=== PATIENT | female | born 1975 | race African-American/Black ===

== ENCOUNTER 2020-05-06 16:04 | Emergency (ER) | payer OTHER, SELFPAY ==
--- NOTE | 2020-05-06 | XR_ITS ---
EXAMINATION: XR KNEE, RIGHT CLINICAL INFORMATION: History knee while going up stairs. COMPARISON: None TECHNIQUE: Four views of the right knee. FINDINGS: No displaced fracture. Alignment is preserved. Some bony spurring at the tibial tuberosity. There is a small joint effusion. XR/XR knee RT 4V IMPRESSION: Small joint effusion. No acute fracture.
[2020-05-06 16:25] VITALS: BP 121/84; PULSE 80; RESP 18; TEMP 36.4; O2SAT 100; BMI 38.6
--- NOTE | 2020-05-06 17:55 | ED.LOWEXIN ---
HPI - Extremity Injury (Lower) General Chief Complaint: Extremity Injury, Lower Stated Complaint: Knee pain Time Seen by Provider: 05/06/20 17:55 History of Present Illness HPI Narrative: Patient complains of right knee pain after falling and twisting and hitting her knee 2 weeks ago and it is still very painful to walk on and she has difficulty getting up and down from a chair, no fever no chills no numbness no weakness no tingling, pain is mild at rest and moderate with ambulation Related Data Previous Rx's Medication Instructions Recorded ibuprofen 600 mg PO Q6H PRN #20 tab 05/06/20 Allergies Allergy/AdvReac Type Severity Reaction Status Date / Time No Known Allergies Allergy Verified 05/06/20 16:24 [No Known Allergies*] Review of Systems Review of Systems: There is no numbness no weakness no tingling no laceration no skin rash no head injury no neck pain no dizziness no weakness no fever no chills Yes all other systems are reviewed and are negative [facility] Past Medical History Medical History (Updated 05/06/20 @ 19:27 by ALEYDA Lea) Asthma Social History Social History Advance Directives: No Advance Directives Information Provided: No Physical Exam Vital Signs: Vital Signs: Last Vital Signs Temp 97.6 F 05/06/20 16:25 Pulse 80 05/06/20 16:25 Resp 18 05/06/20 16:25 BP 121/84 05/06/20 16:25 Pulse Ox 100 05/06/20 16:25 Body Mass Index 38.6 Normocephalic, atraumatic Neck is supple nontender Respiratory no distress Right knee is mildly swollen, no obvious effusion, it flexes almost to 90 degrees extends to 180, the patient can do a straight leg raise, no evidence of injury to patellar or quadriceps tendon, it is not red or warm, the skin is intact and neurovascular intact distal Skin no rashes Course Course Course Narrative: Right knee x-ray showed a small effusion per Radiology report and no acute fracture Patient is discharged to follow-up with orthopedics Discharge Plan Discharge Clinical Impression: Right knee sprain Qualifiers: Encounter type: initial encounter Involved ligament of knee: unspecified ligament Qualified Code(s): S83.91XA - Sprain of unspecified site of right knee, initial encounter Patient Disposition: Home, Self-Care Instructions: Knee Sprain (ED) Additional Instructions: No broken bone was seen on the x-ray Follow with orthopedist for further evaluation Prescriptions: New ibuprofen 600 mg tablet 600 mg PO Q6H PRN (Reason: pain) Qty: 20 RF: 0 Referrals: Mario Miranda MD [Physician] - 1 week (Right knee pain and swelling for 2 weeks after injury) Interventions: ED Discharge Assessment Last Done: 05/06/20 19:37 Discharge Date/Time: 05/06/20 19:38
== END 2020-05-06 19:38 | disposition home or self-care (01) ==
PROVIDERS: Emergency Provider Internal Medicine; PCP Registered Nurse
DX: S83.91XA Sprain of unspecified site of right knee, initial encounter (principal); M25.561 Pain in right knee; X50.1XXA Overexertion from prolonged static or awkward postures, initial encounter; Y93.01 Activity, walking, marching and hiking; Y92.9 Unspecified place or not applicable; Y99.9 Unspecified external cause status
CPT/HCPCS: 73564; 99283

== ENCOUNTER → 2020-05-21 13:17 | Outpatient (BNVA) | payer MEDICAID, OTHER, SELFPAY | PROVIDERS: Visit Provider Physician Assistant | DX: M22.2X9 Patellofemoral disorders, unspecified knee (principal) | CPT/HCPCS: 99202 ==

== ENCOUNTER 2020-06-04 20:39 | Emergency (ER) | payer MEDICAID, OTHER, SELFPAY ==
--- NOTE | 2020-06-04 | XR_ITS ---
EXAMINATION: XR CHEST CLINICAL INFORMATION: Wheezing COMPARISON: 08/03/2019 TECHNIQUE: Frontal view of the chest was obtained. FINDINGS: No significant abnormality is noted involving the heart, lungs, mediastinum, bony thorax or soft tissues. XR/XR chest 1V IMPRESSION: No acute intrathoracic disease.
[2020-06-04 21:04] VITALS: BP 144/81; PULSE 81; RESP 18; TEMP 36.6; O2SAT 99; BMI 38.6
--- NOTE | 2020-06-04 21:57 | ED.ASTHMA ---
HPI - Asthma General Chief Complaint: Asthma Stated Complaint: ASTHMA Time Seen by Provider: 06/04/20 21:50 Source: patient Mode of arrival: ambulatory Limitations: no limitations History of Present Illness HPI Narrative: Patient comes to the emergency room complaining of 1 week of asthma exacerbation. Patient denies fever, no chills, no cough. Patient states she ran out of her inhaler a few months ago, has not used any steroids or antibiotics. At this time, she does not feel significantly short of breath MD complaint: wheezing Related Data Previous Rx's Medication Instructions Recorded ibuprofen 600 mg PO Q6H PRN #20 tab 05/06/20 naproxen 500 mg tablet 500 mg PO BID 30 Days #60 tab 05/21/20 leg brace #1 ea 05/22/20 albuterol sulfate 2 puff INHALATION Q4-6H PRN #18 g 06/04/20 prednisone 50 mg PO DAILY #4 tab 06/04/20 Allergies Allergy/AdvReac Type Severity Reaction Status Date / Time No Known Allergies Allergy Verified 06/04/20 22:01 [No Known Allergies*] Review of Systems Review of Systems: Constitutional : No Weight loss, No Fever, No Chills, No Night Sweats, No Fatigue, No Malaise ENT/Mouth : No Hearing loss, No Ear Pain, No Nasal Congestion, No Sinus Pain, No Hoarseness, No sore throat, No Rhinorrhea, No Swallowing Difficulty Eyes: No Eye Pain, No Swelling, No Redness, No Foreign Body, No Discharge, No Vision Changes Cardiovascular : No Chest Pain, No SOB, No Dyspnea on Exertion, No Orthopnea, No Edema, No Palpitations Respiratory : No Cough, No Sputum, complaining of wheezing, very mild dyspnea occasionally but not this time Gastrointestinal : No Nausea, No Vomiting, No Diarrhea, No Constipation, No abdominal Pain, No Hematochezia, No Melena Genitourinary : no irregular bleeding, No Dysuria, No Urinary Frequency, No Hematuria, No Urinary Incontinence, No Urgency, No Flank Pain, No Urinary Flow Changes, No Hesitancy Musculoskeletal : No joint pain, No Myalgias, No Joint Swelling Skin : No Skin Lesions, No rash Neuro : No Weakness, No Numbness, No Paresthesias, No Loss of Consciousness, No Dizziness, No Headache Psych : No Anxiety/Panic, No Depression, No SI/HI/AH/VH, No Social Issues, Heme/Lymph: No Bruising, No Bleeding,No Lymphadenopathy Endocrine : No Polyuria, No Polydipsia, No Temperature Intolerance [facility] Past Medical History Medical History Asthma Social History Social History (Updated 05/21/20 @ 13:54 by David Payan PA-C) Alcohol intake: never Smoking Status: Never smoker Advance Directives: No Current occupational status: employed 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 Oriented X3. No acute distress. Eyes: Pupils equal, round and reactive to light. ENT: Pharynx normal. Neck: Normal inspection. Neck supple. No lymph nodes noted. No crepitus CVS: Normal heart rate and rhythm. Pulses normal. Normal S1 and S2 Respiratory: No respiratory distress. Very mild occasional wheeze in the right lung, not on the left, good air movement Abdomen: Soft and nontender. No rigidity. No distention. good BS x4 Skin: Skin warm and dry. Normal skin color. Normal skin turgor. Extremities: No lower extremity edema. No lower extremity edema. No Lacerations. No Rash Neuro: Oriented X 3. No motor deficit. No sensory deficit. Moving all extermities. No slurred speech. Course Course Course Narrative: I offered a nebulization treatment to the patient, patient declined, states that she will except the prednisone. Patient requesting a prescription for inhaler Discharge Plan Discharge Clinical Impression: Asthma Qualifiers: Asthma severity: unspecified severity Asthma persistence: unspecified Asthma complication type: uncomplicated Qualified Code(s): J45.909 - Unspecified asthma, uncomplicated Patient Disposition: Home, Self-Care Instructions: Asthma (ED) Additional Instructions: Please follow-up with your primary care physician tomorrow. If you have any worsening or new symptoms, please return to the emergency room or call 911 Prescriptions: New albuterol sulfate 90 mcg/actuation HFA aerosol inhaler 2 puff inhalation Q4-6H PRN (Reason: shortness of breath or wheezing) Qty: 18 RF: 0 prednisone 50 mg tablet 50 mg PO DAILY Qty: 4 RF: 0 No Action ibuprofen 600 mg tablet 600 mg PO Q6H PRN (Reason: pain) Qty: 20 RF: 0 naproxen 500 mg tablet 500 mg PO BID 30 Days Qty: 60 RF: 3 (DME) Knee Support Brace Misc See Rx Instructions .MEDSUPPLY Qty: 1 RF: 0 Stand Alone Forms: Work/School Release
[2020-06-04] MEDS: predniSONE 20 MG TABLET 60 MG PO (22:06)
== END 2020-06-04 22:14 | disposition home or self-care (01) ==
PROVIDERS: Emergency Provider Emergency Medicine
DX: J45.909 Unspecified asthma, uncomplicated (principal); Z79.899 Other long term (current) drug therapy
CPT/HCPCS: 71045; 99283; 99284

== ENCOUNTER 2020-08-27 09:02 | Outpatient (REF) | payer MEDICAID, OTHER, SELFPAY | END 2020-08-27 09:03 | disposition home or self-care (01) | LOC: HO.LAB 09:02 | PROVIDERS: Visit Provider Internal Medicine | DX: Z20.822 Contact with and (suspected) exposure to COVID-19 (principal) | CPT/HCPCS: 36415; C9803; U0003; U0005 ==

== ENCOUNTER 2021-02-19 08:53 | Outpatient (REF) | payer MEDICAID, OTHER, SELFPAY | END 2021-02-19 08:54 | disposition home or self-care (01) | LOC: HO.LAB 08:53 | PROVIDERS: Visit Provider Internal Medicine | DX: Z20.822 Contact with and (suspected) exposure to COVID-19 (principal) | CPT/HCPCS: C9803; U0003; U0005 ==

== ENCOUNTER 2021-04-09 12:48 | Outpatient (REF) | payer MEDICAID, SELFPAY ==
--- NOTE | ~2021-04-09 | US_ITS ---
EXAMINATION: US DIAGNOSTIC ULTRASOUND BREAST, RIGHT CLINICAL INFORMATION: Right breast lump/pain 11:00 position. COMPARISON: Mammography of same day as well as studies dating back to November 25, 2016. TECHNIQUE: Ultrasound of the breast is performed with real-time bateman scale imaging and color Doppler. FINDINGS: There is no focal suspicious finding. There is no solid mass, architectural abnormality, duct ectasia, or edema in the soft tissue planes. Results are discussed with the patient at time of visit. US/US breast RT limited IMPRESSION: No ultrasound findings to suggest malignancy. ASSESSMENT: BI-RADS 1: Negative RECOMMENDATION: Routine annual mammography screening due in 12 months. This patient's information was entered into a reminder system with a target due date for their next mammogram.
--- NOTE | ~2021-04-09 | MM_ITS ---
EXAMINATION: MM DIAGNOSTIC DIGITAL BREAST TOMOSYNTHESIS, BILATERAL Right breast ultrasound CLINICAL INFORMATION: Right breast pain The lifetime risk of breast cancer based on the Tyrer-Cuzick Model is 7%. COMPARISON: Mammography: May 26, 2019 and studies dating back to November 25, 2016 TECHNIQUE: Digital breast tomosynthesis is performed in both the craniocaudal and mediolateral oblique views along with computer-aided detection (CAD). Synthesized 2D images are generated from the tomosynthesis. Targeted right breast ultrasound FINDINGS: The breasts are almost entirely fatty (ACR BI-RADS breast composition Category a). There are no significant masses, abnormal calcifications, or other abnormalities. Since previous study the enlarging right breast mass about the lateral aspect was removed. No abnormal cystic or solid mass or region of abnormal distal sound shadowing was appreciated in region of lump/breast pain Results are discussed with the patient at time of visit. MM/MM tomosynthesis diagnostic BI IMPRESSION: No specific mammographic or ultrasound findings to suggest malignancy. ASSESSMENT: BI-RADS 1: Negative RECOMMENDATION: Routine annual mammography screening due in 12 months. This patient's information was entered into a reminder system with a target due date for their next mammogram.
== END 2021-04-09 12:49 | disposition home or self-care (01) ==
LOC: HO.MAMMO 12:48
PROVIDERS: Visit Provider Nurse Practitioner Primary Care
DX: N64.4 Mastodynia (principal)
CPT/HCPCS: 76642; 77062; 77066

== ENCOUNTER 2021-07-05 21:24 | Emergency (ER) | payer MEDICAID, SELFPAY ==
[2021-07-05 21:38] VITALS: BP 183/98; PULSE 87; RESP 18; TEMP 37.1; O2SAT 99; BMI 38.2
[2021-07-05 21:55] LABS: MANUAL DIFF FLAG NO
[2021-07-05 21:57] LABS: Basophils Percent Auto 0.5 % (0-2); Eosinophils Absolute Auto 0.3 X10*3/uL (0.0-0.4); Eosinophils Percent Auto 4.3 % (0-4); Hematocrit 35.8 % (37.0-47.0); Hemoglobin 11.4 g/dl (12.0-16.0); Imm Gran Abs Auto 0.01 X10*3/uL (0.00-0.03); Imm Gran Pct Auto 0.2 % (0.0-0.4); Lymphocytes Absolute Auto 2.4 X10*3/uL (1.2-4.9); Lymphocytes Percent Auto 37.5 % (20-40); Mean Corpuscular HGB Conc 31.8 g/dl (31.0-35.0); Mean Corpuscular Hemoglobin 26.1 pg (27.0-33.0); Mean Corpuscular Volume 82.1 fL (80.0-98.0); Mean Platelet Volume 10.3 fL (9.4-12.3); Monocytes Absolute Auto 0.7 X10*3/uL (0.1-1.2); Monocytes Percent Auto 10.9 % (2-11); Neutrophils Percent Auto 46.6 % (45-73); Platelet Count 317 X10*3/uL (160-400); Red Blood Count 4.36 X10*6/uL (4.20-5.50); Red Cell Distribution Width 16.3 % (11.0-16.0); White Blood Count 6.5 X10*3/uL (4.8-10.8)
[2021-07-05 22:18] LABS: Anion Gap 12 (12-20); Blood Urea Nitrogen 11 mg/dL (9-16); Calcium 9.1 mg/dL (8.4-10.2); Carbon Dioxide 26 mmol/L (22-29); Chloride 107 mmol/L (96-108); Creatinine Clr Calc Pharmacy 101.8; Estimated Glomerular Filt Rate > 60; Glucose Random 97 mg/dL (60-115); Potassium 3.8 mmol/L (3.3-5.1); Sodium 141 mmol/L (135-145)
[2021-07-05 22:19] LABS: COVID-19 Test Negative (Negative)
--- NOTE | 2021-07-05 23:50 | ED_ITS ---
HPI - General Adult General Chief complaint: General Medical Stated complaint: passed out around 1900 Time Seen by Provider: 07/05/21 23:50 Source: patient Mode of arrival: ambulatory History of Present Illness HPI narrative: This is a 46-year-old female who presents without any significant past medical history other than asthma and states that this evening at approximately 7:00 p.m. she had an episode of complete loss of vision in both eyes, this was painless in nature and was not associated with any dizziness, headache, nausea, diaphoresis, shortness of breath, chest pain/palpitations, changes in hearing/speech and she denies any numbness/tingling/weakness in any of her extremities. She denies any prodrome of recent fevers, chills, new cough or sore throat, recent travel, night sweats, unexplained weight loss. Related Data Previous Rx's Medication Instructions Recorded ibuprofen 600 mg tablet 600 mg PO Q6H PRN #20 tab 05/06/20 naproxen 500 mg tablet 500 mg PO BID 30 Days #60 tab 05/21/20 leg brace (Knee Support Brace) #1 ea 05/22/20 albuterol sulfate 90 mcg/actuation 2 puff INHALATION Q4-6H PRN #18 g 06/04/20 aerosol inhaler prednisone 50 mg tablet 50 mg PO DAILY #4 tab 06/04/20 Allergies Allergy/AdvReac Type Severity Reaction Status Date / Time No Known Allergies Allergy Verified 07/05/21 21:38 [No Known Allergies*] Review of Systems Review of Systems: Pertinent positives and negatives as stated in HPI 10 point review of systems otherwise negative. 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 GENERAL: Well developed, well nourished, in no acute distress. HEAD: Normocephalic/atraumatic EYES: PERRLA, EOMI intact without pain, no nystagmus; visual acuity without abnormality EARS: Ext canals without abnormality, TMs non-bulging and non-erythematous NOSE: Nares patent bilateral OROPHARYNX: no oral lesions noted, posterior pharynx clear NECK: Supple, no adenopathy LUNGS: Normal breath sounds with trace wheezing, no tachypnea No adventitious sounds or accessory muscle use. SpO2<98> CARDIOVASCULAR: Regular rate and rhythm without noted murmurs, no JVD or lower extremity edema. ABDOMEN: Soft, non-tender, non-distended with bowel sounds. MUSCULOSKELETAL: No tenderness, deformities, or effusions noted on gross inspection. EXTREMITIES: No cyanosis, clubbing or edema. SKIN: Inspection of the skin reveals no rashes NEUROLOGIC: Alert and oriented x 4. Strength and sensation to light touch were grossly intact x 4. Course Course Course Narrative: 46-year-old female with history and clinical presentation of transient bilateral visual loss without prior symptoms to better explain and not associated with any focal deficits. Patient has minimal past medical history other than asthma. Review of all investigations without acute findings when compared to prior. There is no evidence to suggest thyroid involvement and this is inconsistent with a pituitary lesion, inconsistent with venous thrombosis. All results were discussed with the patient bedside and she was strongly encouraged to follow up with the primary care provider on Wednesday morning to undergo re-evaluation further investigation/outpatient follow-up. It was noted the patient was hypertensive on arrival and does not carry the diagnosis of hypertension. Medical Decision Making Lab Data Result diagrams: 07/05/21 21:52 07/05/21 21:52 Labs: Lab Results 07/05/21 07/05/21 07/05/21 Range/Units 21:49 21:52 21:52 WBC 6.5 (4.8-10.8) X10*3/uL RBC 4.36 (4.20-5.50) X10*6/uL Hgb 11.4 L (12.0-16.0) g/dl Hct 35.8 L (37.0-47.0) % MCV 82.1 (80.0-98.0) fL MCH 26.1 L (27.0-33.0) pg MCHC 31.8 (31.0-35.0) g/dl RDW 16.3 H (11.0-16.0) % Plt Count 317 (160-400) X10*3/uL MPV 10.3 (9.4-12.3) fL Immature Gran % (Auto) 0.2 (0.0-0.4) % Neut % (Auto) 46.6 (45-73) % Lymph % (Auto) 37.5 (20-40) % Miner % (Auto) 10.9 (2-11) % Eos % (Auto) 4.3 H (0-4) % Baso % (Auto) 0.5 (0-2) % Lymph # (Auto) 2.4 (1.2-4.9) X10*3/uL Miner # (Auto) 0.7 (0.1-1.2) X10*3/uL Eos # (Auto) 0.3 (0.0-0.4) X10*3/uL Baso # (Auto) 0.0 (0.0-0.2) X10*3/uL Abs Immat Gran (auto) 0.01 (0.00-0.03) X10*3/uL Absolute Neuts (auto) 3.0 (2.0-8.3) x10*3/uL Absolute Nucleated RBC 0.000 (0.0-0.012) X10*3/uL Nucleated RBC % (auto) 0.0 (0.0-0.2) /100WBC Sodium 141 (135-145) mmol/L Potassium 3.8 (3.3-5.1) mmol/L Chloride 107 (96-108) mmol/L Carbon Dioxide 26 (22-29) mmol/L Anion Gap 12 (12-20) BUN 11 (9-16) mg/dL Creatinine 0.78 (0.5-1.4) mg/dL Estim Creat Clear Calc 101.8 Estimated GFR > 60 Random Glucose 97 (60-115) mg/dL Calcium 9.1 (8.4-10.2) mg/dL TSH 1.81 (0.32-4.0) uIU/mL COVID-19 ([place]) Negative (Negative) COVID-19 Clin Com See Note Discharge Plan Discharge Clinical Impression: Visual disturbance, Elevated blood pressure reading Patient Disposition: Home, Self-Care Instructions: Hypertension (ED), DASH Eating Plan (ED) Additional Instructions: 1. Please call the office of your primary care provider on Wednesday morning to set up an appointment for re-evaluation and further outpatient management to further investigate your visual disturbance. 2. Also recommend that you follow-up with an eye doctor within the next 1-2 days for re-evaluation. However, it is noted that your sight is very good. Return to the ER for any recurrence or acute worsening of your symptoms. Prescriptions: No Action ibuprofen 600 mg tablet 600 mg PO Q6H PRN (Reason: pain) Qty: 20 RF: 0 albuterol sulfate 90 mcg/actuation HFA aerosol inhaler 2 puff inhalation Q4-6H PRN (Reason: shortness of breath or wheezing) Qty: 18 RF: 0 prednisone 50 mg tablet 50 mg PO DAILY Qty: 4 RF: 0 naproxen 500 mg tablet 500 mg PO BID 30 Days Qty: 60 RF: 3 (DME) Knee Support Brace Misc See Rx Instructions .MEDSUPPLY Qty: 1 RF: 0 Referrals: [facility] [Primary Care Provider] - 2 days
[2021-07-06] VITALS: BP 135/80; PULSE 78; RESP 18; TEMP 36.9; O2SAT 98
[2021-07-06 00:25] LABS: Thyroid Stimulating Hormone 1.81 uIU/mL (0.32-4.0)
[2021-07-06 00:31] VITALS: BP 145/83; PULSE 76
[2021-07-06 00:32] VITALS: BP 156/79; PULSE 82
[2021-07-06 00:33] VITALS: BP 155/92; PULSE 86
--- NOTE | 2021-07-06 01:28 | PC.NURSE ---
pt ambulated around the room with sat probe on. sat remained at 96% with 2 laps around, hr 90 to low 100's. pt denies chest pain, no visual difficulties. slight headache still 6/10
== END 2021-07-06 02:00 | disposition home or self-care (01) ==
PROVIDERS: Emergency Provider Student in an Organized Health Care Education/Training Program
DX: H53.8 Other visual disturbances (principal); R03.0 Elevated blood-pressure reading, without diagnosis of hypertension; Z20.822 Contact with and (suspected) exposure to COVID-19
CPT/HCPCS: 80048; 84443; 85025; 87635; 99284

== ENCOUNTER 2022-04-10 09:21 | Outpatient (REF) | payer MEDICAID, SELFPAY ==
--- NOTE | ~2022-04-10 | MM_ITS ---
EXAMINATION: MM SCREENING DIGITAL BREAST TOMOSYNTHESIS, BILATERAL CLINICAL INFORMATION: Screening. Asymptomatic. The lifetime risk of breast cancer based on the Tyrer-Cuzick Model is 7%. COMPARISON: Mammography: 04/09/2021, 05/26/2019, 01/20/2018 TECHNIQUE: Digital breast tomosynthesis is performed in both the craniocaudal and mediolateral oblique views along with computer-aided detection (CAD). Synthesized 2D images are generated from the tomosynthesis. Additional views are provided: Bilateral CC, bilateral MLO x2. FINDINGS: The breasts are almost entirely fatty (ACR BI-RADS breast composition Category a). Right breast mass with clip marker noted in 2019 is no longer demonstrated, previously excised. There is no recurrent mass. Parenchymal pattern is similar to prior exam. Background stromal and fibroglandular densities are stable. There is no developing density or interval mass or architectural abnormality in either breast. No abnormal calcifications. The axilla and skin contours are unremarkable. MM/MM tomosynthesis screening BI IMPRESSION: No mammographic evidence of malignancy. ASSESSMENT: BI-RADS 1: Negative RECOMMENDATION: Routine annual mammography screening. This patient's information was entered into a reminder system with a target due date for their next mammogram.
== END 2022-04-10 09:22 | disposition home or self-care (01) ==
LOC: HO.MAMMO 09:21
PROVIDERS: Visit Provider Nurse Practitioner Primary Care
DX: Z12.31 Encounter for screening mammogram for malignant neoplasm of breast (principal)
CPT/HCPCS: 77063; 77067

== ENCOUNTER 2023-04-16 09:08 | Outpatient (REF) | payer MEDICAID, SELFPAY | END 2023-04-16 09:09 | disposition home or self-care (01) | LOC: HO.MAMMO 09:08 | PROVIDERS: Visit Provider Nurse Practitioner Primary Care | DX: Z12.31 Encounter for screening mammogram for malignant neoplasm of breast (principal) | CPT/HCPCS: 77063; 77067 ==

== ENCOUNTER → 2023-04-16 09:30 | Outpatient (BNV) | payer MEDICAID, SELFPAY | PROVIDERS: Visit Provider Radiology Diagnostic Radiology | DX: Z12.31 Encounter for screening mammogram for malignant neoplasm of breast (principal) | CPT/HCPCS: 77063; 77067 ==

== ENCOUNTER 2023-05-17 09:56 | Outpatient (REF) | payer MEDICAID, SELFPAY ==
--- NOTE | ~2023-05-17 | XR_ITS ---
Examination: Left and right ankles CLINICAL INFORMATION: Bilateral ankle pain and swelling COMPARISON: None TECHNIQUE: AP lateral and oblique views of left and right ankles performed. FINDINGS: Bilateral ankles reveals no evidence of fracture, changes of osteoarthritis, dislocation. Ankle mortise are maintained bilaterally. There is no soft tissue edema. XR/XR ankle RT min 3V IMPRESSION: No evidence of fracture or dislocation. Unremarkable left and right ankles.
--- NOTE | ~2023-05-17 | XR_ITS ---
Examination: Left and right ankles CLINICAL INFORMATION: Bilateral ankle pain and swelling COMPARISON: None TECHNIQUE: AP lateral and oblique views of left and right ankles performed. FINDINGS: Bilateral ankles reveals no evidence of fracture, changes of osteoarthritis, dislocation. Ankle mortise are maintained bilaterally. There is no soft tissue edema. XR/XR ankle LT min 3V IMPRESSION: No evidence of fracture or dislocation. Unremarkable left and right ankles.
--- NOTE | ~2023-05-17 | XR_ITS ---
EXAMINATION: XR KNEE, LEFT CLINICAL INFORMATION: Pain COMPARISON: None available. TECHNIQUE: Four views of the left knee. FINDINGS: No fracture or joint effusion. Alignment is anatomic. Joint spaces are maintained. No abnormal soft tissue calcification. XR/XR knee LT 2V IMPRESSION: Normal left knee.
== END 2023-05-17 09:57 | disposition home or self-care (01) ==
LOC: HO.HHCX 09:56
PROVIDERS: Visit Provider Nurse Practitioner Primary Care
DX: M25.571 Pain in right ankle and joints of right foot (principal); M25.572 Pain in left ankle and joints of left foot; R60.0 Localized edema; M25.562 Pain in left knee
CPT/HCPCS: 36415; 73560; 73610; 80048; 82043; 82570

== ENCOUNTER 2023-05-17 10:25 | Outpatient (REF) | payer MEDICAID, SELFPAY ==
[2023-05-17 12:11] LABS: Anion Gap 10 (12-20); Blood Urea Nitrogen 10 mg/dL (9-16); Calcium 9.1 mg/dL (8.4-10.2); Carbon Dioxide 23 mmol/L (22-29); Chloride 108 mmol/L (96-108); Estimated Glomerular Filt Rate > 60; Glucose Random 85 mg/dL (60-115); Sodium 137 mmol/L (135-145)
[2023-05-17 12:19] LABS: Creatinine Urine 234.57 mg/dL; Microalbum/Creatinine Ratio Ur 11.9 ug/mg cr (<30)
== END 2023-05-17 10:26 | disposition home or self-care (01) ==
LOC: HO.HHCL 10:25
PROVIDERS: Visit Provider Nurse Practitioner Primary Care
DX: I10 Essential (primary) hypertension (principal)
CPT/HCPCS: 36415; 80048; 82043; 82570

== ENCOUNTER 2023-10-20 15:53 | Outpatient (REF) | payer MEDICAID, SELFPAY ==
[2023-10-20 18:27] LABS: Anion Gap 15 (12-20); Blood Urea Nitrogen 11 mg/dL (9-16); Calcium 9.6 mg/dL (8.4-10.2); Carbon Dioxide 24 mmol/L (22-29); Chloride 104 mmol/L (96-108); Estimated Glomerular Filt Rate > 60; Glucose Random 82 mg/dL (60-115); Potassium 3.9 mmol/L (3.3-5.1); Sodium 139 mmol/L (135-145)
[2023-10-20 18:41] LABS: TSH reflex Free T4 1.04 uIU/mL (0.32-4.0)
[2023-10-20 21:25] LABS: Creatinine Urine 72.47 mg/dL; Microalbumin Urine < 5.0 mg/L
== END 2023-10-20 15:54 | disposition home or self-care (01) ==
LOC: HO.HHCL 15:53
PROVIDERS: Visit Provider Family Medicine
DX: I10 Essential (primary) hypertension (principal)
CPT/HCPCS: 36415; 80048; 82043; 82570; 84443

== ENCOUNTER 2023-12-22 06:24 | Outpatient (REF) | payer MEDICAID, SELFPAY ==
--- NOTE | ~2023-12-22 | XR_ITS ---
EXAMINATION: XR KNEE, RIGHT CLINICAL INFORMATION: Primary osteoarthritis right knee. COMPARISON: 05/17/2023, 05/06/2020. TECHNIQUE: AP standing view of bilateral knees and two views of the right knee. FINDINGS: RIGHT KNEE: Trace joint effusion. Small posterior patellar osteophytes. Moderate narrowing of the medial compartment with mild narrowing of the lateral compartment. Tiny medial and lateral marginal osteophytes. LEFT KNEE: Moderate narrowing of the compartment with mild narrowing of the lateral compartment. Tiny marginal osteophytes. Ossific/calcific focus projecting in the left intercondylar region not identified on prior exam, possibly a loose body. XR/XR knee RT 3V IMPRESSION: 1. Moderate degenerative changes bilateral knees. 2. Ossific/calcific focus projecting in the left intercondylar region not identified on prior exam, possibly a loose body.
== END 2023-12-22 06:25 | disposition home or self-care (01) ==
LOC: HO.HOSX 06:24
PROVIDERS: Visit Provider Physician Assistant
DX: M17.0 Bilateral primary osteoarthritis of knee (principal)
CPT/HCPCS: 73562; 99212

== ENCOUNTER 2023-12-22 13:41 | Outpatient (AMB) | payer MEDICAID, SELFPAY ==
--- NOTE | 2023-12-22 13:46 | A.OFFVIS_ITS ---
Vital Signs 12/22/23 14:04 Height 5 ft 4 in Weight 222 lb BMI 38.1 Intake Visit Reasons: N/P RT knee PF syndrome/ last seen [id number] Intake Note: Vilma is a 48 year old Scottish Creole speaking female who presents today as a new patient for an evaluation of bilateral knee pain. Patient reports knee pain has been present for a year with her left being the worse. No previous tx. States her pain is located around her knee. Finds no relief with ibuprofen. Denies numbness or tingling. She takes mediation for high blood pressure however she does not recall the name of the medication. 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 She states she has pain in her bilateral knees that is worse on the left knee. Her pain is aggravated with sitting, lying down and getting up from a sitting position where she has to hold on to something for support. She denies any numbness or tingling. She finds no relief with ibuprofen. She has not had any previous treatment. 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 Moderate sized joint effusion on the left knee. Tenderness along the medial and lateral joint line. Full ROM with crepitus. Negative Mario Alberto?s. No ligamentous laxity. NVI. ? Results Reviewed Results Reviewed: Xrays were obtained in the office today and personally reviewed by me of ibrahima knee show mild oa Assessment & Plan Assessment & Plan (1) Osteoarthritis of knees, bilateral: Code(s): M17.0 - Bilateral primary osteoarthritis of knee Category: Medical Plan We discussed options today which include aspiration and injection which she declined at this time. She will proceed with compression of the knee with aniya wrap and anti-inflammatories which was sent to her pharmacy. She will also begin a course of physical therapy. If she wishes to proceed with aspiration and injection, she will contact the office, otherwise follow-up as needed. Orders: Orders XR knee RT 3V 12/22/23 M17.11 - Unilateral primary osteoarthritis, right knee Patient Instructions: Scribed for David Payan PA-C, by Ivan Rivera medical malpractice paralegal, on 12/22/2023 at 2:00 PM EST.? I, David Payan PA-C, have personally reviewed and agree with the information entered by the scribe. Coding Level of Care Code New Pt Level 3 (52730) Diagnoses Osteoarthritis of knees, bilateral M17.0
[2023-12-22 14:04] VITALS: BMI 38.1
== END 2023-12-22 14:29 | disposition home or self-care (01) ==
PROVIDERS: Visit Provider Physician Assistant
DX: M17.0 Bilateral primary osteoarthritis of knee (principal)
CPT/HCPCS: 99203

== ENCOUNTER 2024-03-28 19:03 | Emergency (ER) | payer MEDICAID, SELFPAY ==
--- NOTE | ~2024-03-28 | XR_ITS ---
EXAMINATION: XR CHEST CLINICAL INFORMATION: Shortness of breath. COMPARISON: Chest radiograph 06/04/2020. TECHNIQUE: 2 views of the chest were obtained. FINDINGS: Stable appearance of the cardiomediastinal silhouette. Mild right greater than left bibasilar streaky opacities. No dense consolidation, pleural effusion or pneumothorax. No acute osseous findings. XR/XR chest 2V IMPRESSION: Right greater than left streaky opacities most suggestive of subsegmental atelectasis, less likely infectious/inflammatory. Electronically signed by: Emelina Stevens MD 03/28/2024 09:34 PM EDT
[2024-03-28 20:16] VITALS: BP 151/88; PULSE 72; RESP 22; TEMP 37.2; O2SAT 100; BMI 38.0
--- NOTE | 2024-03-28 20:16 | ED.SOB ---
HPI - SOB/Dyspnea General Chief Complaint: Asthma Stated Complaint: Asthma Time Seen by Provider: 03/29/24 00:16 Source: patient and family Mode of arrival: ambulatory Limitations: no limitations History of Present Illness ED Provider: Dr. Haas HPI Narrative: patient with three days of increasing wheezing, she denies fever, sputum production. She blames he wheezing on the weather change MD elicited complaint: shortness of breath and cough Pertinent past history: asthma Onset (ago): day(s) Related Data Previous Rx's ?Medication ?Instructions ?Recorded ibuprofen 600 mg tablet 600 mg PO Q6H PRN pain #20 tabs 05/06/20 naproxen 500 mg tablet 500 mg PO BID 30 days #60 tabs 05/21/20 leg brace (Knee Support Brace) #1 ea 05/22/20 albuterol sulfate 90 mcg/actuation 2 puff inhalation Q4-6H PRN 06/04/20 aerosol inhaler shortness of breath or wheezing #18 grams prednisone 50 mg tablet 50 mg PO DAILY #4 tabs 06/04/20 Allergies Allergy/AdvReac Type Severity Reaction Status Date / Time No Known Allergies Allergy Verified 03/28/24 20:18 [No Known Allergies*] Review of Systems Review of Systems: Yes all other systems are reviewed and are negative Neurologic: Denies Sensory deficit (Neuro) [facility] Past Medical History Medical History Asthma Social History Social History Alcohol intake: never Patient Tobacco Use Status: Never used Tobacco Smoked in Last 30 Days: No Use of substances other than those prescribed or required for medical reasons: No Advance Directives: No Advance Directives Information Provided: No Patient : No Current occupational status: employed 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 Physical Exam Vital Signs: Vital Signs: Last Vital Signs Temp 98.3 F 03/28/24 23:47 Pulse 70 03/29/24 01:08 Resp 18 03/29/24 01:08 BP 161/89 H 03/28/24 23:47 Pulse Ox 99 03/28/24 23:47 O2 Del Method Room Air 03/28/24 23:47 BMI result Body Mass Index 38.0 Const: Other: no acute distress Nutritional Appearance: obese Orientation/consciousness: oriented to person and patient oriented x3 Limitations: no limitations HEENT: Head: Yes normal to inspection Ears: external ears normal General nose exam: Normal external nose present Mouth: Normal oral and palatal mucosa present and oropharynx normal Throat: Yes posterior oropharynx normal Eyes: General: appearance normal, both eyes and all related structures Neck: Other: supple Neck: Yes normal visual inspection Chest: Chest palpation & inspection: normal inspection of the chest Resp: Other: slight expiratory wheeze Cardio: Jugular venous distension: no JVD Rate: regular rate Rhythm: regular rhythm Heart sounds: S1 normal heart sound present and S2 normal heart sound present GI: Inspection: Yes normal to inspection Palpation (GI): Soft to palpation, nontender and No hepatosplenomegaly present Auscultation: normal bowel sounds : General: Yes no CVA tenderness Back/Spine/Pelvis: Back: no CVA tenderness Skin: General skin exam: no rashes or lesions noted Neuro: General: oriented to person and patient oriented x3 Cranial nerves: Yes CN's II-XII intact bilaterally Motor exam (neuro): 5/5 motor strength present throughout Sensory Exam: No Sensory deficit (Neuro) Extrem: General: Yes normal to inspection Psych: Appearance: grossly normal Course Course Course Narrative: This is an RME: Additional HPI, ROS, PE not included below will be deferred to primary provider. RME assessment and note performed by: Joya Verma PA-C This is a [id number]-[id number]-nepalese creole speaking female who presents to the ER with complaints of shortness of breath and dry cough x 3 days. No chest pain or SOB. Has been using her albuterol inhaler without relief. Diffuse inspiratory and expiratory wheezes noted throughout all lung fernandes. Plan: Xray, viral swabs Reevaluation(s) Reevaluation #1: Moving good air, slight wheeze, will start prednisone and dc home Time: 02:00 Medications Administered Discontinued Medications Generic Name Dose Route Start Last Admin Trade Name Freq PRN Reason Stop Dose Admin Albuterol/Ipratropium 3 ml 03/29/24 00:54 03/29/24 01:07 Albuterol/Iprat 2.5/0.5mg 3 Ml Ampul.Neb INHALE 03/29/24 00:55 3 ml ONCE ONE Administration Medical Decision Making Differential Diagnosis Differential Diagnoses: The differential diagnosis associated with the presentation includes (pneumonia, flu, covid, rsv, asthma exacerbation) Admission/Observation Consideration of admission/observation: Escalation of care including admission/observation considered (upon arrival admission was considered) Lab Data Labs: Lab Results 03/28/24 Range/Units 20:29 Influenza Type A (PCR) NEGATIVE (Negative) Influenza Type B (PCR) NEGATIVE (Negative) RSV RNA Qual (PCR) NEGATIVE (Negative) SARS-CoV-2 RNA (RT-PCR) NEGATIVE (Negative) Independent Interpretation I performed an independent interpretation of an: Plain X-Ray (CXR: no infiltrate) Independent Historian Clinical information obtained from an independent historian. History obtained from or confirmed by: Spouse Prescription Management I considered prescription management with: Antibiotic (No evidence of infiltrate on the CXR) Discharge Plan Discharge Clinical Impression: Asthma with acute exacerbation Patient Disposition: Home, Self-Care Instructions: Asthma (ED) Prescriptions: No Action ibuprofen 600 mg tablet 600 mg PO Q6H PRN (Reason: pain) Qty: 20 0RF albuterol sulfate 90 mcg/actuation HFA aerosol inhaler 2 puff inhalation Q4-6H PRN (Reason: shortness of breath or wheezing) Qty: 18 0RF prednisone 50 mg tablet 50 mg PO DAILY Qty: 4 0RF naproxen 500 mg tablet 500 mg PO BID 30 Days Qty: 60 3RF (DME) Knee Support Brace Misc See Rx Instructions .MEDSUPPLY Qty: 1 0RF Rx Instructions: reaction knee brace XL/XXL, ledezma Referrals: Phyllis Day, DIRECTOR SURGICAL [Primary Care Provider] - 5 days Print Language: Other
[2024-03-28 21:10] LABS: Influenza A PCR NEGATIVE (Negative); Influenza B PCR NEGATIVE (Negative); Resp Syncy Virus RNA Qual PCR NEGATIVE (Negative); SARS COV2 PCR INHOUSE NEGATIVE (Negative)
[2024-03-28 23:47] VITALS: BP 161/89; PULSE 73; RESP 17; TEMP 36.8; O2SAT 99
[2024-03-29] MEDS: Albuterol/Iprat 2.5/0.5MG 3 ML AMPUL.NEB INHALE (01:07)
[2024-03-29 01:08] VITALS: PULSE 70; RESP 18; O2SAT 97
[2024-03-29 02:02] VITALS: BP 164/92; PULSE 78; RESP 17; TEMP 36.6; O2SAT 99
[2024-03-29] MEDS: predniSONE 20 MG TABLET 60 MG PO (02:09)
[2024-03-29 02:20] VITALS: BP 164/92; PULSE 78; RESP 17; TEMP 36.6; O2SAT 99
== END 2024-03-29 02:21 | disposition home or self-care (01) ==
PROVIDERS: Physician Assistant Medical; Emergency Provider Emergency Medicine; PCP Nurse Practitioner Primary Care
DX: J45.901 Unspecified asthma with (acute) exacerbation (principal); R06.02 Shortness of breath; R05.9 Cough, unspecified; Z79.899 Other long term (current) drug therapy
CPT/HCPCS: 0241U; 71046; 94640; 99284

== ENCOUNTER 2024-04-12 10:34 | Emergency (ER) | payer SELFPAY ==
--- NOTE | ~2024-04-12 | XR_ITS ---
EXAMINATION: XR CHEST CLINICAL INFORMATION: Pneumonia evaluation COMPARISON: Examination of 15 days previous. TECHNIQUE: Frontal view of the chest was obtained. Slight rotation to the left. FINDINGS: No new dominant consolidation. Small linear opacities are again observed toward the base suggestive of atelectatic change. No enlarging pleural effusions. The hilar regions and pulmonary vascularity appear to be stable. No evidence for pneumothorax. XR/XR chest 1V IMPRESSION: No new dominant infiltrates appreciated. Small linear atelectatic changes toward the right base. Electronically signed by: Jose Carlin MD 04/12/2024 01:59 PM EDT
[2024-04-12 11:33] VITALS: BP 135/86; PULSE 111; RESP 18; TEMP 37.2; O2SAT 98; BMI 37.0
--- NOTE | 2024-04-12 11:39 | ECG_ITS ---
Test Reason : sob Blood Pressure : / mmHG Vent. Rate : 102 BPM Atrial Rate : 102 BPM P-R Int : 168 ms QRS Dur : 084 ms QT Int : 326 ms P-R-T Axes : 037 004 014 degrees QTc Int : 424 ms Sinus tachycardia Otherwise normal ECG When compared with ECG of 03-AUG-2019 12:36, Premature atrial complexes are no longer Present Referred By: Robin Sanders Electronically Signed By:DEBORAH JOSEPH
--- NOTE | 2024-04-12 11:40 | ED.GENADULT ---
HPI - General Adult General Chief complaint: Dyspnea Stated complaint: asthma Time Seen by Provider: 04/12/24 12:42 History of Present Illness HPI narrative: Seen by Dr. [place] Related Data Previous Rx's ?Medication ?Instructions ?Recorded ibuprofen 600 mg tablet 600 mg PO Q6H PRN pain #20 tabs 05/06/20 naproxen 500 mg tablet 500 mg PO BID 30 days #60 tabs 05/21/20 leg brace (Knee Support Brace) #1 ea 05/22/20 albuterol sulfate 90 mcg/actuation 2 puff inhalation Q4-6H PRN 06/04/20 aerosol inhaler shortness of breath or wheezing #18 grams prednisone 50 mg tablet 50 mg PO DAILY #4 tabs 06/04/20 prednisone 20 mg tablet 60 mg (3 x 20 mg) PO DAILY #12 tabs 03/29/24 prednisone 20 mg tablet 60 mg (3 x 20 mg) PO DAILY #12 tabs 03/29/24 azithromycin 250 mg tablet See Rx Instructions PO .COMPLEX 04/12/24 upper resp infection #6 tabs prednisone 20 mg tablet 40 mg (2 x 20 mg) PO DAILY #10 tabs 04/12/24 Allergies Allergy/AdvReac Type Severity Reaction Status Date / Time No Known Allergies Allergy Verified 04/12/24 11:36 [No Known Allergies*] [facility] Past Medical History Medical History Asthma Social History Social History Alcohol intake: never Patient Tobacco Use Status: Never used Tobacco Smoked in Last 30 Days: No Use of substances other than those prescribed or required for medical reasons: No Advance Directives: No Patient : No Current occupational status: employed 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 Physical Exam ED Vital Signs: Vital Signs - 24 hr 04/12/24 11:33 04/12/24 11:59 04/12/24 14:36 Temperature 99.0 F Pulse Rate 111 H 111 H 97 Respiratory Rate 18 22 H 23 H Blood Pressure 135/86 Pulse Oximetry 98 Oxygen Delivery Method Room Air 04/12/24 16:24 04/12/24 16:40 04/12/24 16:46 Temperature 99.7 F 99.7 F Pulse Rate 93 93 Respiratory Rate 20 18 Blood Pressure 146/87 H 146/87 H Pulse Oximetry 96 94 96 Oxygen Delivery Method Room Air Room Air BMI result Body Mass Index 37.0 Medications Administered Discontinued Medications Generic Name Dose Route Start Last Admin Trade Name Ovi PRN Reason Stop Dose Admin Albuterol Sulfate 2.5 mg/ 5 mg 04/12/24 14:25 04/12/24 14:35 Albuterol Sulfate 2.5 mg INHALE 04/12/24 14:26 5 mg ONCE ONE Administration Albuterol/Ipratropium 3 ml 04/12/24 14:16 04/12/24 14:31 Albuterol/Iprat 2.5/0.5mg 3 Ml Ampul.Neb INHALE 04/12/24 14:17 Not Given ONCE ONE Albuterol Sulfate 5 mg/ 0 mg 04/12/24 11:52 04/12/24 11:57 Albuterol/Ipratropium 3 ml INHALE 04/12/24 11:53 1 each ONCE ONE Administration Prednisone 40 mg 04/12/24 14:15 04/12/24 14:26 Prednisone 20 Mg Tablet PO 04/12/24 14:16 40 mg ONCE ONE Administration Medical Decision Making Medical Decision Making MDM Narrative: RME: 49 year female history of hypertension presents to ED for shortness of breath and wheezing. Patient states history of asthma. Patient states was seen here last week for similar episodes. Patient states after prednisone finish symptoms return and no improvement with albuterol pump. Patient denies any leg swelling. Exam positive for diffuse wheezing. Albuterol labs EKG SARs strep ordered. Lab Data 04/12/24 12:23 04/12/24 12:23 Labs: Lab Results 04/12/24 Range/Units 12:23 WBC 11.1 H (4.8-10.8) X10*3/uL RBC 4.65 (4.20-5.50) X10*6/uL Hgb 12.0 (12.0-16.0) g/dl Hct 37.0 (37.0-47.0) % MCV 79.6 L (80.0-98.0) fL MCH 25.8 L (27.0-33.0) pg MCHC 32.4 (31.0-35.0) g/dl RDW 16.3 H (11.0-16.0) % Plt Count 335 (160-400) X10*3/uL MPV 10.8 (9.4-12.3) fL Immature Gran % (Auto) 0.3 (0.0-0.4) % Neut % (Auto) 68.4 (45-73) % Lymph % (Auto) 21.2 (20-40) % Gilchrist % (Auto) 7.4 (2-11) % Eos % (Auto) 2.3 (0-4) % Baso % (Auto) 0.4 (0-2) % Lymph # (Auto) 2.4 (1.2-4.9) X10*3/uL Gilchrist # (Auto) 0.8 (0.1-1.2) X10*3/uL Eos # (Auto) 0.3 (0.0-0.4) X10*3/uL Baso # (Auto) 0.0 (0.0-0.2) X10*3/uL Abs Immat Gran (auto) 0.03 (0.00-0.03) X10*3/uL Absolute Neuts (auto) 7.6 (2.0-8.3) x10*3/uL Absolute Nucleated RBC 0.000 (0.0-0.012) X10*3/uL Nucleated RBC % (auto) 0.0 (0.0-0.2) /100WBC PT 12.3 (10.9-12.4) SEC INR 1.1 (0.9-1.1) APTT 31.0 (26.0-36.8) SEC Sodium 139 (135-145) mmol/L Potassium 4.1 (3.3-5.1) mmol/L Chloride 104 (96-108) mmol/L Carbon Dioxide 25 (22-29) mmol/L Anion Gap 14 (12-20) BUN 6 L (9-16) mg/dL Creatinine 0.81 (0.5-1.4) mg/dL Estim Creat Clear Calc 96.6 Estimated GFR > 60 Random Glucose 104 (60-115) mg/dL Calcium 9.4 (8.4-10.2) mg/dL Total Bilirubin 0.5 (0.0-1.0) mg/dL AST 24 (5-31) U/L ALT 21 (0-31) U/L Alkaline Phosphatase 78 (39-117) U/L Troponin I High Sens < 2.7 (<3.5-17.0) ng/L B-Natriuretic Peptide < 10 (<100) pg/mL Total Protein 8.4 H (6.5-8.0) g/dL Albumin 4.0 (3.5-5.0) g/dL Influenza Type A (PCR) NEGATIVE (Negative) Influenza Type B (PCR) NEGATIVE (Negative) RSV RNA Qual (PCR) NEGATIVE (Negative) SARS-CoV-2 RNA (RT-PCR) NEGATIVE (Negative) S. pyogenes GrpA MELBA Negative (Negative) Discharge Plan Discharge Clinical Impression: Asthma with exacerbation Patient Disposition: Home, Self-Care Instructions: Asthma (DC) Prescriptions: New azithromycin 250 mg tablet See Rx Instructions .ROUTE .COMPLEX Qty: 6 0RF Rx Instructions: take 500 mg today (day 1), then 250 mg for 4 days (days 2-5) prednisone 20 mg tablet 40 mg PO DAILY Qty: 10 0RF No Action ibuprofen 600 mg tablet 600 mg PO Q6H PRN (Reason: pain) Qty: 20 0RF albuterol sulfate 90 mcg/actuation HFA aerosol inhaler 2 puff inhalation Q4-6H PRN (Reason: shortness of breath or wheezing) Qty: 18 0RF prednisone 50 mg tablet 50 mg PO DAILY Qty: 4 0RF prednisone 20 mg tablet 60 mg PO DAILY Qty: 12 0RF prednisone 20 mg tablet 60 mg PO DAILY Qty: 12 0RF naproxen 500 mg tablet 500 mg PO BID 30 Days Qty: 60 3RF (DME) Knee Support Brace Misc See Rx Instructions .MEDSUPPLY Qty: 1 0RF Rx Instructions: reaction knee brace XL/XXL, ledezma Referrals: Phyllis Day NP [Primary Care Provider] - 04/14/24 Interventions: ED Discharge Assessment Last Done: 04/12/24 16:46 Discharge Date/Time: 04/12/24 16:46 Print Language: Marie Carmichael
[2024-04-12] MEDS: Albuterol Sulfate 5 MG, Albuterol/Iprat 2.5/0.5MG 3 ML 3 ML INHALE (11:57)
[2024-04-12 11:59] VITALS: PULSE 111; RESP 22; O2SAT 92
[2024-04-12 12:37] LABS: MANUAL DIFF FLAG NO
[2024-04-12 12:41] LABS: Basophils Percent Auto 0.4 % (0-2); Eosinophils Absolute Auto 0.3 X10*3/uL (0.0-0.4); Eosinophils Percent Auto 2.3 % (0-4); Imm Gran Abs Auto 0.03 X10*3/uL (0.00-0.03); Imm Gran Pct Auto 0.3 % (0.0-0.4); Lymphocytes Absolute Auto 2.4 X10*3/uL (1.2-4.9); Lymphocytes Percent Auto 21.2 % (20-40); Mean Corpuscular HGB Conc 32.4 g/dl (31.0-35.0); Mean Corpuscular Hemoglobin 25.8 pg (27.0-33.0); Mean Corpuscular Volume 79.6 fL (80.0-98.0); Mean Platelet Volume 10.8 fL (9.4-12.3); Monocytes Absolute Auto 0.8 X10*3/uL (0.1-1.2); Monocytes Percent Auto 7.4 % (2-11); Neutrophils Absolute Auto 7.6 x10*3/uL (2.0-8.3); Neutrophils Percent Auto 68.4 % (45-73); Platelet Count 335 X10*3/uL (160-400); Red Blood Count 4.65 X10*6/uL (4.20-5.50); Red Cell Distribution Width 16.3 % (11.0-16.0); White Blood Count 11.1 X10*3/uL (4.8-10.8)
[2024-04-12 12:44] LABS: INTERNATIONAL NORM RATIO 1.1 (0.9-1.1); Prothrombin Time 12.3 SEC (10.9-12.4)
[2024-04-12 12:52] LABS: IDNOW Serial# 58CA691E; Strep A Nucleic Acid Negative (Negative)
[2024-04-12 12:59] LABS: Alanine Aminotransferase 21 U/L (0-31); Alkaline Phosphatase 78 U/L (39-117); Anion Gap 14 (12-20); Aspartate Amino Transferase 24 U/L (5-31); Bilirubin Total 0.5 mg/dL (0.0-1.0); Blood Urea Nitrogen 6 mg/dL (9-16); Calcium 9.4 mg/dL (8.4-10.2); Carbon Dioxide 25 mmol/L (22-29); Chloride 104 mmol/L (96-108); Creatinine Clr Calc Pharmacy 96.6; Estimated Glomerular Filt Rate > 60; Glucose Random 104 mg/dL (60-115); Potassium 4.1 mmol/L (3.3-5.1); Sodium 139 mmol/L (135-145); Total Protein 8.4 g/dL (6.5-8.0)
[2024-04-12 13:03] LABS: B Type Natriuretic Peptide < 10 pg/mL (<100)
[2024-04-12 13:10] LABS: Troponin-I High Sensitivity < 2.7 ng/L (<3.5-17.0)
[2024-04-12 13:14] LABS: Influenza A PCR NEGATIVE (Negative); Influenza B PCR NEGATIVE (Negative); Resp Syncy Virus RNA Qual PCR NEGATIVE (Negative); SARS COV2 PCR INHOUSE NEGATIVE (Negative)
--- NOTE | 2024-04-12 14:16 | ED.SOB ---
HPI - SOB/Dyspnea General Chief Complaint: Dyspnea Stated Complaint: asthma Time Seen by Provider: 04/12/24 12:42 History of Present Illness HPI Narrative: Patient is a 49-year-old female with a history of asthma. Presents today with having wheezing coughing having pain when she coughs. Patient was here last week for similar episodes. Patient denies any lower back pain. Has pain really more in the right lower chest area. That pain is usually with coughing. Patient denies any history of blood clots. Denies any history of coronary artery disease. Positive history of asthma. No history of diabetes, hypertension, mi, family history of [place]. patient is from home. No recent travel history. Patient is previously vaccinated for COVID. Related Data Previous Rx's ?Medication ?Instructions ?Recorded ibuprofen 600 mg tablet 600 mg PO Q6H PRN pain #20 tabs 05/06/20 naproxen 500 mg tablet 500 mg PO BID 30 days #60 tabs 05/21/20 leg brace (Knee Support Brace) #1 ea 05/22/20 albuterol sulfate 90 mcg/actuation 2 puff inhalation Q4-6H PRN 06/04/20 aerosol inhaler shortness of breath or wheezing #18 grams prednisone 50 mg tablet 50 mg PO DAILY #4 tabs 06/04/20 prednisone 20 mg tablet 60 mg (3 x 20 mg) PO DAILY #12 tabs 03/29/24 prednisone 20 mg tablet 60 mg (3 x 20 mg) PO DAILY #12 tabs 03/29/24 azithromycin 250 mg tablet See Rx Instructions PO .COMPLEX 04/12/24 upper resp infection #6 tabs prednisone 20 mg tablet 40 mg (2 x 20 mg) PO DAILY #10 tabs 04/12/24 Allergies Allergy/AdvReac Type Severity Reaction Status Date / Time No Known Allergies Allergy Verified 04/12/24 11:36 [No Known Allergies*] Review of Systems Review of Systems: Positive coughing congestion upper respiratory symptoms Yes all other systems are reviewed and are negative PMFSH Past Medical History Attestation statement: The following information was validated with the patient. 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 Oriented X3. No acute distress. Eyes: Pupils equal, round and reactive to light. ENT: Pharynx normal. Neck: Normal inspection. Neck supple. No lymph nodes noted. No crepitus CVS: Normal heart rate and rhythm. Pulses normal. Normal S1 and S2 Respiratory: No respiratory distress. Positive bilateral expiratory wheeze noted. Abdomen: Soft and nontender. No rigidity. No distention. good BS x4 Skin: Skin warm and dry. Normal skin color. Normal skin turgor. Extremities: No lower extremity edema. Neurovascular intact to all extremities. No Lacerations. No Rash Neuro: Oriented X 3. No motor deficit. No sensory deficit. Moving all extermities. No slurred speech Medications Administered Discontinued Medications Generic Name Dose Route Start Last Admin Trade Name Freq PRN Reason Stop Dose Admin Albuterol Sulfate 2.5 mg/ 5 mg 04/12/24 14:25 04/12/24 14:35 Albuterol Sulfate 2.5 mg INHALE 04/12/24 14:26 5 mg ONCE ONE Administration Albuterol/Ipratropium 3 ml 04/12/24 14:16 04/12/24 14:31 Albuterol/Iprat 2.5/0.5mg 3 Ml Ampul.Neb INHALE 04/12/24 14:17 Not Given ONCE ONE Albuterol Sulfate 5 mg/ 0 mg 04/12/24 11:52 04/12/24 11:57 Albuterol/Ipratropium 3 ml INHALE 04/12/24 11:53 1 each ONCE ONE Administration Prednisone 40 mg 04/12/24 14:15 04/12/24 14:26 Prednisone 20 Mg Tablet PO 04/12/24 14:16 40 mg ONCE ONE Administration Medical Decision Making Medical Decision Making [facility] Narrative: Patient's O2 sat is 98% on room air there is a good amount of wheezing bilaterally. Patient's COVID flu RSV were all negative. My interpretation of patient's chest x-ray was grossly negative for any acute evidence of pneumonia no pneumothorax. I reviewed radiology's reading which was negative. Patient's electrolytes were normal. Patient's troponin and BNP were negative. Unlikely to have congestive heart failure unlikely to have ACS. Patient's pain not consistent with having PE. Has no risk factor for PE. An EKG was done. My interpretation of patient's EKG showed a sinus tachycardia heart rate is 100 [place] QRS QTC normal no acute ST segment elevation when compared to a previous EKG from 2019. There is no PVC noted. After nebulizer treatment patient's symptom improved. Ambulated in the ED O2 sat maintained at greater than 95% in no distress. Celi prescribe antibiotic prescribed patient to follow-up closely on an outpatient basis. Had long discussion with patient feel comfortable with plan. Patient's flu COVID RSV were all negative. Differential Diagnosis Differential Diagnoses: The differential diagnosis associated with the presentation includes Asthma, upper respiratory infection, pneumonia, PE, congestive heart failure Admission/Observation Consideration of admission/observation: Escalation of care including admission/observation considered Lab Data [facility] Lab Attestation statement: I reviewed the patient's lab results. 04/12/24 12:23 04/12/24 12:23 Labs: Lab Results 04/12/24 Range/Units 12:23 WBC 11.1 H (4.8-10.8) X10*3/uL RBC 4.65 (4.20-5.50) X10*6/uL Hgb 12.0 (12.0-16.0) g/dl Hct 37.0 (37.0-47.0) % MCV 79.6 L (80.0-98.0) fL MCH 25.8 L (27.0-33.0) pg MCHC 32.4 (31.0-35.0) g/dl RDW 16.3 H (11.0-16.0) % Plt Count 335 (160-400) X10*3/uL MPV 10.8 (9.4-12.3) fL Immature Gran % (Auto) 0.3 (0.0-0.4) % Neut % (Auto) 68.4 (45-73) % Lymph % (Auto) 21.2 (20-40) % Crenshaw % (Auto) 7.4 (2-11) % Eos % (Auto) 2.3 (0-4) % Baso % (Auto) 0.4 (0-2) % Lymph # (Auto) 2.4 (1.2-4.9) X10*3/uL [place]renshaw # (Auto) 0.8 (0.1-1.2) X10*3/uL Eos # (Auto) 0.3 (0.0-0.4) X10*3/uL Baso # (Auto) 0.0 (0.0-0.2) X10*3/uL Abs Immat Gran (auto) 0.03 (0.00-0.03) X10*3/uL Absolute Neuts (auto) 7.6 (2.0-8.3) x10*3/uL Absolute Nucleated RBC 0.000 (0.0-0.012) X10*3/uL Nucleated RBC % (auto) 0.0 (0.0-0.2) /100WBC PT 12.3 (10.9-12.4) SEC INR 1.1 (0.9-1.1) APTT 31.0 (26.0-36.8) SEC Sodium 139 (135-145) mmol/L Potassium 4.1 (3.3-5.1) mmol/L Chloride 104 (96-108) mmol/L Carbon Dioxide 25 (22-29) mmol/L Anion Gap 14 (12-20) BUN 6 L (9-16) mg/dL Creatinine 0.81 (0.5-1.4) mg/dL Estim Creat Clear Calc 96.6 Estimated GFR > 60 Random Glucose 104 (60-115) mg/dL Calcium 9.4 (8.4-10.2) mg/dL Total Bilirubin 0.5 (0.0-1.0) mg/dL AST 24 (5-31) U/L ALT 21 (0-31) U/L Alkaline Phosphatase 78 (39-117) U/L Troponin I High Sens < 2.7 (<3.5-17.0) ng/L B-Natriuretic Peptide < 10 (<100) pg/mL Total Protein 8.4 H (6.5-8.0) g/dL Albumin 4.0 (3.5-5.0) g/dL Influenza Type A (PCR) NEGATIVE (Negative) Influenza Type B (PCR) NEGATIVE (Negative) RSV RNA Qual (PCR) NEGATIVE (Negative) SARS-CoV-2 RNA (RT-PCR) NEGATIVE (Negative) S. pyogenes GrpA MELBA Negative (Negative) Independent Interpretation I performed an independent interpretation of an: EKG (My interpretation patient's EKG as above) and Plain X-Ray (My interpretation patient's chest x-ray is grossly negative) Radiology Impression Discussion of test interpretation with radiology: I have reviewed the radiologist's reading. Radiologist Impression: I reviewed radiology's reading which was grossly negative Independent Historian Clinical information obtained from an independent historian. History obtained from or confirmed by: Other (Additional history obtained through patient's family) Chronic Conditions Asthma Social Determinants Patient?s care significantly limited by Social Determinants of Health including: Low income Discharge Plan Discharge Clinical Impression: Asthma with exacerbation Patient Disposition: Home, Self-Care Instructions: Asthma (DC) Prescriptions: New azithromycin 250 mg tablet See Rx Instructions .ROUTE .COMPLEX Qty: 6 0RF Rx Instructions: take 500 mg today (day 1), then 250 mg for 4 days (days 2-5) prednisone 20 mg tablet 40 mg PO DAILY Qty: 10 0RF No Action ibuprofen 600 mg tablet 600 mg PO Q6H PRN (Reason: pain) Qty: 20 0RF albuterol sulfate 90 mcg/actuation HFA aerosol inhaler 2 puff inhalation Q4-6H PRN (Reason: shortness of breath or wheezing) Qty: 18 0RF prednisone 50 mg tablet 50 mg PO DAILY Qty: 4 0RF prednisone 20 mg tablet 60 mg PO DAILY Qty: 12 0RF prednisone 20 mg tablet 60 mg PO DAILY Qty: 12 0RF naproxen 500 mg tablet 500 mg PO BID 30 Days Qty: 60 3RF (DME) Knee Support Brace Misc See Rx Instructions .MEDSUPPLY Qty: 1 0RF Rx Instructions: reaction knee brace XL/XXL, ledezma Referrals: Phyllis Day NP [Primary Care Provider] - 04/14/24 Print Language: Salvadorean Creissa
[2024-04-12] MEDS: predniSONE 20 MG TABLET 40 MG PO (14:26)
[2024-04-12] MEDS: Albuterol Sulfate 2.5 MG, Albuterol Sulfate (0.083%) 2.5 MG 5 MG INHALE (14:35)
[2024-04-12 14:36] VITALS: PULSE 97; RESP 23; O2SAT 97
--- NOTE | 2024-04-12 14:39 | PC.NURSE ---
Pt receiving another rx from [facility]
[2024-04-12 16:24] VITALS: BP 146/87; PULSE 93; RESP 20; TEMP 37.6; O2SAT 96
[2024-04-12 16:40] VITALS: O2SAT 94
--- NOTE | 2024-04-12 16:43 | MHC.EDTECH ---
Dr. Gonzales order oxygen check for her before get discharge , it was 93-94 ( walking)
[2024-04-12 16:46] VITALS: BP 146/87; PULSE 93; RESP 18; TEMP 37.6; O2SAT 96
== END 2024-04-12 16:46 | disposition home or self-care (01) ==
PROVIDERS: Physician Assistant; Emergency Provider Emergency Medicine Emergency Medical Services; PCP Nurse Practitioner Primary Care
DX: J45.901 Unspecified asthma with (acute) exacerbation (principal); R06.02 Shortness of breath; Z79.899 Other long term (current) drug therapy; Z03.818 Encounter for observation for suspected exposure to other biological agents ruled out
CPT/HCPCS: 0241U; 36415; 71045; 80053; 83880; 84484; 85025; 85610; 85730; 87651; 93005; 94640; 99284; 99285

== ENCOUNTER → 2024-04-12 11:39 | Outpatient (BNV) | payer SELFPAY | PROVIDERS: Emergency Provider Emergency Medicine Emergency Medical Services; PCP Nurse Practitioner Primary Care; Visit Provider Internal Medicine | DX: R06.02 Shortness of breath (principal); R00.0 Tachycardia, unspecified | CPT/HCPCS: 93010 ==

== ENCOUNTER → 2024-07-19 11:30 | Outpatient (BNV) | payer MEDICAID, SELFPAY | PROVIDERS: PCP Nurse Practitioner Primary Care; Visit Provider Internal Medicine | DX: Z12.31 Encounter for screening mammogram for malignant neoplasm of breast (principal) | CPT/HCPCS: 77063; 77067 ==

== ENCOUNTER 2024-07-21 13:33 | Outpatient (REF) | payer MEDICAID, SELFPAY ==
--- OUTSIDE RECORDS SUMMARY | 2024-07-21 14:00 | XMS_ITS | Encounter Summary ---
Author Organization [employer] Address [address] [place] [address] Care Team Providers Care Videotape Operator Name Role Phone Phyllis Day Primary Care Provider [phone] Reason for Visit * Reason Comments pap Encounter Details Date Type Department Care Team (Latest Contact Info) Description 07/21/2024 9:45 AM EST Procedure Visit [facility] [address] [place], [place] [phone] Phyllis Day ANP [address] [place], [place] [phone] Essential hypertension (Primary Dx); Cervical cancer screening; Screening mammogram for breast cancer; Moderate persistent asthma without complication; Routine screening for STI (sexually transmitted infection); History of right breast biopsy; Irregular menses; Screening for malignant neoplasm of colon; Screening, lipid; Screening for diabetes mellitus Social History Tobacco Use Types Packs/Day Years Used Date Smoking Tobacco: Never Passive Smoke Exposure: Never Smokeless Tobacco: Never Tobacco Cessation:Counseling Given: Not Answered Alcohol Use Standard Drinks/Week Comments Never 0 (1 standard drink = 0.6 oz pur e alcohol) Depression Answer Date Recorded Patient Health Questionnaire-9 Score 0 04/22/2023 Patient Health Questionnaire-9 Score 0 04/22/2023 Last PHQ-9: Questionnaire Data Not on file 1 06/22/2022 Housing Stability Answer Date Recorded What is your housing situation today? I have anam ndiaye 04/22/[address] you li ve. Do you have problems with any of the following? None of the above 04/22/2023 Food Insecurity Answer Date Recorded Within the past 12 months, y ou worried that your food would run out before you got money to buy more: Never True 04/22/2023 Within the past 12 months,th e food you bought just didn't last and you didn't have enough money to get more: Never True 02/2023 Transportation Answer Date Recorded In the past 12 months, has l ack of transportation kept you from medical appts, meetings, work or from getting things needed for daily living? No 04/22/2023 Utilities Answer Date Recorded In the past 12 months, has t he electric, gas, oil or water company threatened to shut off services in your home? No 04/22/2023 Depression Answer Date Recorded Patient Health Questionnaire-2 Score 0 04/22/2023 Comments No Sex and Gender Information Value Date Recorded Sex Assigned at Female 04/13/2022 10:36 AM EDT Legal Sex Female 10:36 AM EDT Gender Identity Female 04/13/2022 10:36 AM EDT Sexual Orientation Choose not to disclose 2021 10:36 AM EDT documented as of this encounter Last Filed Vital Signs Vital Sign Reading Time Taken Comments Blood Pressure 138/84 07/21/2024 10:22 AM EST Pulse 82 07/21/2024 9:47 AM EST Temperature 36.4 ??C (97.5 ??F) 07/21/2024 9:47 AM ES T Respiratory Rate 16 07/21/2024 9:47 AM EST Oxygen Saturation 97% 07/21/2024 9:47 AM EST Inhaled Oxygen Concentration - - Weight 103 kg (226 lb 6.4 oz) 07/21/2024 9:47 AM EST Height - - Body Mass Index 38.86 04/10/2024 1:02 PM EDT documented in this encounter Progress Notes * BOGDAN Elizalde - 07/21/2024 9:45 AM EST Subjective Patient ID: Vilma Bourne is a 49 y.o. female who presents for pap and HTN. HPI PMH incl HTN, asthma Pap history: Last pap NIL, HPV- 06/2019 control method (if applicable): Sexual activity: with [facility] Menstrual history: LMP 05/30/24 history: 6 kids: 5 , 1 Mammogram: BI-RADS 1 - Negative 04/2023, got last week. DEXA: not yet due kecia/menopausal symptoms: hot flashes, irregular menses, LMP 05/30/24 [employer] INSTRU[employer] concerns: (eg, vaginal, urinary, sexual health or breast symptoms): no vaginal, sexual health or urinary concerns. Does cont to have R breast pain. Sharp. Does self breast exams and declines breast exam today. Got mammo last week. Does self breast exams since last visit. H/o R breast cyst removal/biopsy. BP: improved on repeat. Taking amlodipine as rx'd. Using albuterol 2-3x/wk. Does not have symbicort. here w/ pt. Non-smoker Review of Systems Constitutional: Negative for chills and fever. HENT: Negative for sore throat. Respiratory: Negative for cough and shortness of breath. Cardiovascular: Negative for chest pain. Gastrointestinal: Negative for constipation and diarrhea. Endocrine: Negative for polydipsia, polyphagia and polyuria. Genitourinary: Negative for dysuria. Objective BP 138/84 (BP Location: Left arm, Patient Position: Sitting, BP Cuff Size: Large adult) Pulse 82 Temp 97.5 ??F (36.4 ??C) (Temporal) Resp 16 Wt 226 lb 6.4 oz (103 kg) SpO2 97% BMI 38.86 kg/m?? Physical Exam Vitals reviewed. Exam conducted with a straightening machine operator present (Zuri LEDESMA). Constitutional: Appearance: Normal appearance. She is obese. HENT: Head: Normocephalic and atraumatic. Eyes: General: No scleral icterus. Extraocular Movements: Extraocular movements intact. Pupils: Pupils are equal, round, and reactive to light. Cardiovascular: Rate and Rhythm: Normal rate. Pulmonary: Effort: Pulmonary effort is normal. Genitourinary: General: Normal vulva. Pubic Area: No rash. Vagina: Normal. Cervix: Normal. Musculoskeletal: Right lower leg: No edema. Left lower leg: No edema. Neurological: Mental Status: She is alert and oriented to person, place, and time. Psychiatric: Mood and Affect: Mood normal. Behavior: Behavior normal. Assessment/Plan Diagnoses and all orders for this visit: Essential hypertension At/near goal today, </= 130/80. Continue to encourage low salt diet, regular exercise, home BP monitoring, compliance with medications. Call clinic if BP is frequently >150/90 Go to ED/call 911 if > 170/100 and having sx such as HANSEN, visual changes, chest pain, SOB Last renal function: Lab Results Component Value Date GLUCOSE 104 04/12/2024 NA 139 04/12/2024 K 4.1 04/12/2024 CO2 25 04/12/2024 CL 104 04/12/2024 BUN 6 (L) 04/12/2024 CREATININE 0.81 04/12/2024 EGFR >60 04/12/2024 Lab Results Component Value Date MICROALBCREA 4 07/08/2021 Lab Results Component Value Date MICROALBCREU TNP 10/20/2023 Cont amlodipine as rx'd Cervical cancer screening Pap NIL, HPV neg 06/2019, repeated 07/21/2024. Repeat 5 years if Nil, HPV-. no h/o abnormal paps. - Bacterial Vaginosis Panel - Pap Smear Screening mammogram for breast cancer, R breast pain Await results from mammo done last week per pt. Declines breast exam. Reports pain is chronic, daily, sharp. Comes and goes. In upper outer R breast/chest wall. No masses or lumps per pt. Will consider US pending mammo and pt to tell us if pain worsens or changes. Had cyst removed R breast a few years ago w/ biopsy. Moderate persistent asthma without complication May use symbicort as SMART therapy (qbxfly-[id number]-xvg-reliever-therapy): - budesonide-formoterol (Symbicort) 160-4.5 MCG/ACT inhaler; Inhale 2 puffs in the morning and at bedtime. Rinse mouth with water after use to reduce aftertaste and incidence of candidiasis. Do not swallow. Routine screening for STI (sexually transmitted infection) - STI testing add on ([place], CT, Trich) History of right breast biopsy Irregular menses Comments: suspect perimenopausal. Check: Orders: - Bacterial Vaginosis Panel - TSH W/Reflex to FT4; Future Screening for malignant neoplasm of colon I messaged oncology account specialist for update. Referred to [facility] 01/2024 and has not heard, no letter in chart I could find. Screening, lipid - Lipid Panel, Standard; Future Screening for diabetes mellitus - Hemoglobin A1c; Future documented in this encounter Plan of Treatment Scheduled Orders Name Type Priority Associated Diagnoses Orde r Schedule Bacterial Vaginosis Panel Microbiology Routine Cervical cancer screening Irregular menses Ordered: 07/21/2024 Pap Smear Pathology and Cytology Routine Cervical cancer screening Ordered: 07/21/2024 STI testing add on ([place], CT, Trich) Pathology and Cytology Routine Routine screening for STI (sexually transmitted infection) Ordered: 07/21/2024 Lipid Panel, Standard Lab Routine Screening, lipid Expected: 07/21/2024 (Approximate), Expires: 07/21/2025 Basic Metabolic Panel Lab Routine Essential hypertension Expected: 07/21/2024 (Approximate), Expires: 07/21/2025 Albumin, Random Urine W/Creatinine Lab Routine Essential hypertension Expected: 07/21/2024 (Approximate), Expires: 07/21/2025 TSH W/Reflex to FT4 Lab Routine Irregular menses Expected: 07/21/2024 (Approximate), Expires: 07/21/2025 Hemoglobin A1c Lab Routine Screening for diabetes mellitus Expected: 07/21/2024 (Approximate), Expires: 07/21/2025 documented as of this encounter Visit Diagnoses Diagnosis Essential hypertension- Primary Unspecified essential hypertension Cervical cancer screening Screening for malignant neoplasm of the cervix Screening mammogram for breast cancer Moderate persistent asthma without complication Routine screening for STI (sexually transmitted infection) Screening examination for venereal disease History of right breast biopsy Other postprocedural status Irregular menses Irregular menstrual cycle Screening for malignant neoplasm of colon Screening, lipid Screening for diabetes mellitus documented in this encounter Additional Health Concerns Assessment Noted Time PHQ-9 Depression Total Score: 0 04/22/20 23 1:07 PM EST documented as of this encounter Care Teams Videotape Operator Relationship Specialty Start Date End Date Phyllis Day ANP [address] [place] [phone] PCP - General Family Medicine 01/30/21 documented as of this encounter
--- OUTSIDE RECORDS SUMMARY | 2024-07-21 14:00 | XMS_ITS | Clinical Summary ---
Author Organization [employer] Address [address] [facility] 7t [place] [address] Care Team Providers Care Machine Molder Squeeze Name Role Phone Karely Lopez Primary Care Provider [phone] Allergies Active Allergy Reactions Criticality Noted Date Comments Shrimp Extract High 05/05/2019 Tetanus Antitoxin 06/09/2022 Medications Spacer/Aero-Hol ding Chambers deviceIndicatio ns:Mild persistent asthma with (acute) exacerbation 1 each Every 4-6 hours as needed (SOB, wheezing). 1 each 1 02/02/20 23 Active triamcinolone (Kenalog) 0.1 % creamIndication s:Hyperpigmente d skin lesion,Intrinsi c eczema Apply topically if needed in the morning and at bedtime (pain and swelling). 30 g 2 02/02/20 23 Active Multiple Vitamins-Iron tabletIndicatio ns:Anemia, unspecified type 1 tab daily 90 tablet 3 04/22/20 23 Active amLODIPine (Norvasc) 5 MG tabletIndicatio ns:Essential hypertension Take 1 tablet (5 mg) by mouth Once per day. 30 tablet 11 10/20/19 24 025 Active cloNIDine (Catapres) 0.1 MG tablet Take 1 tablet (0.1 mg) by mouth 2 times daily. 5 tablet 10/20/19 24 025 Active Diclofenac Sodium (Voltaren) 1 % gelIndications: Chronic right-sided low back pain with right-sided sciatica,Chroni c pain of both knees Apply 2G up to 4x/d to affected joint(s) for pain/swelling 100 g 2 11/11/19 24 Active cyclobenzaprine (Flexeril) 5 MG tablet TAKE 1 TABLET BY MOUTH THREE TIMES A DAY NEEDED FOR PAIN FOR 5 DAYS 12/17/19 24 Active Ventolin HFA 108 (90 Base) MCG/ACT inhalerIndicati ons:Mild persistent asthma with (acute) exacerbation INHALE 2 PUFFS BY MOUTH EVERY 4-6 HOURS NEEDED FOR WHEEZING 18 g 3 02/21/20 24 Active famotidine (Pepcid) 20 MG tabletIndicatio ns:Gastroesopha geal reflux disease, unspecified whether esophagitis present Take 1 tablet twice daily as needed for acid reflux 60 tablet 04/10/20 24 Active budesonide-form oterol (Symbicort) 160-4.5 MCG/ACT inhalerIndicati ons:Moderate persistent asthma without complication Inhale 2 puffs in the morning and at bedtime. Rinse mouth with water after use to reduce aftertaste and incidence of candidiasis. Do not swallow. 1 each 5 07/21/19 25 026 Active budesonide-form oterol (Symbicort) 160-4.5 MCG/ACT inhalerIndicati ons:Moderate persistent asthma without complication Inhale 2 puffs in the morning and at bedtime. Rinse mouth with water after use to reduce aftertaste and incidence of candidiasis. Do not swallow. 1 each 5 04/10/20 24 025 Discontinued(R eorder (will not trigger notification to Pharmacy)) Active Problems Problem Noted Date Diagnosed Date History of right breast biopsy 07/21/2024 Moderate persistent asthma without complication 07/21/2024 Hypertensive urgency 10/20/2023 Assessment & Plan (10/20/2023 4:18 PM EDT): BP elevated to 204/102 at home with headache. Elevated in walk in and given clonidine 0.1 with appropriate decrease in BP and resolution of headache. -EKG NSR without evidence of ischemia or past infarction. -check labs including TSH, Ma/Cr, andCr/electrolytes -pt started on amlodipine 5mg and will start tonight -ER precautions discussed. Follow up RN visit 2 days, Has PCP apt scheduled Mild persistent asthma with (acute) exacerbation 02/01/2023 Intrinsic eczema 02/01/2023 Hyperpigmented skin lesion 02/01/2023 Essential hypertension 03/06/2022 Assessment & Plan (10/20/2023 4:16 PM EDT): Self discontinued hydrochlorothiazide 05/18 due to increased urination -Started on amlodipine 10/20/23 in walk in due to hypertensive urgency BP -ER precautions discussed -Follow up 2 days with RN for BP check, may need to add second agent, labs ordered -today to evaluate for end organ damage and check Cr prior to adding meds Resolved Problems Problem Noted Date Diagnosed Date Resolved Date Disease due to severe acute respiratory syndrome coronavirus 2 (SARS-CoV-2) 02/28/202301/13 Overview (03/03/2023): Problem added by Discern Expert Encounters Date Type Department Care Team Description 07/21/2024 9:45 AM EST Procedure Visit [address] [address] Karely Lopez ANP Essential hypertension (Primary Dx); Cervical cancer screening; Screening mammogram for breast cancer; Moderate persistent asthma without complication; Routine screening for STI (sexually transmitted infection); History of right breast biopsy; Irregular menses; Screening for malignant neoplasm of colon; Screening, lipid; Screening for diabetes mellitus 07/21/2024 Travel 07/20/2024 Telephone [facility] [address] [place] [address] Zuri Perez MA chart prep 06/05/2024 Telephone [facility] [address] [place] [address] Blossom Rocha MA July recall from Last 3 Months Immunizations Name Administration Dates Next Due Hep A, Adult 06/16/2019 Influenza injectable quadrivalent preservative f ree 04/01/2021 Social History Tobacco Use Types Packs/Day Years [...] not to disclose 2021 10:36 AM EDT Last Filed Vital Signs Vital Sign Reading [...] 6.4 oz) 07/21/2024 9:47 AM EST Height 162.6 cm (5' 4 ) 04/10/2024 1:02 PM EDT Body Mass Index 38.86 04/10/2024 1:02 PM EDT Plan of Treatment Health Maintenance Due Date Last Done Comments CT Colonography 1973 Colonoscopy 1973 Colorectal Cancer Screening 1973 FIT DNA/Cologuard 1973 FIT 1973 FOBT 1975 Sigmoidoscopy 1975 Family Planning (PISQ) 02/13/1988 Hepatitis B Vaccines (1 of 3 - 19+ 3-dose series) 02/13/1992 Pap Smear 10/27/2021 10/27/2018, 10/27/2018 Dental Oral Exam 12/09/2022 06/09/2022, 05/17/2018 Zoster Vaccines (1 of 2) 2023 Dental Prophylaxis 03/13/2023 09/09/2022, 08/03/2018 Dental X-Ray: Bitewings 06/10/2023 06/09/2022, 05/17 Mammogram 04/16/2024 04/16/2023, 03/15, 04/10/2022, Additional history exists Depression Screening 04/22/2024 04/22/2023, 04/22/20 23 SDOH Screening 04/22/2024 04/22/2023 Cervical Cancer Screening 07/01/2024 HPV/Cotest 07/01/2024 07/01/2019, 10/27/2018 Influenza Vaccine (#1) 2024 04/01/2021 Postp oned from 02/13/2024 (Patient Refused) Dental X-Ray: Full Mouth 06/10/2025 06/09/2022, 09/2017 Alcohol/Substance Use Screening 07/21/2025 07/21/2024 COVID-19 Vaccine (3 - season) 2025 07/24/2021, 07/03/2021 Postponed from 02/13/2024 (Patient Refused) DTaP/Tdap/Td Vaccines (1 - Tdap) 07/21/2025 Postponed from 02/13/1992 (Patient Refused) Pneumococcal Vaccine: 50+ Years (1 of 2 - PCV) 07/21/2025 Postponed from 02/13/1992 (Patient Refused) Tobacco Screening 07/21/2025 07/21/2024 Lipid Panel 07/08/2026 07/08/2021 RSV Patients and Patients Aged 60 years or older (1 - 1-dose 75+ series) 02/13/2048 Hepatitis A Vaccines Aged Out 06/16/2019 No long er eligible based on patient's age to complete this topic HIV Screening Completed 07/08/2021, 06/16/2019 Hepatitis C Screening Completed 07/08/2021, 020 HIB Vaccines Aged Out No longer eligi ble based on patient's age to complete this topic HPV Vaccines Aged Out No longer eligi ble based on patient's age to complete this topic IPV Vaccines Aged Out No longer eligi ble based on patient's age to complete this topic Meningococcal Vaccine Aged Out No antonio edna eligible based on patient's age to complete this topic RSV under 20 months Aged Out No longe r eligible based on patient's age to complete this topic Rotavirus Vaccines Aged Out No longer eligible based on patient's age to complete this topic Procedures Procedure Name Priority Date/Time Associated Diagnosis Comments BI MAMMOGRAM SCREENING TOMOSYNTHESIS BILATERAL Routine 04/16/2023 9:35 AM EDT PROPHYLAXIS - ADULT Routine 09/09/2022 8 :00 AM EDT Gingivitis DIAGNOSTIC - DIAGNOSTIC IMAGING - INTRAORAL - COMPREHENSIVE SERIES OF RADIOGRAPHIC IMAGES Routine 06/09/2022 10:00 AM EST Encounter for dental examination COMPREHENSIVE ORAL EVALUATION - NEW OR ESTABLISHED PATIENT Routine 06/09/2022 10:00 AM EST Encounter for dental examination ZZZ HISTORICAL HEPATITIS C AB W/REFL TO HCV RNA, QN, PCR Routine 07/08/2021 10:50 AM EST HIV 1/2 ANTIGEN/ANTIBODY, FOURTH GENERATION W/RFL Routine 07/08/2021 10:50 AM EST LIPID PANEL, STANDARD Routine 07/08/2021 10:50 AM EST ZZZ HISTORICAL HPV MRNA E6/E7 Routine 07/01/2019 10:33 AM EST IMAGE-GUIDED PAP W/AGE BASED SCR,W/CT/NG/TRICH Routine 10/27/2018 3:00 PM EDT from Last 3 Months or Most Recently Relevant to Health Maintenance Results * BI Mammogram Screening Tomosynthesis Bilateral (04/16/2023 9:35 AM EDT) Anatomical Region Laterality Modality Breast Bilateral Mammography 04/16/2023 9:35 AM EDT Narrative 05/05/2023 1:15 PM EST ? [facility] ? [address] ?[place] [address] ? Mammography Report ? Signed ? Patient: Vilma Bourne ?MR#: [id number] ?? [id number] ? : 1975 ?Acct:[id number] ? Age/Sex: 48 / F ?ADM Date: 04/16/23 ? Loc: HO.MAMMO ? Attending Dr: Karely Lopez WAREHOUSE CHECKER ? Ordering Physician: JOHN,KARELY WAREHOUSE CHECKER ?Results: 1Negative ? Date of Service: 04/16/23 ?Follow Up: 1 Year From Orig ?? inal Mammogram ? Procedure(s): MM tomosynthesis screening BI ?? Accession Number(s): [id number] ? cc: JOHN,KARELY AUGUSTIN ? EXAMINATION: ?? MM SCREENING DIGITAL BREAST TOMOSYNTHESIS, BILATERAL ? CLINICAL INFORMATION: ? Screening. Asymptomatic. ? COMPARISON: ?? Mammography: This study is compared with prior exams dating back to ?? 2019. ? TECHNIQUE: ?? Digital breast tomosynthesis is performed in both the craniocaudal and ?? mediolateral oblique views along with computer-aided detection (CAD). ?? Synthesized 2D images are generated from the tomosynthesis. ? FINDINGS: ?? The breasts are almost entirely fatty (ACR BI-RADS breast composition ?? Category a). ? There are no significant masses, abnormal calcifications, or other ?? abnormalities. ? MM/MM tomosynthesis screening BI ?? IMPRESSION: ?? No mammographic evidence of malignancy. ? ASSESSMENT: ? BI-RADS BI-RADS 1 - Negative ? RECOMMENDATION: ?? Routine annual mammography screening. ? 1 year F/U ? This examination should not preclude the clinical evaluation of a ?? suspicious palpable abnormality. ? This patient's information was entered into a reminder system with a ?? target due date for their next mammogram. ? Dictated By: ?Lynne Carranza MD ? Signed By: ?<Electronically signed by Lynne Carranza MD in OV> ? 05/05/23 1311 ? DD/ 0935 ? TD/TT: ? Converting Operator: ? Procedure Note Donmichelle, Image - 05/05/2023 [facility] [address] [place] [address] Mammography Report Signed Patient: Mary Bourne#: [id number] : 1975Acct:[id number] Age/Sex: 48 / FADM Date: 04/16/23 Loc: [facility] Attending Dr: Karely Lopez NP Ordering Physician: KARELY LOPEZ NPResults: 1Negative Date of Service: 04/16/23Follow Up: 1 Year From Orig inal Mammogram Procedure(s): MM tomosynthesis screening BI Accession Number(s): [id number] cc: KARELY LOPEZ NP EXAMINATION: MM SCREENING DIGITAL BREAST TOMOSYNTHESIS, BILATERAL CLINICAL INFORMATION: Screening. Asymptomatic. COMPARISON: Mammography: This study is compared with prior exams dating back to 2019. TECHNIQUE: Digital breast tomosynthesis is performed in both the craniocaudal and mediolateral oblique views along with computer-aided detection (CAD). Synthesized 2D images are generated from the tomosynthesis. FINDINGS: The breasts are almost entirely fatty (ACR BI-RADS breast composition Category a). There are no significant masses, abnormal calcifications, or other abnormalities. MM/MM tomosynthesis screening BI IMPRESSION: No mammographic evidence of malignancy. ASSESSMENT: BI-RADS BI-RADS 1 - Negative RECOMMENDATION: Routine annual mammography screening. 1 year F/U This examination should not preclude the clinical evaluation of a suspicious palpable abnormality. This patient's information was entered into a reminder system with a target due date for their next mammogram. Dictated By: Lynne Carranza MD Signed By: <Electronically signed by Lynne Carranza MD in OV> 05/05/23 1311 DD/ 0935 TD/TT: Converting Operator: us Karely Lopez ANP IMG BI PROCEDURES Final Result * HEPATITIS C AB W/REFL TO HCV RNA, QN, PCR (07/08/2021 10:50 AM EST) HEPATITIS C ANTIBODY NON-REACT CELESTINO NON-REACT CELESTINO [facility] INDEX 0.04 <1.00 [facility] Comment: ?? HCV antibody was non-reactive. There is no laboratory ?? evidence of HCV infection. ?? In most cases, no further action is required. However, if recent HCV exposure is suspected, a test for HCV RNA (test code 44376) is suggested. ?? For additional information please refer to http://education.[employer]/faq/ENA44x0 (This link is being provided for informational/ educational purposes only.) ?? 07/08/2021 10:5 0 AM EST us Karely Lopez ANP HISTORICAL/NON ORDERABLE LABS Fi nal Result [facility] [address] * HIV 1/2 ANTIGEN/ANTIBODY,FOURTH GENERATION W/RFL (07/08/2021 10:50 AM EST) HIV-1/2 ANTIGEN AND ANTIBODIES, 4TH GENERATION W/ REFLEX NON-REACT CELESTINO NON-REACT CELESTINO [facility] Comment: HIV-1 antigen and HIV-1/HIV-2 antibodies were not detected. There is no laboratory evidence of HIV infection. ?? PLEASE NOTE: This information has been disclosed to you from records whose confidentiality may be protected by state law. ??If your state requires such protection, then the state law prohibits you from making any further disclosure of the information without the specific written consent of the person to whom it pertains, or as otherwise permitted by law. A general authorization for the release of medical or other information is NOT sufficient for this purpose. ? For additional information please refer to http://[employer]/faq/RJL655 (This link is being provided for informational/ educational purposes only.) ? The performance of this assay has not been clinically validated in patients less than 2 years old. ?? 07/08/2021 10:5 0 AM EST [facility] LAB BLOOD ORDERABLES Final Resul t [facility] [address] * (ABNORMAL) LIPID PANEL, STANDARD (07/08/2021 10:50 AM EST) Chol/HDLC Ratio 3.4 <5.0 (calc) [facility] Cholesterol, Total 155 <200 mg/dL [facility] HDL Cholesterol 45(L) > OR = 50 mg/dL [facility] LDL Cholesterol 95 mg/dL (calc) [facility] Comment: Reference range: <100 ?? Desirable range <100 mg/dL for primary prevention; ?? <70 mg/dL for patients with CHD or diabetic patients ?? with > or = 2 CHD risk factors. ?? LDL-C is now calculated using the Breanna ?? calculation, which is a validated novel method providing ?? better accuracy than the Friedewald equation in the ?? estimation of LDL-C. ?? Iván CAMARGO et al. SHARON. 2013;310(19): 0178-6767 ?? (http://education.[employer]/faq/OPG319) Non-HDL Cholesterol 110 <130 mg/dL (calc) [facility] Comment: For patients with diabetes plus 1 major ASCVD risk ?? factor, treating to a non-HDL-C goal of <100 mg/dL ?? (LDL-C of <70 mg/dL) is considered a therapeutic ?? option. Triglycerides 65 <150 mg/dL [facility] 07/08/2021 10:5 0 AM EST [facility] LAB BLOOD ORDERABLES Final Resul t [facility] [address] * HPV mRNA E6/E7 (07/01/2019 10:33 AM EST) HPV mRNA E6/E7 Not Detected NOT DETECTED [facility] Comment: This test was performed using the APTIMA(R) HPV Assay ([employer] This assay detects E6/E7 viral messenger RNA (mRNA) from 14 high-risk HPV types (16,18,31,33,35,39,45,51, 52,56,58,59,66,68). For additional information please refer to: http://education.[employer]/faq/QKJ127i1 (This link is being provided for informational/ educational purposes only.) The analytical performance characteristics of this assay have been determined by [employer] [place], [place]. The modifications have not been cleared or approved by the FDA. This assay has been validated pursuant to the CLIA regulations and is used for clinical purposes. Test Performed by [facility] [employer] [facility] [place], [address] [place] [address] Baldemar Reese M.D., Ph.D., Director of Laboratories , CLIA [id number] Please note: ??Effective 02/24/2016, HPV testing will be performed using Lee Silber's APTIMA test which targets mRNA. Detecting mRNA instead of DNA, as in older methods, offers significant improvements in specificity. 07/01/2019 10:3 3 AM EST us Historical Provider HISTORICAL/NON ORDERABLE LABS Final Result Performing Organization Address [facility]/ZIP Co de Phone Number [facility] [address] * IMAGE-GUIDED PAP W/AGE BASED SCR,W/CT/NG/TRICH (10/27/2018 3:00 PM EDT) Comment SEE [facility] Comment: This order for age-based cervical cancer and STI ?? screening follows ACOG guidelines(PB 168, 140, ETK234). ?? See individual assays for performing site location. 10/27/2018 3:00 PM EDT [facility] LAB CYTOLOGY ORDERABLES Fin al Result Performing Organization Address [facility] Co de Phone Number [facility] [address] from Last 3 Months or Most Recently Relevant to Health Maintenance Insurance [facility] C3 DENTAL-[facility] MEDICAID STAND ADULT Care Teams Machine Molder Squeeze Relationship Specialty Start Date End Date Karely Lopez ANP [address] [place] [id number] PCP - General Family Medicine 01/30/21
--- OUTSIDE RECORDS SUMMARY | 2024-07-21 14:00 | XMS_ITS | Encounter Summary ---
Author Organization [employer] Address [address] [facility] 7 [place] [address] Care Team Providers Care Dynamite Packing Machine Feeder Name Role Phone Phyllis Day Primary Care Provider [phone] Reason for Visit * Reason Comments Med Refill Encounter Details Date Type Department Care Team (Late st Contact Info) Description 02/24/2023 Refill [facility] [address] [place] [address] Phyllis Day ANP [address] [place], [place] [phone] Mild persistent asthma with (acute) exacerbation Social History Tobacco Use Types Packs/Day Years Used Date Smoking Tobacco: Never Passive Smoke Exposure: Never Smokeless Tobacco: Never Comments Unknown Sex and Gender Information Value Date Recorded Sex Assigned at Female 04/13/2022 10:36 AM EDT Legal Sex Female 10:36 AM EDT Gender Identity Female 04/13/2022 10:36 AM EDT Sexual Orientation Choose not to disclose 2021 10:36 AM EDT documented as of this encounter Plan of Treatment Not on file documented as of this encounter Visit Diagnoses Diagnosis Mild persistent asthma with (acute) exacerbation documented in this encounter Care Teams Dynamite Packing Machine Feeder Relationship Specialty Start Date End Date Phyllis Day ANP [address] [place] [address] PCP - General Family Medicine 01/30/21 documented as of this encounter
--- OUTSIDE RECORDS SUMMARY | 2024-07-21 14:00 | XMS_ITS | Encounter Summary ---
Author Organization [employer] Address [address] [facility] [address] [place] [address] Care Team Providers Care Sales Associate Key Holder Name Role Phone Phyllis Day BOGDAN Primary Care Provider [phone] Reason for Visit * Reason Onset Date Comments chart prep 07/20/2024 Encounter Details Date Type Department Care Team (Late st Contact Info) Description 07/20/2024 Telephone [facility] [address] [place] [address] Zuri Perez MA chart prep Social History Tobacco Use Types Packs/Day Years Used Date Smoking Tobacco: Never Passive Smoke Exposure: Never Smokeless Tobacco: Never Alcohol Use Standard Drinks/Week Comments Never 0 [...] AM EDT documented as of this encounter Miscellaneous Notes * Telephone Encounter - Zuri Perez MA - 07/20/2024 2:13 PM EST Chart Prep Labs: done Images: done Vaccines due: yes Referrals: gastro autho no appt done Screenings: colonoscopy , mammogram , pap smear Overdue care gaps: Sbirt, SDOH, PHQ-9 documented in this encounter Plan of Treatment Not on file documented as of this encounter Visit Diagnoses Not on filedocumented in this encounter Additional Health Concerns Assessment Noted Time PHQ-9 Depression Total Score: 0 04/22/20 23 1:07 PM EST documented as of this encounter Care Teams Sales Associate Key Holder Relationship Specialty Start Date End Date Phyllis Day ANP [address] [place] [id number] PCP - General Family Medicine 01/30/21 documented as of this encounter
--- OUTSIDE RECORDS SUMMARY | 2024-07-21 14:00 | XMS_ITS | Encounter Summary ---
Author Organization [employer] Address [address] [facility] 7t [place] [address] Care Team Providers Care Skiver Operator Name Role Phone Phyllis Day Primary Care Provider [phone] Encounter Details Date Type Department Care Team (Late st Contact Info) Description 12/30/2022 Orders Only [facility] [address] [place] [address] Hanna Aranda LPN Social History Tobacco Use Types Packs/Day Years Used Date Smoking Tobacco: Never Smokeless Tobacco: Never Comments Unknown Sex and Gender Information Value Date Recorded Sex Assigned at Female 04/13/2022 10:36 AM EDT Legal Sex Female 10:36 AM EDT Gender Identity Female 04/13/2022 10:36 AM EDT Sexual Orientation Choose not to disclose 2021 10:36 AM EDT COVID-19 Exposure Response Date Recorded In the last 10 days, have yo u been in contact with someone who was confirmed or suspected to have Coronavirus/COVID-19? No / Unsure 12/22/2022 1:48 PM EDT documented as of this encounter Plan of Treatment Not on file documented as of this encounter Visit Diagnoses Not on filedocumented in this encounter Care Teams Skiver Operator Relationship Specialty Start Date End Date Phyllis Day ANP [address] [place] [address] PCP - General Family Medicine 01/30/21 documented as of this encounter
--- OUTSIDE RECORDS SUMMARY | 2024-07-21 14:00 | XMS_ITS | Encounter Summary ---
Author Organization [employer] Address [address] [facility] [address] [place] [address] Care Team Providers Care Filter Tip Inspector Name Role Phone Phyllis Day BOGDAN Primary Care Provider [phone] Encounter Details Date Type Department Care Team (Latest Contact Info) Description 07/21/2024 Travel Social History Tobacco Use Types Packs/Day Years [...] documented as of this encounter Care Teams Filter Tip Inspector Relationship Specialty Start Date End Date Phyllis Day ANP [address] [place] [address] PCP - General Family Medicine 01/30/21 documented as of this encounter
--- OUTSIDE RECORDS SUMMARY | 2024-07-21 14:00 | XMS_ITS | Encounter Summary ---
Author Organization [employer] Address [address] [facility] 7t [place] [address] Care Team Providers Care Button Sewing Machine Operator Name Role Phone Karely Lopez Primary Care Provider [phone] Encounter Details Date Type Department Care Team (Late st Contact Info) Description 05/14/2023 Orders Only [facility] [address] [place], [place] [phone] Karely Lopez ANP [address] [place] [address] Acute pain of left knee (Primary Dx) Social History Tobacco Use Types Packs/Day Years [...] Patient Health Questionnaire-2 Score 0 04/22/2023 Comments Unknown Sex and Gender Information Value Date Recorded Sex Assigned at Female 04/13/2022 10:36 AM EDT Legal Sex Female 10:36 AM EDT Gender Identity Female 04/13/2022 10:36 AM EDT Sexual Orientation Choose not to disclose 2021 10:36 AM EDT documented as of this encounter Plan of Treatment Not on file documented as of this encounter Procedures Procedure Name Priority Date/Time Associated Diagnosis Comments XR ANKLE 3+ VIEWS RIGHT Routine 05/17/2023 10:21 AM EST XR ANKLE 3+ VIEWS LEFT Routine 05/17/2023 10:21 AM EST XR KNEE 1-2 VIEWS LEFT Routine 05/17/2023 10:21 AM EST Acute pain of left knee documented in this encounter Results * XR Ankle 3+ Views Left (05/17/2023 10:21 AM EST) Anatomical Region Laterality Modality Lower Extremities, Ankle Left Radiogr aphic Imaging 05/17/2023 10:2 1 AM EST Narrative 05/19/2023 4:59 PM EST ?[facility] ?[address] ?[place] [address] ?XRay Report ? Signed ? Patient: Steffen,Merlotte ?MR#: [id number] ?? [id number] ? : 1975 ?Acct:[id number] ? Age/Sex: 48 / F ?ADM Date: 12/04/23 ? Loc: HO.HHCX ? Attending Dr: Karely Lopez NP ? Ordering Physician: KARELY LOPEZ NP ?? Date of Service: 05/17/23 ?? Procedure(s): XR ankle LT min 3V ?? Accession Number(s): [id number] ? cc: KARELY LOPEZ NP ? Examination: Left and right ankles ? CLINICAL INFORMATION: Bilateral ankle pain and swelling ? COMPARISON: None ? TECHNIQUE: AP lateral and oblique views of left and right ankles ?? performed. ? FINDINGS: Bilateral ankles reveals no evidence of fracture, changes of ?? osteoarthritis, dislocation. Ankle mortise are maintained bilaterally. ?? There is no soft tissue edema. ? XR/XR ankle LT min 3V ?? IMPRESSION: ?? No evidence of fracture or dislocation. Unremarkable left and right ?? ankles. ? Dictated By: ?Shahrzad Keenan MD ? Signed By: ?<Electronically signed by Shahrzad Keenan MD in OV> ? 05/19/235 ? DD/ 1021 ? TD/TT: ? Agitator Operator: ? Procedure Note Carenailyn, Image - 05/19/[address] [address] XRay Report Signed Patient: Vilma BourneMR#: [id number] : 1975Acct:[id number] Age/Sex: 48 / FADM Date: 05/17/23 Loc: HO.HHCX Attending Dr: Karely Lopez NP Ordering Physician: KARELY LOPEZ NP Date of Service: 05/17/23 Procedure(s): XR ankle LT min 3V Accession Number(s): [id number] cc: KARELY LOPEZ NP Examination: Left and right ankles CLINICAL INFORMATION: Bilateral ankle pain and swelling COMPARISON: None TECHNIQUE: AP lateral and oblique views of left and right ankles performed. FINDINGS: Bilateral ankles reveals no evidence of fracture, changes of osteoarthritis, dislocation. Ankle mortise are maintained bilaterally. There is no soft tissue edema. XR/XR ankle LT min 3V IMPRESSION: No evidence of fracture or dislocation. Unremarkable left and right ankles. Dictated By: Shahrzad Keenan MD Signed By: <Electronically signed by Shahrzad Keenan MD in OV> 05/19/23 1655 DD/ 1021 TD/TT: Agitator Operator: us Karely Lopez ANP IMG XR PROCEDURES Final Result * XR Ankle 3+ Views Right (05/17/2023 10:21 AM EST) Anatomical Region Laterality Modality Lower Extremities, Ankle Right Radiogr aphic Imaging 05/17/2023 10:2 1 AM EST Narrative 05/19/2023 4:59 PM EST ?[facility] ?[address] ?[place] [address] ?XRay Report ? Signed ? Patient: Steffen,Merlotte ?MR#: [id number] ?? [id number] ? : 1975 ?Acct:[id number] ? Age/Sex: 48 / F ?ADM Date: 05/17/23 ? Loc: HO.HHCX ? Attending Dr: Karely Lopez NP ? Ordering Physician: KARELY LOPEZ NP ?? Date of Service: 05/17/23 ?? Procedure(s): XR ankle RT min 3V ?? Accession Number(s): [id number] ? cc: KARELY LOPEZ NP ? Examination: Left and right ankles ? CLINICAL INFORMATION: Bilateral ankle pain and swelling ? COMPARISON: None ? TECHNIQUE: AP lateral and oblique views of left and right ankles ?? performed. ? FINDINGS: Bilateral ankles reveals no evidence of fracture, changes of ?? osteoarthritis, dislocation. Ankle mortise are maintained bilaterally. ?? There is no soft tissue edema. ? XR/XR ankle RT min 3V ?? IMPRESSION: ?? No evidence of fracture or dislocation. Unremarkable left and right ?? ankles. ? Dictated By: ?Shahrzad Keenan MD ? Signed By: ?<Electronically signed by Shahrzad Keenan MD in OV> ? 05/19/23 1655 ? DD/ 1021 ? TD/TT: ? Agitator Operator: ? Procedure Note Joseph Knight - 05/19/[address] [address] XRay Report Signed Patient: Vilma BourneMR#: [id number] : 1975Acct:[id number] Age/Sex: 48 / FADM Date: 05/17/23 Loc: HO.HHCX Attending Dr: Karely Lopez TERRAZZO GRINDER Ordering Physician: KARELY LOPEZ NP Date of Service: 05/17/23 Procedure(s): XR ankle RT min 3V Accession Number(s): [id number] cc: KARELY LOPEZ NP Examination: Left and right ankles CLINICAL INFORMATION: Bilateral ankle pain and swelling COMPARISON: None TECHNIQUE: AP lateral and oblique views of left and right ankles performed. FINDINGS: Bilateral ankles reveals no evidence of fracture, changes of osteoarthritis, dislocation. Ankle mortise are maintained bilaterally. There is no soft tissue edema. XR/XR ankle RT min 3V IMPRESSION: No evidence of fracture or dislocation. Unremarkable left and right ankles. Dictated By: Shahrzad Keenan MD Signed By: <Electronically signed by Shahrzad Keenan MD in OV> 05/19/23 1655 DD/ 1021 TD/TT: Agitator Operator: Karely Lopez ANP IMG XR PROCEDURES Final Result * XR Knee 1-2 Views Left (05/17/2023 10:21 AM EST) Anatomical Region Laterality Modality Lower Extremities, Knee Left Radiogra phic Imaging 05/17/2023 10:2 1 AM EST Narrative 05/19/2023 4:59 PM EST ?[facility] ?[address] ?[place] [address] ?XRay Report ? Signed ? Patient: Steffen,Merlotte ?MR#: [id number] ?? [id number] ? : 1975 ?Acct:[id number] ? Age/Sex: 48 / F ?ADM Date: // ? Loc: HO.HHCX ? Attending Dr: Karely Lopez TERRAZZO GRINDER ? Ordering Physician: KARELY LOPEZ NP ?? Date of Service: 05/17/23 ?? Procedure(s): XR knee LT 2V ?? Accession Number(s): [id number] ? cc: KARELY LOPEZ NP ? EXAMINATION: ?? XR KNEE, LEFT ? CLINICAL INFORMATION: ?? Pain ? COMPARISON: ?? None available. ? TECHNIQUE: ?? Four views of the left knee. ? FINDINGS: ?? No fracture or joint effusion. Alignment is anatomic. Joint spaces are ?? maintained. No abnormal soft tissue calcification. ? XR/XR knee LT 2V ?? IMPRESSION: ?? Normal left knee. ? Dictated By: ?Shahrzad Keenan MD ? Signed By: ?<Electronically signed by Shahrzad Keenan MD in OV> ? 05/19/23 1655 ? DD/ 1021 ? TD/TT: ? Agitator Operator: ? Procedure Note Donmichelle, Image - 05/19/2023 [facility] [address] [place] [address] XRay Report Signed Patient: Vilma BourneMR#: [id number] : 1975Acct:[id number] Age/Sex: 48 / FADM Date: 05/17/23 Loc: HO.HHCX Attending Dr: Karely Lopez TERRAZZO GRINDER Ordering Physician: KARELY LOPEZ TERRAZZO GRINDER Date of Service: 05/17/23 Procedure(s): XR knee LT 2V Accession Number(s): [id number] cc: KARELY LOPEZ TERRAZZO GRINDER EXAMINATION: XR KNEE, LEFT CLINICAL INFORMATION: Pain COMPARISON: None available. TECHNIQUE: Four views of the left knee. FINDINGS: No fracture or joint effusion. Alignment is anatomic. Joint spaces are maintained. No abnormal soft tissue calcification. XR/XR knee LT 2V IMPRESSION: Normal left knee. Dictated By: Shahrzad Keenan MD Signed By: <Electronically signed by Shahrzad Keenan MD in OV> 05/19/23 1655 DD/ 1021 TD/TT: Agitator Operator: Karely Lopez ANP IMG XR PROCEDURES Final Result documented in this encounter Visit Diagnoses Diagnosis Acute pain of left knee- Primary documented in this encounter Additional Health Concerns Assessment Noted Time PHQ-9 Depression Total Score: 0 04/22/20 23 1:07 PM EST documented as of this encounter Care Teams Button Sewing Machine Operator Relationship Specialty Start Date End Date Karely Lopez ANP [address] [place] [address] PCP - General Family Medicine 01/30/21 documented as of this encounter
[2024-07-21 17:59] LABS: Bacterial Vaginosis PCR POSITIVE (Negative); Candida Group PCR NOT DETECTED (Not Detect); Candida glab krusei PCR NOT DETECTED (Not Detect); Trichomonas vaginalis PCR NOT DETECTED (Not Detect)
[2024-07-28 14:44] LABS: C. trachomatis RNA TMA Not Detected (Not Detected); N. gonorrhoeae RNA TMA Not Detected (Not Detected); Trichomonas (NAAT) Not Detected (Not Detected)
[2024-07-31 09:13] LABS: HPV Genotype 16 Negative (Negative); HPV Genotype 18 Negative (Negative); HPV High Risk Negative (Negative)
== END 2024-07-21 13:34 | disposition home or self-care (01) ==
LOC: HO.HHCLNP 13:33
PROVIDERS: Visit Provider Nurse Practitioner Primary Care
DX: Z12.4 Encounter for screening for malignant neoplasm of cervix (principal); Z11.3 Encounter for screening for infections with a predominantly sexual mode of transmission; Z11.51 Encounter for screening for human papillomavirus (HPV)
CPT/HCPCS: 81515; 87491; 87591; 87626; 87661; 88175

== ENCOUNTER 2024-08-23 12:07 | Emergency (ER) | payer MEDICAID, SELFPAY ==
--- NOTE | ~2024-08-23 | US_ITS ---
EXAMINATION: US TRIPLEX LOWER EXTREMITY, BILATERAL CLINICAL INFORMATION: Pain both lower extremities. COMPARISON: None available. TECHNIQUE: Color-flow triplex imaging with spectral analysis and compression Doppler were performed on the bilateral lower extremities. FINDINGS: Respiratory variation, normal compression and augmented flow are noted throughout the bilateral common femoral vein, superficial femoral vein, profunda femoral vein, popliteal vein and midcalf peroneal and posterior tibial venous . There is no May's cyst. US/US venous duplex LE BI IMPRESSION: No acute deep venous thrombosis involving the bilateral lower extremities.. Negative for DVT. Electronically signed by: James Salmon MD 08/23/2024 03:26 PM EDT
[2024-08-23 12:29] VITALS: BP 128/75; PULSE 76; RESP 19; TEMP 36.1; O2SAT 98; BMI 40.9
--- NOTE | 2024-08-23 12:32 | ED_ITS ---
HPI - General Adult General Chief complaint: Extremity Injury, Lower Stated complaint: R Knee Pain No Injury Time Seen by Provider: 08/23/24 18:40 Source: patient Limitations: language barrier History of Present Illness ED Provider: Emilie Salcedo PA-C HPI narrative: 49-year-old female who is morbidly obese with a history of arthritis of bilateral knees, presents with bilateral knee pain and swelling since yesterday. No new activity or trauma that could have precipitated her symptoms. Denies redness or warmth of either knee, no fever. Patient was ambulatory. Related Data Previous Rx's ?Medication ?Instructions ?Recorded ibuprofen 600 mg tablet 600 mg PO Q6H PRN pain #20 tabs 05/06/20 naproxen 500 mg tablet 500 mg PO BID 30 days #60 tabs 05/21/20 leg brace (Knee Support Brace) #1 ea 05/22/20 albuterol sulfate 90 mcg/actuation 2 puff inhalation Q4-6H PRN 06/04/20 aerosol inhaler shortness of breath or wheezing #18 grams prednisone 50 mg tablet 50 mg PO DAILY #4 tabs 06/04/20 prednisone 20 mg tablet 60 mg (3 x 20 mg) PO DAILY #12 tabs 03/29/24 prednisone 20 mg tablet 60 mg (3 x 20 mg) PO DAILY #12 tabs 03/29/24 azithromycin 250 mg tablet See Rx Instructions PO .COMPLEX 04/12/24 upper resp infection #6 tabs prednisone 20 mg tablet 40 mg (2 x 20 mg) PO DAILY #10 tabs 04/12/24 acetaminophen 500 mg tablet 1,000 mg (2 x 500 mg) PO Q8H PRN 08/23/24 (Non-Aspirin Extra Strength) pain #20 tabs ibuprofen 600 mg tablet 600 mg PO Q6H PRN pain #20 tabs 08/23/24 Allergies Allergy/AdvReac Type Severity Reaction Status Date / Time Tetanus Vaccines and Toxoid Allergy Unknown Verified 08/23/24 12:33 Review of Systems Review of Systems: Yes all other systems are reviewed and are negative Constitutional: Constitutional: Denies fatigue and Denies fever(s) Cardiovascular: Cardiovascular: Denies chest pain and Denies dyspnea Respiratory: Respiratory: Denies cough and Denies dyspnea Musculoskeletal: Musculoskeletal: Reports arthralgias and Reports joint swelling Endocrine: Endocrine: Denies fatigue PMFSH Past Medical History Attestation statement: The following information was validated with the patient. 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 Physical Exam ED Vital Signs: Vital Signs - 24 hr 08/23/24 12:29 08/23/24 18:47 Temperature 97 F 97.8 F Pulse Rate 76 75 Respiratory Rate 19 18 Blood Pressure 128/75 139/65 Pulse Oximetry 98 96 Oxygen Delivery Method Room Air Room Air BMI result Body Mass Index 40.9 Const Other: Alert well-appearing Orientation/consciousness: patient oriented x3 Resp Effort & Inspection: normal respiratory effort Cardio Other: Normal peripheral perfusion Skin Other: Warm dry no rash Neuro General: patient oriented x3, gait normal, no focal motor deficits and CN's II- XI intact bilaterally Extrem Other: No overlying erythema or warmth of either knee, patient able to flex and extend from both knees, she is ambulatory Psych Other: Cooperative Course Course Course Narrative: RME, this is a rapid medical exam performed by Dylan Lemos please refer to primary provider for complete H&P- 49-year-old female with a history of tend erness of her knees presents for evaluation of bilateral knee pain and leg swelling. She denies any injury to the area. She takes bilateral pain down to her ankles and swelling down to her ankles. Plan for ultrasound to rule out DVT but given there was no trauma history of osteoarthritis we will defer x-ray imaging at this time. Medical Decision Making Medical Decision Making MDM Narrative: 49-year-old female who is morbidly obese with a history of arthritis of bilateral knees, presents with bilateral knee pain and swelling since yesterday. No new activity or trauma that could have precipitated her symptoms. Denies redness or warmth of either knee, no fever. Patient was ambulatory. Problem: Morbid obesity, arthritis History: Per patient I have considered the following differential diagnoses: Arthritis, DVT, septic effusion, fracture, dislocation Plan: Ultrasounds ordered from triage, there are no DVTs. I agree, x-rays not warranted, there was no traumatic injury, she is ambulatory, she already has known arthritis, there would be no additional value. This is not septic effusion, again she is ambulatory she has full range of motion and flexion and extension, there was no redness or overlying warmth. We will send with home care instructions she can follow up with primary care. I have independently reviewed the following tests: Doppler studies lower extremities: US/US venous duplex LE BI IMPRESSION: No acute deep venous thrombosis involving the bilateral lower extremities.. Negative for DVT. Electronically signed by: James Salmon MD 08/23/2024 03:26 PM EDT RP Discharge Plan Discharge Clinical Impression: Osteoarthritis of knees, bilateral Patient Disposition: Home, Self-Care Instructions: Osteoarthritis (ED) Additional Instructions: The ultrasound was normal, you do not have clots in either of your legs. You have known arthritis, this is the likely cause of your discomfort. This is a chronic condition. See home care instructions. You can use ebix-rkw-znrqllt Tylenol 1000 mg taken every 8 hours with food, alternated with sthg-dnj-trucodw ibuprofen 600 mg taken every 6 hours with food, for your pain. I have sent some medication to your pharmacy, I just wanted you to be aware that you can purchase this medication jegn-rtw-zkywrfq at any local pharmacy or grocery store. Weight loss and exercise are both instrumental in managing this chronic inflammatory process. Follow up with your primary care provider, they can refer you to an living specialist, you may require a joint injections for the inflammation. Call to make an appointment. Prescriptions: New ibuprofen 600 mg tablet 600 mg PO Q6H PRN (Reason: pain) Qty: 20 0RF acetaminophen [Non-Aspirin Extra Strength] 500 mg tablet 1,000 mg PO Q8H PRN (Reason: pain) Qty: 20 0RF No Action ibuprofen 600 mg tablet 600 mg PO Q6H PRN (Reason: pain) Qty: 20 0RF albuterol sulfate 90 mcg/actuation HFA aerosol inhaler 2 puff inhalation Q4-6H PRN (Reason: shortness of breath or wheezing) Qty: 18 0RF prednisone 50 mg tablet 50 mg PO DAILY Qty: 4 0RF azithromycin 250 mg tablet See Rx Instructions .ROUTE .COMPLEX Qty: 6 0RF Rx Instructions: take 500 mg today (day 1), then 250 mg for 4 days (days 2-5) prednisone 20 mg tablet 40 mg PO DAILY Qty: 10 0RF prednisone 20 mg tablet 60 mg PO DAILY Qty: 12 0RF prednisone 20 mg tablet 60 mg PO DAILY Qty: 12 0RF naproxen 500 mg tablet 500 mg PO BID 30 Days Qty: 60 3RF (DME) Knee Support Brace Misc See Rx Instructions .MEDSUPPLY Qty: 1 0RF Rx Instructions: reaction knee brace XL/XXL, ledezma Print Language: Marie Carmichael
[2024-08-23 18:47] VITALS: BP 139/65; PULSE 75; RESP 18; TEMP 36.6; O2SAT 96
--- OUTSIDE RECORDS SUMMARY | 2024-08-23 18:49 | XMS_ITS | Encounter Summary ---
Author Organization [employer] Address [address] [facility] 7t [place] [address] Care Team Providers Care Bakery Sales Clerk Name Role Phone Phyllis Day Primary Care Provider [phone] Encounter Details Date Type Department Care Team (Late st Contact Info) Description 12/30/2022 Orders Only [facility] MEDICINE [address] [place] [phone] Hanna Aranda LPN Social History Tobacco Use [...] as of this encounter Plan of Treatment Upcoming Encounters Date Type Department Care Team (Late st Contact Info) Description 10/24/2024 10:15 AM EDT Office Visit [facility] [address] [place] [phone] Phyllis Day ANP [address] [place], [place] [phone] documented as of this encounter Visit Diagnoses Not on filedocumented in this encounter Care Teams Bakery Sales Clerk Relationship Specialty Start Date End Date Phyllis Day ANP [address] [place] [address] PCP - General Family Medicine 01/30/21 documented as of this encounter
--- OUTSIDE RECORDS SUMMARY | 2024-08-23 18:49 | XMS_ITS | Encounter Summary ---
Author Organization [employer] Address [address] [facility] [address] 7t [place] [address] Care Team Providers Care Photoengraving Apprentice Name Role Phone Phyllis Day Primary Care Provider [phone] Encounter Details Date Type Department Care Team (Late st Contact Info) Description 08/23/2024 Telephone [facility]INE [address] [place], [place] [phone] Phyllis Day ANP [address] [place], [place] [phone] Social History Tobacco Use Types Packs/Day Years [...] encounter Miscellaneous Notes * Telephone Encounter - BOGDAN Elizalde - 08/23/2024 3:47 PM EDT Call to pt to let her know pap was normal - she did not yet read msg in [place]. She is at [facility] now b/c her knees and her ankle are swollen. Will await their eval. documented in this encounter Plan of Treatment Upcoming Encounters Date Type Department Care Team (Late st Contact Info) Description 10/24/2024 10:15 AM EDT Office Visit [facility] [address] [place] [phone] Phyllis Day ANP [address] [place] [address] documented as of this encounter Visit Diagnoses Not on filedocumented in this encounter Additional Health Concerns Assessment Noted Time PHQ-9 Depression Total Score: 0 04/22/20 23 1:07 PM EST documented as of this encounter Care Teams Photoengraving Apprentice Relationship Specialty Start Date End Date Phyllis Day ANP [address] [place] [phone] PCP - General Family Medicine 01/30/21 documented as of this encounter
--- OUTSIDE RECORDS SUMMARY | 2024-08-23 18:49 | XMS_ITS | Encounter Summary ---
Author Organization [employer] Address [address] [facility] 7 [place] [address] Care Team Providers Care Imaging Engineer Name Role Phone Phyllis Day Primary Care Provider Reason for Visit * Reason Comments Med Refill Encounter Details Date Type Department Care Team (Late st Contact Info) Description 02/24/2023 Refill [facility] [address] [place] [phone] Phyllis Day ANP [address] [place] [address] Mild persistent asthma with (acute) exacerbation Social [...] Description 10/24/2024 10:15 AM EDT Office Visit [facility] [address] [place] [phone] Phyllis Day ANP [address] [place] [address] documented as of this encounter Visit Diagnoses Diagnosis Mild persistent asthma with (acute) exacerbation documented in this encounter Care Teams Imaging Engineer Relationship Specialty Start Date End Date Phyllis Day ANP [address] [place] [address] PCP - General Family Medicine 01/30/21 documented as of this encounter
--- OUTSIDE RECORDS SUMMARY | 2024-08-23 18:49 | XMS_ITS | Encounter Summary ---
Author Organization [employer] Address [address] [facility] [address] 7[address] [place] [address] Care Team Providers Care Textile Colorist Dyer Name Role Phone Karely Lopez BOGDAN Primary Care Provider [phone] Encounter Details Date Type Department Care Team (Late st Contact Info) Description 08/23/2024 Orders Only [facility] External Provider, [facility] Social History Tobacco Use Types Packs/Day Years [...] Description 10/24/2024 10:15 AM EDT Office Visit [facility]INE [address] [place] [address] Karely Lopez ANP [address] [place] [address] documented as of this encounter Procedures Procedure Name Priority Date/Time Associated Diagnosis Comments [facility] LOWER EXTREMITY VENOUS DUPLEX BILATERAL Routine 08/23/2024 2:40 PM EDT documented in this encounter Results * [facility] Lower Extremity Venous Duplex Bilateral (08/23/2024 2:40 PM EDT) 08/23/2024 2:40 PM EDT Narrative [facility] IMAGING - 08/23/2024 3:32 PM EDT ? [facility] ?[address] ?[place] [address] ? Ultrasound Report ? Signed ? Patient: Steffen,Merlotte ?MR#: [id number] ?? [id number] ? : 1975 ?Acct:[id number] ? Age/Sex: 49 / F ?ADM Date: 03/12/25 ? Loc: HO.ED ? Attending Dr: ? Ordering Physician: Farzad Lemos ?? Date of Service: 08/23/24 ?? Procedure(s): US venous duplex LE BI ?? Accession Number(s): [id number] ? cc: Farzad Lemos; KARELY LOPEZ NP ? EXAMINATION: ?? US TRIPLEX LOWER EXTREMITY, BILATERAL ? CLINICAL INFORMATION: ?? Pain both lower extremities. ? COMPARISON: ?? None available. ? TECHNIQUE: ?? Color-flow triplex imaging with spectral analysis and compression ?? Doppler were performed on the bilateral lower extremities. ? FINDINGS: ?? Respiratory variation, normal compression and augmented flow are noted ?? throughout the bilateral ??common femoral vein, superficial femoral ?? vein, profunda femoral vein, popliteal vein and midcalf peroneal and ?? posterior tibial venous . ? There is no May's cyst. ? US/US venous duplex LE BI ?? IMPRESSION: ?? No acute deep venous thrombosis involving the bilateral lower ?? extremities.. Negative for DVT. ? Electronically signed by: ??James Salmon MD ??08/23/2024 03:26 PM ?? EDT RP ? Dictated By: ?James Gilliland MD ? Signed By: ?<Electronically signed by James Belle MD in OV> ? 08/23/24 1526 ? DD/ 1440 ? TD/TT: 08/23/24 1452 ? Grave Cleaner: ? Procedure Note Joseph Knight - 08/23/2024 [place] [address] Ultrasound Report Signed Patient: Mary Bourne#: [id number] : 1975Acct:[id number] Age/Sex: 49 / FADM Date: 08/23/24 Loc: HO.ED Attending Dr: Ordering Physician: Farzad Lemos Date of Service: 08/23/24 Procedure(s): US venous duplex LE BI Accession Number(s): [id number] cc: Farzad Lemos; KARELY LOPEZ NP EXAMINATION: US TRIPLEX LOWER EXTREMITY, BILATERAL CLINICAL INFORMATION: Pain both lower extremities. COMPARISON: None available. TECHNIQUE: Color-flow triplex imaging with spectral analysis and compression Doppler were performed on the bilateral lower extremities. FINDINGS: Respiratory variation, normal compression and augmented flow are noted throughout the bilateral common femoral vein, superficial femoral vein, profunda femoral vein, popliteal vein and midcalf peroneal and posterior tibial venous . There is no May's cyst. US/US venous duplex LE BI IMPRESSION: No acute deep venous thrombosis involving the bilateral lower extremities.. Negative for DVT. Electronically signed by: James Salmon MD 08/23/2024 03:26 PM EDT RP Dictated By: James Gilliland MD Signed By: <Electronically signed by James Belle MDin OV> 08/23/24 1526 DD/ 1440 TD/TT: 08/23/24 1452 Grave Cleaner: [facility] External Provider CV VASC ULAR PROCEDURES Final Result [facility] [address] [place] [phone] documented in this encounter Visit Diagnoses Not on filedocumented in this encounter Additional Health Concerns Assessment Noted Time PHQ-9 Depression Total Score: 0 04/22/20 23 1:07 PM EST documented as of this encounter Care Teams Textile Colorist Dyer Relationship Specialty Start Date End Date Karely Lopez ANP [address] [place] [address] PCP - General Family Medicine 01/30/21 documented as of this encounter
--- OUTSIDE RECORDS SUMMARY | 2024-08-23 18:49 | XMS_ITS | Clinical Summary ---
Author Organization [employer] Address [address] [place] [address] Care Team Providers Care Solution Lead Name Role Phone Karely Lopez BOGDAN Primary Care Provider [phone] Allergies Active Allergy Reactions Criticality Noted Date Comments Shrimp Extract High 05/05/2019 Tetanus Antitoxin 06/09/2022 Medications Spacer/Aero-Hold ing Chambers deviceIndication s:Mild persistent asthma with (acute) exacerbation 1 each Every 4-6 hours as needed (SOB, wheezing). 1 each 1 3 Active triamcinolone (Kenalog) 0.1 % creamIndications :Hyperpigmented skin lesion,Intrinsic eczema Apply topically if needed in the morning and at bedtime (pain and swelling). 30 g 2 3 Active Multiple Vitamins-Iron tabletIndication s:Anemia, unspecified type 1 tab daily 90 tablet 3 3 Active amLODIPine (Norvasc) 5 MG tabletIndication s:Essential hypertension Take 1 tablet (5 mg) by mouth Once per day. 30 tablet 11 4 10/20/19 25 Active cloNIDine (Catapres) 0.1 MG tablet Take 1 tablet (0.1 mg) by mouth 2 times daily. 5 tablet 4 10/20/19 25 Active Diclofenac Sodium (Voltaren) 1 % gelIndications:C hronic right-sided low back pain with right-sided sciatica,Chronic pain of both knees Apply 2G up to 4x/d to affected joint(s) for pain/swelling 100 g 2 4 Active cyclobenzaprine (Flexeril) 5 MG tablet TAKE 1 TABLET BY MOUTH THREE TIMES A DAY NEEDED FOR PAIN FOR 5 DAYS 4 Active Ventolin HFA 108 (90 Base) MCG/ACT inhalerIndicatio ns:Mild persistent asthma with (acute) exacerbation INHALE 2 PUFFS BY MOUTH EVERY 4-6 HOURS NEEDED FOR WHEEZING 18 g 3 4 Active famotidine (Pepcid) 20 MG tabletIndication s:Gastroesophage al reflux disease, unspecified whether esophagitis present Take 1 tablet twice daily as needed for acid reflux 60 tablet 4 Active budesonide-formo terol (Symbicort) 160-4.5 MCG/ACT inhalerIndicatio ns:Moderate persistent asthma without complication Inhale 2 puffs in the morning and at bedtime. Rinse mouth with water after use to reduce aftertaste and incidence of candidiasis. Do not swallow. 1 each 5 5 07/21/19 26 Active metroNIDAZOLE (Metrogel) 0.75 % vaginal gelIndications:I rregular menses,Bacterial vaginosis Insert 1 Application. into the vagina at bedtime for 5 doses. 70 g 5 07/29/19 25 Active Problems Problem Noted Date Diagnosed Date [...] Encounters Date Type Department Care Team Description 08/23/[address] [address] Karely Lopez ANP 08/23/2024 Orders Only [facility] External Provider, [facility] 08/02/[address] [address] Zuri Perez MA 08/02/[address] [address] Zuri Perez MA May recall (Called pt to book f/u bp check ,pt did not answer left vm, sending letter) 07/24/[address] [address] Suzanne Belle, RN Results 07/21/2024 9:45 AM EST Procedure Visit [address] [address] Karely Lopez ANP Essential hypertension (Primary Dx); Cervical cancer screening; Screening mammogram for breast cancer; Moderate persistent asthma without complication; Routine screening for STI (sexually transmitted infection); History of right breast biopsy; Irregular menses; Screening for malignant neoplasm of colon; Screening, lipid; Screening for diabetes mellitus; Bacterial vaginosis 07/21/2024 Orders Only [address] [address] Karely Lopez ANP 07/21/2024 Travel 07/20/[address] [place] [address] Zuri Perez MA chart prep 07/19/2024 Orders Only [facility] [address] [place] [address] Karely Lopez ANP 06/05/2024 Telephone [facility] [address] [place] [address] Blossom Rocha MA July recall from Last [...] 04/10/2024 1:02 PM EDT Plan of Treatment Upcoming Encounters Date Type Department Care Team (Late st Contact Info) Description 10/24/2024 10:15 AM EDT Office Visit [facility] [address] [place], [place] [phone] Karely Lopez, ANP [address] [place] [address] Health Maintenance Due Date Last Done Comments CT Colonography 1975 Colonoscopy 1975 Colorectal Cancer Screening 1975 FIT DNA/Cologuard 1975 FIT 1975 FOBT 1975 Sigmoidoscopy 1975 Family Planning (PISQ) 02/13/1988 Hepatitis B Vaccines (1 of 3 - 19+ 3-dose series) 02/13/1992 Dental Oral Exam 12/09/2022 06/09/2022, 05/17/2018 Zoster Vaccines (1 of 2) 2023 Dental Prophylaxis 03/13/2023 09/09/2022, 08/03/2018 Dental X-Ray: Bitewings 06/10/2023 06/09/2022, 05/17 Depression Screening 04/22/2024 04/22/2023, 04/22/20 23 SDOH Screening 04/22/2024 04/22/2023 Influenza Vaccine (#1) 2024 04/01/2021 Postp oned from 02/13/2024 (Patient Refused) Dental X-Ray: Full Mouth 06/10/2025 06/09/2022, 09/2017 Mammogram 07/19/2025 07/19/2024, 10/2024, 04/16/2023, Additional history exists Alcohol/Substance Use Screening 07/21/2025 07/21/2024 COVID-19 Vaccine ( season) 2025 07/24/2021, 07/03/2021 Postponed from 02/13/2024 (Patient Refused) DTaP/Tdap/Td Vaccines (1 - Tdap) 07/21/2025 Postponed from 02/13/1992 (Patient Refused) Pneumococcal Vaccine: 50+ Years (1 of 2 - PCV) 07/21/2025 Postponed from 02/13/1992 (Patient Refused) Tobacco Screening 07/21/2025 07/21/2024 Lipid Panel 07/08/2026 07/08/2021 Pap Smear 07/21/2027 07/21/2024, 10/12, 10/27/2018 Cervical Cancer Screening 07/21/2029 HPV/Cotest 07/21/2029 07/21/2024, 06/14, 10/27/2018 RSV Patients and Patients Aged 60 years [...] Procedure Name Priority Date/Time Associated Diagnosis Comments VASC US LOWER EXTREMITY VENOUS DUPLEX BILATERAL Routine 08/23/2024 2:40 PM EDT CHLAMYDIA/N. GONORRHOEAE AND T. VAGINALIS RNA, QUAL,TMA Routine 07/21/2024 10:35 AM EST Routine screening for STI (sexually transmitted infection) PAP SMEAR Routine 07/21/2024 10:35 AM EST Cervical cancer screening HPV DNA, LOW/HIGH RISK Routine 10:35 AM EST BACTERIAL VAGINOSIS PANEL Routine 07/21/2024 10:30 AM EST Cervical cancer screening Irregular menses BI MAMMOGRAM SCREENING TOMOSYNTHESIS BILATERAL Routine 07/19/2024 11:30 AM EST PROPHYLAXIS - ADULT Routine 09/09/2022 8 :00 AM EDT Gingivitis INTRAORAL - COMPLETE SERIES OF RADIOGRAPHIC IMAGES Routine 06/09/2022 10:00 [...] PANEL, STANDARD Routine 07/08/2021 10:50 AM EST from Last 3 Months or Most Recently Relevant to Health Maintenance Results * [facility] US Lower Extremity Venous Duplex Bilateral (08/23/2024 2:40 PM EDT) 08/23/2024 2:40 PM EDT Narrative [facility] - 08/23/2024 3:32 PM EDT ? [facility] ?[address] ?[place] [address] ? Ultrasound Report ? Signed ? Patient: Steffen,Merlotte ?MR#: [id number] ?? [id number] ? : 1975 ?Acct:[id number] ? Age/Sex: 49 / F ?ADM Date: 08/23/24 ? Loc: HO.ED ? Attending Dr: ? Ordering Physician: Farzad Lemos ?? Date of Service: 08/23/24 ?? Procedure(s): US venous duplex LE BI ?? Accession Number(s): [id number] ? cc: Farzad Lemos; KARELY LOPEZ NP [...] Salmon MD ??08/23/2024 03:26 PM ?? EDT ? Dictated By: ?James Gilliland MD ? Signed By: ?<Electronically signed by James Belle MD in OV> ? 08/23/24 1526 ? DD/ 1440 ? TD/TT: 08/23/24 1452 ? Heading Matcher And Assembler: ? Procedure Note Eugene, Image - 08/23/[address] [address] Ultrasound Report Signed Patient: Vilma BourneMR#: [id number] : 1975Acct:[id number] Age/Sex: 49 / FADM Date: 08/23/24 Loc: HO.ED Attending Dr: Ordering Physician: Farzad Lemos Date of Service: 08/23/24 Procedure(s): US venous duplex LE BI Accession Number(s): [id number] cc: Farzad Lemos; KARELY LOPEZ NP EXAMINATION: [...] 08/23/24 1526 DD/ 1440 TD/TT: 08/23/24 1452 Heading Matcher And Assembler: [facility] External Provider CV VASC ULAR PROCEDURES Final Result [facility] [address] [place] [phone] * STI testing add on (NG, CT, Trich) (07/21/2024 10:35 AM EST) Trichomonas (NAAT) Not Detected Not Detected [facility] Comment:Methodology: Transcr iption Mediated Amplification(TMA)The analytical performance characteristics of thisassay have been determined by [facility], [place], [place]. The modificationshave not been cleared or approved by the FDA. Thisassay has been validated pursuant to the CLIAregulations and is used for clinical purposes.For additional information, please refer tohttp://education.ADINCON/faq/Trichomonastma (This link is being providedfor information/educational purposes only).THIS TEST WAS PERFORMED AT:[id number] [place] [address]SNEUYMBHILDA AMAYA MD,PHD CTNG Ref Lab Not Detected Not Detected [facility] NG Ref Lab Not Detected Not Detected [facility] Comment:Methodology: Transcr iption Mediated Amplification(TMA) to detect RNA.The analytical performance characteristics of thisassay, when used to test [facility]Path specimens havebeen determined by [facility]. The modificationshave not been cleared or approved by the FDA.This assay has been validated pursuant to the CLIAregulations and is used for clinical purposes.For additional information, please refer tohttps://education.ADINCON/faq/XNP873(This link is being provided for information/educational purposes only).THIS TEST WAS PERFORMED AT:[facility] [id number] [place] [address]RFWERHBHILDA AMAYA MD,PHD ThinPrep?? vial Cervix uteri structure / Unknown 07/21/2024 10:35 AM EST 07/24/2024 8:20 AM EST Narrative [facility] - 07/28/2024 2:44 PM EST Collection Date: [id number] by: ZURI Simpson: Cervix [facility] LAB CYTOLOGY ORDERABLES Final Re sult [facility] [address] [place] [phone] * HPV DNA, Low/High Risk (07/21/2024 10:35 AM EST) HPV High Risk Negative Negative [facility] HPV Genotype 16 Negative Negative [facility] HPV Genotype 18 Negative Negative [facility] Comment:HPV testing performe d at [facility] (CLIA#[id number]), [address] [place] [address].Testing for HPV was performed using the Kate TONYA [employer]system. The presence of HPV in the female genital tract isassociated with a number of diseases, including cervicalcarcinoma. The HPV DNA high risk pool tests for HPV 31, 33,35, 39, 45, 51, 52, 56, 58, 59, 66 and 68. The testing forHPV 16 and 18 genotypes has also been performed. A positiveresult indicates detection of nucleic acid sequences fromone or more subtypes, whereas a negative result indicatessuch sequences were not detected. 07/21/2024 10:3 5 AM EST 07/24/2024 8:20 AM EST us Karely Lopez [facility] BLOOD ORDERABLES Final Resul t [facility] [address] [place] [phone] * Pap Smear (07/21/2024 10:35 AM EST) Swab Cervical swab / Unknown 07/21/2024 10:35 AM EST 07/24/2024 8:20 AM EST Narrative [facility] - 07/29/2024 10:03 AM EST ----- ------- Name: Vilma Bourne ? Age/Sex: 49/F ? : 1975 Unit#: [id number] ?? Attend Dr: KARELY LOPEZ LITHOGRAPHIC PLATEMAKER ?Re07/21/24 ?Status: DEP REF ? Location: HO.HHCLNP ? Disch: ? ----- ------- SPEC : [id number] ? RECD: 07/24/24 ? STATUS: ??SOUT ? REQ NUM: [id number] ? ESTEBAN: 07/21/24 ? SUBM DR: KARELY LOPEZ NP ? ENTERED: ??07/24/24 ?SP TYPE: Pap Smr ?OTHR : ? ORDERED: ??Pap Smear ? Interpretation ?? Satisfactory for evaluation. ?? Negative for intraepithelial lesion or malignancy. ?? Coccobacilli consistent with shift in vaginal nevin. ?? No endocervical cells seen. ? HPV High Risk: ??Negative ? HPV Genotyping 16: ??Negative ?? HPV Genotyping 18: ??Negative ?Clinical Information LMP: 05/30/2024 Previous PAP test: 06/2019, WNL Other history: Perimenopausal ? Material Received ?? ThinPrep-Cervical ----- ------- Signed (signature on file) ANTHONY Prater (ASCP) 07/29/24 1003 ? ----- ------- ? END OF REPORT ? us Karely Lopez [facility] CYTOLOGY ORDERABLES Final [facility] [address] [place] [phone] * (ABNORMAL) Bacterial Vaginosis Panel (07/21/2024 10:30 AM EST) TRICHOMONAS VAGINALIS DETECTION BY PCR NOT DETECTED Not Detect [facility] BACTERIAL VAGINOSIS DETECTION BY PCR POSITIVE(A) Negative [facility] Comment:The BV organism targ ets of the Xpert Xpress MVP test can becommensal in women; Xpert Xpress MVP positive results forbacterial vaginosis should be considered in conjunction withother clinical and patient information to determine thedisease status. Organisms that are not detected by the XpertXpress MVP test have also been reported to be associatedwith BV and aerobic vaginitis.The Xpert Xpress MVP test performance has not been evaluatedin patients under the age of 14. ANA PAULA GROUP DETECTION BY PCR NOT DETECTED Not Detect [facility] Ana Paula glab krusei PCR NOT DETECTED Not Detect [facility] Swab Vaginal structure / Unknown 07/21/2024 10:30 AM EST 07/21/2024 1:34 PM EST us Karely [facility] LAB MICROBIOLOGY - GENERAL ORDER KATHARINA Final Result [facility] [address] [place] [phone] * BI Mammogram Screening Tomosynthesis Bilateral (07/19/2024 11:30 AM EST) Anatomical Region Laterality Modality Breast Bilateral Mammography 07/19/2024 11:3 0 AM EST Narrative 07/25/2024 7:11 PM EST ? [facility] ? [address] ?[place] [address] ? Mammography Report ? Signed ? Patient: Eula Bournete ?MR#: [id number] ?? [id number] ? : 1975 ?Acct:[id number] ? Age/Sex: 49 / F ?ADM Date: 02/05/25 ? Loc: HO.MAMMO ? Attending Dr: Karely Lopez LITHOGRAPHIC PLATEMAKER ? Ordering Physician: KARELY LOPEZ NP ?Results: 2Benign Fin ?? dings ? Date of Service: 02/05/25 ?Follow Up: 1 Year From Orig ?? inal Mammogram ? Procedure(s): MM tomosynthesis screening BI ?? Accession Number(s): [id number] ? cc: JOHN,KARELY LITHOGRAPHIC PLATEMAKER ? EXAMINATION: ?? MM SCREENING DIGITAL BREAST TOMOSYNTHESIS, BILATERAL ? CLINICAL INFORMATION: ? Screening. Asymptomatic. ? COMPARISON: ?? Mammography: Comparison is made with available priors ? TECHNIQUE: ?? Digital breast mammography with tomosynthesis is performed in both the ?? craniocaudal and mediolateral oblique views along with computer-aided ?? detection (CAD). ? FINDINGS: ?? There are scattered areas of fibroglandular density (ACR BI-RADS breast ?? composition Category b). ?? Bilateral scattered asymmetries are stable dating back to 2017. ?? There are no significant masses, abnormal calcifications, or other ?? abnormalities. ? MM/MM tomosynthesis screening BI ?? IMPRESSION: ?? No mammographic evidence of malignancy. ? ASSESSMENT: ? BI-RADS BI-RADS 2 - Benign Findings ? RECOMMENDATION: ?? Routine annual mammography screening. ? 1 year F/U ? This examination should not preclude the clinical evaluation of a ?? suspicious palpable abnormality. ? This patient's information was entered into a reminder system with a ?? target due date for their next mammogram. ? Electronically signed by: ??Renay Sosa DO ??07/25/2024 07:08 PM EST ? Dictated By: ?Renay Sosa DO ? Signed By: ?<Electronically signed by Renay Sosa DO in OV> ? 07/25/24 1908 ? DD/ 1130 ? TD/TT: 07/19/24 1140 ? Heading Matcher And Assembler: ? Procedure Note Eugene, Joseph - 07/25/2024 [facility] [address] [place] [address] Dr. [place], [place] [address] Mammography Report Signed Patient: Vilma BourneMR#: [id number] : 1975Acct:[id number] Age/Sex: 49 / FADM Date: 07/19/24 Loc: HO.MAMMO Attending Dr: Karely Lopez LITHOGRAPHIC PLATEMAKER Ordering Physician: KARELY LOPEZ NPResults: 2Benign Khalif pelaez Date of Service: 07/19/24Follow Up: 1 Year From [facility] ina Mammogram Procedure(s): MM tomosynthesis screening BI Accession Number(s): [id number] cc: KARELY LOPEZ NP EXAMINATION: MM SCREENING DIGITAL BREAST TOMOSYNTHESIS, BILATERAL CLINICAL INFORMATION: Screening. Asymptomatic. COMPARISON: Mammography: Comparison is made with available priors TECHNIQUE: Digital breast mammography with tomosynthesis is performed in both the craniocaudal and mediolateral oblique views along with computer-aided detection (CAD). FINDINGS: There are scattered areas of fibroglandular density (ACR BI-RADS breast composition Category b). Bilateral scattered asymmetries are stable dating back to 2017. There are no significant masses, abnormal calcifications, or other abnormalities. MM/MM tomosynthesis screening BI IMPRESSION: No mammographic evidence of malignancy. ASSESSMENT: BI-RADS BI-RADS 2 - Benign Findings RECOMMENDATION: Routine annual mammography screening. 1 year F/U This examination should not preclude the clinical evaluation of a suspicious palpable abnormality. This patient's information was entered into a reminder system with a target due date for their next mammogram. Electronically signed by: Renay Sosa DO 07/25/2024 07:08 PM EST Dictated By: Renay Sosa DO Signed By: <Electronically signed by Renay Sosa DO in OV> 07/25/24 1908 DD/ 1130 TD/TT: 07/19/24 1140 Heading Matcher And Assembler: Kaerly Lopez ANP IMG BI PROCEDURES Final Result * HEPATITIS C AB W/REFL TO HCV RNA, QN, PCR (07/08/2021 10:50 AM EST) HEPATITIS C ANTIBODY NON-REACT CELESTINO NON-REACT CELESTINO [facility] INDEX 0.04 <1.00 [facility] Comment: ?? HCV antibody was non-reactive. There is no laboratory ?? evidence of HCV infection. ?? In most cases, no further action is required. However, if recent HCV exposure is suspected, a test for HCV RNA (test code 83039) is suggested. ?? For additional information please refer to http://Xoinka.ADINCON/faq/DDI84r2 (This link is being provided for informational/ educational purposes only.) ?? 07/08/2021 10:5 0 AM EST us Karely Lopez ANP HISTORICAL/NON ORDERABLE LABS Fi nal Result Performing Organization Address [facility] Number [facility] [address] [place] [address], * HIV 1/2 ANTIGEN/ANTIBODY,FOURTH GENERATION W/RFL (07/08/2021 10:50 AM EST) [facility] HIV-1/2 ANTIGEN AND ANTIBODIES, 4TH GENERATION W/ [...] ? For additional information please refer to http://Xoinka.ADINCON/faq/CKF840 (This link is being provided for informational/ educational purposes only.) ? The performance of this assay has not been clinically validated in patients less than 2 years old. ?? 07/08/2021 10:5 0 AM EST us Karely [facility] LAB BLOOD ORDERABLES Final Resul t Performing Organization Address [facility] [address] [place] [address], * (ABNORMAL) LIPID PANEL, STANDARD (07/08/2021 10:50 AM EST) [facility] Chol/HDLC Ratio 3.4 <5.0 (calc) [facility] Cholesterol, Total 155 <200 mg/dL [facility] HDL Cholesterol 45(L) > OR = 50 mg/dL [facility] LDL Cholesterol 95 mg/dL (calc) [facility] Comment: Reference range: <100 ?? [...] ?? Iván CAMARGO et al. SHARON. 2013;310(19): 7383-6251 ?? (http://education.commercetools/faq/KDW078) Non-HDL Cholesterol 110 <130 mg/dL (calc) [facility] Comment: For patients with diabetes plus 1 major ASCVD risk ?? factor, treating to a non-HDL-C goal of <100 mg/dL ?? (LDL-C of <70 mg/dL) is considered a therapeutic ?? option. Triglycerides 65 <150 mg/dL [facility] 07/08/2021 10:5 0 AM EST Karely Lopez [facility] BLOOD ORDERABLES Final Resul t [facility] [address] from Last 3 Months or Most Recently Relevant to Health Maintenance Insurance [facility] C3 DENTAL-[facility] MEDICAID STAND ADULT Care Teams Solution Lead Relationship Specialty Start Date End Date Karely Lopez ANP [address] [place] [phone] PCP - General Family Medicine 01/30/21
--- OUTSIDE RECORDS SUMMARY | 2024-08-23 18:50 | XMS_ITS | Encounter Summary ---
Author Organization [employer] Address [address] [place] [address] Care Team Providers Care Learning Disabilities Specialist Name Role Phone Phyllis Day BOGDAN Primary Care Provider [phone] Encounter Details Date Type Department Care Team (Late st Contact Info) Description 08/02/2024 Telephone [facility] [address] [place] [address] [place], [place] Social History Tobacco Use Types Packs/Day Years [...] Description 10/24/2024 10:15 AM EDT Office Visit [facility] [address] [place] [phone] Phyllis Day ANP [address] [place] [address] documented as of this encounter Visit Diagnoses Not on filedocumented in this encounter Additional Health Concerns Assessment Noted Time PHQ-9 Depression Total Score: 0 04/22/20 23 1:07 PM EST documented as of this encounter Care Teams Learning Disabilities Specialist Relationship Specialty Start Date End Date Phyllis Day ANP [address] [place] [phone] PCP - General Family Medicine 01/30/21 documented as of this encounter
--- OUTSIDE RECORDS SUMMARY | 2024-08-23 18:50 | XMS_ITS | Encounter Summary ---
Author Organization [employer] Address [address] [facility] 7t [place] [address] Care Team Providers Care Rescue Worker Name Role Phone Phyllis Day Primary Care Provider [phone] Encounter Details Date Type Department Care Team (Late st Contact Info) Description 07/21/2024 Orders Only [facility] [address] [place], [place] [phone] Phyllis Day ANP [address] [place] [address] Social History Tobacco Use Types Packs/Day Years [...] as of this encounter Miscellaneous Notes * Result Encounter Note - BOGDAN Elizalde - 07/21/2024 11:59 PM EST Hi Vilma, Your pap smear was normal. We will plan to repeat in 5 years. Hope you are well, Phyllis documented in this encounter Plan of Treatment Upcoming Encounters Date Type Department Care Team (Late st Contact Info) Description 10/24/2024 10:15 AM EDT Office Visit [facility] [address] [place] [address] Phyllis Day ANP [address] [place], [place] [phone] documented as of this encounter Procedures Procedure Name Priority Date/Time Associated Diagnosis Comments HPV DNA, LOW/HIGH RISK Routine 07/21/2024 10:35 AM EST documented in this encounter Results * HPV DNA, Low/High Risk (07/21/2024 10:35 AM EST) HPV High Risk Negative Negative [facility] HPV Genotype 16 Negative Negative [facility] HPV Genotype 18 Negative Negative [facility] Comment:HPV testing performe d at [facility] (CLIA#[id number]), [address] [place] [address].Testing for HPV was performed using the Kate [employer]ONYA 6800system. The presence of HPV in the female [...] 5 AM EST 07/24/2024 8:20 AM EST Phyllis MCFADDEN LAB BLOOD ORDERABLES Final Resul t [facility] [address] [place] [phone] documented in this encounter Visit Diagnoses Not on filedocumented in this encounter Additional Health Concerns Assessment Noted Time PHQ-9 Depression Total Score: 0 04/22/20 23 1:07 PM EST documented as of this encounter Care Teams Rescue Worker Relationship Specialty Start Date End Date Phyllis Day ANP [address] [place] [phone] PCP - General Family Medicine 01/30/21 documented as of this encounter
--- OUTSIDE RECORDS SUMMARY | 2024-08-23 18:50 | XMS_ITS | Encounter Summary ---
Author Organization [employer] Address [address] [facility] 7t [place] [address] Care Team Providers Care Wet Machine Operator Name Role Phone Phyllis Day BOGDAN Primary Care Provider [phone] Reason for Visit * Reason Onset Date Comments Results 07/24/2024 Encounter Details Date Type Department Care Team (Late st Contact Info) Description 07/24/2024 Telephone [facility] MEDICINE 230 [place], [place] [phone] Suzanne Belle RN 230 [place] [address] Results Social History Tobacco Use Types Packs/Day Years [...] encounter Miscellaneous Notes * Telephone Encounter - Suzanne Belle RN - 07/24/2024 11:04 AM EST T/C placed to pt re below lab results and POC. Informed positive for BV which is not an STI. Explained BV is an imbalance in the bacteria of the vagina which is commonly caused by using personal careproducts or soap in/on the vagina/vulva. Informed medication sent to be inserted into the vagina before bedtime every night x5 nights. Advised to abstain from sex during Tx. Advised she pick it up and let us know if Sx persist after Tx. Common Sx include itching, odor, and discharge. Pt verbalized understanding and denied having any further questions or concerns at this time. * Telephone Encounter - Suzanne Belle RN - 07/24/2024 11:01 AM EST ----- Message from Phyllis Day sent at 07/24/2024 10:58 AM EST ----- Please let pt know, pap still pending, vaginal swab +for BV - not an STI, this is overgrowth of normal vaginal nevin. Will send vaginal metrogel to use for 5 nights. documented in this encounter Plan of Treatment Upcoming Encounters Date Type Department Care Team (Late st Contact Info) Description 10/24/2024 10:15 AM EDT Office Visit [facility] 230 [place] [address] Phyllis Day ANP 230 [place] [address] documented as of this encounter Visit Diagnoses Not on filedocumented in this encounter Additional Health Concerns Assessment Noted Time PHQ-9 Depression Total Score: 0 04/22/20 23 1:07 PM EST documented as of this encounter Care Teams Wet Machine Operator Relationship Specialty Start Date End Date Phyllis Day ANP [address] [place] [address] PCP - General Family Medicine 01/30/21 documented as of this encounter
--- OUTSIDE RECORDS SUMMARY | 2024-08-23 18:50 | XMS_ITS | Encounter Summary ---
Author Organization [employer] Address [address] [facility] 7t [place] [address] Care Team Providers Care Equipment Operator Intermodal Yard Name Role Phone Karely Lopez Primary Care Provider [phone] Encounter Details Date Type Department Care Team (Late st Contact Info) Description 05/14/2023 Orders Only [facility] MEDICINE 230 [place], [place] [phone] Karely Lopez ANP 230 [place] [address] Acute pain of left knee (Primary Dx) [...] Description 10/24/2024 10:15 AM EDT Office Visit [facility] MEDICINE 230 [place] [address] Karely Lopez, ANP 230 [place] [address] documented as of this encounter Procedures Procedure [...] AM EST Narrative 05/19/2023 4:59 PM EST ?[place] [facility] ?[address] ?[place] [address] ?XRay Report ? Signed ? Patient: Steffen,Merlotte ?MR#: [id number] ?? [id number] ? : 1975 ?Acct:[id number] ? Age/Sex: 48 / F ?ADM Date: 05/17/23 ? Loc: HO.HHCX ? Attending Dr: Karely Lopez NP ? Ordering Physician: KARELY LOPEZ NP ?? Date of Service: 05/17/23 ?? Procedure(s): XR ankle LT min 3V ?? Accession Number(s): [id number] ? cc: KARELY LOPEZ NP ? Examination: [...] 1655 ? DD/ 1021 ? TD/TT: ? Operational Risk Manager: ? Procedure Note Joseph Knight - 05/19/[address] [address] XRay Report Signed Patient: Vilma BourneMR#: [id number] : 1975Acct:[id number] Age/Sex: 48 / FADM Date: 05/17/23 Loc: HO.HHCX Attending Dr: Karely Lopez ROOM INSPECTOR Ordering Physician: KARELY LOPEZ NP Date of Service: 05/17/23 Procedure(s): XR ankle LT min 3V Accession Number(s): [id number] cc: KARELY LOPEZ NP Examination: Left and [...] in OV> 05/19/23 1655 DD/ 1021 TD/TT: Operational Risk Manager: us Karely Lopez ANP IMG XR PROCEDURES Final Result * XR Ankle 3+ Views Right (05/17/2023 10:21 AM EST) Anatomical Region Laterality Modality Lower Extremities, Ankle Right Radiogr aphic Imaging 05/17/2023 10:2 1 AM EST Narrative 05/19/2023 4:59 PM EST ?[facility] ?[address] ?[place] [address] ?XRay Report ? Signed ? Patient: Steffen,Eulate ?MR#: [id number] ?? [id number] ? : 1975 ?Acct:[id number] ? Age/Sex: 48 / F ?ADM Date: 05/17/23 ? Loc: HO.HHCX ? Attending Dr: Karely Lopez NP ? Ordering Physician: KARELY LOPEZ NP ?? Date of Service: 05/17/23 ?? Procedure(s): XR ankle RT min 3V ?? Accession Number(s): [id number] ? cc: KARELY LOPEZ NP ? Examination: [...] 1655 ? DD/ 1021 ? TD/TT: ? Operational Risk Manager: ? Procedure Note Donotuseinterpreter, Image - 05/19/2023 [facility] [address] [facility] [place] [address] XRay Report Signed Patient: Vilma BourneMR#: [id number] : 1975Acct:[id number] Age/Sex: 48 / FADM Date: 05/17/23 Loc: HO.HHCX Attending Dr: Karely Lopez ROOM INSPECTOR Ordering Physician: KARELY LOPEZ NP Date of Service: 05/17/23 Procedure(s): XR ankle RT min 3V Accession Number(s): [id number] cc: KARELY LOPEZ NP Examination: Left and [...] in OV> 05/19/23 1655 DD/ 1021 TD/TT: Operational Risk Manager: Karely Lopez ANP IMG XR PROCEDURES Final Result * XR Knee 1-2 Views Left (05/17/2023 10:21 AM EST) Anatomical Region Laterality Modality Lower Extremities, Knee Left [facility] 05/17/2023 10:2 1 AM EST Narrative 05/19/2023 4:59 PM EST ?[facility] ?[address] ?[place] [address] ?XRay Report ? Signed ? Patient: Steffen,Merlotte ?MR#: [id number] ?? [id number] ? : 1975 ?Acct:[id number] ? Age/Sex: 48 / F ?ADM Date: 12/04/23 ? Loc: HO.HHCX ? Attending Dr: Karely Lopez NP ? Ordering Physician: KARELY LOPEZ NP ?? Date of Service: 05/17/23 ?? Procedure(s): XR knee LT 2V ?? Accession Number(s): [id number] ? cc: KARELY LOPEZ NP ? EXAMINATION: [...] 1655 ? DD/ 1021 ? TD/TT: ? Operational Risk Manager: ? Procedure Note Eugene, Image - 05/19/[address] [address] XRay Report Signed Patient: Vilma BourneMR#: [id number] : 1975Acct:[id number] Age/Sex: 48 / FADM Date: 05/17/23 Loc: HO.HHCX Attending Dr: Karely Lopez NP Ordering Physician: KARELY LOPEZ NP Date of Service: 05/17/23 Procedure(s): XR knee LT 2V Accession Number(s): [id number] cc: KARELY LOPEZ NP EXAMINATION: XR KNEE, LEFT CLINICAL INFORMATION: Pain COMPARISON: None available. TECHNIQUE: Four views of the left knee. FINDINGS: No fracture or joint effusion. Alignment is anatomic. Joint spaces are maintained. No abnormal soft tissue calcification. XR/XR knee LT 2V IMPRESSION: Normal left knee. Dictated By: Shahrzad Keenan MD Signed By: <Electronically signed by Shahrzad Keenan MD in OV> 05/19/23 1655 DD/ 1021 TD/TT: Operational Risk Manager: Karely Lopez ANP IMG XR PROCEDURES Final Result documented in this encounter Visit Diagnoses Diagnosis Acute pain of left knee- Primary documented in this encounter Additional Health Concerns Assessment Noted Time PHQ-9 Depression Total Score: 0 04/22/20 23 1:07 PM EST documented as of this encounter Care Teams Equipment Operator Intermodal Yard Relationship Specialty Start Date End Date Karely Lopez ANP 230 [place] [address] PCP - General Family Medicine 01/30/21 documented as of this encounter
--- OUTSIDE RECORDS SUMMARY | 2024-08-23 18:50 | XMS_ITS | Encounter Summary ---
Author Organization [employer] Address [address] [facility] [address] 7t [place] [address] Care Team Providers Care Dumper Bulk System Name Role Phone Phyllis Day BOGDAN Primary Care Provider [phone] Reason for Visit * Reason Onset Date Comments May recall 08/02/[address] k f/u bp check ,pt did not answer left vm, sending letter Encounter Details Date Type Department Care Team (Late st Contact Info) Description 08/02/2024 Telephone [facility] MEDICINE 230 [place], [place] [phone] Zuri Perez MA May recall (Called pt to book f/u bp check ,pt did not answer left vm, sending letter) Social History Tobacco Use Types Packs/Day Years [...] Telephone Encounter - Zuri Perez MA - 08/02/2024 1:59 PM EST Called pt to book f/u bp check ,pt did not answer left vm, sending letter documented in this encounter Plan of Treatment Upcoming Encounters Date Type Department Care Team (Late st Contact Info) Description 10/24/2024 10:15 AM EDT Office Visit [facility] MEDICINE 230 [place] [address] Phyllis Day ANP 230 [place] [address] documented as of this encounter Visit Diagnoses Not on filedocumented in this encounter Additional Health Concerns Assessment Noted Time PHQ-9 Depression Total Score: 0 04/22/20 23 1:07 PM EST documented as of this encounter Care Teams Dumper Bulk System Relationship Specialty Start Date End Date Phyllis Day ANP [address] [place] [address] PCP - General Family Medicine 01/30/21 documented as of this encounter
--- OUTSIDE RECORDS SUMMARY | 2024-08-23 18:50 | XMS_ITS | Encounter Summary ---
Author Organization [employer] Address [address] [facility] 7t [place] [address] Care Team Providers Care Police Academy Program Coordinator Name Role Phone Karely Lopez Primary Care Provider [phone] Encounter Details Date Type Department Care Team (Late st Contact Info) Description 07/19/2024 Orders Only [facility] MEDICINE 230 [place], [place] [phone] Karely Lopez ANP 230 [place] [address] Social History Tobacco Use Types Packs/Day Years [...] Description 10/24/2024 10:15 AM EDT Office Visit [facility] MEDICINE 230 [place] [address] Karely Lopez, ANP 230 [place] [address] documented as of this encounter Procedures Procedure Name Priority Date/Time Associated Diagnosis Comments BI MAMMOGRAM SCREENING TOMOSYNTHESIS BILATERAL Routine 07/19/2024 11:30 AM EST documented in this encounter Results * BI Mammogram Screening Tomosynthesis Bilateral (07/19/2024 11:30 AM EST) Anatomical Region Laterality Modality Breast Bilateral Mammography 07/19/2024 11:3 0 AM EST Narrative 07/25/2024 7:11 PM EST ? [facility] ? [address] ?[place] [address] ? Mammography Report ? Signed ? Patient: Steffen,Merlotte ?MR#: [id number] ?? [id number] ? : 1975 ?Acct:[id number] ? Age/Sex: 49 / F ?ADM Date: 02/05/25 ? Loc: HO.MAMMO ? Attending Dr: Karely Lopez WAREHOUSE WORKER ? Ordering Physician: KARELY LOPEZ NP ?Results: 2Benign Fin ?? dings ? Date of Service: 07/19/24 ?Follow Up: 1 Year From Orig ?? inal Mammogram ? Procedure(s): MM tomosynthesis screening BI ?? Accession Number(s): [id number] ? cc: KARELY LOPEZ NP ? EXAMINATION: ?? MM SCREENING DIGITAL BREAST [...] ??Renay Sosa DO ??07/25/2024 07:08 PM EST ?? RP ? Dictated By: ?Renay Sosa DO ? Signed By: ?<Electronically signed by Renay Sosa, DO in OV> ? 07/25/241907 ? DD/ ? TD/TT: 07/19/24 1140 ? Front End Wheel Loader Operator: ? Procedure Note Donmichelle, Image - 07/25/2024 [facility] [address] [place] [address] Mammography Report Signed Patient: Vilma BourneMR#: [id number] : 1975Acct:[id number] Age/Sex: 49 / FADM Date: 07/19/24 Loc: MAMMO Attending Dr: Karely Lopez NP Ordering Physician: KARELY LOPEZ NPResults: 2[facility] Date of Service: 07/19/24Follow Up: 1 Year From Orig inal Mammogram Procedure(s): MM tomosynthesis screening BI Accession Number(s): [id number] cc: KARELY LOPEZ NP EXAMINATION: MM SCREENING [...] Renay Sosa DO 07/25/2024 07:08 PM EST RP Dictated By: Renay Sosa DO Signed By: <Electronically signed by Renay Sosa DO in OV> 07/25/24 1908 DD/ 1130 TD/TT: 07/19/24 1140 Front End Wheel Loader Operator: Karely MCFADDEN IMG BI PROCEDURES Final Result documented in this encounter Visit Diagnoses Not on filedocumented in this encounter Additional Health Concerns Assessment Noted Time PHQ-9 Depression Total Score: 0 04/22/20 23 1:07 PM EST documented as of this encounter Care Teams Police Academy Program Coordinator Relationship Specialty Start Date End Date Karely Lopez ANP 230 [place] [address] PCP - General Family Medicine 01/30/21 documented as of this encounter
--- OUTSIDE RECORDS SUMMARY | 2024-08-23 18:50 | XMS_ITS | Encounter Summary ---
Author Organization [employer] Address [address] [facility] 7t [place] [address] Care Team Providers Care Field Sales Agent Name Role Phone Karely Lopez Primary Care Provider [phone] Reason for Visit * Reason Comments pap Encounter Details Date Type Department Care Team (Latest Contact Info) Description 07/21/2024 9:45 AM EST Procedure Visit [facility] MEDICINE 230 [place], [place] [phone] Karely Lopez ANP 230 [place], [place] [phone] Essential hypertension (Primary Dx); Cervical cancer screening; Screening mammogram for breast cancer; Moderate persistent asthma without complication; Routine screening for STI (sexually transmitted infection); History of right breast biopsy; Irregular menses; Screening for malignant neoplasm of colon; Screening, lipid; Screening for diabetes mellitus; Bacterial vaginosis Social History Tobacco Use Types Packs/Day Years [...] Sexual activity: with AMAB Menstrual history: LMP 12/17/24 history: 6 kids: 5 , 1 Mammogram: BI-RADS 1 - Negative 04/2023, got last week. DEXA: not yet due kecia/menopausal symptoms: hot flashes, irregular menses, LMP 05/30/24 METAL TEMPERER concerns: (eg, vaginal, urinary, sexual health or [...] Exam Vitals reviewed. Exam conducted with a crtts present (Zuri LEDESMA). Constitutional: Appearance: Normal appearance. [...] complication May use symbicort as SMART therapy (vigvqg-rnpdbexkcfk-zze-reliever-therapy): - budesonide-formoterol (Symbicort) 160-4.5 MCG/ACT inhaler; Inhale [...] for malignant neoplasm of colon I messaged human factors specialist for update. Referred to [facility] 01/2024 and has not heard, no letter in chart I could find. Screening, lipid - Lipid Panel, Standard; Future Screening for diabetes mellitus - Hemoglobin A1c; Future documented in this encounter Miscellaneous Notes * Result Encounter Note - BOGDAN Elizalde - 07/21/2024 9:45 AM EST Please let pt know, pap still pending, vaginal swab +for BV - not an STI, this is overgrowth of normal vaginal nevin. Will send vaginal metrogel to use for 5 nights. * Result Encounter Note - BOGDAN Elizalde - 07/21/2024 9:45 AM EST Duplicate. * Addendum Note - BOGDAN Elizalde - 07/21/2024 9:45 AM ESTAddended by: KARELY LOPEZ on: 07/24/2024 10:58 AM Modules accepted: Orders documented in this encounter Plan of Treatment Upcoming Encounters Date Type Department Care Team (Late st Contact Info) Description 10/24/2024 10:15 AM EDT Office Visit [facility]INE [address] [place] [address] Karely Lopez ANP 230 [place] [address] Scheduled Orders Name Type Priority Associated Diagnoses Orde r Schedule Lipid Panel, Standard Lab Routine Screening, lipid [...] Expires: 07/21/2025 documented as of this encounter Procedures Procedure Name Priority Date/Time Associated Diagnosis Comments CHLAMYDIA/N. GONORRHOEAE AND T. VAGINALIS RNA, QUAL,TMA Routine 07/21/2024 10:35 AM EST Routine screening for STI (sexually transmitted infection) PAP SMEAR Routine 07/21/2024 10:35 AM EST Cervical cancer screening BACTERIAL VAGINOSIS PANEL Routine 07/21/2024 10:30 AM EST Cervical cancer screening Irregular menses documented in this encounter Results * STI testing add on (NG, CT, Trich) (07/21/2024 10:35 AM EST) Pathologist [facility] Trichomonas (NAAT) Not Detected Not Detected [facility] Comment:Methodology: Transcr iption Mediated Amplification(TMA)The analytical performance characteristics of thisassay have been determined by [facility], [place], [place]. The modificationshave not been cleared or approved by the FDA. Thisassay has been validated pursuant to the CLIAregulations and is used for clinical purposes.For additional information, please refer tohttp://[employer].Meilimei/faq/Trichomonastma (This link is being providedfor information/educational purposes only).THIS TEST WAS PERFORMED AT:[facility] [place] [address]PYNTDMZHILDA AMAYA MD,PHD CTNG Ref Lab Not Detected Not Detected [facility] NG Ref Lab Not Detected Not Detected [facility] Comment:Methodology: Transcr iption Mediated Amplification(TMA) to detect RNA.The analytical performance characteristics of thisassay, when used to test SurePath specimens havebeen determined by [employer]. The modificationshave not been cleared or approved by the FDA.This assay has been validated pursuant to the CLIAregulations and is used for clinical purposes.For additional information, please refer tohttps://education.Meilimei/faq/YCU908(This link is being provided for information/educational purposes only).THIS TEST WAS PERFORMED AT:[employer]/[facility] [place] [address]CMSEBJEHILDA AMAYA MD,PHD ThinPrep?? vial Cervix uteri structure / Unknown 07/21/2024 10:35 AM EST 07/24/2024 8:20 AM EST Narrative [facility] - 07/28/2024 2:44 PM EST Collection Date: [id number] by: ZURI Simpson: Cervix us Karely Lopez ANP LAB CYTOLOGY ORDERABLES Final Re sult [facility] [address] [place] [phone] * Pap Smear (07/21/2024 10:35 AM EST) Swab Cervical swab / Unknown 07/21/2024 10:35 AM EST 07/24/2024 8:20 AM EST Narrative [facility] - 07/29/2024 10:03 AM EST ----- ------- Name: Vilma Bourne ? Age/Sex: 49/F ? : 1975 Unit#: [id number] ?? Attend Dr: KARELY LOPEZ MAINSTREAMING FACILITATOR ?Re07/21/24 ?Status: DEP REF ? Location: HO.HHCLNP ? Disch: ? ----- ------- SPEC : [id number] ? RECD: 07/24/24 ? STATUS: ??SOUT ? REQ NUM: [id number] ? ESTEBAN: 07/21/24 ? SUBM DR: KARELY LOPEZ NP ? ENTERED: ??07/24/24 ?SP TYPE: Pap Smr ?OTHR DR: ? ORDERED: ??Pap Smear ? Interpretation ?? [...] ? END OF REPORT ? us Karely MCFADDEN LAB CYTOLOGY ORDERABLES Final [facility] [address] [place] [phone] * (ABNORMAL) Bacterial Vaginosis Panel (07/21/2024 10:30 AM EST) TRICHOMONAS VAGINALIS DETECTION BY PCR NOT DETECTED Not Detect [facility] BACTERIAL VAGINOSIS DETECTION BY PCR POSITIVE(A) Negative [facility] Comment:The BV organism targ ets [...] DETECTION BY PCR NOT DETECTED Not Detect [facility] Ana Paula glab krusei PCR NOT DETECTED Not Detect [facility] Swab Vaginal structure / Unknown 07/21/2024 10:30 AM EST 07/21/2024 1:34 PM EST Karely MCFADDEN LAB MICROBIOLOGY - GENERAL ORDER KATHARINA Final Result [facility] [address] [place] [phone] documented in this encounter Visit Diagnoses Diagnosis Essential hypertension- [...] colon Screening, lipid Screening for diabetes mellitus Bacterial vaginosis Unspecified vaginitis and vulvovaginitis documented in this encounter Additional Health Concerns Assessment Noted Time PHQ-9 Depression Total Score: 0 04/22/20 23 1:07 PM EST documented as of this encounter Care Teams Field Sales Agent Relationship Specialty Start Date End Date Karely Lopez ANP [address] [place] [phone] PCP - General Family Medicine 01/30/21 documented as of this encounter
[2024-08-23 19:46] VITALS: BP 143/79; PULSE 67; RESP 18; TEMP 36.3; O2SAT 97
== END 2024-08-23 19:51 | disposition home or self-care (01) ==
PROVIDERS: Emergency Provider Emergency Medicine Emergency Medical Services; PCP Nurse Practitioner Primary Care
DX: M17.0 Bilateral primary osteoarthritis of knee (principal); R60.0 Localized edema
CPT/HCPCS: 93970; 99282; 99284

== ENCOUNTER → 2024-08-23 12:32 | Outpatient (BNV) | payer MEDICAID, SELFPAY | PROVIDERS: PCP Nurse Practitioner Primary Care; Visit Provider Radiology Diagnostic Radiology | DX: M79.604 Pain in right leg (principal); M79.605 Pain in left leg | CPT/HCPCS: 93970 ==

== ENCOUNTER 2024-10-25 10:44 | Outpatient (REF) | payer MEDICAID, SELFPAY ==
--- OUTSIDE RECORDS SUMMARY | 2024-10-25 11:48 | XMS_ITS | Encounter Summary ---
Author Organization [employer] Address [address] [facility] 7t [place] [address] Care Team Providers Care Sawmill Production Worker Name Role Phone Phyllis Day Primary Care Provider [phone] Encounter Details Date Type Department Care Team (Latest Contact Info) Description 10/24/2024 Travel Social History Tobacco Use Types Packs/Day [...] housing situation today? I have anam ndiaye 10/24/[address] you li ve. Do you have problems with any of the following? None of the above 10/24/2024 Food Insecurity Answer Date Recorded Within the past 12 months, y ou worried that your food would run out before you got money to buy more: Never True 10/24/2024 Within the past 12 months,th e food you bought just didn't last and you didn't have enough money to get more: Never True Transportation Answer Date Recorded In the past 12 months, has l ack of transportation kept you from medical appts, meetings, work or from getting things needed for daily living? I am not sure 10/24/2024 Utilities Answer Date Recorded In the past 12 months, has t he electric, gas, oil or water company threatened to shut off services in your home? I am not sure 10/24/2024 Depression Answer Date Recorded Patient Health Questionnaire-2 Score 0 10/24/2024 Internet Access Answer Date Recorded Internet Access Q1 Yes 10/24/2024 Internet Access Q2 Not on file 10/24/2024 Comments No Sex and Gender Information Value Date Recorded Sex Assigned at Female 04/13/2022 10:36 AM EDT Legal Sex Female 10:36 AM EDT Gender Identity Female 04/13/2022 10:36 AM EDT Sexual Orientation Choose not to disclose 2021 10:36 AM EDT documented as of this encounter Functional Status * Over the past 2 weeks, how often have you been bothered by any of the following problems? Question Answer Date of Assessment Author Little interest or pleasure in doing things Not at all 10/24/2024 10:15 AM EDT Izaiah Koch MA Feeling down, depressed, or hopeless Not at all 10/24/2024 10:15 AM EDT Izaiah Koch MA Patient Health Questionnaire-2 Score 0 10/24/2024 10:15 AM EDT Camila Koch MA * Over the last 2 weeks, how often have you been bothered by any of the following problems? Question Answer Date of Assessment Author Feeling nervous, anxious, or on edge 0 10/24/2024 10:15 AM EDT Izaiah Koch MA Not being able to stop or co ntrol worrying 0 10/24/2024 10:15 AM EDT Izaiah Koch MA Worrying too much about diff erent things 0 10/24/2024 10:15 AM EDT Izaiah Koch MA Trouble relaxing 0 10/24/2024 10:15 AM EDT Izaiah Koch MA Being so restless that it is hard to sit still 0 10/24/2024 10:15 AM BETYT Izaiah Koch MA Becoming easily annoyed or irritable 0 10/24/2024 10:15 AM BETYT Izaiah Koch MA Feeling afraid as if somethi ng awful might happen 0 10/24/2024 10:15 AM EDT Izaiah Koch MA BRANT-7 Total Score 0 10/24/2024 10:15 AM EDT Izaiah Koch MA documented as of this encounter Plan of Treatment Upcoming Encounters Date Type Department Care Team (Late st Contact Info) Description 01/15/2025 3:00 PM EDT Office Visit [facility] MEDICINE [address] [place] [address] Phyllis Day ANP [address] [place] [address] documented as of this encounter Visit Diagnoses Not on filedocumented in this encounter Additional Health Concerns Assessment Noted Time PHQ-9 Depression Total Score: 0 04/22/20 23 1:07 PM EST documented as of this encounter Care Teams Sawmill Production Worker Relationship Specialty Start Date End Date Phyllis Day ANP 230 [place] [address] PCP - General Family Medicine 01/30/21 documented as of this encounter
--- OUTSIDE RECORDS SUMMARY | 2024-10-25 11:48 | XMS_ITS | Encounter Summary ---
Author Organization [employer] Address [address] [place] [address] 7 [place] [address] Care Team Providers Care Transit Mechanic Name Role Phone Phyllis Day Primary Care Provider [phone] Reason for Visit * Reason Comments Med Refill Encounter Details Date Type Department Care Team (Late st Contact Info) Description 02/24/2023 Refill [facility] [address] [place] [phone] Phyllis Day ANP [address] [place] [address] Mild persistent asthma with (acute) exacerbation Social [...] Description 01/15/2025 3:00 PM EDT Office Visit [facility] [address] [place] [phone] Phyllis Day ANP [address] [place] [address] documented as of this encounter Visit Diagnoses Diagnosis Mild persistent asthma with (acute) exacerbation documented in this encounter Care Teams Transit Mechanic Relationship Specialty Start Date End Date Phyllis Day ANP [address] [place] [address] PCP - General Family Medicine 01/30/21 documented as of this encounter
--- OUTSIDE RECORDS SUMMARY | 2024-10-25 11:48 | XMS_ITS | Clinical Summary ---
Author Organization [employer] Address [address] [place] [address] 7 [place] [address] Care Team Providers Care Concrete Worker Name Role Phone Karely Lopez Primary Care Provider [phone] Allergies Active Allergy Reactions Criticality Noted Date Comments Shrimp Extract High 05/05/2019 Tetanus Antitoxin 06/09/2022 Medications triamcinolone (Kenalog) 0.1 % creamIndication s:Hyperpigmente d skin lesion,Intrinsi c eczema Apply topically if needed in the morning and at bedtime (pain and swelling). 30 g 2 023 Active Multiple Vitamins-Iron tabletIndicatio ns:Anemia, unspecified type 1 tab daily 90 tablet 3 023 Active cloNIDine (Catapres) 0.1 MG tablet Take 1 tablet (0.1 mg) by mouth 2 times daily. 5 tablet 024 Active Diclofenac Sodium (Voltaren) 1 % gelIndications: Chronic right-sided low back pain with right-sided sciatica,Chroni c pain of both knees Apply 2G up to 4x/d to affected joint(s) for pain/swelling 100 g 2 024 Active cyclobenzaprine (Flexeril) 5 MG tablet TAKE 1 TABLET BY MOUTH THREE TIMES A DAY NEEDED FOR PAIN FOR 5 DAYS 024 Active Spacer/Aero-Hol ding Chambers deviceIndicatio ns:Moderate persistent asthma with acute exacerbation 1 each Every 4-6 hours as needed (SOB, wheezing). 1 each 1 Active albuterol (Ventolin HFA) 108 (90 Base) MCG/ACT inhalerIndicati ons:Moderate persistent asthma with acute exacerbation INHALE 2 PUFFS BY MOUTH EVERY 4-6 HOURS NEEDED FOR WHEEZING 18 g 3 Active albuterol (2.5 MG/3ML) 0.083% nebulizer solution Take 3 mL (2.5 mg) by nebulization every 6 (six) hours if needed for wheezing or shortness of breath. 75 mL 11 2025 Active ibuprofen 200 MG tablet Take 2-3 tablets (400-600 mg) by mouth every 8 (eight) hours if needed (pain or fever). 100 tablet 2 2025 Active amLODIPine (Norvasc) 5 MG tabletIndicatio ns:Essential hypertension Take 1 tablet (5 mg) by mouth Once per day. 30 tablet 11 2025 Active fluticasone-kari meterol (Advair) 230-21 MCG/ACT inhalerIndicati ons:Moderate persistent asthma without complication Inhale 2 puffs in the morning and at bedtime. Rinse mouth with water after use to reduce aftertaste and incidence of candidiasis. Do not swallow. 12 g 11 2025 Active cetirizine (ZyrTEC) 10 MG tabletIndicatio ns:Non-seasonal allergic rhinitis, unspecified trigger Take 1 tablet (10 mg) by mouth Once per day. As needed for allergies 90 tablet 2024 Active Blood Pressure kitIndications: Essential hypertension 1 each 2 times daily. 1 kit 2025 Active omeprazole (PriLOSEC) [address] capsuleIndicati ons:Gastroesoph ageal reflux disease, unspecified whether esophagitis present Take 1 capsule daily before meals. Do not crush or chew. 180 capsule Active famotidine (Pepcid) 20 MG tabletIndicatio ns:Gastroesopha geal reflux disease, unspecified whether esophagitis present Take 1 tablet twice daily as needed for acid reflux 60 tablet Active Spacer/Aero-Hol ding Chambers deviceIndicatio ns:Mild persistent asthma with (acute) exacerbation 1 each Every 4-6 hours as needed (SOB, wheezing). 1 each 1 023 2024 Discontinued(R eorder (will not trigger notification to Pharmacy)) amLODIPine (Norvasc) 5 MG tabletIndicatio ns:Essential hypertension Take 1 tablet (5 mg) by mouth Once per day. 30 tablet 11 024 2024 Discontinued(R eorder (will not trigger notification to Pharmacy)) Ventolin HFA 108 (90 Base) MCG/ACT inhalerIndicati ons:Mild persistent asthma with (acute) exacerbation INHALE 2 PUFFS BY MOUTH EVERY 4-6 HOURS NEEDED FOR WHEEZING 18 g 3 024 2024 Discontinued(R eorder (will not trigger notification to Pharmacy)) famotidine (Pepcid) 20 MG tabletIndicatio ns:Gastroesopha geal reflux disease, unspecified whether esophagitis present Take 1 tablet twice daily as needed for acid reflux 60 tablet 024 2024 Discontinued(R eorder (will not trigger notification to Pharmacy)) budesonide-form oterol (Symbicort) 160-4.5 MCG/ACT inhalerIndicati ons:Moderate persistent asthma without complication Inhale 2 puffs in the morning and at bedtime. Rinse mouth with water after use to reduce aftertaste and incidence of candidiasis. Do not swallow. 1 each 5 025 2024 Discontinued(A lternate therapy) Hospital, Clinic, or Other Facility Administered Medication Ordered Dose Route Frequency Start Date End Date Status ipratropium-albutero l (Duo-Neb) 0.5-2.5 mg/3 mL nebulizer solution 3 mgIndications:Modera te persistent asthma with acute exacerbation 3 mg NEBULIZATION Once 10/11/2024 10/11/2024 Ended Active Problems Problem Noted Date Diagnosed Date [...] Mild persistent asthma with (acute) exacerbation 02/01/2023 Assessment & Plan (10/11/2024 2:53 PM EDT): - Reviewed proper use of inhaler, suspect was not receiving full dose of medication as had previously been using. Mild scattered wheezing in posterior lobes on exam. Treated with DuoNeb in office with noted improvement. - Plan: Continue Symbicort twice daily and albuterol as needed. Neb machine provided. Follow-up with any worsening or persistence of symptoms. Intrinsic eczema 02/01/2023 Hyperpigmented skin lesion 02/01/2023 [...] Encounters Date Type Department Care Team Description 10/24/2024 10:15 AM EDT Office Visit [address] [address] Karely Lopez ANP Moderate persistent asthma without complication (Primary Dx); Essential hypertension; Non-seasonal allergic rhinitis, unspecified trigger; Shortness of breath; Gastroesophageal reflux disease, unspecified whether esophagitis present 10/24/2024 Refill [facility] [address] [place] [address] Karely Lopez ANP Gastroesophageal reflux disease, unspecified whether esophagitis present 10/24/2024 Travel 10/23/2024 Telephone [facility] [address] [place] [address] Karely Lopez ANP CHART PREP 10/11/2024 10:15 AM EDT Office Visit [address] [address] Ashli Gardiner FNP Chronic pain of right ankle (Primary Dx); Moderate persistent asthma with acute exacerbation; Chronic pain of right knee 10/11/2024 Travel 10/10/[address] [address] Izaiah Koch [place] CHART PREP 10/09/[address] [address] Karely Lopez ANP Nurse Triage 08/25/2024 Population Health Risk Score [facility] ([facility]) Department [address] [place] [phone] Provider, Population Health Generic 08/23/[address] [address] Karely Lopez ANP 08/23/2024 Orders Only [facility] External Provider, [facility] 08/02/[address] [address] Zuri Perez [place] 08/02/[address] [address] Zuri Perez [place] May recall (Called pt to book f/u bp check ,pt did not answer left vm, sending letter) from Last 3 Months Immunizations Immunization Administration Dates Next Due Hep A, Adult [...] Sign Reading Time Taken Comments Blood Pressure 135/86 10/24/2024 10:13 AM EDT Pulse 80 10/24/2024 10:13 AM EDT Temperature 36.1 ??C (96.9 ??F) 10/11/2024 10:11 AM E DT Respiratory Rate 20 10/24/2024 10:13 AM EDT Oxygen Saturation 97% 10/11/2024 10:11 AM EDT Inhaled Oxygen Concentration - - Weight 103 kg (228 lb) 10/24/2024 10:13 AM EDT Height 162.6 cm (5' 4 ) 10/24/2024 10:13 AM EDT Body Mass Index 39.14 10/24/2024 10:13 AM EDT Plan of Treatment Upcoming Encounters Date Type Department Care Team (Late st Contact Info) Description 01/15/2025 3:00 PM EDT Office Visit [facility] [address] [place] [address] Karely Lopez ANP [address] [place], [place] [phone] Health Maintenance Due Date Last Done Comments CT Colonography 1975 Colonoscopy 1975 Colorectal Cancer Screening 1975 FIT DNA/Cologuard 1975 FIT 1975 FOBT 1975 Sigmoidoscopy 1975 Family Planning (PISQ) 02/13/1988 Hepatitis B Vaccines (1 of 3 - 19+ 3-dose series) 02/13/1992 Dental Oral Exam 12/09/2022 06/09/2022, 05/17/2018 Zoster Vaccines (1 of 2) 2023 Dental Prophylaxis 03/13/2023 09/09/2022, 08/03/2018 Dental X-Ray: Bitewings 06/10/2023 06/09/2022, 05/17 Influenza Vaccine (#1) 2024 04/01/2021 Postp oned from 02/13/2024 (Patient Refused) Dental X-Ray: Full Mouth 06/10/2025 06/09/2022, 09/2017 Mammogram 07/19/2025 07/19/2024, 10/2024, 04/16/2023, Additional history exists Alcohol/Substance Use Screening 07/21/2025 07/21/2024 COVID-19 Vaccine ( - season) 2025 07/24/2021, 07/03/2021 Postponed from 02/13/2024 (Patient Refused) DTaP/Tdap/Td Vaccines (1 - Tdap) 07/21/2025 Postponed from 02/13/1992 (Patient Refused) Pneumococcal Vaccine: 50+ Years (1 of 2 - PCV) 07/21/2025 Postponed from 02/13/1992 (Patient Refused) Depression Screening 10/24/2025 10/24/2024, 04/22/20 23 SDOH Screening 10/24/2025 10/24/2024 Tobacco Screening 10/24/2025 10/24/2024 Lipid Panel 07/08/2026 07/08/2021 Pap Smear 07/21/2027 [...] patient's age to complete this topic Meningococcal B Vaccine Aged Out No l onger eligible based on patient's age to complete [...] DUPLEX BILATERAL Routine 08/23/2024 2:40 PM EDT HPV DNA, LOW/HIGH RISK Routine 10:35 AM EST PAP SMEAR Routine 07/21/2024 10:35 AM EST Cervical cancer screening BI MAMMOGRAM SCREENING TOMOSYNTHESIS BILATERAL Routine 07/19/2024 [...] Recently Relevant to Health Maintenance Results * VASC Lower Extremity Venous Duplex Bilateral (08/23/2024 2:40 PM EDT) 08/23/2024 2:40 PM EDT Narrative [facility] - 08/23/2024 3:32 PM EDT ? [facility] ?[address] ?[place] [address] ? Ultrasound Report ? Signed ? Patient: Vilma Bourne ?MR#: [id number] ?? [id number] ? : 1975 ?Acct:[id number] ? Age/Sex: 49 / F ?ADM Date: 08/23/24 ? Loc: HO.ED ? Attending Dr: ? Ordering Physician: Farzad Lemos ?? Date of Service: 08/23/24 ?? Procedure(s): US venous duplex LE BI ?? Accession Number(s): [id number] ? cc: Farzad Lemos; KARELY LOPEZ NP [...] DD/ 1440 ? TD/TT: 08/23/24 1452 ? Mortgage Closing Clerk: ? Procedure Note Donmichelle, Image - 08/23/2024 [place] [address] Ultrasound Report Signed Patient: Vilma BourneMR#: [id number] : 1975Acct:[id number] Age/Sex: 49 / FADM Date: 08/23/24 Loc: HO.ED Attending Dr: Ordering Physician: Farzad Lemos Date of Service: 08/23/24 Procedure(s): US venous duplex LE BI Accession Number(s): [id number] cc: Farzad Lemos; KARELY LOPEZ NP EXAMINATION: [...] James Salmon MD 08/23/2024 03:26 PM EDT Dictated By: James Gilliland MD Signed By: <Electronically signed by James Belle MDin OV> 08/23/24 1526 DD/ 1440 TD/TT: 08/23/24 1452 Mortgage Closing Clerk: [facility] External Provider CV VASC ULAR PROCEDURES Final Result Performing Organization Address [facility]/ZIP Co de Phone Number [facility] [address] [place] [address] * HPV DNA, Low/High Risk (07/21/2024 10:35 AM EST) HPV High Risk Negative Negative [facility] HPV Genotype 16 Negative Negative [facility] HPV Genotype 18 Negative Negative [facility] Comment:HPV testing performe d at [facility] (CLIA#[id number]), [address] [place] [address].Testing for HPV was performed using the [employer]system. The presence of HPV in the female [...] 5 AM EST 07/24/2024 8:20 AM EST [facility] LAB BLOOD ORDERABLES Final Resul t Performing Organization Address City/[facility]/ZIP Co de Phone Number [facility] [address] [place] [address] [phone] * Pap Smear (07/21/2024 10:35 AM EST) Swab Cervical swab / Unknown 07/21/2024 10:35 AM EST 07/24/2024 8:20 AM EST Narrative [facility] - 07/29/2024 10:03 AM EST ----- ------- Name: Vilma Bourne ? Age/Sex: 49/F ? : 1975 Unit#: [id number] ?? Attend Dr: KARELY LOPEZ NP ?Re07/21/24 ?Status: DEP REF ? Location: HO.CLNP ? Disch: ? ----- ------- SPEC : [id number] ? RECD: 07/24/24 ? STATUS: ??SOUT ? REQ NUM: [id number] ? ESTEBAN: 07/21/241034 ? SUBM DR: KARELY LOPEZ NP ? [...] END OF REPORT ? us Karely Lopez ANP LAB CYTOLOGY ORDERABLES Final Re sult [facility] [address] [place] [address] [phone] * BI Mammogram Screening Tomosynthesis Bilateral (07/19/2024 11:30 AM EST) Anatomical Region Laterality Modality Breast Bilateral Mammography 07/19/2024 11:3 0 AM EST Narrative 07/25/2024 7:11 PM EST ? [facility] [place] ? [address] ?[place] [address] ? Mammography Report ? Signed ? Patient: Vilma Bourne ?MR#: [id number] ?? [id number] ? : 1975 ?Acct:[id number] ? Age/Sex: 49 / F ?ADM Date: 07/19/24 ? Loc: HO.MAMMO ? Attending Dr: Kareyl Lopez CABLE REPAIRER ? Ordering Physician: KARELY LOPEZ NP ?Results: 2Benign Fin ?? dings ? Date of Service: 07/19/24 ?Follow Up: 1 Year From Orig ?? inal Mammogram ? Procedure(s): MM tomosynthesis screening BI ?? Accession Number(s): [id number] ? cc: KARELY LOPEZ NP ? EXAMINATION: [...] by Renay Sosa, DO in OV> ? 07/25/24 1908 ? DD/ 1130 ? TD/TT: 07/19/24 1140 ? Mortgage Closing Clerk: ? Procedure Note Donwandaearlemeiter, Image - 07/25/2024 [facility] [address] [place] [address] Mammography Report Signed Patient: Mary Bourne#: [id number] : 1975Acct:[id number] Age/Sex: 49 / FADM Date: 07/19/24 Loc: NATE Attending Dr: Karely Lopez NP Ordering Physician: KARELY LOPEZults: 2Bozzie pelaez Date of Service: 07/19/24Follow Up: 1 Year From Orig inal Mammogram Procedure(s): MM tomosynthesis screening BI Accession Number(s): [id number] cc: KARELY LOPEZ NP EXAMINATION: MM SCREENING [...] 07/25/24 1908 DD/ 1130 TD/TT: 07/19/24 1140 Mortgage Closing Clerk: Karely Lopez ANP IMG BI PROCEDURES Final Result * HEPATITIS C AB W/REFL TO HCV RNA, QN, PCR (07/08/2021 10:50 AM EST) HEPATITIS C ANTIBODY NON-REACT CELESTINO NON-REACT CELESTINO [facility] INDEX 0.04 <1.00 [facility] Comment: ?? HCV antibody was non-reactive. There is no laboratory ?? evidence of HCV infection. ?? In most cases, no further action is required. However, if recent HCV exposure is suspected, a test for HCV RNA (test code 56682) is suggested. ?? For additional information please refer to http://education.5th Finger/faq/KVV46r7 (This link is being provided for informational/ educational purposes only.) ?? 07/08/2021 10:5 0 AM EST us Karely Lopez ANP HISTORICAL/NON ORDERABLE LABS Fi nal Result Performing Organization Address [facility] Phone Number [facility] [address] * HIV 1/2 ANTIGEN/ANTIBODY,FOURTH GENERATION W/RFL (07/08/2021 10:50 AM EST) HIV-1/2 ANTIGEN AND ANTIBODIES, 4TH GENERATION W/ REFLEX NON-REACT CELESTINO NON-REACT CELESTINO [facility] Comment: HIV-1 antigen and HIV-1/HIV-2 [...] ? For additional information please refer to http://education.5th Finger/faq/AUC575 (This link is being provided for informational/ educational purposes only.) ? The performance of this assay has not been clinically validated in patients less than 2 years old. ?? 07/08/2021 10:5 0 AM EST us Karely Lopez ANP LAB BLOOD ORDERABLES Final Resul t Performing Organization Address [facility] Phone Number [facility] [address] * (ABNORMAL) LIPID PANEL, STANDARD (07/08/2021 10:50 AM EST) Chol/HDLC Ratio 3.4 <5.0 (calc) [facility] [...] ?? Iván CAMARGO et al. SHARON. 2013;310(19): 8244-9384 ?? (http://[employer]LookStat/faq/COX923) Non-HDL Cholesterol 110 <130 mg/dL (calc) [facility] Comment: For patients with diabetes plus 1 major ASCVD risk ?? factor, treating to a non-HDL-C goal of <100 mg/dL ?? (LDL-C of <70 mg/dL) is considered a therapeutic ?? option. Triglycerides 65 <150 mg/dL [facility] 07/08/2021 10:5 0 AM EST [facility] LAB BLOOD ORDERABLES Final Resul t [facility] [address] from Last 3 Months or Most Recently Relevant to Health Maintenance Insurance [facility] STANDARD DENTAL-[facility] MEDICAID STAND ADULT Care Teams Concrete Worker Relationship Specialty Start Date End Date Karely Lopez ANP [address] [place] [phone] PCP - General Family Medicine 01/30/21
--- OUTSIDE RECORDS SUMMARY | 2024-10-25 11:48 | XMS_ITS | Encounter Summary ---
Author Organization [employer] Address [address] [facility] 7 [place] [address] Care Team Providers Care Heddler Name Role Phone Phyllis Day Primary Care Provider [phone] Reason for Visit * Reason Comments Med Change Request Encounter Details Date Type Department Care Team (Late st Contact Info) Description 10/24/2024 Refill [facility] [address] [place], [place] [phone] Phyllis Day ANP [address] [place] [address] Gastroesophageal reflux disease, unspecified whether esophagitis present Social History Tobacco Use Types Packs/Day Years [...] your housing situation today? I have anam ndaiye 10/24/[address] you li [...] Not at all 10/24/2024 10:15 AM EDT Izaiha Koch MA Feeling down, depressed, or hopeless [...] co ntrol worrying 0 10/24/2024 10:15 AM BETYT Izaiah Koch [place] Worrying too much about diff erent things 0 10/24/2024 10:15 AM EDT Izaiah Koch MA Trouble relaxing 0 10/24/2024 10:15 AM BETYT Izaiah Koch MA Being so restless that it is hard to sit still 0 10/24/2024 10:15 AM EDT Izaiah Koch MA Becoming easily annoyed or irritable 0 10/24/2024 10:15 AM EDT Izaiah Koch MA Feeling afraid as if somethi ng awful might happen 0 10/24/2024 10:15 AM EDT Izaiah Koch MA BRANT-7 Total Score 0 10/24/2024 10:15 AM EDT Izaiah Koch [place] documented as of this encounter Plan of Treatment Upcoming Encounters Date Type Department Care Team (Late st Contact Info) Description 01/15/2025 3:00 PM EDT Office Visit [facility] [address] [place] [address] Phyllis Day ANP [address] [place] [address] documented as of this encounter Visit Diagnoses Diagnosis Gastroesophageal reflux disease, unspecified whether esophagitis present documented in this encounter Additional Health Concerns Assessment Noted Time PHQ-9 Depression Total Score: 0 04/22/20 23 1:07 PM EST documented as of this encounter Care Teams Heddler Relationship Specialty Start Date End Date Phyllis Day ANP [address] [place] [address] PCP - General Family Medicine 01/30/21 documented as of this encounter
--- OUTSIDE RECORDS SUMMARY | 2024-10-25 11:48 | XMS_ITS | Encounter Summary ---
Author Organization [employer] Address [address] [facility] 7 [place] [address] Care Team Providers Care Bottling Line Attendant Name Role Phone Karely Lopez Primary Care Provider [phone] Encounter Details Date Type Department Care Team ([facility] st Contact Info) Description 05/14/2023 Orders Only [facility] MEDICINE [address] [place], [place] [phone] Karely Lopez ANP [address] [place] [address] Acute pain of left knee (Primary Dx) [...] Description 01/15/2025 3:00 PM EDT Office Visit [facility] [address] [place] [address] Karely Lopez, ANP [address] [place] [address] documented as of this encounter Procedures Procedure [...] AM EST Narrative 05/19/2023 4:59 PM EST ?[facility] ?[address] ?[place] [address] ?XRay Report ? Signed ? Patient: Steffen,Merlotte ?MR#: [id number] ?? [id number] ? : 1975 ?Acct:[id number] ? Age/Sex: 48 / F ?ADM Date: 05/17/23 ? Loc: HO.HHCX ? Attending Dr: Karely Lopez NP ? Ordering Physician: KARELY LOPEZ NP ?? Date of Service: 05/17/23 ?? Procedure(s): XR ankle LT min 3V ?? Accession Number(s): [id number] ? cc: KARELY LOPEZ NP ? Examination: [...] 1655 ? DD/ 1021 ? TD/TT: ? Ship Ceiler: ? Procedure Note Eugene, Joseph - 05/19/[address] [address] XRay Report Signed Patient: Vilma BourneMR#: [id number] : 1975Acct:[id number] Age/Sex: 48 / FADM Date: 05/17/23 Loc: HO.HHCX Attending Dr: Karely Lopez NP Ordering Physician: KARELY LOPEZ NP Date of Service: 05/17/23 Procedure(s): XR ankle LT min 3V Accession Number(s): [id number] cc: KARELY LOPEZ NP Examination: Left and [...] in OV> 05/19/23 1655 DD/ 1021 TD/TT: Ship Ceiler: us Karely Lopez ANP IMG XR PROCEDURES Final Result * XR Ankle 3+ Views Right (05/17/2023 10:21 AM EST) Anatomical Region Laterality Modality Lower Extremities, Ankle Right Radiogr aphic Imaging 05/17/2023 10:2 1 AM EST Narrative 05/19/2023 4:59 PM EST ?[facility] ?[address] ?[place] [address] ?XRay Report ? Signed ? Patient: Steffen,Merlotte ?MR#: [id number] ?? [id number] ? : 1975 ?Acct:[id number] ? Age/Sex: 48 / F ?ADM Date: 05/17/23 ? Loc: HO.HHCX ? Attending Dr: Karely Lopez NP ? Ordering Physician: KARELY LOPEZ NP ?? Date of Service: 05/17/23 ?? Procedure(s): XR ankle RT min 3V ?? Accession Number(s): [id number] ? cc: KARELY LOPEZ NP ? Examination: [...] MD in OV> ? 05/19/23 1655 ? DD/DT: 12//23 1021 ? TD/TT: ? Ship Ceiler: ? Procedure Note Eugene, Joseph - 05/19/2023 [facility] [address] [place] [address] XRay Report Signed Patient: Vilma BourneMR#: [id number] : 1975Acct:[id number] Age/Sex: 48 / FADM Date: 05/17/23 Loc: HO.HHCX Attending Dr: Karely Lopez PUBLIC HEALTH OFFICER Ordering Physician: KARELY LOPEZ NP Date of Service: 05/17/23 Procedure(s): XR ankle RT min 3V Accession Number(s): [id number] cc: KARELY LOPEZ NP Examination: Left and [...] in OV> 05/19/23 1655 DD/ 1021 TD/TT: Ship Ceiler: Karely Lopez ANP IMG XR PROCEDURES Final Result * XR Knee 1-2 Views Left (05/17/2023 10:21 AM EST) Anatomical Region Laterality Modality Lower Extremities, Knee Left Radiogra psychiatricc Imaging 05/17/2023 10:2 1 AM EST Narrative 05/19/2023 4:59 PM EST ?[facility] ?[address] ?[place] [address] ?XRay Report ? Signed ? Patient: Steffen,Merlotte ?MR#: [id number] ?? [id number] ? : 1975 ?Acct:[id number] ? Age/Sex: 48 / F ?ADM Date: 12/04/23 ? Loc: HO.HHCX ? Attending Dr: Karely Lopez NP ? Ordering Physician: KARELY LOPEZ NP ?? Date of Service: 05/17/23 ?? Procedure(s): XR knee LT 2V ?? Accession Number(s): [id number] ? cc: KARELY LOPEZ NP ? EXAMINATION: [...] 05/19/235 ? DD/ 1021 ? TD/TT: ? Ship Ceiler: ? Procedure Note Eguene, Image - 05/19/[address] [address] XRay Report Signed Patient: Vilma BourneMR#: [id number] : 1975Acct:[id number] Age/Sex: 48 / FADM Date: 05/17/23 Loc: HO.HHCX Attending Dr: Karely Lopez NP Ordering Physician: KARELY LOPEZ NP Date of Service: 05/17/23 Procedure(s): XR knee LT 2V Accession Number(s): [id number] cc: KARELY LOPEZ NP EXAMINATION: XR KNEE, [...] in OV> 05/19/23 1655 DD/ 1021 TD/TT: Ship Ceiler: Karely Lopez ANP IMG XR PROCEDURES Final Result documented in this encounter Visit Diagnoses Diagnosis Acute pain of left knee- Primary documented in this encounter Additional Health Concerns Assessment Noted Time PHQ-9 Depression Total Score: 0 04/22/20 23 1:07 PM EST documented as of this encounter Care Teams Bottling Line Attendant Relationship Specialty Start Date End Date Karely Lopez ANP [address] [place] [address] PCP - General Family Medicine 01/30/21 documented as of this encounter
--- OUTSIDE RECORDS SUMMARY | 2024-10-25 11:48 | XMS_ITS | Encounter Summary ---
Author Organization [employer] Address [address] [facility] 7 [place] [address] Care Team Providers Care Electrical Unit Rebuilder Name Role Phone Phyllis Day Primary Care Provider [phone] Reason for Visit * Reason Onset Date Comments CHART PREP 10/23/2024 Encounter Details Date Type Department Care Team (Late st Contact Info) Description 10/23/2024 Telephone [facility] MEDICINE [address] [place], [place] [phone] Phyllis Day ANP [address] [place], [place] [phone] CHART PREP Social History Tobacco Use Types Packs/Day Years [...] encounter Miscellaneous Notes * Telephone Encounter - Blossom Rohca [place] - 10/23/2024 11:56 AM EDT Chart Prep Labs: not done from 07/21/24 t/c to pt for lab reminder. Images: not done angle Xray t/c to pt for a reminder Referrals: not applicable Vaccines due: Hep B and Zoster Screenings: colonoscopy Overdue care gaps: SDOH, PHQ-9, BRANT-7, Oral health screening, Disability screen, and Tobacco documented in this encounter Plan of Treatment Upcoming Encounters Date Type Department Care Team (Late st Contact Info) Description 01/15/2025 3:00 PM EDT Office Visit [facility] [address] [place], [place] [phone] Phyllis Day ANP [address] [place] [address] documented as of this encounter Visit Diagnoses Not on filedocumented in this encounter Additional Health Concerns Assessment Noted Time PHQ-9 Depression Total Score: 0 04/22/20 23 1:07 PM EST documented as of this encounter Care Teams Electrical Unit Rebuilder Relationship Specialty Start Date End Date Phyllis Day ANP [address] [place] [address] PCP - General Family Medicine 01/30/21 documented as of this encounter
--- OUTSIDE RECORDS SUMMARY | 2024-10-25 11:48 | XMS_ITS | Encounter Summary ---
Author Organization [employer] Address [address] [facility] 7 [place] [address] Care Team Providers Care Painter Ordnance Name Role Phone Phyllis Day Primary Care Provider [phone] Encounter Details Date Type Department Care Team (Late st Contact Info) Description 12/30/2022 Orders Only [facility] MEDICINE [address] [place] [phone] Hanna Aranda LPN Social History Tobacco Use [...] Description 01/15/2025 3:00 PM EDT Office Visit [facility] MEDICINE [address] [place] [phone] Phyllis Day ANP [address] [place] [address] documented as of this encounter Visit Diagnoses Not on filedocumented in this encounter Care Teams Painter Ordnance Relationship Specialty Start Date End Date Phyllis Day ANP [address] [place] [address] PCP - General Family Medicine 01/30/21 documented as of this encounter
--- OUTSIDE RECORDS SUMMARY | 2024-10-25 11:48 | XMS_ITS | Encounter Summary ---
Author Organization [employer] Address [address] [place] [address] 7 [place] [address] Care Team Providers Care Citrus Fruit Colorer Name Role Phone Phyllis Day Primary Care Provider [phone] Reason for Referral * Imaging (Routine) - Authorized Specialty Diagnoses / Procedures Referred By Nestor garg Referred To Contact Cardiology Diagnoses Essential hypertension Shortness of breath Procedures Transthoracic Echo (TTE) Complete Phyllis Day ANP [address] [place] [address] Phone: tel: fax: [address] Phone: tel: fax: Referral ID Status Reason Start Date Expiration Date Visits Requested Visits Authorized [id number] Authorized Perform Procedure 10/24/2024 10/24/2025 1 1 * PFT (Routine) - Authorized Specialty Diagnoses / Procedures Referred By Nestor garg Referred To Contact Diagnoses Moderate persistent asthma without complication Procedures Pulmonary Function Test Phyllis Day ANP [address] [place] [address] Phone: tel: fax: [address] Phone: tel: fax: Referral ID Status Reason Start Date Expiration Date V isits Requested Visits Authorized [id number] Authorized 10/24/2024 10/24/2025 1 1 Reason for Visit * Reason Comments Blood Pressure Check Encounter Details Date Type Department Care Team (Late st Contact Info) Description 10/24/2024 10:15 AM EDT Office Visit [facility] MEDICINE [address] [place] [address] Phyllis Day ANP [address] [place] [address] Moderate persistent asthma without complication (Primary Dx); [...] Pulse 80 10/24/2024 10:13 AM EDT Temperature - - Respiratory Rate 20 10/24/2024 10:13 AM EDT Oxygen Saturation - - Inhaled Oxygen Concentration - - Weight 103 kg (228 lb) 10/24/2024 10:13 AM EDT Height 162.6 cm (5' 4 ) 10/24/2024 10:13 AM EDT Body Mass Index 39.14 10/24/2024 10:13 AM EDT documented in this encounter Functional Status * Over the [...] 3:00 PM EDT Office Visit [facility] MEDICINE [address] [place] [address] Phyllis Day ANP [address] [place] [address] Scheduled Orders Name Type Priority Associated Diagnoses Orde r Schedule Pulmonary Function Test PFT Routine Moderate persistent asthma without complication Expected: 10/24/2024, Expires: 04/26/2025 Hemoglobin and Hematocrit Lab Routine Shortness of breath Expected: 10/24/2024, Expires: 10/24/2025 B Type Natriuretic Peptide (BNP) Lab Routine Shortness of breath Expected: 10/24/2024, Expires: 10/24/2025 Transthoracic Echo (TTE) Complete Echocardiography Routine Essential hypertension Shortness of breath Expected: 10/24/2024 (Approximate), Expires: 10/24/2026 documented as of this encounter Visit Diagnoses Diagnosis Moderate persistent asthma without complication- Primary Essential hypertension Unspecified essential hypertension Non-seasonal allergic rhinitis, unspecified trigger Shortness of breath Gastroesophageal reflux disease, unspecified whether esophagitis present documented in this encounter Additional Health Concerns Assessment Noted Time PHQ-9 Depression Total Score: 0 04/22/20 23 1:07 PM EST documented as of this encounter Care Teams Citrus Fruit Colorer Relationship Specialty Start Date End Date Phyllis Day ANP [address] [place] [address] PCP - General Family Medicine 01/30/21 documented as of this encounter
[2024-10-25 13:43] LABS: Hematocrit 33.2 % (37.0-47.0); Hemoglobin 10.3 g/dl (12.0-16.0)
[2024-10-25 13:56] LABS: Estimated Average Glucose 114 mg/dL; Hemoglobin A1C 101.0834 umol/L; Hemoglobin A1c % 5.6 % (<6.0); Total Hemoglobin (HGBA1C) 2715.3584 umol/L
[2024-10-25 14:04] LABS: Anion Gap 12 (12-20); Blood Urea Nitrogen 11 mg/dL (9-16); Calcium 8.7 mg/dL (8.4-10.2); Carbon Dioxide 25 mmol/L (22-29); Chloride 107 mmol/L (96-108); Cholesterol 141 mg/dL (<200); Estimated Glomerular Filt Rate > 60; Glucose Random 76 mg/dL (60-115); HDL Cholesterol 46 mg/dL (>40); Potassium 3.8 mmol/L (3.3-5.1); Sodium 140 mmol/L (135-145)
[2024-10-25 14:18] LABS: LDL Cholesterol Calculated 81 mg/dL (<100); TSH reflex Free T4 1.06 uIU/mL (0.32-4.0); Triglycerides 70 mg/dL (<150)
[2024-10-25 14:26] LABS: B Type Natriuretic Peptide 14 pg/mL (<100)
[2024-10-25 14:41] LABS: Iron 29 mcg/dL (30-160); Percent Iron Saturation 10 % (15-50); Total Iron Binding Capacity 277 mcg/dL (228-428); Unsaturated Iron Binding 248 ug/dL
[2024-10-25 14:44] LABS: Ferritin 14 ng/mL (10-250)
== END 2024-10-25 10:45 | disposition home or self-care (01) ==
LOC: HO.HHCL 10:44
PROVIDERS: Visit Provider Nurse Practitioner Primary Care
DX: I10 Essential (primary) hypertension (principal); Z13.220 Encounter for screening for lipoid disorders; R06.02 Shortness of breath; Z13.1 Encounter for screening for diabetes mellitus; N92.6 Irregular menstruation, unspecified
CPT/HCPCS: 36415; 80048; 80061; 82728; 83036; 83540; 83880; 84443; 85014; 85018

== ENCOUNTER → 2024-11-21 07:38 | Outpatient (REF) | payer MEDICAID, SELFPAY ==
--- OUTSIDE RECORDS SUMMARY | 2024-11-21 07:40 | XMS_ITS | Clinical Summary ---
Author Organization [employer] Address [address] [place] [address] 7 [place] [address] Care Team Providers Care Satellite Television Installer Name Role Phone Karely Lopez Primary Care Provider [phone] Allergies Active Allergy Reactions Criticality Noted Date [...] needed for acid reflux 60 tablet Active amLODIPine (Norvasc) 5 MG tabletIndicatio ns:Essential [...] each 5 025 2024 Discontinued(A lternate therapy) Active Problems Problem Noted Date Diagnosed Date [...] Encounters Date Type Department Care Team Description 10/25/2024 Results Follow-Up [address] [address] Karely Lopez ANP Lipid Panel, Standard, Basic Metabolic Panel, TSH W/Reflex to FT4, Hemoglobin A1c 10/25/2024 Results Follow-Up [address] [address] Karely Lopez ANP Hemoglobin and Hematocrit 10/25/2024 Orders Only [address] [address] Karely Lopez ANP Anemia, unspecified type (Primary Dx) 10/24/2024 10:15 AM EDT Office Visit [address] [address] Karely Lopez ANP Moderate persistent asthma without complication (Primary Dx); Essential hypertension; Non-seasonal allergic rhinitis, unspecified trigger; Shortness of breath; Gastroesophageal reflux disease, unspecified whether esophagitis present 10/24/[address] [address] Karely Lopez ANP Gastroesophageal reflux disease, unspecified whether esophagitis present 10/24/2024 Travel 10/23/[address] [address] Karely Lopez ANP CHART PREP 10/11/2024 10:15 AM EDT Office Visit [facility] [address] [place] [address] Ashli Gardiner FNP Chronic pain of right ankle (Primary Dx); Moderate persistent asthma with acute exacerbation; Chronic pain of right knee 10/11/2024 Travel 10/10/2024 Telephone [facility] [address] [place] [address] Izaiah Koch MA CHART PREP 10/09/2024 Telephone [facility] [address] [place] [address] Karely Lopez ANP Nurse Triage 08/25/2024 Population Health Risk Score [facility] ([facility]) Department [address] [place] [phone] Provider, Population Health Generic 08/23/2024 Telephone [facility] [address] [place] [address] Karely Lopez ANP 08/23/2024 Orders Only [facility] External Provider, [facility] from Last 3 Months Immunizations Immunization Administration [...] 01/15/2025 3:00 PM EDT Office Visit [facility] [address] [place] [address] Karely Lopez, [place]OGDAN [address] [place] [address] Health Maintenance Due Date Last Done Comments [...] X-Ray: Bitewings 06/10/2023 06/09/2022, 05/17 Influenza Vaccine (Season Ended) 2025 04/01/2021 Dental X-Ray: Full Mouth 06/10/2025 06/09/2022, 09/2017 [...] Refused) Depression Screening 10/24/2025 10/24/2024, 04/22/20 23 Disability Screening 10/24/2025 10/24/2024 SDOH Screening 10/24/2025 10/24/2024 Tobacco Screening 10/25/2025 10/25/2024 Pap Smear 07/21/2027 07/21/2024, 10/12, 10/27/2018 Cervical Cancer Screening 07/21/2029 HPV/Cotest 07/21/2029 07/21/2024, 06/14, 10/27/2018 Lipid Panel 10/25/2029 10/25/2024, 07/08/2021 RSV Patients and Patients Aged 60 [...] Procedure Name Priority Date/Time Associated Diagnosis Comments FERRITIN Routine 10/25/2024 10:46 AM EDT Anemia, unspecified type IRON AND TOTAL IRON BINDING CAPACITY Routine 10/25/2024 10:46 AM EDT Anemia, unspecified type B TYPE NATRIURETIC PEPTIDE (BNP) Routine 10/25/2024 10:46 AM EDT Shortness of breath HEMOGLOBIN + HEMATOCRIT Routine 10/25/2024 10:46 AM EDT Shortness of breath HEMOGLOBIN A1C Routine 10/25/2024 10:46 AM EDT Screening for diabetes mellitus TSH W/REFLEX TO FT4 Routine 10/25/2024 1 0:46 AM EDT Irregular menses BASIC METABOLIC PANEL Routine 10/25/2024 10:46 AM EDT Essential hypertension LIPID PANEL, STANDARD Routine 10/25/2024 10:46 AM EDT Screening, lipid VASC US LOWER EXTREMITY VENOUS DUPLEX BILATERAL Routine 08/23/2024 2:40 PM EDT HPV DNA, LOW/HIGH RISK Routine 07/21/2024 10:35 AM EST PAP SMEAR Routine 07/21/2024 [...] GENERATION W/RFL Routine 07/08/2021 10:50 AM EST from Last 3 Months or Most Recently Relevant to Health Maintenance Results * TSH W/Reflex to FT4 (10/25/2024 10:46 AM EDT) TSH reflex Free T4 1.06 0.32 - 4.0 uIU/mL [facility] Blood Venous blood specimen / Unknown 10/25/2024 10:46 AM EDT 10/25/2024 1:26 PM EDT [facility] LAB BLOOD ORDERABLES Final Resul t [facility] [address] [place] [phone] * (ABNORMAL) Iron And Total Iron Binding Capacity (10/25/2024 10:46 AM EDT) Iron 29(L) 30 - 160 mcg/dL [facility] Total Iron Binding Capacity 277 228 - 428 mcg/dL [facility] Percent Iron Saturation 10(L) 15 - 50 % [facility] Unsaturated Iron Binding 248 ug/dL [facility] Blood Venous blood specimen / Unknown 10/25/2024 10:46 AM EDT 10/25/2024 1:26 PM EDT Karely Lopez [facility] BLOOD ORDERABLES Final Resul t Performing Organization Address City/[facility]/ZIP Co de Phone Number [facility] [address] [place] [phone] [phone] * (ABNORMAL) Hemoglobin and Hematocrit (10/25/2024 10:46 AM EDT) Hemoglobin 10.3(L) 12.0 - 16.0 g/dl [facility] Hematocrit 33.2(L) 37.0 - 47.0 % [facility] Blood Venous blood specimen / Unknown 10/25/2024 10:46 AM EDT 10/25/2024 1:26 PM EDT Karely Lopez [facility] BLOOD ORDERABLES Final Resul t Performing Organization Address City/[facility]/ZIP Co de Phone Number [facility] [address] [place] [phone] [phone] * B Type Natriuretic Peptide (BNP) (10/25/2024 10:46 AM EDT) B Type Natriuretic Peptide 14 <100 pg/mL [facility] Blood Venous blood specimen / Unknown 10/25/2024 10:46 AM EDT 10/25/2024 1:28 PM EDT Karely Lopez [facility] BLOOD ORDERABLES Final Resul t Performing Organization Address City/[facility]/ZIP Co de Phone Number [facility] [address] [place] [phone] [phone] * Hemoglobin A1c (10/25/2024 10:46 AM EDT) Hemoglobin A1c 5.6 <6.0 % [facility] Comment:Hemoglobin A1C Refer ence Range Adults: 4.8 - 6.0 % Non diabetic: < 6.0 % Goal: < 7.0 %Additional Action Suggested: > 8.0 %Note: Hemoglobin A1c results are invalid for patients with abnormal amounts of HbF. Blood transfusions may impact the HbA1c concentration in the patient sample. Estimated Average Glucose 114 mg/dL [facility] Comment:eAG = Estimated ave rage glucose which is %A1C expressed asaverage glucose, using the formula of the C9N-OvhpvaeZihuava Glucose study (ADAG), Diabetes Care, Vol.31,#8,2007 Blood Venous blood specimen / Unknown 10/25/2024 10:46 AM EDT 10/25/2024 1:26 PM EDT Kraely Lopez ANP LAB BLOOD ORDERABLES Final Resul t Performing Organization Address [facility] Co de Phone Number [facility] [address] [place] [phone] * Ferritin (10/25/2024 10:46 AM EDT) Ferritin 14 10 - 250 ng/mL [facility] Blood Venous blood specimen / Unknown 10/25/2024 10:46 AM EDT 10/25/2024 1:26 PM EDT Karely Lopez ANP LAB BLOOD ORDERABLES Final Resul t Performing Organization Address [facility] Co de Phone Number [facility] [address] [place] [phone] * Lipid Panel, Standard (10/25/2024 10:46 AM EDT) Triglycerides 70 <150 mg/dL [facility] Comment:Desirable Triglyceri de: less than 150 mg/dLBorderline High Triglyceride 150-199 mg/dLHigh Triglyceride: 200-499 mg/dLVery High Triglyceride: greater than or equal to 5OO mg/dL Cholesterol 141 <200 mg/dL [facility] Comment:Desirable Cholestero l: less than 200 mg/dLBorderline High Cholesterol: 200-239 mg/dLHigh Cholesterol: greater than 239 mg/dL LDL Cholesterol Calculated 81 <100 mg/dL [facility] Comment:Desirable LDL: less than 100 mg/dLNear Optimal/Above Optimal LDL: 110- 129 mg/dLBorderline High LDL: 130-159 mg/dLHigh LDL: 160-189 mg/dLVery High LDL: greater than or equal to 190 mg/dL HDL Cholesterol 46 >40 mg/dL [facility] Comment:Desirable HDL: great er than 40 mg/dL Note: This HDL assay may give artificially low results in patients with liver disease. Blood Venous blood specimen / Unknown 10/25/2024 10:46 AM EDT 10/25/2024 1:26 PM EDT Karely Lopez [facility] BLOOD ORDERABLES Final Resul t [facility] [address] [place] [phone] * Basic Metabolic Panel (10/25/2024 10:46 AM EDT) Sodium 140 135 - 145 mmol/L [facility] Potassium 3.8 3.3 - 5.1 mmol/L [facility] Chloride 107 96 - 108 mmol/L [facility] Carbon Dioxide 25 22 - 29 mmol/L [facility] Anion Gap 12 12 - 20 [facility] Urea Nitrogen (BUN) 11 9 - 16 mg/dL [facility] Creatinine, Serum 0.65 0.5 - 1.4 mg/dL [facility] Estimated Glomerular Filt Rate >60 [facility] Comment:Chronic Kidney Disea se: Estimated GFR < 60 mL/min/[id number] Kidney Disease: Estimated GFR < 15 mL/min/1.73m2 Glucose 76 60 - 115 mg/dL [facility] Calcium 8.7 8.4 - 10.2 mg/dL [facility] Blood Venous blood specimen / Unknown 10/25/2024 10:46 AM EDT 10/25/2024 1:26 PM EDT us Karely Lopez ANP LAB BLOOD ORDERABLES Final Resul t [facility] [address] [place] [phone] * VASC US Lower Extremity Venous Duplex Bilateral (08/23/2024 2:40 PM EDT) 08/23/2024 2:40 PM EDT Narrative [facility] - 08/23/2024 3:32 PM EDT ? [facility] ?[address] ?[place] [address] ? Ultrasound Report ? Signed ? Patient: Steffen,Vilma ?MR#: [id number] ?? [id number] ? : 1975 ?Acct:[id number] ? Age/Sex: 49 / F ?ADM Date: 08/23/24 ? Loc: HO.ED ? Attending Dr: ? Ordering Physician: Farzad Lemos ?? Date of Service: 08/23/24 ?? Procedure(s): US venous duplex LE BI ?? Accession Number(s): [id number] ? cc: Farzad Lemos; KARELY LOPEZ NP [...] DD/ 1440 ? TD/TT: 08/23/24 1452 ? City Recorder: ? Procedure Note Donotuseinterpreter, Image - 08/23/[address] [address] Ultrasound Report Signed Patient: Vilma BourneMR#: [id number] : 1975Acct:[id number] Age/Sex: 49 / FADM Date: 08/23/24 Loc: HO.ED Attending Dr: Ordering Physician: Farzad Lemos Date of Service: 08/23/24 Procedure(s): US venous duplex LE BI Accession Number(s): [id number] cc: Farzad Lemos; KARELY LOPEZ NP EXAMINATION: [...] 08/23/24 1526 DD/ 1440 TD/TT: 08/23/24 1452 City Recorder: [facility] External Provider CV VASC ULAR PROCEDURES Final Result [facility] [address] [place] [phone] * HPV DNA, Low/High Risk (07/21/2024 10:35 AM EST) HPV High Risk Negative Negative [facility] HPV Genotype 16 Negative Negative [facility] HPV Genotype 18 Negative Negative [facility] Comment:HPV testing performe d at [facility] (CLIA#[id number]), [address] [place] [phone].Testing for HPV was performed using the Kate [...] 5 AM EST 07/24/2024 8:20 AM EST [facility] BLOOD ORDERABLES Final Resul t [facility] [address] [place] [phone] * Pap Smear (07/21/2024 10:35 AM EST) Swab Cervical swab / Unknown 07/21/2024 10:35 AM EST 07/24/2024 8:20 AM EST Narrative [facility] - 07/29/2024 10:03 AM EST ----- ------- Name: Vilma Bourne ? Age/Sex: 49/F ? : 1975 Unit#: [id number] ?? Attend Dr: KARELY LOPEZ NP ?Re07/21/24 ?Status: DEP REF ? Location: HO.HHCLNP ? Disch: ? ----- ------- SPEC : [id number] ? RECD: 07/24/24 ? STATUS: ??SOUT ? REQ NUM: [id number] ? ESTEBAN: 07/21/24-1034 ? SUBM DR: KARELY LOPEZ NP ? [...] Karely [facility] CYTOLOGY ORDERABLES Final Re sult [facility] [address] [place] [phone] [phone] * BI Mammogram Screening Tomosynthesis Bilateral (07/19/2024 11:30 AM EST) Anatomical Region Laterality Modality Breast Bilateral Mammography 07/19/2024 11:3 0 AM EST Narrative 07/25/2024 7:11 PM EST ? [facility] ? [address] ?[place] [address] ? Mammography Report ? Signed ? Patient: Steffen,Merlotte ?MR#: [id number] ?? [id number] ? : 1975 ?Acct:[id number] ? Age/Sex: 49 / F ?ADM Date: 07/19/24 ? Loc: HO.MAMMO ? Attending Dr: Karely Lopez TRANSFORMATION SPECIALIST ? Ordering Physician: KARELY LOPEZ NP ?Results: 2Benign Fin ?? dings ? Date of Service: 07/19/24 ?Follow Up: 1 Year From Orig ?? inal Mammogram ? Procedure(s): MM tomosynthesis screening BI ?? Accession Number(s): [id number] ? cc: KARELY LOPEZ NP ? EXAMINATION: [...] DO in OV> ? 07/25/241907 ? DD/ 1130 ? TD/TT: 07/19/24 1140 ? City Recorder: ? Procedure Note Donmichelle, Image - 07/25/2024 [facility] [address] [place] [address] Mammography Report Signed Patient: Vilma BourneMR#: [id number] : 1975Acct:[id number] Age/Sex: 49 / FADM Date: 07/19/24 Loc: HO.MAMMO Attending Dr: Karely Lopez NP Ordering Physician: KARELY LOPEZ NPResults: 2Bozzie pelaez Date of Service: 07/19/24Follow Up: 1 Year From Orig inal Mammogram Procedure(s): MM tomosynthesis screening BI Accession Number(s): [id number] cc: KARELY LOPEZ NP EXAMINATION: MM SCREENING [...] 07/25/24 1908 DD/ 1130 TD/TT: 07/19/24 1140 City Recorder: us Karely Lopez ANP IMG BI PROCEDURES [...] a test for HCV RNA (test code 35213) is suggested. ?? For additional information please refer to http://education.AnswerGo.com/faq/VRH96v7 (This link is being provided for informational/ educational purposes only.) ?? 07/08/2021 10:5 0 AM EST us Karely Lopez ANP HISTORICAL/NON ORDERABLE LABS Fi nal Result [facility] [address] * HIV 1/2 ANTIGEN/ANTIBODY,FOURTH GENERATION W/RFL [...] ? For additional information please refer to http://education.AnswerGo.com/faq/EOM421 (This link is being provided for informational/ educational purposes only.) ? The performance of this assay has not been clinically validated in patients less than 2 years old. ?? 07/08/2021 10:5 0 AM EST [facility] BLOOD ORDERABLES Final Resul t [facility] [address] from Last 3 Months or Most Recently Relevant to Health Maintenance Insurance [facility] STANDARD DENTAL-[facility] MEDICAID STAND ADULT Care Teams Satellite Television Installer Relationship Specialty Start Date End Date Karely Lopez ANP [address] [place] [phone] PCP - General Family Medicine 01/30/21
--- NOTE | 2024-11-21 07:41 | CA_ITS ---
Transthoracic Echocardiogram Patient (Last, First, Middle): Vilma Bourne, Gender: Female Date of : 1975 Age: 49 Procedure Date: 11/21/2024 Procedure Type: Transthoracic Echocardiogram Location: OP Height: 162.56 cm Weight: 100.7 kg BSA: 2.04 m2 Heart Rate: bpm BP: 140 / 82 mmHg Groundman/Lineman: TO Referring MD: Phyllis Day NP Hospital Director: Lenin Garcia MD Symptoms: I10 HTN R06.02 SOB Study Quality: Fair/no iv access ECG Rhythm: Sinus Conclusions: - Essentially normal study with mild left ventricular hypertrophy Findings Left Ventricle Normal left ventricular size and systolic function. There is mildly increased left ventricular wall thickness. The visually estimated ejection fraction is between 55-60%. Spectral Doppler is indicative of a normal filling pattern. Right Ventricle Normal right ventricular cavity size and systolic function. Atria The left atrium is normal in size. There is no evidence of interatrial shunt. The right atrium is normal in size. Aortic Valve Normal aortic valve structure and function. There is no aortic valve stenosis. There is no aortic valve regurgitation. Mitral Valve Normal mitral valve structure and function. There is trace mitral valve regurgitation. There is no mitral valve stenosis. Pulmonic Valve The pulmonic valve is likely normal. Tricuspid Valve Normal tricuspid valve structure. There is trace tricuspid valve regurgitation. The right ventricular systolic pressure is normal. The right ventricular systolic pressure is 27 mmHg. Normal right atrial pressure. There is no evidence of pulmonary hypertension. Great Vessels All visible segments of the aorta are normal in size. The pulmonary artery was not well visualized. There is no dilatation of the ascending aorta measuring 3.10 cm. Venous The inferior vena cava is normal in size and collapses greater than 50% with inspiration. Pericardium/Pleural There is no evidence of pericardial effusion. Prior Study Comparison No prior study available for comparison. Measurements 2D Linear Measurements IVSd: 1.29 0.6-0.9/0.6-1.0 cm LVIDd: 4.25 3.9-5.3/4.2-5.9 cm LVIDd Index: 2.08 2.4-3.2/2.2-3.1 cm/m2 LVIDs: 2.72 2.0-3.6 cm LVPWd: 1.09 0.7-1.1 cm LA Diam: 2.90 2.7-3.8/3.0-4.0 cm LAIDs Index: 1.42 1.5-2.3 cm/m2 LV Mass: 223.26 67-162/88-224 g LV Mass Index: 109.44 43-95/49-115 g/m2 LVOT Diam: 2.00 3.0+(-)1.3 cm 2D Systolic Function EF 4C: 55.80 >55% EF 2C: 57.30 >55% EF BiP: 56.90 >55% Mitral Valve MV Pk E: 0.76 MV PK A: 0.54 MV Decel Time: 194.00 E/A: 1.40 E'Lateral: 11.20 E'Medial: 6.64 E/E' Med: 11.50 E/E' Lat: 6.80 PHT: 57.00 MVA PHT: 3.86 Decel Cannon: 3.94 Aortic Valve AoV Pk Yfn: 1.59 AoV Mn Yfn: 1.08 AoV VTI: 0.33 AoV Pk Grad: 10.00 Aov Mn Grad: 5.00 VENECIA Cont.VTI: 2.10 LVOT LVOT Pk Yfn: 0.95 LVOT Mn Yfn: 0.67 LVOT VTI: 0.22 LVOT Pk Grad: 4.00 LVOT Mn Grad: 2.00 LVOT Diam: 2.00 LVOT Area: 3.14 Diastolic Function MV Pk E: 0.76 MV Pk A: 0.54 E/A: 1.40 E'Medial: 6.64 E/E' Med: 11.50 E' Laterial: 11.20 E/E' Lat: 6.80 Right Ventricle TAPSE (mm): 26.70 TVS' Yfn: 9.03 Tricuspid Valve TR Pk Yfn: 2.43 TR Pk Grad: 24.00 RA Press: 3.00 RVSP: 27.00 Great Vessels Aorta Sinus of Valsalva: 3.02 2.0-3.5 cm Ao Asc: 3.10 2.1-3.4 cm Updated in Other Vendor System with Status of Final Lenin Garcia MD electronically signed on 11/21/2024 6:44:18 PM with status of Final
== END ==
LOC: HO.CARD 07:38
PROVIDERS: PCP Nurse Practitioner Primary Care; Visit Provider Nurse Practitioner Primary Care
DX: I10 Essential (primary) hypertension (principal); R06.02 Shortness of breath
CPT/HCPCS: 93306

== ENCOUNTER → 2024-11-21 07:41 | Outpatient (BNV) | payer MEDICAID, SELFPAY | PROVIDERS: PCP Nurse Practitioner Primary Care; Visit Provider Internal Medicine Cardiovascular Disease | DX: I42.2 Other hypertrophic cardiomyopathy (principal) | CPT/HCPCS: 93306 ==

== ENCOUNTER 2024-12-01 10:20 | Outpatient (REF) | payer MEDICAID, SELFPAY ==
--- OUTSIDE RECORDS SUMMARY | 2024-12-01 10:37 | XMS_ITS | Clinical Summary ---
Author Organization [employer] Address [address] [place] [address] 7 [place] [address] Care Team Providers Care Trailer Steerer Name Role Phone Karely Lopez Primary Care Provider [phone] Allergies Active Allergy Reactions Criticality Noted Date Comments Shrimp Extract High 05/05/2019 Tetanus Antitoxin 06/09/2022 Medications triamcinolone (Kenalog) 0.1 % creamIndications :Hyperpigmented skin lesion,Intrinsic eczema Apply topically if needed in the morning and at bedtime (pain and swelling). 30 g 2 3 Active Multiple Vitamins-Iron tabletIndication s:Anemia, unspecified type 1 tab daily 90 tablet 3 3 Active cloNIDine (Catapres) 0.1 MG tablet Take 1 tablet (0.1 mg) by mouth 2 times daily. 5 tablet 4 Active Diclofenac Sodium (Voltaren) 1 % gelIndications:C hronic right-sided low back pain with right-sided sciatica,Chronic pain of both knees Apply 2G up to 4x/d to affected joint(s) for pain/swelling 100 g 2 4 Active cyclobenzaprine (Flexeril) 5 MG tablet TAKE 1 TABLET BY MOUTH THREE TIMES A DAY NEEDED FOR PAIN FOR 5 DAYS 4 Active Spacer/Aero-Hold ing Chambers deviceIndication s:Moderate persistent asthma with acute exacerbation 1 each Every 4-6 hours as needed (SOB, wheezing). 1 each 1 5 Active albuterol (Ventolin HFA) 108 (90 Base) MCG/ACT inhalerIndicatio ns:Moderate persistent asthma with acute exacerbation INHALE 2 PUFFS BY MOUTH EVERY 4-6 HOURS NEEDED FOR WHEEZING 18 g 3 5 Active albuterol (2.5 MG/3ML) 0.083% nebulizer solution Take 3 mL (2.5 mg) by nebulization every 6 (six) hours if needed for wheezing or shortness of breath. 75 mL 11 5 026 Active ibuprofen 200 MG tablet Take 2-3 tablets (400-600 mg) by mouth every 8 (eight) hours if needed (pain or fever). 100 tablet 2 5 026 Active amLODIPine (Norvasc) 5 MG tabletIndication s:Essential hypertension Take 1 tablet (5 mg) by mouth Once per day. 30 tablet 11 5 026 Active fluticasone-salm eterol (Advair) 230-21 MCG/ACT inhalerIndicatio ns:Moderate persistent asthma without complication Inhale 2 puffs in the morning and at bedtime. Rinse mouth with water after use to reduce aftertaste and incidence of candidiasis. Do not swallow. 12 g 11 5 026 Active cetirizine (ZyrTEC) 10 MG tabletIndication s:Non-seasonal allergic rhinitis, unspecified trigger Take 1 tablet (10 mg) by mouth Once per day. As needed for allergies 90 tablet 5 025 Active Blood Pressure kitIndications:E ssential hypertension 1 each 2 times daily. 1 kit 5 026 Active omeprazole (PriLOSEC) [address] capsuleIndicatio ns:Gastroesophag eal reflux disease, unspecified whether esophagitis present Take 1 capsule daily before meals. Do not crush or chew. 180 capsule 5 Active famotidine (Pepcid) 20 MG tabletIndication s:Gastroesophage al reflux disease, unspecified whether esophagitis present Take 1 tablet twice daily as needed for acid reflux 60 tablet 5 Active Active Problems Problem Noted Date Diagnosed Date [...] Department Care Team Description 10/25/2024 Results Follow-Up [facility] [address] [place] [address] Karely Lopez, ANP Lipid Panel, Standard, Basic Metabolic Panel, TSH W/Reflex to FT4, Hemoglobin A1c 10/25/2024 Results Follow-Up [address] [address] Karely Lopez ANP Hemoglobin and Hematocrit 10/25/2024 Orders Only [address] [address] Karely Lopez ANP Anemia, unspecified type (Primary Dx) 10/24/2024 10:15 AM EDT Office Visit [address] [address] Karely Lopez ANP Moderate persistent asthma without complication (Primary Dx); Essential hypertension; Non-seasonal allergic rhinitis, unspecified trigger; Shortness of breath; Gastroesophageal reflux disease, unspecified whether esophagitis present 10/24/[address] [address] Karely Lopez ANP Gastroesophageal reflux disease, unspecified whether esophagitis present 10/24/2024 Travel 10/23/[address] [address] Karely Lopez ANP CHART PREP 10/11/2024 10:15 AM EDT Office Visit [address] [address] Ashli Gardiner FNP Chronic pain of right ankle (Primary Dx); Moderate persistent asthma with acute exacerbation; Chronic pain of right knee 10/11/2024 Travel 10/10/[address] [address] Izaiah Koch [place] CHART PREP 10/09/[address] [address] Karely Lopez ANP Nurse Triage from Last 3 Months Immunizations Immunization Administration [...] 80 10/24/2024 10:13 AM EDT Temperature 36.1 C (96.9 F) 10/11/2024 10:11 AM EDT Respiratory Rate 20 10/24/2024 10:13 AM EDT [...] Description 01/15/2025 3:00 PM EDT Office Visit [facility] [address] [place], [place] [phone] Karely Lopez ANP [address] [place], [place] [phone] Health Maintenance Due Date Last Done Comments [...] Screening 10/24/2025 10/24/2024 Tobacco Screening 10/25/2025 10/25/2024 Cervical Cancer Screening 07/21/2029 HPV/Cotest 07/21/2029 07/21/2024, 06/14, 10/27/2018 Pap Smear 07/21/2029 07/21/2024, 10/12, 10/27/2018 Lipid Panel 10/25/2029 10/25/2024, 07/08/2021 RSV [...] Routine 10/25/2024 10:46 AM EDT Screening, lipid HPV DNA, LOW/HIGH RISK Routine 07/21/2024 10:35 [...] Free T4 1.06 0.32 - 4.0 uIU/mL [facility] Blood Venous blood specimen / Unknown 10/25/2024 10:46 AM EDT 10/25/2024 1:26 PM EDT [facility] LAB BLOOD ORDERABLES Final Resul t [facility] [address] [place] [phone] * (ABNORMAL) Iron And Total Iron Binding Capacity (10/25/2024 10:46 AM EDT) Iron 29(L) 30 - 160 mcg/dL [facility] Total Iron Binding Capacity 277 228 - 428 mcg/dL [facility] Percent Iron Saturation 10(L) 15 - 50 % [facility] Unsaturated Iron Binding 248 ug/dL [facility] Blood Venous blood specimen / Unknown 10/25/2024 10:46 AM EDT 10/25/2024 1:26 PM EDT Karely Lopez ANP LAB BLOOD ORDERABLES Final Resul t Performing Organization Address [facility] de Phone Number [facility] [address] [place] [phone] * (ABNORMAL) Hemoglobin and Hematocrit (10/25/2024 10:46 AM EDT) Hemoglobin 10.3(L) 12.0 - 16.0 g/dl [facility] Hematocrit 33.2(L) 37.0 - 47.0 % [facility] Blood Venous blood specimen / Unknown 10/25/2024 10:46 AM EDT 10/25/2024 1:26 PM EDT Karely Lopez ANP LAB BLOOD ORDERABLES Final Resul t Performing Organization Address [facility] Co de Phone Number [facility] [address] [place] [phone] * B Type Natriuretic Peptide (BNP) (10/25/2024 10:46 AM EDT) B Type Natriuretic Peptide 14 <100 pg/mL [facility] Blood Venous blood specimen / Unknown 10/25/2024 10:46 AM EDT 10/25/2024 1:28 PM EDT Karely Lopez ANP LAB BLOOD ORDERABLES Final Resul t Performing Organization Address [facility] de Phone Number [facility] [address] [place] [phone] * Hemoglobin A1c (10/25/2024 10:46 AM EDT) Hemoglobin A1c 5.6 <6.0 % [facility] Comment:Hemoglobin A1C Refer ence Range Adults: 4.8 - 6.0 % Non diabetic: < 6.0 % Goal: < 7.0 %Additional Action Suggested: > 8.0 %Note: Hemoglobin A1c results are invalid for patients with abnormal amounts of HbF. Blood transfusions may impact the HbA1c concentration in the patient sample. Estimated Average Glucose 114 mg/dL [facility] Comment:eAG = Estimated ave rage glucose which is %A1C expressed asaverage glucose, using the formula of the C9D-MmosvyqKyeyhhn Glucose study (ADAG), Diabetes Care, Vol.31,#8,Jan. 2007 Blood Venous blood specimen / Unknown 10/25/2024 10:46 AM EDT 10/25/2024 1:26 PM EDT Karely Lopez ANP LAB BLOOD ORDERABLES Final Resul t Performing Organization Address [facility] de Phone Number [facility] [address] [place] [phone] * Ferritin (10/25/2024 10:46 AM EDT) Ferritin 14 10 - 250 ng/mL [facility] Blood Venous blood specimen / Unknown 10/25/2024 10:46 AM EDT 10/25/2024 1:26 PM EDT Karely Lopez ANP LAB BLOOD ORDERABLES Final Resul t Performing Organization Address [facility] Co de Phone Number [facility] [address] [place] [phone] * Lipid Panel, Standard (10/25/2024 10:46 AM EDT) Triglycerides 70 <150 mg/dL [facility] Comment:Desirable Triglyceri de: less than 150 mg/dLBorderline High Triglyceride 150-199 mg/dLHigh Triglyceride: 200-499 mg/dLVery High Triglyceride: greater than or equal to 5OO mg/dL Cholesterol 141 <200 mg/dL [facility] Comment:Desirable Cholestero l: less than 200 mg/dLBorderline High Cholesterol: 200-239 mg/dLHigh Cholesterol: greater than 239 mg/dL LDL Cholesterol Calculated 81 <100 mg/dL [facility] Comment:Desirable LDL: less than 100 mg/dLNear Optimal/Above Optimal LDL: 110- 129 mg/dLBorderline High LDL: 130-159 mg/dLHigh LDL: 160-189 mg/dLVery High LDL: greater than or equal to 190 mg/dL HDL Cholesterol 46 >40 mg/dL [facility] Comment:Desirable HDL: great er than 40 mg/dL Note: This HDL assay may give artificially low results in patients with liver disease. Blood Venous blood specimen / Unknown 10/25/2024 10:46 AM EDT 10/25/2024 1:26 PM EDT Karely Lopez [facility] LAB BLOOD ORDERABLES Final Resul t [facility] [address] [place] [phone] * Basic Metabolic Panel (10/25/2024 10:46 AM EDT) Sodium 140 135 - 145 mmol/L [facility] Potassium 3.8 3.3 - 5.1 mmol/L [facility] Chloride 107 96 - 108 mmol/L [facility] Carbon Dioxide 25 22 - 29 mmol/L [facility] Anion Gap 12 12 - 20 [facility] Urea Nitrogen (BUN) 11 9 - 16 mg/dL [facility] Creatinine, Serum 0.65 0.5 - 1.4 mg/dL [facility] Estimated Glomerular Filt Rate >60 [facility] Comment:Chronic Kidney Disea se: Estimated GFR < 60 mL/min/1.99d5Xpkgnf Kidney Disease: Estimated GFR < 15 mL/min/1.73m2 Glucose 76 60 - 115 mg/dL [facility] Calcium 8.7 8.4 - 10.2 mg/dL [facility] Blood Venous blood specimen / Unknown 10/25/2024 10:46 AM EDT 10/25/2024 1:26 PM EDT Karely MCFADDEN LAB BLOOD ORDERABLES Final Resul t Performing Organization Address [facility] Co de Phone Number [facility] [address] [place] [phone] * HPV DNA, Low/High Risk (07/21/2024 10:35 AM EST) HPV High Risk Negative Negative [facility] HPV Genotype 16 Negative Negative [facility] HPV Genotype 18 Negative Negative [facility] Comment:HPV testing performe d at [facility] (CLIA#[id number]), [address] [place] [address].Testing for HPV was performed using the Kate [...] 5 AM EST 07/24/2024 8:20 AM EST Karely MCFADDEN LAB BLOOD ORDERABLES Final Resul t Performing Organization Address City/[facility]/ZIP Co de Phone Number [facility] [address] [place] [phone] * Pap Smear (07/21/2024 10:35 AM EST) Swab Cervical swab / Unknown 07/21/2024 10:35 AM EST 07/24/2024 8:20 AM EST [facility] - 07/29/2024 10:03 AM EST ----- ------- Name: Vilma Bourne Age/Sex: 49/F : 1975 Unit#: [id number] Attend Dr: KARELY LOPEZ NP Re07/21/24 Status: DEP [facility]ch: ----- ------- SPEC : [id number] RECD: 07/24/24 STATUS: RAYMOND RODRIGUEZ NUM: [id number] ESTEBAN: 07/21/24-[address] [facility] [address]: KARELY LOPEZ NP ENTERED: 07/24/24 SP TYPE: Pap Smr OT : ORDERED: Pap Smear Interpretation Satisfactory for evaluation. Negative for intraepithelial lesion or malignancy. Coccobacilli consistent with shift in vaginal nevin. No endocervical cells seen. HPV High Risk: Negative HPV Genotyping 16: Negative HPV Genotyping 18: Negative Clinical Information LMP: 05/30/2024 Previous PAP test: 06/2019, WNL Other history: Perimenopausal Material Received ThinPrep-Cervical ----- ------- Signed (signature on file) Jerson Greenwood CT (ASCP) 07/29/24 1003 ----- ------- END OF REPORT Karely Lopez [facility] CYTOLOGY ORDERABLES Final Re sult [facility] [address] [place] [address] [phone] * BI Mammogram Screening Tomosynthesis Bilateral (07/19/2024 11:30 AM EST) Anatomical Region Laterality Modality Breast Bilateral Mammography 07/19/2024 11:3 0 AM EST Narrative 07/25/2024 7:11 PM EST [facility] [address] [place] [address] 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 Ordering Physician: KARELY LOPEZ NP Results: 2Benign Khalif pelaez Date of Service: 07/19/24 Follow Up: 1 Year From Orig inal Mammogram Procedure(s): MM tomosynthesis screening BI Accession Number(s): [id number] cc: KARELY LOPEZ PUNCHBOARD FILLING MACHINE OPERATOR EXAMINATION: MM SCREENING DIGITAL BREAST TOMOSYNTHESIS, BILATERAL [...] by: Renay Sosa DO 07/25/2024 07:08 PM [facility] Dictated By: Renay Sosa DO Signed By: <Electronically signed by Renay Sosa DO in OV> 07/25/24 1908 DD/ 1130 TD/TT: 07/19/24 1140 Line Server: Procedure Note Donotuseinterpreter, Image - 07/25/2024 [facility] [address] [place], [place] [address] Mammography Report Signed Patient: Vilma Bourne#: [id number] : 1975Acct:[id number] Age/Sex: 49 / FADM Date: 07/19/24 Loc: HO.MAMMO Attending Dr: Karely Lopez NP Ordering Physician: KARELY LOPEZ NPResults: 2Bozzie pelaez Date of Service: 07/19/24Follow Up: 1 Year From Orig inal Mammogram Procedure(s): MM tomosynthesis screening BI Accession Number(s): [id number] cc: KARELY LOPEZ NP EXAMINATION: MM SCREENING [...] 07/25/24 1908 DD/ 1130 TD/TT: 07/19/24 1140 Line Server: us Karely MCFADDEN IMG BI PROCEDURES Final Result * HEPATITIS C AB W/REFL TO HCV RNA, QN, PCR (07/08/2021 10:50 AM EST) HEPATITIS C ANTIBODY NON-REACT CELESTINO NON-REACT CELESTINO [facility] INDEX 0.04 <1.00 [facility] Comment: HCV antibody was non-reactive. There is no laboratory evidence of HCV infection. In most cases, no further action is required. However, if recent HCV exposure is suspected, a test for HCV RNA (test code 27420) is suggested. For additional information please refer to http://education.GLG.ReClaims/faq/JWL79y3 (This link is being provided for informational/ educational purposes only.) 07/08/2021 10:5 0 AM EST us Karely Lopez ANP HISTORICAL/NON ORDERABLE LABS Fi nal Result [facility] [address] * HIV 1/2 ANTIGEN/ANTIBODY,FOURTH GENERATION W/RFL (07/08/2021 10:50 AM EST) HIV-1/2 ANTIGEN AND ANTIBODIES, 4TH GENERATION W/ REFLEX NON-REACT CELESTINO NON-REACT CELESTINO [facility] Comment: HIV-1 antigen and HIV-1/HIV-2 antibodies were not detected. There is no laboratory evidence of HIV infection. PLEASE NOTE: This information has been disclosed to you from records whose confidentiality may be protected by state law. If your state requires such protection, then the state law prohibits you from making any further disclosure of the information without the specific written consent of the person to whom it pertains, or as otherwise permitted by law. A general authorization for the release of medical or other information is NOT sufficient for this purpose. For additional information please refer to http://education.[employer]store/faq/CYB506 (This link is being provided for informational/ educational purposes only.) The performance of this assay has not been clinically validated in patients less than 2 years old. 07/08/2021 10:5 0 AM EST [facility] LAB BLOOD ORDERABLES Final Resul t [facility] [address] from Last 3 Months or Most Recently Relevant to Health Maintenance Insurance [facility] STANDARD DENTAL-[facility] MEDICAID STAND ADULT Care Teams Trailer Steerer Relationship Specialty Start Date End Date Karely Lopez ANP [address] [place] [phone] PCP - General Family Medicine 01/30/21
== END 2024-12-01 10:21 | disposition home or self-care (01) ==
LOC: HO.HHCL 10:20
PROVIDERS: PCP Nurse Practitioner Primary Care; Visit Provider Nurse Practitioner Primary Care
DX: K21.9 Gastro-esophageal reflux disease without esophagitis (principal)
CPT/HCPCS: 87338

== ENCOUNTER 2024-12-01 15:43 | Outpatient (REF) | payer MEDICAID, SELFPAY ==
--- NOTE | 2024-12-01 | PFT_ITS ---
Indication: Asthma Spirometry FEV1 to FVC 64%; FEV1 1.3 L; FVC 2.14 L. There is a significant response to bronchodilators noted. Lung Volumes Total lung capacity 54%; residual volume 57% predicted Diffusion Capacity DLCO 67% Comparisons None Interpretation There is an obstructive ventilatory defect consistent with severe obstructive airway disease. The patient does have a history asthma and at this point appears to be uncontrolled. There is a significant response to bronchodilators noted. In addition to that the patient has a restrictive ventilatory defect consistent with moderate restrictive lung disease of unclear etiology. Need to consider underlying neuromuscular diseases and or parenchymal lung conditions. Patient also has a mild diffusion impairment. Clinical correlation warranted. Pulmonary evaluation would be helpful. MTDD
[2024-12-01 16:25] VITALS: PULSE 84; O2SAT 98
== END 2024-12-01 15:44 | disposition home or self-care (01) ==
LOC: HO.RESP 15:43
PROVIDERS: PCP Nurse Practitioner Primary Care; Visit Provider Nurse Practitioner Primary Care
DX: J45.40 Moderate persistent asthma, uncomplicated (principal)
CPT/HCPCS: 94010; 94640; 94727; 94729

== ENCOUNTER → 2024-12-01 15:46 | Outpatient (BNV) | payer MEDICAID, SELFPAY | PROVIDERS: PCP Nurse Practitioner Primary Care; Visit Provider Hospitalist | DX: J45.909 Unspecified asthma, uncomplicated (principal) | CPT/HCPCS: 94060; 94727; 94729 ==

== ENCOUNTER 2024-12-05 11:08 | Outpatient (REF) | payer MEDICAID, SELFPAY ==
--- OUTSIDE RECORDS SUMMARY | 2024-12-05 12:46 | XMS_ITS | Clinical Summary ---
Author Organization [employer] Address [address] [place] [address] 7 [place] [address] Care Team Providers Care Chief General [facility] Name Role Phone Karely Lopez Primary Care Provider [phone] Allergies Active Allergy Reactions Criticality Noted Date [...] or shortness of breath. 75 mL 11 025 2025 Active ibuprofen 200 MG tablet Take 2-3 tablets (400-600 mg) by mouth every 8 (eight) hours if needed (pain or fever). 100 tablet 2 025 2025 Active fluticasone-kari meterol (Advair) 230-21 MCG/ACT inhalerIndicati ons:Moderate persistent asthma without complication Inhale 2 puffs in the morning and at bedtime. Rinse mouth with water after use to reduce aftertaste and incidence of candidiasis. Do not swallow. 12 g 11 025 2025 Active cetirizine (ZyrTEC) 10 MG tabletIndicatio ns:Non-seasonal allergic rhinitis, unspecified trigger Take 1 tablet (10 mg) by mouth Once per day. As needed for allergies 90 tablet 025 2024 Active Blood Pressure kitIndications: Essential hypertension 1 each 2 times daily. 1 kit 025 2025 Active omeprazole (PriLOSEC) [address] capsuleIndicati ons:Gastroesoph ageal reflux disease, unspecified whether esophagitis present Take 1 capsule daily before meals. Do not crush or chew. 180 capsule Active famotidine (Pepcid) 20 MG tabletIndicatio ns:Gastroesopha geal reflux disease, unspecified whether esophagitis present Take 1 tablet twice daily as needed for acid reflux 60 tablet Active amLODIPine (Norvasc) 5 MG tabletIndicatio ns:Essential hypertension TAKE 1 TABLET BY MOUTH EVERY DAY 90 tablet 1 Active Umeclidinium Axton 62.5 MCG/ACT aerosol powderIndicatio ns:Obstructive airway disease (CMS/HCC) Inhale 1 Act (62.5 mcg) Once per day. 30 each 2 Active omeprazole (PriLOSEC) [address] capsuleIndicati ons:Bacterial infection due to H. pylori Take 1 capsule (20 mg) by mouth before breakfast and before evening meal for 10 days. Do not crush or chew. 20 capsule 025 2024 Active bismuth-metroNI DAZOLE-tetracyc line (Pylera) 140-125-125 MG capsuleIndicati ons:Bacterial infection due to H. pylori Take 3 capsules by mouth before breakfast, before lunch, before evening meal, and at bedtime for 10 days. Follow each dose with 8 oz of water. 120 capsule 025 2024 Active amLODIPine (Norvasc) 5 MG tabletIndicatio ns:Essential hypertension Take 1 tablet (5 mg) by mouth Once per day. 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 12/03/2024 Overview (12/03/2024): See PFTs 12/01/24, referring urgently to Pulm History of right breast biopsy 07/21/2024 Moderate [...] Encounters Date Type Department Care Team Description 12/03/2024 Results Follow-Up [address] [address] Karely Lopez ANP Helicobacter pylori Antigen, EIA, Stool 12/03/[address] [address] Karely Lopez ANP Essential hypertension 12/02/[address] [address] Karely Lopez ANP Gastroesophageal reflux disease, unspecified whether esophagitis present 10/25/2024 Results Follow-Up [address] [address] Karely Lopez ANP Lipid Panel, Standard, Basic Metabolic Panel, TSH W/Reflex to FT4, Hemoglobin A1c 10/25/2024 Results Follow-Up [address] [address] Karely Lopez ANP Hemoglobin and Hematocrit 10/25/2024 Orders Only [address] [address] Karely Lopez ANP Anemia, unspecified type (Primary Dx) 10/24/2024 10:15 AM EDT Office Visit [facility] [address] [place] [address] Karely Lopez ANP Moderate persistent asthma without complication (Primary Dx); Essential hypertension; Non-seasonal allergic rhinitis, unspecified trigger; Shortness of breath; Gastroesophageal reflux disease, unspecified whether esophagitis present 10/24/2024 Refill [facility] [address] [place] [address] Karely Lopez ANP Gastroesophageal reflux disease, unspecified whether esophagitis present 10/24/2024 Travel 10/23/[address] [address] Karely Lopez ANP CHART PREP 10/11/2024 10:15 AM EDT Office Visit [address] [address] Ashli Gardiner FNP Chronic pain of right ankle (Primary Dx); Moderate persistent asthma with acute exacerbation; Chronic pain of right knee 10/11/2024 Travel 10/10/[address] [address] Izaiah Koch [place] CHART PREP 10/09/[address] [address] Karely Lopez ANP Nurse Triage from Last [...] Care Team (Late st Contact Info) Description 12/07/2024 2:15 PM EDT Office Visit [facility] [address] [place], [place] [phone] Karely Lopez, ANP [address] [place] [address] 01/15/2025 3:00 PM EDT Office Visit [facility] [address] [place], [place] [phone] Karely Lopez, ANP [address] [place], [place] [phone] Health Maintenance Due Date Last Done Comments [...] 10/24/2024 SDOH Screening 10/24/2025 10/24/2024 Tobacco Screening 12/03/2025 12/03/2024 Cervical Cancer Screening 07/21/2029 HPV/Cotest 07/21/2029 07/21/2024, [...] Procedure Name Priority Date/Time Associated Diagnosis Comments HELICOBACTER PYLORI AG, EIA, STOOL Routine 11/30/2024 4:00 PM EDT Gastroesophageal reflux disease, unspecified whether esophagitis present FERRITIN Routine 10/25/2024 10:46 AM EDT Anemia, [...] Recently Relevant to Health Maintenance Results * (ABNORMAL) Helicobacter pylori??Antigen, EIA, Stool (11/30/2024 4:00 PM EDT) H pylori Ag Stool SEE NOTE(A) [facility] Comment:HELICOBACTER PYLORI AG, EIA, STOOL Micro Number: [id number] Test Status: Final Specimen Source: Stool Specimen Quality: Adequate H.pylori Ag: Detected Reference Range: Not DetectedTHIS TEST WAS PERFORMED AT:[facility] [place] [id number] TRUJILLO MD Stool Rectal contents / Unknown 11/30/2024 4:00 PM EDT 12/01/2024 11:43 AM EDT Karely Lopez ANP LAB BODY FLUIDS AND STOOLS ORDER KATHARINA Final Result Performing Organization Address [facility] de Phone Number [facility] [address] [place] [phone] * TSH W/Reflex to FT4 (10/25/2024 10:46 AM EDT) TSH reflex Free T4 1.06 0.32 - 4.0 uIU/mL [facility] Blood Venous blood specimen / Unknown 10/25/2024 10:46 AM EDT 10/25/2024 1:26 PM EDT us Karely Lopez ANP LAB BLOOD ORDERABLES Final Resul t Performing Organization Address [place] [facility] Phone Number [facility] [address] [place] [phone] * (ABNORMAL) Iron And Total Iron Binding Capacity (10/25/2024 10:46 AM EDT) Iron 29(L) 30 - 160 mcg/dL [facility] Total Iron Binding Capacity 277 228 - 428 mcg/dL [facility] Percent Iron Saturation 10(L) 15 - 50 % [facility] Unsaturated Iron Binding 248 ug/dL [facility] Blood Venous blood specimen / Unknown 10/25/2024 10:46 AM EDT 10/25/2024 1:26 PM EDT Karely Lopez ANP LAB BLOOD ORDERABLES Final Resul t Performing Organization Address [facility] de Phone Number [facility] [address] [place] [phone] * (ABNORMAL) Hemoglobin and Hematocrit (10/25/2024 10:46 AM EDT) Hemoglobin 10.3(L) 12.0 - 16.0 g/dl [facility] Hematocrit 33.2(L) 37.0 - 47.0 % [facility] Blood Venous blood specimen / Unknown 10/25/2024 10:46 AM EDT 10/25/2024 1:26 PM EDT Karely Lopez ANP LAB BLOOD ORDERABLES Final Resul t Performing Organization Address [facility]/ZIP Co de Phone Number [facility] [address] [place] [phone] * B Type Natriuretic Peptide (BNP) (10/25/2024 10:46 AM EDT) Pathologist [facility] B Type Natriuretic Peptide 14 <100 pg/mL [facility] Blood Venous blood specimen / Unknown 10/25/2024 10:46 AM EDT 10/25/2024 1:28 PM EDT Karely Lopez ANP LAB BLOOD ORDERABLES Final Resul t Performing Organization Address City/[facility]/ZIP Co de Phone Number [facility] [address] [place] [phone] * Hemoglobin A1c (10/25/2024 10:46 AM EDT) Hemoglobin A1c 5.6 <6.0 % [facility] Comment:Hemoglobin A1C Refer ence Range Adults: 4.8 - 6.0 % Non diabetic: < 6.0 % Goal: < 7.0 %Additional Action Suggested: > 8.0 %Note: Hemoglobin A1c results are invalid for patients with abnormal amounts of HbF. Blood transfusions may impact the HbA1c concentration in the patient sample. Estimated Average Glucose 114 mg/dL [facility] Comment:eAG = Estimated ave rage glucose which is %A1C expressed asaverage glucose, using the formula of the X4Y-UqurawcEfeaidl Glucose study (ADAG), Diabetes Care, Vol.31,#8,Jan. 2007 Blood Venous blood specimen / Unknown 10/25/2024 10:46 AM EDT 10/25/2024 1:26 PM EDT Karely Lopez ANP LAB BLOOD ORDERABLES Final Resul t Performing Organization Address [facility] Co de Phone Number [facility] [address] [place] [phone] * Ferritin (10/25/2024 10:46 AM EDT) Ferritin 14 10 - 250 ng/mL [facility] Blood Venous blood specimen / Unknown 10/25/2024 10:46 AM EDT 10/25/2024 1:26 PM EDT Karely Lopez ANP LAB BLOOD ORDERABLES Final Resul t Performing Organization Address [facility] de Phone Number [facility] [address] [place] [phone] * Lipid Panel, Standard (10/25/2024 10:46 AM EDT) Triglycerides 70 <150 mg/dL [facility] Comment:Desirable Triglyceri de: less than 150 mg/dLBorderline High Triglyceride 150-199 mg/dLHigh Triglyceride: 200-499 mg/dLVery High Triglyceride: greater than or equal to 5OO mg/dL Cholesterol 141 <200 mg/dL [facility] Comment:Desirable Cholestero l: less than 200 mg/dLBorderline High Cholesterol: 200-239 mg/dLHigh Cholesterol: greater than 239 mg/dL LDL Cholesterol Calculated 81 <100 mg/dL [facility] Comment:Desirable LDL: less than 100 mg/dLNear Optimal/Above Optimal LDL: 110- 129 mg/dLBorderline High LDL: 130-159 mg/dLHigh LDL: 160-189 mg/dLVery High LDL: greater than or equal to 190 mg/dL HDL Cholesterol 46 >40 mg/dL [facility] Comment:Desirable HDL: great er than 40 mg/dL Note: This HDL assay may give artificially low results in patients with liver disease. Blood Venous blood specimen / Unknown 10/25/2024 10:46 AM EDT 10/25/2024 1:26 PM EDT Karely Lopez ANP LAB BLOOD ORDERABLES Final Resul t Performing Organization Address [facility] de Phone Number [facility] [address] [place] [phone] * Basic Metabolic Panel (10/25/2024 10:46 AM EDT) [facility] Sodium 140 135 - 145 mmol/L [facility] Potassium 3.8 3.3 - 5.1 mmol/L [facility] Chloride 107 96 - 108 mmol/L [facility] Carbon Dioxide 25 22 - 29 mmol/L [facility] Anion Gap 12 12 - 20 [facility] Urea Nitrogen (BUN) 11 9 - 16 mg/dL [facility] Creatinine, Serum 0.65 0.5 - 1.4 mg/dL [facility] Estimated Glomerular Filt Rate >60 [facility] Comment:Chronic Kidney Disea se: Estimated GFR < 60 mL/min/1.51n0Bbohpj Kidney Disease: Estimated GFR < 15 mL/min/1.73m2 Glucose 76 60 - 115 mg/dL [facility] Calcium 8.7 8.4 - 10.2 mg/dL [facility] Blood Venous blood specimen / Unknown 10/25/2024 10:46 AM EDT 10/25/2024 1:26 PM EDT Karely Lopez ANP LAB BLOOD ORDERABLES Final Resul t Performing Organization Address [facility] de Phone Number [facility] [address] [place] [phone] * HPV DNA, Low/High Risk (07/21/2024 10:35 AM EST) Pathologist [facility] HPV High Risk Negative Negative [facility] HPV Genotype 16 Negative Negative [facility] HPV Genotype 18 Negative Negative [facility] Comment:HPV testing performe d at [facility] (CLIA#[id number]), [address] [place] [phone].Testing for HPV was performed using the Kate [...] 5 AM EST 07/24/2024 8:20 AM EST [facility] LAB BLOOD ORDERABLES Final Resul t [facility] [address] [place] [phone] * Pap Smear (07/21/2024 10:35 AM EST) Swab Cervical swab / Unknown 07/21/2024 10:35 AM EST 07/24/2024 8:20 AM EST Narrative [facility] - 07/29/2024 10:03 AM EST ----- ------- Name: Vilma Bourne Age/Sex: 49/F : 1975 Unit#: [id number] Attend Dr: KARELY LOPEZ NP Re07/21/24 Status: DEP REF Location: [facility] Disch: ----- ------- SPEC : [id number] RECD: 07/24/24 STATUS: RAYMOND RODRIGUEZ NUM: [id number] ESTEBAN: 07/21/[address] [facility] [address]: KARELY LOPEZ NP ENTERED: 07/24/24 SP TYPE: Pap Smr OTHR DR: ORDERED: Pap Smear Interpretation Satisfactory for evaluation. Negative for intraepithelial lesion or malignancy. Coccobacilli consistent with shift in vaginal nevin. No endocervical cells seen. HPV High Risk: Negative HPV Genotyping 16: Negative HPV Genotyping 18: Negative Clinical Information LMP: 05/30/2024 Previous PAP test: 06/2019, WNL Other history: Perimenopausal Material Received ThinPrep-Cervical ----- ------- Signed (signature on file) ANTHONY Prater (ASCP) 07/29/24 1003 ----- ------- END OF REPORT Karely Lopez ANP LAB CYTOLOGY ORDERABLES Final Re sult [facility] [address] [place] [phone] * BI Mammogram Screening Tomosynthesis Bilateral (07/19/2024 11:30 AM EST) Anatomical Region Laterality Modality Breast Bilateral Mammography 07/19/2024 11:3 0 AM EST Narrative 07/25/2024 7:11 PM EST [address] [place] [address] Mammography Report Signed Patient: Vilma Bourne MR#: [id number] : 1975 Acct:[id number] Age/Sex: 49 / F ADM Date: 07/19/24 Loc: HO.MAMMO Attending Dr: Karely Lopez NP Ordering Physician: KARELY LOPEZ NP Results: 2Benign Khalif dingsimon Date of Service: 07/19/24 Follow Up: 1 Year From Orig ina Mammogram Procedure(s): MM tomosynthesis screening BI Accession Number(s): [id number] cc: KARELY LOPEZ NP EXAMINATION: MM SCREENING [...] 07/25/24 1908 DD/ 1130 TD/TT: 07/19/24 1140 Push Connector Assembler: Procedure Note Donotuseinterpreter, Image - 07/25/20[facility] [address] [place] [address] Mammography Report Signed Patient: Mary Bourne#: [id number] : 1975Acct:[id number] Age/Sex: 49 / FADM Date: 07/19/24 Loc: HO.MAMMO Attending Dr: Karely Lopez NP Ordering Physician: KARELY LOPEZ NPResults: 2Benign Khalif pelaez Date of Service: 07/19/24Follow Up: 1 Year From Orig inal Mammogram Procedure(s): MM tomosynthesis screening BI Accession Number(s): [id number] cc: KARELY LOPEZ NP EXAMINATION: MM SCREENING [...] 07/25/24 1908 DD/ 1130 TD/TT: 07/19/24 1140 Push Connector Assembler: us Karely Lopez ANP IMG BI PROCEDURES Final Result * HEPATITIS C AB W/REFL TO HCV RNA, QN, PCR (07/08/2021 10:50 AM EST) HEPATITIS C ANTIBODY NON-REACT CELESTINO NON-REACT CELESTINO [facility] INDEX 0.04 <1.00 [facility] Comment: HCV antibody was non-reactive. There is no laboratory evidence of HCV infection. In most cases, no further action is required. However, if recent HCV exposure is suspected, a test for HCV RNA (test code 06576) is suggested. For additional information please refer to http://[place].PathCentral/faq/IGG97q8 (This link is being provided for informational/ educational purposes only.) 07/08/2021 10:5 0 AM EST us Karely Lopez ANP HISTORICAL/NON ORDERABLE LABS Fi nal Result [facility] [address] * HIV 1/2 ANTIGEN/ANTIBODY,FOURTH GENERATION W/RFL (07/08/2021 10:50 AM EST) HIV-1/2 ANTIGEN AND ANTIBODIES, 4TH GENERATION W/ REFLEX NON-REACT CELESTINO NON-REACT CELESTINO [facility] Comment: HIV-1 antigen and HIV-1/HIV-2 [...] purpose. For additional information please refer to http://[place].PathCentral/faq/HWK911 (This link is being provided for informational/ educational purposes only.) The performance of this assay has not been clinically validated in patients less than 2 years old. 07/08/2021 10:5 0 AM EST Karely Lopez [facility] LAB BLOOD ORDERABLES Final Resul t [facility] [address] from Last 3 Months or Most Recently Relevant to Health Maintenance [place] [address] [place] [address] [facility] MEDICAID STAND ADULT Care Teams Chief General Pediatric Clinic Relationship Specialty Start Date End Date Karely Lopez ANP [address] [place] [id number] PCP - General Family Medicine 01/30/21
[2024-12-05 13:00] LABS: MANUAL DIFF FLAG NO
[2024-12-05 13:12] LABS: Basophils Percent Auto 0.6 % (0-2); Eosinophils Absolute Auto 0.4 X10*3/uL (0.0-0.4); Eosinophils Percent Auto 5.5 % (0-4); Hematocrit 36.4 % (37.0-47.0); Hemoglobin 11.6 g/dl (12.0-16.0); Imm Gran Abs Auto 0.01 X10*3/uL (0.00-0.03); Imm Gran Pct Auto 0.1 % (0.0-0.4); Lymphocytes Absolute Auto 2.3 X10*3/uL (1.2-4.9); Lymphocytes Percent Auto 33.7 % (20-40); Mean Corpuscular HGB Conc 31.9 g/dl (31.0-35.0); Mean Corpuscular Hemoglobin 25.6 pg (27.0-33.0); Mean Corpuscular Volume 80.4 fL (80.0-98.0); Mean Platelet Volume 11.3 fL (9.4-12.3); Monocytes Absolute Auto 0.5 X10*3/uL (0.1-1.2); Monocytes Percent Auto 7.8 % (2-11); Neutrophils Absolute Auto 3.6 x10*3/uL (2.0-8.3); Neutrophils Percent Auto 52.3 % (45-73); Platelet Count 299 X10*3/uL (160-400); Red Blood Count 4.53 X10*6/uL (4.20-5.50); Red Cell Distribution Width 16.1 % (11.0-16.0); White Blood Count 6.9 X10*3/uL (4.8-10.8)
[2024-12-05 13:32] LABS: Iron 51 mcg/dL (30-160); Percent Iron Saturation 17 % (15-50); Total Iron Binding Capacity 300 mcg/dL (228-428); Unsaturated Iron Binding 249 ug/dL
[2024-12-05 13:40] LABS: Ferritin 20 ng/mL (10-250)
== END 2024-12-05 11:09 | disposition home or self-care (01) ==
LOC: HO.HHCL 11:08
PROVIDERS: PCP Nurse Practitioner Primary Care; Visit Provider Nurse Practitioner Primary Care
DX: D64.9 Anemia, unspecified (principal); J44.9 Chronic obstructive pulmonary disease, unspecified
CPT/HCPCS: 36415; 82728; 83540; 85025

== ENCOUNTER 2025-01-10 11:19 | Outpatient (REF) | payer MEDICAID, SELFPAY ==
--- NOTE | ~2025-01-10 | XR_ITS ---
EXAMINATION: XR WRIST, LEFT CLINICAL INFORMATION: s/p fall COMPARISON: None available. TECHNIQUE: PA, lateral, and oblique views of the left wrist. FINDINGS: Carpal bones are intact. Normal alignment. No lytic or blastic lesions. Distal radius and ulna are intact. No subcutaneous emphysema. No metallic or radiopaque foreign body. XR/XR wrist LT min 3V IMPRESSION: No acute fracture or dislocation. Electronically signed by: James Salmon MD 01/10/2025 11:36 AM EDT
--- OUTSIDE RECORDS SUMMARY | 2025-01-10 12:22 | XMS_ITS | Clinical Summary ---
Author Organization [employer] Address [address] [place] [address] 7 [place] [address] Care Team Providers Care Professor Of Philosophy Name Role Phone Karely Lopez Primary Care Provider [phone] Allergies Active Allergy Reactions Criticality Noted Date [...] fever). 100 tablet 2 5 026 Active fluticasone-salm eterol (Advair) 230-21 [...] for acid reflux 60 tablet 5 Active amLODIPine (Norvasc) 5 MG tabletIndication s:Essential hypertension TAKE 1 TABLET BY MOUTH EVERY DAY 90 tablet 1 5 Active Umeclidinium Bradford 62.5 MCG/ACT aerosol powderIndication s:Obstructive airway disease (CMS/HCC) Inhale 1 Act (62.5 mcg) Once per day. 30 each 2 5 Active omeprazole (PriLOSEC) [address] capsuleIndicatio ns:Bacterial infection due to H. pylori Take 1 capsule (20 mg) by mouth before breakfast and before evening meal for 10 days. Do not crush or chew. 20 capsule 5 Active bismuth-metroNID AZOLE-tetracycli ne (Pylera) 140-125-125 MG capsuleIndicatio ns:Bacterial infection due to H. pylori Take 3 capsules by mouth before breakfast, before lunch, before evening meal, and at bedtime for 10 days. Follow each dose with 8 oz of water. 120 capsule 5 Active ibuprofen 800 MG tabletIndication s:Left wrist pain Take 1 tablet (800 mg) by mouth every 8 (eight) hours if needed for moderate pain for up to 10 days. 30 tablet 5 025 Active Active Problems Problem Noted Date Diagnosed Date Left wrist pain 01/10/2025 Assessment & Plan (01/10/2025 11:43 AM EDT): I will prescribe for patient and arm sling XRAY ordered Patient will be referred STAT to orthopedics Mixed obstructive and restrictive ventilatory de fect [...] Encounters Date Type Department Care Team Description 01/10/2025 11:00 AM EDT Office Visit [facility] [place] [address] [place] [address] Charlotte Salcido MD Left wrist pain 01/10/2025 Results Follow-Up [facility] [address] [place] [address] Charlotte Salcido MD XR Wrist 3+ Views Left 01/10/2025 Travel 12/22/2024 Refill [facility] [address] [place] [address] Karely Lopez ANP Essential hypertension 12/13/2024 Travel 12/11/2024 Telephone [facility] [address] [place] [address] Karely Lopez ANP Nurse Triage 12/10/2024 Refill [facility] [address] [place] [address] Karely Lopez ANP Bacterial infection due to H. 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); Chronic pain of both knees; Iron deficiency anemia, unspecified iron deficiency anemia type 12/07/2024 Travel 12/06/[address] [address] Izaiah Koch [place] 12/05/2024 Results Follow-Up [address] [address] Karely Lopez ANP Ferritin, Iron And Total Iron Binding Capacity 12/05/2024 Orders Only [address] [address] Karely Lopez ANP 12/03/2024 Results Follow-Up [address] [address] Karely Lopez ANP Helicobacter pylori Antigen, EIA, Stool, CBC auto differential 12/03/[address] [address] Karely Lopez ANP Essential hypertension 12/02/[address] [address] Karely Lopez ANP Gastroesophageal reflux disease, unspecified whether esophagitis present 10/25/2024 Results Follow-Up [address] [address] Karely Lopez ANP Lipid Panel, Standard, Basic Metabolic Panel, TSH W/Reflex to FT4, Hemoglobin A1c 10/25/2024 Results Follow-Up [address] [address] Karely Lopez ANP Hemoglobin and Hematocrit 10/25/2024 Orders Only [address] [address] Karely Lopez ANP Anemia, unspecified type (Primary Dx) 10/24/2024 10:15 AM EDT Office Visit [address] [address] Karely Lopez ANP Moderate persistent asthma without complication (Primary Dx); Essential hypertension; Non-seasonal allergic rhinitis, unspecified trigger; Shortness of breath; Gastroesophageal reflux disease, unspecified whether esophagitis present 10/24/2024 Refill [facility] [address] [place] [address] Karely Lopez ANP Gastroesophageal reflux disease, unspecified whether esophagitis present 10/24/2024 Travel 10/23/2024 Telephone [facility] [address] [place] [address] Karely Lopez ANP CHART PREP 10/11/2024 10:15 AM EDT Office Visit [facility] [address] [place] [address] Ashli Gardiner FNP Chronic pain of right ankle (Primary Dx); Moderate persistent asthma with acute exacerbation; Chronic pain of right knee 10/11/2024 Travel from Last 3 Months Immunizations Immunization Administration [...] Sign Reading Time Taken Comments Blood Pressure 139/88 01/10/2025 11:00 AM EDT Pulse 80 01/10/2025 11:00 AM EDT Temperature 36.7 C (98.1 F) 01/10/2025 11:00 AM EDT Respiratory Rate 18 01/10/2025 11:00 AM EDT Oxygen Saturation 99% 01/10/2025 11:00 AM EDT Inhaled Oxygen Concentration - - Weight 103 kg (226 lb) 01/10/2025 11:00 AM EDT Height 162.6 cm (5' 4 ) 12/07/2024 2:22 PM EDT Body Mass Index 38.79 12/07/2024 2:22 PM EDT Plan of Treatment Upcoming Encounters Date Type Department Care Team (Late st Contact Info) Description 01/15/2025 3:00 PM EDT Office Visit [facility] [address] [place] [address] Karely Lopez ANP [address] [place] [address] Health Maintenance Due Date Last Done Comments [...] Bitewings 06/10/2023 06/09/2022, 05/17 Influenza Vaccine (#1) 2025 04/01/2021 Dental X-Ray: Full Mouth 06/10/2025 [...] 10/24/2024 SDOH Screening 10/24/2025 10/24/2024 Tobacco Screening 12/07/2025 12/07/2024 Cervical Cancer Screening 07/21/2029 HPV/Cotest 07/21/2029 07/21/2024, [...] Name Priority Date/Time Associated Diagnosis Comments XR WRIST 3+ VIEWS LEFT Routine 01/10/2025 10:40 AM EDT Left wrist pain FERRITIN Routine 12/05/2024 11:14 AM EDT IRON AND TOTAL IRON BINDING CAPACITY Routine 12/05/2024 11:14 AM EDT CBC WITH AUTO DIFFERENTIAL Routine 12/05/2024 11:14 AM EDT Obstructive airway disease (CMS/HCC) HELICOBACTER PYLORI AG, EIA, STOOL Routine 11/30/2024 [...] Recently Relevant to Health Maintenance Results * XR Wrist 3+ Views Left (01/10/2025 10:40 AM EDT) Anatomical Region Laterality Modality Upper Extremities, Wrist Left Radiogr aphic Imaging 01/10/2025 10:4 0 AM EDT Narrative 01/10/2025 11:39 AM EDT [address] [address] XRay Report Signed Patient: Vilma Bourne MR#: [id number] : 1975 Acct:[id number] Age/Sex: 49 / F ADM Date: 01/10/25 Loc: .HHCX Attending Dr: Charlotte Lafleur MD Ordering Physician: Charlotte Salcido MD Date of Service: 01/10/25 Procedure(s): XR wrist LT min 3V Accession Number(s): [id number] cc: Charlotte Salcido MD EXAMINATION: XR WRIST, LEFT CLINICAL INFORMATION: s/p fall COMPARISON: None available. TECHNIQUE: PA, lateral, and oblique views of the left wrist. FINDINGS: Carpal bones are intact. Normal alignment. No lytic or blastic lesions. Distal radius and ulna are intact. No subcutaneous emphysema. No metallic or radiopaque foreign body. XR/XR wrist LT min 3V IMPRESSION: No acute fracture or dislocation. Electronically signed by: James Salmon MD 01/10/2025 11:36 AM EDT Dictated By: James Gilliland MD Signed By: <Electronically signed by James Belle MD in OV> 01/10/25 1136 DD/ 1040 TD/TT: 01/10/25 1132 Wet Process Miller: Procedure Note Donotuseinterpreter, Image - 01/10/2025 [place] [address] XRay Report Signed Patient: Vilma BourneMR#: [id number] : 1975Acct:[id number] Age/Sex: 49 / FADM Date: 01/10/25 Loc: HO.HHCX Attending Dr: Charlotte Lafleur MD Ordering Physician: Charlotte Salcido MD Date of Service: 01/10/25 Procedure(s): XR wrist LT min 3V Accession Number(s): [id number] cc: Charlotte Salcido MD EXAMINATION: XR WRIST, LEFT CLINICAL INFORMATION: s/p fall COMPARISON: None available. TECHNIQUE: PA, lateral, and oblique views of the left wrist. FINDINGS: Carpal bones are intact. Normal alignment. No lytic or blastic lesions. Distal radius and ulna are intact. No subcutaneous emphysema. No metallic or radiopaque foreign body. XR/XR wrist LT min 3V IMPRESSION: No acute fracture or dislocation. Electronically signed by: James Salmon MD 01/10/2025 11:36 AM EDT RP Dictated By: James Gilliland MD Signed By: <Electronically signed by James Belle MDin OV> 01/10/25 1136 DD/ 1040 TD/TT: 01/10/25 1132 Wet Process Miller: Charlotte Lafleur MD IMG XR PROCEDURES Fin al Result * (ABNORMAL) CBC auto differential (12/05/2024 11:14 AM EDT) White Blood Count 6.9 4.8 - 10.8 X10*3/uL [facility] Red Blood Count 4.53 4.20 - 5.50 X10*6/uL [facility] Hemoglobin 11.6(L) 12.0 - 16.0 g/dl [facility] Hematocrit 36.4(L) 37.0 - 47.0 % [facility] Mean Corpuscular Volume 80.4 80.0 - 98.0 fL [facility] Mean Corpuscular Hemoglobin 25.6(L) 27.0 - 33.0 pg [facility] Mean Corpuscular HGB Conc 31.9 31.0 - 35.0 g/dl [facility] Red Cell Distribution Width 16.1(H) 11.0 - 16.0 % [facility] Platelet Count 299 160 - 400 X10*3/uL [facility] Mean Platelet Volume 11.3 9.4 - 12.3 fL [facility] Neutrophils Percent Auto 52.3 45 - 73 % [facility] Imm Gran Pct Auto 0.1 0.0 - 0.4 % [facility] Lymphocytes Percent Auto 33.7 20 - 40 % [facility] Monocytes Percent Auto 7.8 2 - 11 % [facility] Eosinophils Percent Auto 5.5(H) 0 - 4 % [facility] Basophils Percent Auto 0.6 0 - 2 % [facility] NRBC Pct Auto 0.0 0.0 - 0.2 /100WBC [facility] Neutrophils Absolute Auto 3.6 2.0 - 8.3 x10*3/uL [facility] Imm Gran Abs Auto 0.01 0.00 - 0.03 X10*3/uL [facility] Lymphocytes Absolute Auto 2.3 1.2 - 4.9 X10*3/uL [facility] Monocytes Absolute Auto 0.5 0.1 - 1.2 X10*3/uL [facility] Eosinophils Absolute Auto 0.4 0.0 - 0.4 X10*3/uL [facility] Basophils Absolute Auto 0.0 0.0 - 0.2 X10*3/uL [facility] NRBC Abs Auto 0.000 0.0 - 0.012 X10*3/uL [facility] Blood Venous blood specimen / Unknown 12/05/2024 11:14 AM EDT 12/05/2024 12:56 PM EDT Karely Lopez [facility] LAB BLOOD ORDERABLES Final Resul t Performing Organization Address [facility] de Phone Number [facility] [address] [place] [phone] * Iron And Total Iron Binding Capacity (12/05/2024 11:14 AM EDT) Only the most recent of2 resultswithin the time period is included. Iron 51 30 - 160 mcg/dL [facility] Total Iron Binding Capacity 300 228 - 428 mcg/dL [facility] Percent Iron Saturation 17 15 - 50 % [facility] Unsaturated Iron Binding 249 ug/dL [facility] 12/05/2024 11:1 4 AM EDT 12/05/2024 12:56 PM EDT Karely Lopez ANP LAB BLOOD ORDERABLES Final Resul t Performing Organization Address [facility] Co de Phone Number [facility] [address] [place] [phone] * Ferritin (12/05/2024 11:14 AM EDT) Only the most recent of2 resultswithin the time period is included. Ferritin 20 10 - 250 ng/mL [facility] 12/05/2024 11:1 4 AM EDT 12/05/2024 12:56 PM EDT Karely Lopez [facility] LAB BLOOD ORDERABLES Final Resul t Performing Organization Address [facility] Co de Phone Number [facility] [address] [place] [phone] * (ABNORMAL) Helicobacter pylori??Antigen, EIA, Stool (11/30/2024 4:00 PM EDT) H pylori Ag Stool SEE NOTE(A) [facility] Comment:HELICOBACTER PYLORI AG, EIA, STOOL Micro Number: [id number] Test Status: Final Specimen Source: Stool Specimen Quality: Adequate H.pylori Ag: Detected Reference Range: Not DetectedTHIS TEST WAS PERFORMED AT:[facility] [address] [id number] TRUJILLO MD Stool Rectal contents / Unknown 11/30/2024 4:00 PM EDT 12/01/2024 11:43 AM EDT Karely Lopez [facility] LAB BODY FLUIDS AND STOOLS ORDER KATHARINA Final Result Performing Organization Address [facility] Co de Phone Number [facility] [address] [place] [phone] * TSH W/Reflex to FT4 (10/25/2024 10:46 AM EDT) TSH reflex Free T4 1.06 0.32 - 4.0 uIU/mL [facility] Blood Venous blood specimen / Unknown 10/25/2024 10:46 AM EDT 10/25/2024 1:26 PM EDT Karely Lopez ANP LAB BLOOD ORDERABLES Final Resul t Performing Organization Address [facility] de Phone Number [facility] [address] [place] [phone] * (ABNORMAL) Hemoglobin and Hematocrit (10/25/2024 10:46 AM EDT) Pathologist [facility] Hemoglobin 10.3(L) 12.0 - 16.0 g/dl [facility] Hematocrit 33.2(L) 37.0 - 47.0 % [facility] Blood Venous blood specimen / Unknown 10/25/2024 10:46 AM EDT 10/25/2024 1:26 PM EDT Karely Lopez [facility] LAB BLOOD ORDERABLES Final Resul t Performing Organization Address [facility] Phone Number [facility] [address] [place] [phone] * B Type Natriuretic Peptide (BNP) (10/25/2024 10:46 AM EDT) Pathologist [facility] B Type Natriuretic Peptide 14 <100 pg/mL [facility] Blood Venous blood specimen / Unknown 10/25/2024 10:46 AM EDT 10/25/2024 1:28 PM EDT Karely Lopez ANP LAB BLOOD ORDERABLES Final Resul t Performing Organization Address [facility] de Phone Number [facility] [address] [place] [phone] * Hemoglobin A1c (10/25/2024 10:46 AM EDT) Pathologist [facility] Hemoglobin A1c 5.6 <6.0 % [facility] Comment:Hemoglobin A1C Refer ence Range Adults: 4.8 - 6.0 % Non diabetic: < 6.0 % Goal: < 7.0 %Additional Action Suggested: > 8.0 %Note: Hemoglobin A1c results are invalid for patients with abnormal amounts of HbF. Blood transfusions may impact the HbA1c concentration in the patient sample. Estimated Average Glucose 114 mg/dL [facility] Comment:eAG = Estimated ave rage glucose which is %A1C expressed asaverage glucose, using the formula of the Z3U-HguypetUafnljs Glucose study (ADAG), Diabetes Care, Vol.31,#8,Jan. 2007 Blood Venous blood specimen / Unknown 10/25/2024 10:46 AM EDT 10/25/2024 1:26 PM EDT Karely Lopez ANP LAB BLOOD ORDERABLES Final Resul t [facility] [address] [place] [phone] * Lipid Panel, Standard (10/25/2024 10:46 AM EDT) Triglycerides 70 <150 mg/dL [facility] Comment:Desirable Triglyceri de: less than 150 mg/dLBorderline High Triglyceride 150-199 mg/dLHigh Triglyceride: 200-499 mg/dLVery High Triglyceride: greater than or equal to 5OO mg/dL Cholesterol 141 <200 mg/dL [facility] Comment:Desirable Cholestero l: less than 200 mg/dLBorderline High Cholesterol: 200-239 mg/dLHigh Cholesterol: greater than 239 mg/dL LDL Cholesterol Calculated 81 <100 mg/dL [facility] Comment:Desirable LDL: less than 100 mg/dLNear Optimal/Above Optimal LDL: 110- 129 mg/dLBorderline High LDL: 130-159 mg/dLHigh LDL: 160-189 mg/dLVery High LDL: greater than or equal to 190 mg/dL HDL Cholesterol 46 >40 mg/dL [facility] Comment:Desirable HDL: great er than 40 mg/dL Note: This HDL assay may give artificially low results in patients with liver disease. Blood Venous blood specimen / Unknown 10/25/2024 10:46 AM EDT 10/25/2024 1:26 PM EDT us Karely Lopez ANP LAB BLOOD ORDERABLES Final Resul t Performing Organization Address [facility] Co de Phone Number [facility] [address] [place] [phone] [phone] * Basic Metabolic Panel (10/25/2024 10:46 AM EDT) Sodium 140 135 - 145 mmol/L [facility] Potassium 3.8 3.3 - 5.1 mmol/L [facility] Chloride 107 96 - 108 mmol/L [facility] Carbon Dioxide 25 22 - 29 mmol/L [facility] Anion Gap 12 12 - 20 [facility] Urea Nitrogen (BUN) 11 9 - 16 mg/dL [facility] Creatinine, Serum 0.65 0.5 - 1.4 mg/dL [facility] Estimated Glomerular Filt Rate >60 [facility] Comment:Chronic Kidney Disea se: Estimated GFR < 60 mL/min/1.16o9Dxclhr Kidney Disease: Estimated GFR < 15 mL/min/1.73m2 Glucose 76 60 - 115 mg/dL [facility] Calcium 8.7 8.4 - 10.2 mg/dL [facility] Blood Venous blood specimen / Unknown 10/25/2024 10:46 AM EDT 10/25/2024 1:26 PM EDT Karely Lopez ANP LAB BLOOD ORDERABLES Final Resul t Performing Organization Address [facility] Co de Phone Number [facility] [address] [place] [phone] [phone] * HPV DNA, Low/High Risk (07/21/2024 10:35 AM EST) HPV High Risk Negative Negative [facility] HPV Genotype 16 Negative Negative [facility] HPV Genotype 18 Negative Negative [facility] Comment:HPV testing performe d at [facility] (CLIA#[id number]), [address] [place] [address].Testing for HPV was performed using the [employer]system. The presence of HPV in the female [...] 07/24/2024 8:20 AM EST us Karely Lopez [facility] LAB BLOOD ORDERABLES Final Resul t [facility] [address] [place] [phone] * Pap Smear (07/21/2024 10:35 AM EST) Swab Cervical swab / Unknown 07/21/2024 10:35 AM EST 07/24/2024 8:20 AM EST Soraya [facility] - 07/29/2024 10:03 AM EST ----- ------- Name: Vilma Bourne Age/Sex: 49/F : 1975 Unit#: [id number] Attend Dr: KARELY LOPEZ CONTRACT CLERK Re07/21/24 Status: DEP REF Location: HO.HHCLNP Disch: ----- ------- SPEC : [id number] RECD: 07/24/24 STATUS: RAYMOND RODRIGUEZ NUM: [id number] ESTEBAN: 07/21/24 [facility] DR: KARELY LOPEZ CONTRACT CLERK ENTERED: 07/24/24 SP TYPE: Pap Smr OTHR [...] ANP LAB CYTOLOGY ORDERABLES Final Re sult [facility] [address] [place] [phone] * BI Mammogram Screening Tomosynthesis Bilateral (07/19/2024 11:30 AM EST) Anatomical Region Laterality Modality Breast Bilateral Mammography 07/19/2024 11:3 0 AM EST Narrative 07/25/2024 7:11 PM EST [facility] [address] [place], [place] [address] Mammography Report Signed Patient: Vilma Bourne MR#: [id number] : 1975 Acct:[id number] Age/Sex: 49 / F ADM Date: 07/19/24 Loc: HO.MAMMO Attending Dr: Karely Lopez NP Ordering Physician: KARELY LOPEZ NP Results: 2Benign Fin dings Date of Service: 07/19/24 Follow Up: 1 Year From Orig inal Mammogram Procedure(s): MM tomosynthesis screening BI Accession Number(s): [id number] cc: KARELY LOPEZ NP EXAMINATION: MM SCREENING [...] 07/25/24 1908 DD/ 1130 TD/TT: 07/19/24 1140 Wet Process Miller: Procedure Note Donotuseinterpreter, Image - 07/25/2024 [facility] [address] [place], [place] [address] Mammography Report Signed Patient: Vilma BourneMR#: [id number] : 1975Acct:[id number] Age/Sex: 49 / FADM Date: 07/19/24 Loc: HO.MAMMO Attending Dr: Karely Lopez CONTRACT CLERK Ordering Physician: KARELY LOPEZ NPResults: 2Benign Khalif pelaez Date of Service: 07/19/24Follow Up: 1 Year From Orig inal Mammogram Procedure(s): MM tomosynthesis screening BI Accession Number(s): [id number] cc: KARELY LOPEZ NP EXAMINATION: MM SCREENING [...] 07/25/24 1908 DD/ 1130 TD/TT: 07/19/24 1140 Wet Process Miller: Karely Lopez ANP IMG BI PROCEDURES Final Result * HEPATITIS C AB W/REFL TO HCV RNA, QN, PCR (07/08/2021 10:50 AM EST) HEPATITIS C ANTIBODY NON-REACT [facility] NON-REACT [facility] INDEX 0.04 <1.00 [facility] Comment: HCV antibody was non-reactive. There is no laboratory evidence of HCV infection. In most cases, no further action is required. However, if recent HCV exposure is suspected, a test for HCV RNA (test code 02741) is suggested. For additional information please refer to http://[employer].appEatIT/faq/VRD12u8 (This link is being provided for informational/ educational purposes only.) 07/08/2021 10:5 0 AM EST us Karely Lopez ANP HISTORICAL/NON ORDERABLE LABS Fi nal Result Performing Organization Address [facility] Phone Number [facility] [address] * HIV 1/2 ANTIGEN/ANTIBODY,FOURTH GENERATION W/RFL (07/08/2021 10:50 AM EST) HIV-1/2 ANTIGEN AND ANTIBODIES, 4TH GENERATION W/ REFLEX NON-REACT [facility]STINO NON-REACT CE[facility]STINO [facility] Comment: HIV-1 antigen and HIV-1/HIV-2 [...] purpose. For additional information please refer to http://[employer].appEatIT/faq/UOS648 (This link is being provided for informational/ educational purposes only.) The performance of this assay has not been clinically validated in patients less than 2 years old. 07/08/2021 10:5 0 AM EST us Karely [facility]ADD[facility] LAB BLOOD ORDERABLES Final Resul t Performing Organization Address [facility] Phone Number [facility] [address] from Last 3 Months or Most Recently Relevant to Health Maintenance Insurance [facility] C[facility] MEDICAID STAND ADULT Care Teams Professor Of Philosophy Relationship Specialty Start Date End Date Karely Lopez ANP [address] [place] [address] PCP - General Family Medicine 01/30/21
== END 2025-01-10 11:20 | disposition home or self-care (01) ==
LOC: HO.HHCX 11:19
PROVIDERS: Visit Provider Internal Medicine
DX: M25.532 Pain in left wrist (principal)
CPT/HCPCS: 73110

== ENCOUNTER → 2025-01-10 11:19 | Outpatient (BNV) | payer MEDICAID, SELFPAY | PROVIDERS: Visit Provider Radiology Diagnostic Radiology | DX: M25.532 Pain in left wrist (principal) | CPT/HCPCS: 73110 ==

== ENCOUNTER 2025-01-23 13:45 | Outpatient (AMB) | payer MEDICAID, SELFPAY ==
--- NOTE | 2025-01-23 14:25 | MHC.OFFVIS ---
Vital Signs 01/23/25 14:26 Height 5 ft 5 in Weight 230 lb 4 oz BMI 38.3 BP 118/66 Blood Pressure Location Rt brachial Position Sitting Pulse 76 Pulse Source Pulse Oximeter Pulse Oximetry (%) 97 Oxygen Delivery Method Room Air Intake Visit Reasons: abnormal PFT Data Processing Manager Required: Yes Data Processing Manager Name: platform inspector [id number] Information Interpreted: non-clinical & clinical Allergies Tetanus Vaccines and Toxoid Allergy (Verified 01/23/25 14:29) Unknown HPI HPI abnormal PFT: Details: Vilma is a pleasant 49-year-old female, never smoker, with underlying asthma, GERD, and HTN. She was referred by PCP for pulmonary evaluation after recent PFT revealed severe obstructive defect with decreased DLCO. She reports ongoing wheezing and shortness of breath which have been more pronounced since 2021, following the administration of the COVID vaccine. The patient reports that these symptoms were not present before the vaccine. The patient has a history of asthma since childhood, with no hospitalizations or intubations required. She denies any history of smoking or exposure to secondhand smoke. There is a family history of asthma, as her father had the condition. The patient has not been consistent with using inhalers, although she acknowledges their effectiveness when used regularly. She currently possesses inhalers at home but has not been using them due to a recent period of feeling better. The patient has not undergone recent allergy testing, but it is considered as a potential factor exacerbating her asthma. She denies recurrent respiratory infections. Denies personal or family history of autoimmune conditions. Denies any occupational exposures. 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 Review of Systems Const Denies chills, Denies excessive sweating, Denies fever(s), Denies headache(s) and Denies night sweats Eyes Denies dry eyes, Denies irritation and Denies itchy eyes ENT Reports Normal hearing present, Denies headache(s), Denies nasal congestion, Denies nasal discharge, Denies post nasal drip and Denies sore throat Card Denies chest pain, Denies chest pain at rest, Denies chest pain with activity, Denies claudication, Denies leg edema, Denies orthopnea and Denies paroxysmal nocturnal dyspnea Resp Denies chest congestion, Denies excessive phlegm production, Denies pain on inspiration, Denies pain with cough and Denies stridor Musc Denies myalgias Neuro Reports Normal hearing present and Denies headache(s) Endo Denies excessive sweating Rah/Lymph Denies lymphadenopathy Aller/Immun Denies itchy eyes and Denies seasonal rhinorrhea Physical Exam Vital Signs: Last Vital Signs Pulse 76 01/23/25 14:26 BP 118/66 01/23/25 14:26 Pulse Ox 97 01/23/25 14:26 Oxygen Delivery Method Room Air 01/23/25 14:26 BMI result Body Mass Index 38.3 Const General: cooperative, healthy appearing, comfortable, no acute distress, well developed and alert Nutritional Appearance: obese Orientation/consciousness: patient oriented x3 Limitations: no limitations HEENT Head: Yes normal to inspection, Yes normocephalic and Yes atraumatic Ears: hearing grossly normal bilaterally and external ears normal Eyes Eyelids: Yes eyelids normal Sclerae: sclerae normal EOM: EOMs intact bilaterally Neck Neck: Yes normal visual inspection and Yes no lymphadenopathy Lymphatic: no lymphadenopathy noted Chest Chest palpation & inspection: normal inspection of the chest Resp Other: inspiratory crackles of RLL Effort & Inspection: normal respiratory effort, able to speak in complete sentences, no audible wheezes, no cough, no stridor, not tachypneic, no tripod positioning and no use of accessory muscles Auscultation: diminished lung sounds Cardio Jugular venous distension: no JVD Rate: regular rate Rhythm: regular rhythm Skin Other: warm, dry General skin exam: no rashes or lesions noted Neuro General: patient oriented x3 Cranial nerves: Yes Normal hearing present Cognition (Neuro): normal cognition Gait exam (Neuro): Normal gait present Extrem General: Yes normal to inspection, Yes capillary refill normal, Yes no clubbing, cyanosis or edema and Yes no pedal edema Psych Appearance: grossly normal and well kempt Speech and movement: Normal speech and movement present and Clear speech present Affect: normal affect Attitude: cooperative Thought process: Normal thought process present Thought content: Normal thought content present Insight: Good insight present (Psych) Judgement: Good judgement present (Psych) Results Reviewed Results Reviewed: [place] [address] XRay Report Signed Patient: Vilma Bourne MR#: [id number] : 1975 Acct:[id number] Age/Sex: 49 / F ADM Date: 04/12/24 Loc: .ED Attending Dr: Ordering Physician: Robin Sanders Date of Service: 04/12/24 Procedure(s): XR chest 1V Accession Number(s): [id number] cc: Robin Sanders; KARELY LOPEZ WET PROCESS [employer] MILLER~ EXAMINATION: XR CHEST CLINICAL INFORMATION: Pneumonia evaluation COMPARISON: Examination of 15 days previous. TECHNIQUE: Frontal view of the chest was obtained. Slight rotation to the left. FINDINGS: No new dominant consolidation. Small linear opacities are again observed toward the base suggestive of atelectatic change. No enlarging pleural effusions. The hilar regions and pulmonary vascularity appear to be stable. No evidence for pneumothorax. XR/XR chest 1V IMPRESSION: No new dominant infiltrates appreciated. Small linear atelectatic changes toward the right base. Electronically signed by: Jose Carlin MD 04/12/2024 01:59 PM EDT Dictated By: Jose Carlin Signed By: <Electronically signed by Jose Carlin in OV> 04/12/24 1359 DD/ 1250 TD/TT: 04/12/24 1256 Summer Clerk: Assessment & Plan Assessment & Plan (1) Asthma: Code(s): J45.909 - Unspecified asthma, uncomplicated Category: Medical (2) Decreased diffusion capacity: Code(s): R94.2 - Abnormal results of pulmonary function studies Category: Medical (3) Environmental allergies: Code(s): Z91.09 - Other allergy status, other than to drugs and biological substances Category: Medical Plan The patient is advised to start using the prescribed inhaler, Advair 230mcg 2 inhalations BID to manage asthma symptoms. The patient is instructed to rinse her mouth after using the inhaler to prevent oral thrush. Allergy testing is recommended to identify potential allergens that may be exacerbating the asthma condition. A CT scan of the lungs is planned to assess for any inflammation or scarring contributing to the patient's respiratory symptoms as well as decreased diffusion capacity found on PFT. Reviewed PFT which revealed an obstructive ventilatory defect consistent with severe obstructive airway disease. The patient does have a history asthma and at this point appears to be uncontrolled. There is a significant response to bronchodilators noted. In addition to that the patient has a restrictive ventilatory defect consistent with moderate restrictive lung disease of unclear etiology. Need to consider underlying neuromuscular diseases and or parenchymal lung conditions. Patient also has a mild diffusion impairment. Follow-up is scheduled in six to eight weeks to evaluate the effectiveness of the current treatment plan and adjust as necessary. All questions were answered and patient is in agreement of plan. Orders: Orders Complete Blood Count Auto Diff 01/23/25 Z91.09 - Other allergy status, other than to drugs and biological substances Immunoglobulin E 01/23/25 Z91.09 - Other allergy status, other than to drugs and biological substances Resp Allergy Profile Region I 01/23/25 Z91.09 - Other allergy status, other than to drugs and biological substances CT chest wo IV con Today R09.89 - Other specified symptoms and signs involving the circulatory and respiratory systems, R94.2 - Abnormal results of pulmonary function studies Coding Level of Care Code New Pt Level 4 (52689) Diagnoses Asthma J45.909 Decreased diffusion capacity R94.2 Environmental allergies Z91.09
[2025-01-23 14:26] VITALS: BP 118/66; PULSE 76; O2SAT 97; BMI 38.3
--- OUTSIDE RECORDS SUMMARY | 2025-01-23 14:46 | XMS_ITS | Clinical Summary ---
Author Organization [employer] Address [address] [place] [address] 7 [place] [address] Care Team Providers Care Exercise Instruct Name Role Phone Karely Lopez Primary Care Provider [phone] Allergies Active Allergy Reactions Criticality Noted Date Comments Shrimp Extract High 05/05/2019 Tetanus Antitoxin 06/09/2022 Medications triamcinolone (Kenalog) 0.1 % creamIndication s:Hyperpigmente d skin lesion,Intrinsi c eczema Apply topically if needed in the morning and at bedtime (pain and swelling). 30 g 2 02/02/20 23 Active Multiple Vitamins-Iron tabletIndicatio ns:Anemia, unspecified type 1 tab daily 90 tablet 3 04/22/20 23 Active cloNIDine (Catapres) 0.1 MG tablet Take 1 tablet (0.1 mg) by mouth 2 times daily. 5 tablet 10/20/19 24 Active Diclofenac Sodium (Voltaren) 1 % gelIndications: Chronic right-sided low back pain with right-sided sciatica,Chroni c pain of both knees Apply 2G up to 4x/d to affected joint(s) for pain/swelling 100 g 2 11/11/19 24 Active cyclobenzaprine (Flexeril) 5 MG tablet TAKE 1 TABLET BY MOUTH THREE TIMES A DAY NEEDED FOR PAIN FOR 5 DAYS 12/17/19 24 Active Spacer/Aero-Hol ding Chambers deviceIndicatio ns:Moderate persistent asthma with acute exacerbation 1 each Every 4-6 hours as needed (SOB, wheezing). 1 each 1 10/12/19 25 Active albuterol (Ventolin HFA) 108 (90 Base) MCG/ACT inhalerIndicati ons:Moderate persistent asthma with acute exacerbation INHALE 2 PUFFS BY MOUTH EVERY 4-6 HOURS NEEDED FOR WHEEZING 18 g 3 10/12/19 25 Active albuterol (2.5 MG/3ML) 0.083% nebulizer solution Take 3 mL (2.5 mg) by nebulization every 6 (six) hours if needed for wheezing or shortness of breath. 75 mL 11 10/12/19 25 2025 Active ibuprofen 200 MG tablet Take 2-3 tablets (400-600 mg) by mouth every 8 (eight) hours if needed (pain or fever). 100 tablet 2 10/12/19 25 2025 Active fluticasone-kari meterol (Advair) 230-21 MCG/ACT inhalerIndicati ons:Moderate persistent asthma without complication Inhale 2 puffs in the morning and at bedtime. Rinse mouth with water after use to reduce aftertaste and incidence of candidiasis. Do not swallow. 12 g 11 10/25/19 25 2025 Active Blood Pressure kitIndications: Essential hypertension 1 each 2 times daily. 1 kit 10/25/19 25 2025 Active omeprazole (PriLOSEC) [address] capsuleIndicati ons:Gastroesoph ageal reflux disease, unspecified whether esophagitis present Take 1 capsule daily before meals. Do not crush or chew. 180 capsule 10/25/19 25 Active famotidine (Pepcid) 20 MG tabletIndicatio ns:Gastroesopha geal reflux disease, unspecified whether esophagitis present Take 1 tablet twice daily as needed for acid reflux 60 tablet 10/25/19 25 Active amLODIPine (Norvasc) 5 MG tabletIndicatio ns:Essential hypertension TAKE 1 TABLET BY MOUTH EVERY DAY 90 tablet 1 12/05/19 25 Active Umeclidinium [place] 62.5 MCG/ACT aerosol powderIndicatio ns:Obstructive airway disease (CMS/HCC) Inhale 1 Act (62.5 mcg) Once per day. 30 each 2 12/04/19 25 Active omeprazole (PriLOSEC) [address] capsuleIndicati ons:Bacterial infection due to H. pylori Take 1 capsule (20 mg) by mouth before breakfast and before evening meal for 10 days. Do not crush or chew. 20 capsule 12/04/19 Active bismuth-metroNI DAZOLE-tetracyc line (Pylera) 140-125-125 MG capsuleIndicati ons:Bacterial infection due to H. pylori Take 3 capsules by mouth before breakfast, before lunch, before evening meal, and at bedtime for 10 days. Follow each dose with 8 oz of water. 120 capsule 12/04/19 Active cetirizine (ZyrTEC) 10 MG tabletIndicatio ns:Non-seasonal allergic rhinitis, unspecified trigger TAKE 1 TABLET (10 MG) BY MOUTH ONCE PER DAY. NEEDED FOR ALLERGIES 90 tablet 01/23/20 25 2024 Active cetirizine (ZyrTEC) 10 MG tabletIndicatio ns:Non-seasonal allergic rhinitis, unspecified trigger Take 1 tablet (10 mg) by mouth Once per day. As needed for allergies 90 tablet 10/25/19 25 2024 Discontinued ibuprofen 800 MG tabletIndicatio ns:Left wrist pain Take 1 tablet (800 mg) by mouth every 8 (eight) hours if needed for moderate pain for up to 10 days. 30 tablet 01/11/20 25 2024 Active Problems Problem Noted Date Diagnosed Date [...] Encounters Date Type Department Care Team Description 01/22/2025 9:00 AM EDT Office Visit [facility] [address] [place], [place] [phone] Regular astigmatism of both eyes (Primary Dx) 01/20/2025 Refill [facility] [address] [place] [address] Karely Lopez ANP Non-seasonal allergic rhinitis, unspecified trigger 01/12/2025 Telephone [facility] [address] [place], [place] [phone] Karely Lopez ANP chart prep 01/10/2025 11:00 AM EDT Office Visit [facility] [address] [place] [address] Charlotte Salcido MD Left wrist pain 01/10/2025 Results Follow-Up [address] [address] Charlotte Salcido MD XR Wrist 3+ Views Left 01/10/2025 Travel 12/22/[address] [address] Karely Lopez ANP Essential hypertension 12/13/2024 Travel 12/11/[address] [address] Karely Lopez ANP Nurse Triage 12/10/[address] [address] Karely oLpez ANP Bacterial infection due to H. 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); Chronic pain of both knees; Iron deficiency anemia, unspecified iron deficiency anemia type 12/07/2024 Travel 12/06/[address] [address] Izaiah Koch [place] 12/05/2024 Results Follow-Up [address] [address] Karely Lopez ANP Ferritin, Iron And Total Iron Binding Capacity 12/05/2024 Orders Only [address] [address] Karely Lopez ANP 12/03/2024 Results Follow-Up [address] [address] Karely Lopez ANP Helicobacter pylori Antigen, EIA, Stool, CBC auto differential 12/03/[address] [address] Karely Lopez ANP Essential hypertension 12/02/[address] [address] Karely Lopez ANP Gastroesophageal reflux disease, unspecified whether esophagitis present 10/25/2024 Results Follow-Up [address] [place] [address] Karely Lopez ANP Lipid Panel, Standard, Basic Metabolic Panel, TSH W/Reflex to FT4, Hemoglobin A1c 10/25/2024 Results Follow-Up [address] [address] Karely Lopez ANP Hemoglobin and Hematocrit 10/25/2024 Orders Only [address] [address] Karely Lopez ANP Anemia, unspecified type (Primary Dx) 10/24/2024 10:15 AM EDT Office Visit [address] [address] Karely Lopez ANP Moderate persistent asthma without complication (Primary Dx); Essential hypertension; Non-seasonal allergic rhinitis, unspecified trigger; Shortness of breath; Gastroesophageal reflux disease, unspecified whether esophagitis present 10/24/[address] [address] Karely Lopez ANP Gastroesophageal reflux disease, unspecified whether esophagitis present 10/24/2024 Travel 10/23/[address] [address] Karely Lopez ANP CHART PREP from Last 3 Months Immunizations Immunization Administration [...] 12/07/2024 2:22 PM EDT Plan of Treatment Health Maintenance [...] AM EDT Narrative 01/10/2025 11:39 AM EDT [address] [address] XRay Report Signed Patient: Vilma Bourne MR#: [id number] : 1975 Acct:[id number] Age/Sex: 49 / F ADM Date: 01/10/25 Loc: HO.CX Attending Dr: Charlotte Lafleur MD Ordering Physician: Charlotte Salcido MD Date of Service: 01/10/25 Procedure(s): XR wrist LT min 3V Accession Number(s): [id number] cc: Charlotte Salcido MD EXAMINATION: XR WRIST, [...] 01/10/25 1136 DD/ 1040 TD/TT: 01/10/25 1132 License Issuer: Procedure Note Donotuseinterpreter, Image - 01/10/[address] [address] XRay Report Signed Patient: Vilma BourneMR#: [id number] : 1975Acct:[id number] Age/Sex: 49 / FADM Date: 01/10/25 Loc: HO.HHCX Attending Dr: Charlotte Lafleur MD Ordering Physician: Charlotte Salcido MD Date of Service: 01/10/25 Procedure(s): XR wrist LT min 3V Accession Number(s): [id number] cc: Charlotte Salcido MD EXAMINATION: XR WRIST, [...] 01/10/25 1136 DD/ 1040 TD/TT: 01/10/25 1132 License Issuer: Charlotte Lafleur MD IMG XR PROCEDURES Fin al Result * (ABNORMAL) CBC auto differential (12/05/2024 11:14 AM EDT) White Blood Count 6.9 4.8 - 10.8 X10*3/uL [facility] Red Blood Count 4.53 4.20 - 5.50 X10*6/uL [facility] Hemoglobin 11.6(L) 12.0 - 16.0 g/dl [facility] Hematocrit 36.4(L) 37.0 - 47.0 % [facility] Mean Corpuscular Volume 80.4 80.0 - 98.0 fL [facility] Mean Corpuscular Hemoglobin 25.6(L) 27.0 - 33.0 pg [facility] Mean Corpuscular HGB Conc 31.9 31.0 - 35.0 g/dl [facility] Red Cell Distribution Width 16.1(H) 11.0 - 16.0 % [facility] Platelet Count 299 160 - 400 X10*3/uL [facility] Mean Platelet Volume 11.3 9.4 - 12.3 fL [facility] Neutrophils Percent Auto 52.3 45 - 73 % [facility] Imm Gran Pct Auto 0.1 0.0 - 0.4 % [facility] Lymphocytes Percent Auto 33.7 20 - 40 % [facility] Monocytes Percent Auto 7.8 2 - 11 % [facility] Eosinophils Percent Auto 5.5(H) 0 - 4 % [facility] Basophils Percent Auto 0.6 0 - 2 % [facility] NRBC Pct Auto 0.0 0.0 - 0.2 /100WBC [facility] Neutrophils Absolute Auto 3.6 2.0 - 8.3 x10*3/uL [facility] Imm Gran Abs Auto 0.01 0.00 - 0.03 X10*3/uL [facility] Lymphocytes Absolute Auto 2.3 1.2 - 4.9 X10*3/uL [facility] Monocytes Absolute Auto 0.5 0.1 - 1.2 X10*3/uL [facility] Eosinophils Absolute Auto 0.4 0.0 - 0.4 X10*3/uL [facility] Basophils Absolute Auto 0.0 0.0 - 0.2 X10*3/uL [facility] NRBC Abs Auto 0.000 0.0 - 0.012 X10*3/uL [facility] Blood Venous blood specimen / Unknown 12/05/2024 11:14 AM EDT 12/05/2024 12:56 PM EDT [facility] LAB BLOOD ORDERABLES Final Resul t [facility] [address] [place] [phone] * Iron And Total Iron Binding Capacity (12/05/2024 11:14 AM EDT) Only the most recent of2 resultswithin the time period is included. Iron 51 30 - 160 mcg/dL [facility] Total Iron Binding Capacity 300 228 - 428 mcg/dL [facility] Percent Iron Saturation 17 15 - 50 % [facility] Unsaturated Iron Binding 249 ug/dL [facility] 12/05/2024 11:1 4 AM EDT 12/05/2024 12:56 PM EDT Karely Lopez ANP LAB BLOOD ORDERABLES Final Resul t Performing Organization Address [facility]/ZIP Co de Phone Number [facility] [address] [place] [phone] * Ferritin (12/05/2024 11:14 AM EDT) Only the most recent of2 resultswithin the time period is included. Ferritin 20 10 - 250 ng/mL [facility] 12/05/2024 11:1 4 AM EDT 12/05/2024 12:56 PM EDT Karely Lopez ANP LAB BLOOD ORDERABLES Final Resul t Performing Organization Address [facility] de Phone Number [facility] [address] [place] [phone] * (ABNORMAL) Helicobacter pylori??Antigen, EIA, Stool (11/30/2024 4:00 PM EDT) H pylori Ag Stool SEE NOTE(A) [facility] Comment:HELICOBACTER PYLORI AG, EIA, STOOL Micro Number: [id number] Test Status: Final Specimen Source: Stool Specimen Quality: Adequate H.pylori Ag: Detected Reference Range: Not DetectedTHIS TEST WAS PERFORMED AT:[employer] [place] [phone] TRUJILLO MD Stool Rectal contents / Unknown 11/30/2024 4:00 PM EDT 12/01/2024 11:43 AM EDT Karely Lopez [facility] BODY FLUIDS AND STOOLS ORDER KATHARINA Final Result Performing Organization Address [facility] Co de Phone Number [facility] [address] [place] [phone] * TSH W/Reflex to FT4 (10/25/2024 10:46 AM EDT) TSH reflex Free T4 1.06 0.32 - 4.0 uIU/mL [facility] Blood Venous blood specimen / Unknown 10/25/2024 10:46 AM EDT 10/25/2024 1:26 PM EDT Karely Lopez [facility] BLOOD ORDERABLES Final Resul t Performing Organization Address City/[facility]/ZIP Co de Phone Number [facility] [address] [place] [phone] * (ABNORMAL) Hemoglobin and Hematocrit (10/25/2024 10:46 AM EDT) Hemoglobin 10.3(L) 12.0 - 16.0 g/dl [facility] Hematocrit 33.2(L) 37.0 - 47.0 % [facility] Blood Venous blood specimen / Unknown 10/25/2024 10:46 AM EDT 10/25/2024 1:26 PM EDT Karely Lopez [facility] BLOOD ORDERABLES Final Resul t Performing Organization Address City/[facility]/ZIP Co de Phone Number [facility] [address] [place] [phone] * B Type Natriuretic Peptide (BNP) (10/25/2024 10:46 AM EDT) B Type Natriuretic Peptide 14 <100 pg/mL [facility] Blood Venous blood specimen / Unknown 10/25/2024 10:46 AM EDT 10/25/2024 1:28 PM EDT Karely Lopez [facility] BLOOD ORDERABLES Final Resul t Performing Organization Address City/[facility]/ZIP Co de Phone Number [facility] [address] [place] [phone] * Hemoglobin A1c (10/25/2024 10:46 AM EDT) Hemoglobin A1c 5.6 <6.0 % [facility] Comment:Hemoglobin A1C Refer ence Range Adults: 4.8 - 6.0 % Non diabetic: < 6.0 % Goal: < 7.0 %Additional Action Suggested: > 8.0 %Note: Hemoglobin A1c results are invalid for patients with abnormal amounts of HbF. Blood transfusions may impact the HbA1c concentration in the patient sample. Estimated Average Glucose 114 mg/dL [facility] Comment:eAG = Estimated ave rage glucose which is %A1C expressed asaverage glucose, using the formula of the G1B-HgxohtnXfxmwzw Glucose study (ADAG), Diabetes Care, Vol.31,#8,Jan. 2007 Blood Venous blood specimen / Unknown 10/25/2024 10:46 AM EDT 10/25/2024 1:26 PM EDT Karely Lopez [facility] BLOOD ORDERABLES Final Resul t [facility] [address] [place] [phone] * Lipid Panel, Standard (10/25/2024 10:46 AM EDT) Triglycerides 70 <150 mg/dL [facility] Comment:Desirable Triglyceri de: less than 150 mg/dLBorderline High Triglyceride 150-199 mg/dLHigh Triglyceride: 200-499 mg/dLVery High Triglyceride: greater than or equal to 5OO mg/dL Cholesterol 141 <200 mg/dL [facility] Comment:Desirable Cholestero l: less than 200 mg/dLBorderline High Cholesterol: 200-239 mg/dLHigh Cholesterol: greater than 239 mg/dL LDL Cholesterol Calculated 81 <100 mg/dL [facility] Comment:Desirable LDL: less than 100 mg/dLNear Optimal/Above Optimal LDL: 110- 129 mg/dLBorderline High LDL: 130-159 mg/dLHigh LDL: 160-189 mg/dLVery High LDL: greater than or equal to 190 mg/dL HDL Cholesterol 46 >40 mg/dL [facility] Comment:Desirable HDL: great er than 40 mg/dL Note: This HDL assay may give artificially low results in patients with liver disease. Blood Venous blood specimen / Unknown 10/25/2024 10:46 AM EDT 10/25/2024 1:26 PM EDT Karely Lopez ANP LAB BLOOD ORDERABLES Final Resul t Performing Organization Address [facility] de Phone Number [facility] [address] [place] [phone] * Basic Metabolic Panel (10/25/2024 10:46 AM EDT) Sodium 140 135 - 145 mmol/L [facility] Potassium 3.8 3.3 - 5.1 mmol/L [facility] Chloride 107 96 - 108 mmol/L [facility] Carbon Dioxide 25 22 - 29 mmol/L [facility] Anion Gap 12 12 - 20 [facility] Urea Nitrogen (BUN) 11 9 - 16 mg/dL [facility] Creatinine, Serum 0.65 0.5 - 1.4 mg/dL [facility] Estimated Glomerular Filt Rate >60 [facility] Comment:Chronic Kidney Disea se: Estimated GFR < 60 mL/min/1.29y4Jzfgsw Kidney Disease: Estimated GFR < 15 mL/min/1.73m2 Glucose 76 60 - 115 mg/dL [facility] Calcium 8.7 8.4 - 10.2 mg/dL [facility] Blood Venous blood specimen / Unknown 10/25/2024 10:46 AM EDT 10/25/2024 1:26 PM EDT Karely Lopez ANP LAB BLOOD ORDERABLES Final Resul t Performing Organization Address [facility] Co de Phone Number [facility] [address] [place] [phone] * HPV DNA, Low/High Risk (07/21/2024 10:35 AM EST) HPV High Risk Negative Negative [facility] HPV Genotype 16 Negative Negative [facility] HPV Genotype 18 Negative Negative [facility] Comment:HPV testing performe d at [facility] (CLIA#[id number]), [address] [place] [phone].Testing for HPV was performed using the Kate [...] 07/24/2024 8:20 AM EST us Karely Lopez [facility] BLOOD ORDERABLES Final Resul t [facility] [address] [place] [phone] * Pap Smear (07/21/2024 10:35 AM EST) Swab Cervical swab / Unknown 07/21/2024 10:35 AM EST 07/24/2024 8:20 AM EST Narrative [facility] - 07/29/2024 10:03 AM EST ----- ------- Name: Vilma Bourne Age/Sex: 49/F : 1975 Unit#: [id number] Attend Dr: KARELY LOPEZ NP Re07/21/24 Status: DEP REF Location: [facility] Disch: ----- ------- SPEC : [id number] RECD: 07/24/24 STATUS: RAYMOND RODRIGUEZ NUM: [id number] ESTEBAN: 07/21/24 [facility] DR: KARELY LOPEZ SONG PLUGGER ENTERED: 07/24/24 SP TYPE: Pap Smr OT DR: ORDERED: Pap Smear Interpretation Satisfactory for [...] ----- ------- END OF REPORT Karely Lopez [facility] CYTOLOGY ORDERABLES Final Re sult [facility] [address] [place] [phone] * BI Mammogram Screening Tomosynthesis Bilateral (07/19/2024 11:30 AM EST) Anatomical Region Laterality Modality Breast Bilateral Mammography 07/19/2024 11:3 0 AM EST Narrative 07/25/2024 7:11 PM EST [facility] [place] [address] Mammography Report Signed Patient: Vilma Bourne MR#: [id number] : 1975 Acct:[id number] Age/Sex: 49 / F ADM Date: 07/19/24 Loc: HO.MAMMO Attending Dr: Karely Lopez NP Ordering Physician: KARELY LOPEZ NP Results: 2Benign Khalif dingsimon Date of Service: 07/19/24 Follow Up: 1 Year From Orig ina Mammogram Procedure(s): MM tomosynthesis screening BI Accession Number(s): [id number] cc: KARELY LOPEZ NP EXAMINATION: MM SCREENING [...] Sosa DO Signed By: <Electronically signed by Rneay Sosa DO in OV> 07/25/24 1908 DD/ 1130 TD/TT: 07/19/24 1140 License Issuer: Procedure Note Donotuseinterpreter, Image - 07/25/20[facility] [address] [place] [address] Mammography Report Signed Patient: Vilma BourneMR#: [id number] : 1975Acct:[id number] Age/Sex: 49 / FADM Date: 07/19/24 Loc: HO.MAMMO Attending Dr: Karely Lopez SONG PLUGGER Ordering Physician: KARELY LOPEZ NPResults: 2Benign Fin dings Date of Service: 07/19/24Follow Up: 1 Year From Orig inal Mammogram Procedure(s): MM tomosynthesis screening BI Accession Number(s): [id number] cc: KARELY LOPEZ NP EXAMINATION: MM SCREENING [...] by: Renay Sosa DO 07/25/2024 07:08 PM [facility] Dictated By: Renay Sosa DO Signed By: <Electronically signed by Renay Sosa DO in OV> 07/25/24 1908 DD/ 1130 TD/TT: 07/19/24 1140 License Issuer: Karely Lopez ANP IMG BI PROCEDURES Final Result * HEPATITIS C AB W/REFL TO HCV RNA, QN, PCR (07/08/2021 10:50 AM EST) HEPATITIS C ANTIBODY NON-REACT CELESTINO NON-REACT CELESTINO [facility] INDEX 0.04 <1.00 [facility] Comment: HCV antibody was non-reactive. There is no laboratory evidence of HCV infection. In most cases, no further action is required. However, if recent HCV exposure is suspected, a test for HCV RNA (test code 52763) is suggested. For additional information please refer to http://[employer]/faq/KVX87u9 (This link is being provided for informational/ educational purposes only.) 07/08/2021 10:5 0 AM EST us Karely Lopez ANP HISTORICAL/NON ORDERABLE LABS Fi nal Result [facility] [address] * HIV 1/2 ANTIGEN/ANTIBODY,FOURTH GENERATION W/RFL (07/08/2021 10:50 AM EST) HIV-1/2 ANTIGEN AND ANTIBODIES, 4TH GENERATION W/ REFLEX NON-REACT CELESTINO NON-REACT CELESTINO [facility] Comment: HIV-1 antigen and [...] purpose. For additional information please refer to http://education.[employer]/faq/UYM896 (This link is being provided for informational/ educational purposes only.) The performance of this assay has not been clinically validated in patients less than 2 years old. 07/08/2021 10:5 0 AM EST us Karely Lopez [facility] BLOOD ORDERABLES Final Resul t [facility] [address] from Last 3 Months or Most Recently Relevant to Health Maintenance Insurance [facility] C3 DENTAL-[facility] MEDICAID STAND ADULT Care Teams Exercise Instruct Relationship Specialty Start Date End Date Karely Lopez ANP [address] [place] [address] PCP - General Family Medicine 01/30/21
== END 2025-01-23 15:10 | disposition home or self-care (01) ==
LOC: HO.HPSW 13:45
PROVIDERS: PCP Nurse Practitioner Primary Care; Referring Provider Nurse Practitioner Primary Care; Visit Provider Nurse Practitioner Family
DX: J45.909 Unspecified asthma, uncomplicated (principal); R94.2 Abnormal results of pulmonary function studies; Z91.09 Other allergy status, other than to drugs and biological substances
CPT/HCPCS: 99204

== ENCOUNTER 2025-01-23 13:45 | Outpatient (REF) | payer MEDICAID, SELFPAY ==
[2025-01-23 18:00] LABS: MANUAL DIFF FLAG NO
[2025-01-23 18:12] LABS: Hematocrit 33.8 % (37.0-47.0); Hemoglobin 10.8 g/dl (12.0-16.0); Imm Gran Abs Auto 0.01 X10*3/uL (0.00-0.03); Imm Gran Pct Auto 0.1 % (0.0-0.4); Lymphocytes Absolute Auto 2.7 X10*3/uL (1.2-4.9); Mean Corpuscular HGB Conc 32.0 g/dl (31.0-35.0); Mean Corpuscular Hemoglobin 24.9 pg (27.0-33.0); Mean Corpuscular Volume 77.9 fL (80.0-98.0); NRBC Abs Auto 0.000 X10*3/uL (0.0-0.012); NRBC Pct Auto 0.0 /100WBC (0.0-0.2); Platelet Count 312 X10*3/uL (160-400); Red Blood Count 4.34 X10*6/uL (4.20-5.50); White Blood Count 7.1 X10*3/uL (4.8-10.8)
[2025-01-25 02:53] LABS: Class Alternaria alternata 0; Class Aspergillus fumigatus 0; Class Bermuda Grass 2; Class Birch 1; Class Cat Dander 0; Class Cladosporium herbarum 0; Class Cockroach 2; Class Common Ragweed 2; Class Cottonwood 2; Class Derm. pterony 2; Class Dermatophagoides farinae 1; Class Dog Dander 0; Class Elm 3; Class Maple Box Elder 2; Class Mountain Cedar 1; Class Mouse Urine Protein 0; Class Mugwort 2; Class Oak 2; Class Penicillium crysogenum 0; Class Rough Pigweed 1; Class Sheep Sorrel 2; Class Sycamore 2; Class Timothy Grass 2; Class Walnut Tree 2; Class White Ash 2; Class White Mulberry 1; D002 - IgE D farinae 0.62 kU/L; E001 - IgE Cat Dander <0.10 kU/L; E005 - IgE Dog Dander <0.10 kU/L; G006 - IgE Timothy Grass 1.00 kU/L; I006-IgE Cockroach, German 0.71 kU/L; M002 - IgE Cladosporium herbar <0.10 kU/L; M003 - IgE Aspergillus fumigat <0.10 kU/L; M006 - IgE Alternaria alternat <0.10 kU/L; T001 IgE Maple/Box Elder 2.35 kU/L; T006 - IgE Cedar, Mountain 0.60 kU/L; T007 - IgE Oak, White 1.01 kU/L; T008 IgE Elm, American 6.08 kU/L; T010 - IgE Walnut 1.03 kU/L; T011 - IgE Maple Leaf Sycamore 1.22 kU/L; T014 - IgE Cottonwood 1.00 kU/L; T015 - IgE Ash, White 1.18 kU/L; T070 - IgE White Mulberry 0.54 kU/L; W001 - IgE Ragweed, Short 0.90 kU/L; W006 - IgE Mugwort 0.77 kU/L; W014 IgE Pigweed, Common 0.68 kU/L; W018 IgE Sheep Sorrel 0.77 kU/L
== END 2025-01-23 13:46 | disposition home or self-care (01) ==
LOC: HO.WFDLDS 13:45
PROVIDERS: PCP Nurse Practitioner Primary Care; Referring Provider Nurse Practitioner Primary Care; Visit Provider Nurse Practitioner Family
DX: J45.909 Unspecified asthma, uncomplicated (principal); R94.2 Abnormal results of pulmonary function studies; R09.89 Other specified symptoms and signs involving the circulatory and respiratory systems; Z91.09 Other allergy status, other than to drugs and biological substances
CPT/HCPCS: 36415; 82785; 85025; 86003; 99212

== ENCOUNTER 2025-02-09 07:13 | Outpatient (REF) | payer MEDICAID, SELFPAY ==
--- NOTE | ~2025-02-09 | CT_ITS ---
EXAMINATION: CT CHEST WITHOUT IV CONTRAST INDICATION: R94.2 - Abnormal results of pulmonary function studies COMPARISON: Correlation is made with an AP portable view of the chest dated 04/12/2024. TECHNIQUE: Helical CT scan of the chest was performed without intravenous contrast. Coronal and sagittal reformatted images were generated and reviewed. This CT exam was performed with one or more of the following dose reduction techniques: automated exposure control, adjustment of the mA and/or kV according to patient size, use of iterative reconstruction technique. DLP: 238 mGy-cm CHEST: THYROID: The thyroid is unremarkable. LUNGS: Evaluation of the lungs is compromised by respiratory motion artifact. There are moderate emphysematous changes in the lower lung zones. There is scarring in the right lower lobe and mild bronchiectasis. No definite pulmonary nodules or airspace opacities are identified. MEDIASTINUM: There is no mediastinal lymphadenopathy. GAEL: Evaluation of the hilar regions is limited by lack of intravenous contrast material. CARDIOVASCULATURE: The heart is normal in size. There is no pericardial effusion. The thoracic aorta is normal in caliber. DEGREE OF CORONARY CALCIFICATION: none PLEURA: There is no pleural effusion. No pneumothorax. MAIN AIRWAYS: The mainstem bronchi and proximal branches are patent. AXILLA: There is no axillary lymphadenopathy. BONES AND SOFT TISSUES: Unremarkable UPPER ABDOMEN: The visualized portions of the liver, spleen, and adrenals have an unremarkable unenhanced appearance. CT/CT chest wo IV con IMPRESSION: 1. Limited examination due to respiratory motion artifact. Moderate emphysematous changes with right lower lobe scarring and mild bronchiectasis. 2. Because moderate emphysema is an independent risk factor for lung cancer, consider entering the patient into a program of yearly lung cancer screening with low dose chest CT. Electronically signed by: Joseph Clay MD 02/09/2025 08:32 AM EDT
--- OUTSIDE RECORDS SUMMARY | 2025-02-09 07:17 | XMS_ITS | Encounter Summary ---
Author Organization [employer] Address [address] [facility] 7 [place] [address] Care Team Providers Care Director Of Broadcast Name Role Phone Phyllis Day Primary Care Provider [phone] Encounter Details Date Type Department Care Team ([facility] st Contact Info) Description 01/10/2025 Results Follow-Up [facility] [address] [place] [address] Charlotte Salcido MD [address] [place] [address] XR Wrist 3+ Views Left Social History Tobacco Use Types Packs/Day Years [...] documented as of this encounter Care Teams Director Of Broadcast Relationship Specialty Start Date End Date Phyllis Day ANP [address] [place] [address] PCP - General Family Medicine 01/30/21 documented as of this encounter
--- OUTSIDE RECORDS SUMMARY | 2025-02-09 07:17 | XMS_ITS | Clinical Summary ---
Author Organization [employer] Address [address] [place] [address] 7 [place] [address] Care Team Providers Care Decontaminator Name Role Phone Karely Lopez Primary Care Provider [phone] Allergies Active Allergy Reactions Criticality Noted Date [...] 90 tablet 1 12/05/19 25 Active Umeclidinium [place] 62.5 MCG/ACT aerosol powderIndicatio ns:Obstructive airway disease [...] Encounters Date Type Department Care Team Description 01/23/2025 Orders Only GENERIC EXTERNAL DATA DEPARTMENT Provider, Generic External Data 01/22/2025 9:00 AM EDT Office Visit [facility] [address] [place], [place] [phone] Regular astigmatism of both eyes (Primary Dx) 01/20/2025 Refill [facility] [address] [place] [address] Karely Lopez ANP Non-seasonal allergic rhinitis, unspecified trigger 01/12/2025 Telephone [facility] [address] [place], [place] [phone] Karely Lopez ANP chart prep 01/10/2025 11:00 AM EDT Office Visit [facility] [address] [place] [address] Charlotte Salcido MD Left wrist pain 01/10/2025 Results Follow-Up [address] [address] Charlotte Salcido MD XR Wrist 3+ Views Left 01/10/2025 Travel 12/22/[address] [address] Karely Lopez ANP Essential hypertension 12/13/2024 Travel 12/11/[address] [address] Karely Lopez ANP Nurse Triage 12/10/[address] [address] Karely Lopez ANP Bacterial infection due to H. 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); Chronic pain of both knees; Iron deficiency anemia, unspecified iron deficiency anemia type 12/07/2024 Travel 12/06/[address] [address] Izaiah Koch [place] 12/05/2024 Results Follow-Up [address] [address] Karely Lopez ANP Ferritin, Iron And Total Iron Binding Capacity 12/05/2024 Orders Only [address] [address] Karely Lopez ANP 12/03/2024 Results Follow-Up [address] [address] Karely Lopez ANP Helicobacter pylori Antigen, EIA, Stool, CBC auto differential 12/03/[address] [address] Karely Lopez ANP Essential hypertension 12/02/2024 Refill [place] [address] [place] [address] Karely Lopez ANP Gastroesophageal reflux disease, unspecified whether esophagitis present from Last 3 Months Immunizations Immunization Administration [...] the past 12 months, has t he [employer], gas, oil or water [employer] threatened to shut off services in your [...] Procedure Name Priority Date/Time Associated Diagnosis Comments IMMUNOGLOBULIN E Routine 01/23/2025 3:13 PM EDT RESPIRATORY ALLERGY PROFILE REGION I Routine 01/23/2025 3:13 PM EDT IMMUNOGLOBULIN E Routine 01/23/2025 3:13 PM EDT CBC WITH AUTO DIFFERENTIAL Routine 01/23/2025 3:13 PM EDT XR WRIST 3+ VIEWS LEFT Routine 10:40 AM EDT Left wrist pain FERRITIN Routine 12/05/2024 11:14 AM EDT IRON AND TOTAL IRON BINDING CAPACITY Routine 12/05/2024 11:14 AM EDT CBC WITH AUTO DIFFERENTIAL Routine 12/05/2024 11:14 AM EDT Obstructive airway disease (CMS/HCC) HELICOBACTER PYLORI AG, EIA, STOOL Routine 11/30/2024 4:00 PM EDT Gastroesophageal reflux disease, unspecified whether esophagitis present LIPID PANEL, STANDARD Routine 10/25/2024 10:46 AM EDT Screening, lipid HPV DNA, LOW/HIGH RISK Routine 10:35 AM [...] Relevant to Health Maintenance Results * (ABNORMAL) Respiratory Allergy Profile Region I (01/23/2025 3:13 PM EDT) Mouse Urine Proteins (E72) IgE <0.10 kU/L [facility] Class 0 [facility] Cockroach (I6) IgE 0.71(A) kU/L [facility] Class 2 [facility] Dermatophagoides farinae (D2) IgE 0.62(A) kU/L [facility] Class 1 [facility] Cat Dander (E1) IgE <0.10 kU/L [facility] Class 0 [facility] Comment:THIS TEST WAS PERFOR MED AT:[employer] [address] [id number] TRUJILLO MD Dog Dander (E5) IgE <0.10 kU/L [facility] Class 0 [facility] Comment:THIS TEST WAS PERFOR MED AT:[employer] [address] [id number] TRUJILLO MD Jaya Grass (G6) IgE 1.00(A) kU/L [facility] Class 2 [facility] Cladosporium herbarum (M2) IgE <0.10 kU/L [facility] Class 0 [facility] Aspergillus Fumigatis (M3) IgE <0.10 kU/L [facility] Class 0 [facility] Alternaria alternata (M6) IgE <0.10 kU/L [facility] Class 0 [facility] Comment:THIS TEST WAS PERFOR MED AT:[employer] [address] [id number] TRUJILLO MD [place] (t6) IgE 0.60(A) kU/L [facility] Class 1 [facility] [place] (T7) IgE 1.01(A) kU/L [facility] Class 2 [facility] [place] (T10) IgE 1.03(A) kU/L [facility] Class 2 [facility] [place] (T11) IgE 1.22(A) kU/L [facility] Class 2 [facility] [place] (T14) IgE 1.00(A) kU/L [facility] Class 2 [facility] [place] (t15) IgE 1.18(A) kU/L [facility] Class 2 [facility] [place] (T70) IgE 0.54(A) kU/L [facility] Class 1 [facility] Common Ragweed (Short) (W1) IgE 0.90(A) kU/L [facility] Class 2 [facility] Mugwort (w6) IgE 0.77(A) kU/L [facility] Class 2 [facility] Dermatophagoides pteronyssinus (D1) IgE 1.99(A) kU/L [facility] Class 2 [facility] B[place] Grass (g2) IgE 1.15(A) kU/L [facility] Class 2 [facility] Penicillium Notatum (M1) IgE <0.10 kU/L [facility] Class 0 [facility] Birch (T3) IgE 0.69(A) kU/L [facility] Class 1 [facility] Elm (t8) IgE 6.08(A) kU/L [facility] Class 3 [facility] [place] ([place]) (T1) IgE 2.35(A) kU/L [facility] Class 2 [facility] Rough Pigweed (W14) IgE 0.68(A) kU/L [facility] Class 1 [facility] Sheep [place] (W18) IgE 0.77(A) kU/L [facility] Class 2 [facility] Allergen Comment See Below [facility] Comment: Specific Level of AllergenIGE Class kU/L Specific IGE Antibody ----- --------- 0 <0.10 Absent/Undetectable 0/1 0.10-0.34 Very Low Level 1 0.35-0.69 Low Level 2 0.70-3.49 Moderate Level 3 3.50-17.4 High Level 4 17.5-49.9 Very High Level 5 50-100 Very High Level 6 >100 Very High LevelThe clinical relevance of allergen results of0.10-0.34 kU/L are undetermined and intended forspecialist use.Allergens denoted with a include results usingone or more analyte specific reagents. In thosecases, the test was developed and its analyticalperformance characteristics have been determined by[employer]. It has not been cleared or approvedby the U.S. Food and Drug Administration. This assayhas been validated pursuant to the CLIA regulationsand is used for clinical purposes.THIS TEST WAS PERFORMED AT:[employer] [place] [id number] TRUJILLO MD 01/23/2025 3:13 PM EDT 01/23/2025 5:50 PM EDT Generic External Data Provider LAB BLOOD ORDERAB LES Final Result [facility] [address] [place] [phone] * (ABNORMAL) CBC auto differential (01/23/2025 3:13 PM EDT) Only the most recent of2 resultswithin the time period is included. White Blood Count 7.1 4.8 - 10.8 X10*3/uL [facility] Red Blood Count 4.34 4.20 - 5.50 X10*6/uL [facility] Hemoglobin 10.8(L) 12.0 - 16.0 g/dl [facility] Hematocrit 33.8(L) 37.0 - 47.0 % [facility] Mean Corpuscular Volume 77.9(L) 80.0 - 98.0 fL [facility] Mean Corpuscular Hemoglobin 24.9(L) 27.0 - 33.0 pg [facility] Mean Corpuscular HGB Conc 32.0 31.0 - 35.0 g/dl [facility] Red Cell Distribution Width 16.8(H) 11.0 - 16.0 % [facility] Platelet Count 312 160 - 400 X10*3/uL [facility] Mean Platelet Volume 10.9 9.4 - 12.3 fL [facility] Neutrophils Percent Auto 49.3 45 - 73 % [facility] Imm Gran Pct Auto 0.1 0.0 - 0.4 % [facility] Lymphocytes Percent Auto 37.6 20 - 40 % [facility] Monocytes Percent Auto 8.1 2 - 11 % [facility] Eosinophils Percent Auto 4.2(H) 0 - 4 % [facility] Basophils Percent Auto 0.7 0 - 2 % [facility] NRBC Pct Auto 0.0 0.0 - 0.2 /100WBC [facility] Neutrophils Absolute Auto 3.5 2.0 - 8.3 x10*3/uL [facility] Imm Gran Abs Auto 0.01 0.00 - 0.03 X10*3/uL [facility] Lymphocytes Absolute Auto 2.7 1.2 - 4.9 X10*3/uL [facility] Monocytes Absolute Auto 0.6 0.1 - 1.2 X10*3/uL [facility] Eosinophils Absolute Auto 0.3 0.0 - 0.4 X10*3/uL [facility] Basophils Absolute Auto 0.1 0.0 - 0.2 X10*3/uL [facility] NRBC Abs Auto 0.000 0.0 - 0.012 X10*3/uL [facility] 01/23/2025 3:13 PM EDT 01/23/2025 5:50 PM EDT us Generic External Data Provider LAB BLOOD ORDERAB LES Final Result [facility] [address] [place] [address] [phone] * (ABNORMAL) Immunoglobulin E (01/23/2025 3:13 PM EDT) Only the most recent of2 resultswithin the time period is included. Immunoglobulin E 2395(A) <PJ=869 kU/L [facility] Comment:THIS TEST WAS PERFOR MED AT:[facility] [place] [id number] TRUJILLO MD 01/23/2025 3:13 PM EDT 01/23/2025 5:50 PM EDT us Generic External Data Provider LAB BLOOD ORDERAB LES Final Result [facility] [address] [place] [address] [phone] * XR Wrist 3+ Views Left (01/10/2025 10:40 AM EDT) Anatomical Region Laterality Modality Upper Extremities, Wrist Left Radiogr aphic Imaging 01/10/2025 10:4 0 AM EDT Narrative 01/10/2025 11:39 AM EDT [facility] [address] [place] [address] XRay Report Signed Patient: Vilma Bourne MR#: [id number] : 1975 Acct:[id number] Age/Sex: 49 / F ADM Date: 01/10/25 Loc: HO.HHCX Attending Dr: Charlotte Lafleur MD Ordering Physician: Charlotte Salcido MD Date of Service: 01/10/25 Procedure(s): XR wrist LT min 3V Accession Number(s): [id number] cc: Charlotte Salcido MD EXAMINATION: XR WRIST, [...] 01/10/25 1136 DD/ 1040 TD/TT: 01/10/25 1132 Laboratory Technical Specialist: Procedure Note Donotuseinterpreter, Image - 01/10/[address] [address] XRay Report Signed Patient: Vilma BourneMR#: [id number] : 1975Acct:[id number] Age/Sex: 49 / FADM Date: 01/10/25 Loc: HO.HHCX Attending Dr: Charlotte Lafleur MD Ordering Physician: Charlotte Salcido MD Date of Service: 01/10/25 Procedure(s): XR wrist LT min 3V Accession Number(s): [id number] cc: Charlotte Salcido MD EXAMINATION: XR WRIST, [...] OV> 01/10/25 1136 DD/ 1040 TD/TT: 01/10/25 113 Laboratory Technical Specialist: us Charlotte Lafleur MD IMG XR PROCEDURES Fin al Result * Iron And Total Iron Binding Capacity (12/05/2024 11:14 AM EDT) Iron 51 30 - 160 mcg/dL [facility] Total Iron Binding Capacity 300 228 - 428 mcg/dL [facility] Percent Iron Saturation 17 15 - 50 % [facility] Unsaturated Iron Binding 249 ug/dL [facility] 12/05/2024 11:1 4 AM EDT 12/05/2024 12:56 PM EDT Karely Lopez ANP LAB BLOOD ORDERABLES Final Resul t Performing Organization Address [facility] de Phone Number [facility] [address] [place] [phone] * Ferritin (12/05/2024 11:14 AM EDT) Ferritin 20 10 - 250 ng/mL [facility] 12/05/2024 11:1 4 AM EDT 12/05/2024 12:56 PM EDT Karely Lopez ANP LAB BLOOD ORDERABLES Final Resul t Performing Organization Address [facility] de Phone Number [facility] [address] [place] [phone] * (ABNORMAL) Helicobacter pylori??Antigen, EIA, Stool (11/30/2024 4:00 PM EDT) H pylori Ag Stool SEE NOTE(A) [facility] Comment:HELICOBACTER PYLORI AG, EIA, STOOL Micro Number: [id number] Test Status: Final Specimen Source: Stool Specimen Quality: Adequate H.pylori Ag: Detected Reference Range: Not DetectedTHIS TEST WAS PERFORMED AT:[employer] [address] [id number] TRUJILLO MD Stool Rectal contents / Unknown 11/30/2024 4:00 PM EDT 12/01/2024 11:43 AM EDT us Karely Lopez ANP LAB BODY FLUIDS AND STOOLS ORDER KATHARINA Final Result Performing Organization Address [facility]/ZIP Co de Phone Number [facility] [address] [place] [phone] * Lipid Panel, Standard (10/25/2024 10:46 AM EDT) Triglycerides 70 <150 mg/dL [facility] Comment:Desirable Triglyceri de: less than 150 mg/dLBorderline High Triglyceride 150-199 mg/dLHigh Triglyceride: 200-499 mg/dLVery High Triglyceride: greater than or equal to 5OO mg/dL Cholesterol 141 <200 mg/dL [facility] Comment:Desirable Cholestero l: less than 200 mg/dLBorderline High Cholesterol: 200-239 mg/dLHigh Cholesterol: greater than 239 mg/dL LDL Cholesterol Calculated 81 <100 mg/dL [facility] Comment:Desirable LDL: less than 100 mg/dLNear Optimal/Above Optimal LDL: 110- 129 mg/dLBorderline High LDL: 130-159 mg/dLHigh LDL: 160-189 mg/dLVery High LDL: greater than or equal to 190 mg/dL HDL Cholesterol 46 >40 mg/dL [facility] Comment:Desirable HDL: great er than 40 mg/dL Note: This HDL assay may give artificially low results in patients with liver disease. Blood Venous blood specimen / Unknown 10/25/2024 10:46 AM EDT 10/25/2024 1:26 PM EDT Critical access hospital LAB BLOOD ORDERABLES Final Resul t [facility] [address] [place] [address] [phone] * HPV DNA, Low/High Risk (07/21/2024 10:35 AM EST) HPV High Risk Negative Negative [facility] HPV Genotype 16 Negative Negative [facility] HPV Genotype 18 Negative Negative [facility] Comment:HPV testing performe d at [facility] (CLIA#[id number]), [address] [place] [address].Testing for HPV was performed using the Kate [...] AM EST 07/24/2024 8:20 AM EST Karely Lopez [facility] LAB BLOOD ORDERABLES Final Resul t [facility] [address] [place] [phone] * Pap Smear (07/21/2024 10:35 AM EST) Swab Cervical swab / Unknown 07/21/2024 10:35 AM EST 07/24/2024 8:20 AM EST Narrative [facility] - 07/29/2024 10:03 AM EST ----- ------- Name: Vilma Bourne Age/Sex: 49/F : 1975 Unit#: [id number] Attend Dr: KARELY LOPEZ APPLICATION DEFENSE MANAGER Re07/21/24 Status: DEP REF Location: HO.HHCLNP Disch: ----- ------- SPEC : [id number] RECD: 07/24/24 STATUS: RAYMOND RODRIGUEZ NUM: [id number] ESTEBAN: 07/21/24-[address]: KARELY LOPEZ APPLICATION DEFENSE MANAGER ENTERED: 07/24/24 SP TYPE: Pap Smr OTHR [...] ANP LAB CYTOLOGY ORDERABLES Final Re sult [facility] [address] [place] [phone] * BI Mammogram Screening Tomosynthesis Bilateral (07/19/2024 11:30 AM EST) Anatomical Region Laterality Modality Breast Bilateral Mammography 07/19/2024 11:3 0 AM EST Narrative 07/25/2024 7:11 PM EST [facility] [address] [place] [address] Mammography Report Signed Patient: Vilma Bourne MR#: [id number] : 1975 Acct:[id number] Age/Sex: 49 / F ADM Date: 07/19/24 Loc: HO.MAMMO Attending Dr: Karely Lopez NP Ordering Physician: KARELY LOPEZ NP Results: 2Benign Fin dings Date of Service: 07/19/24 Follow Up: 1 Year From Orig ina Mammogram Procedure(s): MM tomosynthesis screening BI Accession Number(s): [id number] cc: KARELY LOPEZ NP EXAMINATION: MM SCREENING [...] DO Signed By: <Electronically signed by Renay Ssoa DO in OV> 07/25/24 1908 DD/ 1130 TD/TT: 07/19/24 1140 Laboratory Technical Specialist: Procedure Note Donotuseinterpreter, Image - 07/25/2024 [place] [facility] [address] [place], [place] [address] Mammography Report Signed Patient: Mary Bourne#: [id number] : 1975Acct:[id number] Age/Sex: 49 / FADM Date: 07/19/24 Loc: HO.MAMMO Attending Dr: Karely Lopez APPLICATION DEFENSE MANAGER Ordering Physician: KARELY LOPEZ NPResults: 2Benign Khalif dingsimon Date of Service: 07/19/24Follow Up: 1 Year From Orig inal Mammogram Procedure(s): MM tomosynthesis screening BI Accession Number(s): [id number] cc: KARELY LOPEZ NP EXAMINATION: MM SCREENING [...] 07/25/24 1908 DD/ 1130 TD/TT: 07/19/24 1140 Laboratory Technical Specialist: Karely Lopez ANP IMG BI PROCEDURES Final Result * HEPATITIS C AB W/REFL TO HCV RNA, QN, PCR (07/08/2021 10:50 AM EST) HEPATITIS C ANTIBODY NON-REACT CELESTINO NON-REACT CE[facility]STINO [facility] INDEX 0.04 <1.00 [facility] Comment: HCV antibody was non-reactive. There is no laboratory evidence of HCV infection. In most cases, no further action is required. However, if recent HCV exposure is suspected, a test for HCV RNA (test code 63103) is suggested. For additional information please refer to http://[place].[email or web address]/faq/WIV25n6 (This link is being provided for informational/ educational purposes only.) 07/08/2021 10:5 0 AM EST us Karely Lopez ANP HISTORICAL/NON ORDERABLE LABS Fi nal Result Performing Organization Address [facility] Phone Number [facility] [address] * HIV 1/2 ANTIGEN/ANTIBODY,FOURTH GENERATION W/RFL (07/08/2021 10:50 AM EST) HIV-1/2 ANTIGEN AND ANTIBODIES, 4TH GENERATION W/ REFLEX NON-REACT CELESTINO NON-REACT CELESTINO [facility] Comment: HIV-1 antigen and HIV-1/HIV-2 [...] purpose. For additional information please refer to http://[place].[email or web address]/faq/DZY681 (This link is being provided for informational/ educational purposes only.) The performance of this assay has not been clinically validated in patients less than 2 years old. 07/08/2021 10:5 0 AM EST us Karely MCFADDEN LAB BLOOD ORDERABLES Final Resul t Performing Organization Address [facility]/ZIP Co de Phone Number [place] [address] from Last 3 Months or Most Recently Relevant to Health Maintenance Insurance [facility] C3 DENTAL-[facility] MEDICAID STAND ADULT Care Teams Decontaminator Relationship Specialty Start Date End Date Karely Lopez ANP [address] [place] [address] PCP - General Family Medicine 01/30/21
--- OUTSIDE RECORDS SUMMARY | 2025-02-09 07:17 | XMS_ITS | Encounter Summary ---
Author Organization [email or web address] Address [address] [place] [address] [address] [place] [address] Care Team Providers Care Channel Lip Wetter Name Role Phone Phyllis Day Primary Care Provider [phone] Encounter Details Date Type Department Care Team ([facility] st Contact Info) Description 12/05/2024 Results Follow-Up [facility] [address] [place], [place] [phone] Phyllis Day ANP [address] [place] [address] Ferritin, Iron And Total Iron Binding Capacity Social History Tobacco Use Types Packs/Day Years [...] documented as of this encounter Care Teams Channel Lip Wetter Relationship Specialty Start Date End Date Phyllis Day ANP [address] [place] [address] PCP - General Family Medicine 01/30/21 documented as of this encounter
--- OUTSIDE RECORDS SUMMARY | 2025-02-09 07:17 | XMS_ITS | Encounter Summary ---
Author Organization [employer] Address [address] [place] [address] [address] [place] [address] Care Team Providers Care Compliance Examiner Name Role Phone Phyllis Day Primary Care Provider [phone] Reason for Visit * Reason Comments Med Refill Encounter Details Date Type Department Care Team (Late st Contact Info) Description 02/24/2023 Refill [facility]IC[facility] [address] [place] [address] Phyllis Day ANP [address] [place] [address] Mild persistent asthma with (acute) exacerbation Social [...] exacerbation documented in this encounter Care Teams Compliance Examiner Relationship Specialty Start Date End Date Phyllis Day ANP [address] [place] [address] PCP - General Family Medicine 01/30/21 documented as of this encounter
--- OUTSIDE RECORDS SUMMARY | 2025-02-09 07:17 | XMS_ITS | Encounter Summary ---
Author Organization [employer] Address [address] [facility] 7 [place] [address] Care Team Providers Care Talent Assistant Name Role Phone Karely Lopez Primary Care Provider [phone] Encounter Details Date Type Department Care Team ([facility] st Contact Info) Description 05/14/2023 Orders Only [facility] MEDICINE 230 [place], [place] [phone] Karely Lopez ANP [address] [place], [place] [phone] Acute pain of left knee (Primary Dx) [...] AM EST Narrative 05/19/2023 4:59 PM EST [address] [address] XRay Report Signed Patient: Vilma Bourne MR#: [id number] : 1975 Acct:[id number] Age/Sex: 48 / F ADM Date: 05/17/23 Loc: HO.HHCX Attending Dr: Karely Lopez GEOLOGICAL ENGINEER Ordering Physician: KARELY LOPEZ NP Date of Service: 05/17/23 Procedure(s): XR ankle LT min 3V Accession Number(s): [id number] cc: KARELY LOPEZ GEOLOGICAL ENGINEER Examination: Left and right ankles CLINICAL INFORMATION: [...] signed by Shahrzad Keenan MD in OV> 05/19/231654 DD/ 1021 TD/TT: Minister: Procedure Note Donotuseinterpreter, Image - 05/19/[address] [address] XRay Report Signed Patient: Vilma BourneMR#: [id number] : 1975Acct:[id number] Age/Sex: 48 / FADM Date: 05/17/23 Loc: HO.HHCX Attending Dr: Karely Lopez NP Ordering Physician: KARELY LOPEZ NP Date of Service: 05/17/23 Procedure(s): XR ankle LT min 3V Accession Number(s): [id number] cc: KARELY LOPEZ GEOLOGICAL ENGINEER Examination: Left and right ankles CLINICAL INFORMATION: [...] signed by Shahrzad Keenan MD in OV> 05/19/231654 DD/ 1021 TD/TT: Minister: Karely Lopez ANP IM XR PROCEDURES Final Result * XR Ankle 3+ Views Right (05/17/2023 10:21 AM EST) Anatomical Region Laterality Modality Lower Extremities, Ankle Right Radiogr aphic Imaging 05/17/2023 10:2 1 AM EST Narrative 05/19/2023 4:59 PM EST [address] XRay Report Signed Patient: Vilma Bourne MR#: [id number] : 1975 Acct:[id number] Age/Sex: 48 / F ADM Date: 05/17/23 Loc: MANSOOR Attending Dr: Karely Lopez GEOLOGICAL ENGINEER Ordering Physician: KARELY LOPEZ NP Date of Service: 05/17/23 Procedure(s): XR ankle RT min 3V Accession Number(s): [id number] cc: KARELY LOPEZ NP Examination: Left and [...] in OV> 05/19/23 1655 DD/ 1021 TD/TT: Minister: Procedure Note Donotuseinterpreter, Image - 05/19/[address] [address] XRay Report Signed Patient: Vilma BourneMR#: [id number] : 1975Acct:[id number] Age/Sex: 48 / FADM Date: 05/17/23 Loc: MANSOOR Attending Dr: Karely Lopez NP Ordering Physician: KARELY LOPEZ NP Date of Service: 05/17/23 Procedure(s): XR ankle RT min 3V Accession Number(s): [id number] cc: KARELY LOPEZ NP Examination: Left and [...] signed by Shahrzad Keenan MD in OV> 05/19/231654 DD/ 1021 TD/TT: Minister: Karely Lopez ANP IMG XR PROCEDURES Final Result * XR Knee 1-2 Views Left (05/17/2023 10:21 AM EST) Anatomical Region Laterality Modality Lower Extremities, Knee Left Radiogra phic Imaging 05/17/2023 10:2 1 AM EST Narrative 05/19/2023 4:59 [place] [address] XRay Report Signed Patient: Vilma Bourne MR#: [id number] : 1975 Acct:[id number] Age/Sex: 48 / F ADM Date: 05/17/23 Loc: HO.HHCX Attending Dr: Karely Lopez NP Ordering Physician: KARELY LOPEZ NP Date of Service: 05/17/23 Procedure(s): XR knee LT 2V Accession Number(s): [id number] cc: KARELY LOPEZ NP EXAMINATION: XR KNEE, LEFT CLINICAL INFORMATION: Pain COMPARISON: None available. TECHNIQUE: Four views of the left knee. FINDINGS: No fracture or joint effusion. Alignment is anatomic. Joint spaces are maintained. No abnormal soft tissue calcification. XR/XR knee LT 2V IMPRESSION: Normal left knee. Dictated By: Shahrzad Keenan MD Signed By: <Electronically signed by Shahrzad Keenan MD in OV> 05/19/231654 DD/ 1021 TD/TT: Minister: Procedure Note Donotuseinterpreter, Image - 05/19/2023 [facility] [address] [place] [address] XRay Report Signed Patient: Vilma BourneMR#: [id number] : 1975Acct:[id number] Age/Sex: 48 / FADM Date: 05/17/23 Loc: HO.HHCX Attending Dr: Karely Lopez GEOLOGICAL ENGINEER Ordering Physician: KARELY LOPEZ NP Date of Service: 05/17/23 Procedure(s): XR knee LT 2V Accession Number(s): [id number] cc: KARELY LOPEZ GEOLOGICAL ENGINEER EXAMINATION: XR KNEE, LEFT CLINICAL INFORMATION: Pain COMPARISON: None available. TECHNIQUE: Four views of the left knee. FINDINGS: No fracture or joint effusion. Alignment is anatomic. Joint spaces are maintained. No abnormal soft tissue calcification. XR/XR knee LT 2V IMPRESSION: Normal left knee. Dictated By: Shahrzad Keenan MD Signed By: <Electronically signed by Shahrzad Keenan MD in OV> 05/19/23 1655 DD/ 1021 TD/TT: Minister: Karely Lopez ANP IMG XR PROCEDURES Final Result documented in this encounter Visit Diagnoses Diagnosis Acute pain of left knee- Primary documented in this encounter Additional Health Concerns Assessment Noted Time PHQ-9 Depression Total Score: 0 04/22/20 23 1:07 PM EST documented as of this encounter Care Teams Talent Assistant Relationship Specialty Start Date End Date Karely Lopez ANP [address] [place] [address] PCP - General Family Medicine 01/30/21 documented as of this encounter
--- OUTSIDE RECORDS SUMMARY | 2025-02-09 07:17 | XMS_ITS | Encounter Summary ---
Author Organization [employer] Address [address] [place] [address] 7 [place] [address] Care Team Providers Care Molding Machine Setter Name Role Phone Phyllis Day Primary Care Provider Encounter Details Date Type Department Care Team (Late st Contact Info) Description 12/30/2022 Orders Only [facility] MEDICINE [address] [place] [address] Hanna Aranda LPN Social History Tobacco Use [...] on filedocumented in this encounter Care Teams Molding Machine Setter Relationship Specialty Start Date End Date Phyllis Day ANP 230 [place] [address] PCP - General Family Medicine 01/30/21 documented as of this encounter
--- OUTSIDE RECORDS SUMMARY | 2025-02-09 07:17 | XMS_ITS | Encounter Summary ---
Author Organization [employer] Address [address] [place] [address] 7 [place] [address] Care Team Providers Care Pot Annealer Name Role Phone Phyllis Day Primary Care Provider [phone] Reason for Visit * Reason Comments Med Refill Encounter Details Date Type Department Care Team (Late st Contact Info) Description 12/02/2024 Refill [facility] MEDICINE [address] [place], [place] [phone] Phyllis Day ANP 230 [place], [place] [phone] Gastroesophageal reflux disease, unspecified whether esophagitis present [...] documented as of this encounter Care Teams Pot Annealer Relationship Specialty Start Date End Date Phyllis Day ANP [address] [place] [address] PCP - General Family Medicine 01/30/21 documented as of this encounter
--- OUTSIDE RECORDS SUMMARY | 2025-02-09 07:17 | XMS_ITS | Encounter Summary ---
Author Organization [employer] Address [address] [place] [address] 7 [place] [address] Care Team Providers Care Hot Saw Helper Name Role Phone Phyllis Day Primary Care Provider [phone] Reason for Visit * Reason Onset Date Comments Med Refill 12/22/2024 Encounter Details Date Type Department Care Team (Late st Contact Info) Description 12/22/2024 Refill [facility] MEDICINE [address] [place] [address] Phyllis Day ANP 230 [place], [place] [phone] Essential hypertension Social History Tobacco Use Types Packs/Day Years [...] of this encounter Visit Diagnoses Diagnosis Essential hypertension Unspecified essential hypertension documented in this encounter Additional Health Concerns Assessment Noted Time PHQ-9 Depression Total Score: 0 04/22/20 23 1:07 PM EST documented as of this encounter Care Teams Hot Saw Helper Relationship Specialty Start Date End Date Phyllis Day ANP [address] [place] [address] PCP - General Family Medicine 01/30/21 documented as of this encounter
--- OUTSIDE RECORDS SUMMARY | 2025-02-09 07:17 | XMS_ITS | Encounter Summary ---
Author Organization [employer] Address [address] [place] [address] 7 [place] [address] Care Team Providers Care Vinyl Dipper Name Role Phone Phyllis Day Primary Care Provider [phone] Reason for Visit * Reason Comments Med Change Request Encounter Details Date Type Department Care Team (Late st Contact Info) Description 10/24/2024 Refill [facility] MEDICINE [address] [place], [place] [phone] Phyllis Day ANP [address] [place], [place] [phone] Gastroesophageal reflux disease, unspecified whether esophagitis present [...] documented as of this encounter Care Teams Vinyl Dipper Relationship Specialty Start Date End Date Phyllis Day ANP 230 [place] [address] PCP - General Family Medicine 01/30/21 documented as of this encounter
== END 2025-02-09 07:14 | disposition home or self-care (01) ==
LOC: HO.CT 07:13
PROVIDERS: PCP Nurse Practitioner Primary Care; Visit Provider Nurse Practitioner Family
DX: R94.2 Abnormal results of pulmonary function studies (principal); R09.89 Other specified symptoms and signs involving the circulatory and respiratory systems
CPT/HCPCS: 71250

== ENCOUNTER → 2025-02-09 07:16 | Outpatient (BNV) | payer MEDICAID, SELFPAY | PROVIDERS: PCP Nurse Practitioner Primary Care; Visit Provider Radiology Diagnostic Radiology | DX: J43.9 Emphysema, unspecified (principal) | CPT/HCPCS: 71250 ==

== ENCOUNTER 2025-02-16 06:36 | Outpatient (REF) | payer MEDICAID, SELFPAY ==
--- NOTE | ~2025-02-16 | XR_ITS ---
EXAMINATION: XR KNEE 3 VIEWS BILATERAL HISTORY: pain COMPARISON: Comparison is made with prior examinations of the knees dated 12/22/2023 and 05/17/2023. FINDINGS: Standing AP views of both knees and additional lateral and sunrise patellar views of the bilateral knees are submitted. Osseous mineralization is normal. There is no fracture or dislocation. There is moderate narrowing of the medial compartments of both knees and mild narrowing of the patellofemoral compartments. The soft tissues are unremarkable. There is no joint effusion. XR/XR Knee Al 3V IMPRESSION: Osteoarthritis of the bilateral knees as described. Electronically signed by: Joseph Clay MD 02/16/2025 08:39 AM EDT
--- OUTSIDE RECORDS SUMMARY | 2025-02-16 06:39 | XMS_ITS | Encounter Summary ---
Author Organization [employer] Address [address] [facility] 7 [place] [address] Care Team Providers Care Engravings Polisher Name Role Phone Karely Lopez Primary Care Provider [phone] Encounter Details Date Type Department Care Team ([facility] st Contact Info) Description 05/14/2023 Orders Only [facility] MEDICINE 230 [place], [place] [phone] Karely Lopez ANP [address] [place], [place] [phone] Acute pain of left knee (Primary Dx) [...] AM EST Narrative 05/19/2023 4:59 PM EST [address] [address] XRay Report Signed Patient: Vilma Bourne MR#: [id number] : 1975 Acct:[id number] Age/Sex: 48 / F ADM Date: 05/17/23 Loc: HO.HHCX Attending Dr: Karely Lopez RUBY ON RAILS DEVELOPER Ordering Physician: KARELY LOPEZ NP Date of Service: 05/17/23 Procedure(s): XR ankle LT min 3V Accession Number(s): [id number] cc: KARELY LOPEZ RUBY ON RAILS DEVELOPER Examination: Left and right ankles CLINICAL INFORMATION: [...] MD in OV> 05/19/231654 DD/ 1021 TD/TT: Safety Counselor: Procedure Note Donotuseinterpreter, Image - 05/19/[address] [address] XRay Report Signed Patient: Vilma BourneMR#: [id number] : 1975Acct:[id number] Age/Sex: 48 / FADM Date: 05/17/23 Loc: HO.HHCX Attending Dr: Karely Lopez NP Ordering Physician: KARELY LOPEZ NP Date of Service: 05/17/23 Procedure(s): XR ankle LT min 3V Accession Number(s): [id number] cc: KARELY LOPEZ RUBY ON RAILS DEVELOPER Examination: Left and right ankles CLINICAL INFORMATION: [...] MD in OV> 05/19/231654 DD/ 1021 TD/TT: Safety Counselor: Karely Lopez ANP IM XR PROCEDURES Final Result * XR Ankle 3+ Views Right (05/17/2023 10:21 AM EST) Anatomical Region Laterality Modality Lower Extremities, Ankle Right Radiogr aphic Imaging 05/17/2023 10:2 1 AM EST Narrative 05/19/2023 4:59 PM EST [address] XRay Report Signed Patient: Vilma Bourne MR#: [id number] : 1975 Acct:[id number] Age/Sex: 48 / F ADM Date: 05/17/23 Loc: MANSOOR Attending Dr: Karely Lopez RUBY ON RAILS DEVELOPER Ordering Physician: KARELY LOPEZ NP Date of Service: 05/17/23 Procedure(s): XR ankle RT min 3V Accession Number(s): [id number] cc: KARELY LOPEZ NP Examination: Left and [...] in OV> 05/19/23 1655 DD/ 1021 TD/TT: Safety Counselor: Procedure Note Donotuseinterpreter, Image - 05/19/[address] [address] XRay Report Signed Patient: Vilma BourneMR#: [id number] : 1975Acct:[id number] Age/Sex: 48 / FADM Date: 05/17/23 Loc: MANSOOR Attending Dr: Karely Lopez NP Ordering Physician: KARELY LOPEZ NP Date of Service: 05/17/23 Procedure(s): XR ankle RT min 3V Accession Number(s): [id number] cc: KARELY LOPEZ NP Examination: Left and [...] MD in OV> 05/19/231654 DD/ 1021 TD/TT: Safety Counselor: Karely Lopez ANP IMG XR PROCEDURES Final Result * XR Knee 1-2 Views Left (05/17/2023 10:21 AM EST) Anatomical Region Laterality Modality Lower Extremities, Knee Left Radiogra phic Imaging 05/17/2023 10:2 1 AM EST Narrative 05/19/2023 4:59 [place] [address] XRay Report Signed Patient: Vilma Bourne MR#: [id number] : 1975 Acct:[id number] Age/Sex: 48 / F ADM Date: 05/17/23 Loc: HO.HHCX Attending Dr: Karely Lopez NP Ordering Physician: KARELY LOPEZ NP Date of Service: 05/17/23 Procedure(s): XR knee LT 2V Accession Number(s): [id number] cc: KARELY LOPEZ NP EXAMINATION: XR KNEE, LEFT CLINICAL INFORMATION: Pain COMPARISON: None available. TECHNIQUE: Four views of the left knee. FINDINGS: No fracture or joint effusion. Alignment is anatomic. Joint spaces are maintained. No abnormal soft tissue calcification. XR/XR knee LT 2V IMPRESSION: Normal left knee. Dictated By: Shahrzad Keenan MD Signed By: <Electronically signed by Shahrzad Kenean MD in OV> 05/19/231654 DD/ 1021 TD/TT: Safety Counselor: Procedure Note Donotuseinterpreter, Image - 05/19/2023 [facility] [address] [place] [address] XRay Report Signed Patient: Vilma BourneMR#: [id number] : 1975Acct:[id number] Age/Sex: 48 / FADM Date: 05/17/23 Loc: HO.HHCX Attending Dr: Karely Lopez RUBY ON RAILS DEVELOPER Ordering Physician: KARELY LOPEZ NP Date of Service: 05/17/23 Procedure(s): XR knee LT 2V Accession Number(s): [id number] cc: KARELY LOPEZ RUBY ON RAILS DEVELOPER EXAMINATION: XR KNEE, LEFT CLINICAL INFORMATION: Pain COMPARISON: None available. TECHNIQUE: Four views of the left knee. FINDINGS: No fracture or joint effusion. Alignment is anatomic. Joint spaces are maintained. No abnormal soft tissue calcification. XR/XR knee LT 2V IMPRESSION: Normal left knee. Dictated By: Shahrzad Keenan MD Signed By: <Electronically signed by Shahrzad Keenan MD in OV> 05/19/23 1655 DD/ 1021 TD/TT: Safety Counselor: Karely Lopez ANP IMG XR PROCEDURES Final Result documented in this encounter Visit Diagnoses Diagnosis Acute pain of left knee- Primary documented in this encounter Additional Health Concerns Assessment Noted Time PHQ-9 Depression Total Score: 0 04/22/20 23 1:07 PM EST documented as of this encounter Care Teams Engravings Polisher Relationship Specialty Start Date End Date Karely Lopez ANP [address] [place] [address] PCP - General Family Medicine 01/30/21 documented as of this encounter
--- OUTSIDE RECORDS SUMMARY | 2025-02-16 06:39 | XMS_ITS | Encounter Summary ---
Author Organization [employer] Address [address] [place] [address] 7 [place] [address] Care Team Providers Care Mortgage Loan Assistant Name Role Phone Phyllis Day Primary Care Provider [phone] Reason for Visit * Reason Comments Med Refill Encounter Details Date Type Department Care Team (Late st Contact Info) Description 12/02/2024 Refill [facility] MEDICINE 230 [place], [place] [phone] Phyllis Day ANP [address] [place], [place] [phone] Gastroesophageal reflux disease, unspecified whether esophagitis present [...] documented as of this encounter Care Teams Mortgage Loan Assistant Relationship Specialty Start Date End Date Phyllis Day ANP [address] [place] [address] PCP - General Family Medicine 01/30/21 documented as of this encounter
--- OUTSIDE RECORDS SUMMARY | 2025-02-16 06:39 | XMS_ITS | Encounter Summary ---
Author Organization [employer] Address [address] [place] [address] 7 [place] [address] Care Team Providers Care Commercial Fisher Name Role Phone Phyllis Day Primary Care Provider Encounter Details Date Type Department Care Team (Late st Contact Info) Description 12/30/2022 Orders Only [facility] MEDICINE [address] [place] [address] Hanna Aranda LPN Social History Tobacco Use [...] on filedocumented in this encounter Care Teams Commercial Fisher Relationship Specialty Start Date End Date Phyllis Day ANP 230 [place] [address] PCP - General Family Medicine 01/30/21 documented as of this encounter
--- OUTSIDE RECORDS SUMMARY | 2025-02-16 06:39 | XMS_ITS | Encounter Summary ---
Author Organization [employer] Address [address] [place] [address] 7 [place] [address] Care Team Providers Care Hawk Missile Air Defense Artillery Name Role Phone Phyllis Day Primary Care Provider [phone] Reason for Visit * Reason Onset Date Comments Med Refill 12/22/2024 Encounter Details Date Type Department Care Team (Late st Contact Info) Description 12/22/2024 Refill [facility] MEDICINE [address] [place] [address] Phyllis Day ANP 230 [place], [place] [phone] Essential hypertension Social History Tobacco Use Types [...] documented as of this encounter Care Teams Hawk Missile Air Defense Artillery Relationship Specialty Start Date End Date Phyllis Day ANP [address] [place] [address] PCP - General Family Medicine 01/30/21 documented as of this encounter
--- OUTSIDE RECORDS SUMMARY | 2025-02-16 06:39 | XMS_ITS | Encounter Summary ---
Author Organization [email or web address] Address [address] [facility] 7 [place] [address] Care Team Providers Care Supervisor Benzene Refining Name Role Phone Phyllis Day Primary Care Provider [phone] Encounter Details Date Type Department Care Team ([facility] st Contact Info) Description 01/10/2025 Results Follow-Up [facility] MEDICINE 230 [place] [address] Charlotte Salcido MD 230 [place] [address] XR Wrist 3+ Views Left Social History [...] documented as of this encounter Care Teams Supervisor Benzene Refining Relationship Specialty Start Date End Date Phyllis Day ANP [address] [place] [address] PCP - General Family Medicine 01/30/21 documented as of this encounter
--- OUTSIDE RECORDS SUMMARY | 2025-02-16 06:39 | XMS_ITS | Clinical Summary ---
Author Organization [employer] Address [address] [place] [address] 7 [place] [address] Care Team Providers Care Interdisciplinary Professor Name Role Phone Karely Lopez Primary Care Provider [phone] Allergies Active Allergy Reactions Criticality Noted Date [...] 90 tablet 1 12/05/19 25 Active Umeclidinium [place] 62.5 MCG/ACT aerosol powderIndicatio ns:Obstructive airway disease [...] Data 01/22/2025 9:00 AM EDT Office Visit [facility] [address] [place], [place] [phone] Regular astigmatism of both eyes (Primary Dx) 01/20/2025 Refill [facility] [address] [place] [address] Karely Lopez ANP Non-seasonal allergic rhinitis, unspecified trigger 01/12/2025 Telephone [facility] [address] [place], [place] [phone] Karely Lopez ANP chart prep 01/10/2025 11:00 AM EDT Office Visit [facility] [address] [place] [address] Charlotte Salcido MD Left wrist pain 01/10/2025 Results Follow-Up [address] [address] Charlotte Salcido MD XR Wrist 3+ Views Left 01/10/2025 Travel 12/22/[address] [address] Karely Lopez ANP Essential hypertension 12/13/2024 Travel 12/11/[address] [address] Karely Lopez ANP Nurse Triage 12/10/[address] [address] Karely Lopez ANP Bacterial infection due to H. 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); Chronic pain of both knees; Iron deficiency anemia, unspecified iron deficiency anemia type 12/07/2024 Travel 12/06/[address] [address] Izaiah Koch [place] 12/05/2024 Results Follow-Up [address] [address] Karely Lopez ANP Ferritin, Iron And Total Iron Binding Capacity 12/05/2024 Orders Only [address] [address] Karely Lopez ANP 12/03/2024 Results Follow-Up [address] [address] Karely Lopez ANP Helicobacter pylori Antigen, EIA, Stool, CBC auto differential 12/03/[address] [address] Karely Lopez ANP Essential hypertension 12/02/2024 Refill [place] [address] [place] [address] Karely Lopez ANP Gastroesophageal reflux disease, unspecified [...] the past 12 months, has t he [employer], gas, oil or water [employer] threatened to shut off services in your [...] 08/03/2018 Dental X-Ray: Bitewings 06/10/2023 06/09/2022, 05/17 COVID-19 Vaccine ( season) 2025 07/24/2021, 07/03/2021 Influenza Vaccine (#1) 2025 04/01/2021 Dental X-Ray: Full Mouth 06/10/2025 06/09/2022, 09/2017 Mammogram 07/19/2025 07/19/2024, 10/2024, 04/16/2023, Additional history exists Alcohol/Substance Use Screening 07/21/2025 07/21/2024 DTaP/Tdap/Td Vaccines (1 - Tdap) 07/21/2025 Postponed [...] Procedure Name Priority Date/Time Associated Diagnosis Comments CT CHEST WO CONTRAST Routine 02/09/2025 7:45 AM EDT IMMUNOGLOBULIN E Routine 01/23/2025 3:13 PM EDT RESPIRATORY ALLERGY PROFILE REGION I Routine 01/23/2025 3:13 PM EDT IMMUNOGLOBULIN E Routine 01/23/2025 3:13 PM EDT CBC WITH AUTO DIFFERENTIAL Routine 01/23/2025 3:13 PM EDT XR WRIST 3+ VIEWS LEFT Routine 5 10:40 AM EDT Left wrist pain FERRITIN [...] Recently Relevant to Health Maintenance Results * CT Chest w/o Contrast (02/09/2025 7:45 AM EDT) Anatomical Region Laterality Modality Body, Chest Computed Tomogra phy 02/09/2025 7:45 AM EDT Narrative 02/09/2025 8:34 AM EDT [address] [address] [address] Scan Report Signed Patient: Vilma Bourne MR#: [id number] : 1975 Acct:[id number] Age/Sex: 49 / F ADM Date: 02/09/25 Loc: HO.CT Attending Dr: Thalia Guerra NP Ordering Physician: Thalia Guerra NP Date of Service: 02/09/25 Procedure(s): CT chest wo IV con Accession Number(s): [id number] cc: KARELY LOPEZ INSPECTOR OUTSIDE STEAM DISTRIBUTION; Thalia Guerra NP Report Number: [id number]: Total DLP = 238.00 mGy-cm EXAMINATION: CT CHEST WITHOUT IV CONTRAST INDICATION: R94.2 - Abnormal results of pulmonary function studies COMPARISON: Correlation is made with an AP portable view of the chest dated 04/12/2024. TECHNIQUE: Helical CT scan of the chest was performed without intravenous contrast. Coronal and sagittal reformatted images were generated and reviewed. This CT exam was performed with one or more of the following dose reduction techniques: automated exposure control, adjustment of the mA and/or kV according to patient size, use of iterative reconstruction technique. DLP: 238 mGy-cm CHEST: THYROID: The thyroid is unremarkable. LUNGS: Evaluation of the lungs is compromised by respiratory motion artifact. There are moderate emphysematous changes in the lower lung zones. There is scarring in the right lower lobe and mild bronchiectasis. No definite pulmonary nodules or airspace opacities are identified. MEDIASTINUM: There is no mediastinal lymphadenopathy. GAEL: Evaluation of the hilar regions is limited by lack of intravenous contrast material. CARDIOVASCULATURE: The heart is normal in size. There is no pericardial effusion. The thoracic aorta is normal in caliber. DEGREE OF CORONARY CALCIFICATION: none PLEURA: There is no pleural effusion. No pneumothorax. MAIN AIRWAYS: The mainstem bronchi and proximal branches are patent. AXILLA: There is no axillary lymphadenopathy. BONES AND SOFT TISSUES: Unremarkable UPPER ABDOMEN: The visualized portions of the liver, spleen, and adrenals have an unremarkable unenhanced appearance. CT/CT chest wo IV con IMPRESSION: 1. Limited examination due to respiratory motion artifact. Moderate emphysematous changes with right lower lobe scarring and mild bronchiectasis. 2. Because moderate emphysema is an independent risk factor for lung cancer, consider entering the patient into a program of yearly lung cancer screening with low dose chest CT. Electronically signed by: Joseph Clay MD 02/09/2025 08:32 AM EDT RP Dictated By: Joseph Clay MD Signed By: <Electronically signed by Joseph Clay MD in OV> 02/09/2532 DD/ 0745 TD/TT: 02/09/25 0801 Fuel Operator: Procedure Note Donotuseinterpreter, Image - 02/09/[address] [place] [address] [address] Scan Report Signed Patient: Mary Bourne#: [id number] : 1975Acct:[id number] Age/Sex: 49 / FADM Date: 02/09/25 Loc: HO.CT Attending Dr: Thalia Guerra INSPECTOR OUTSIDE STEAM DISTRIBUTION Ordering Physician: Thalia Guerra NP Date of Service: 02/09/25 Procedure(s): CT chest wo IV con Accession Number(s): [id number] cc: KARELY LOPEZ INSPECTOR OUTSIDE STEAM DISTRIBUTION; Thalia Guerra NP Report Number: [id number]: Total DLP = 238.00 mGy-cm EXAMINATION: CT CHEST WITHOUT IV CONTRAST INDICATION: R94.2 - Abnormal results of pulmonary function studies COMPARISON: Correlation is made with an AP portable view of the chest dated 04/12/2024. TECHNIQUE: Helical CT scan of the chest was performed without intravenous contrast. Coronal and sagittal reformatted images were generated and reviewed. This CT exam was performed with one or more of the following dose reduction techniques: automated exposure control, adjustment of the mA and/or kV according to patient size, use of iterative reconstruction technique. DLP: 238 mGy-cm CHEST: THYROID: The thyroid is unremarkable. LUNGS: Evaluation of the lungs is compromised by respiratory motion artifact. There are moderate emphysematous changes in the lower lung zones. There is scarring in the right lower lobe and mild bronchiectasis. No definite pulmonary nodules or airspace opacities are identified. MEDIASTINUM: There is no mediastinal lymphadenopathy. GAEL: Evaluation of the hilar regions is limited by lack of intravenous contrast material. CARDIOVASCULATURE: The heart is normal in size. There is no pericardial effusion. The thoracic aorta is normal in caliber. DEGREE OF CORONARY CALCIFICATION: none PLEURA: There is no pleural effusion. No pneumothorax. MAIN AIRWAYS: The mainstem bronchi and proximal branches are patent. AXILLA: There is no axillary lymphadenopathy. BONES AND SOFT TISSUES: Unremarkable UPPER ABDOMEN: The visualized portions of the liver, spleen, and adrenals have an unremarkable unenhanced appearance. CT/CT chest wo IV con IMPRESSION: 1. Limited examination due to respiratory motion artifact. Moderate emphysematous changes with right lower lobe scarring and mild bronchiectasis. 2. Because moderate emphysema is an independent risk factor for lung cancer, consider entering the patient into a program of yearly lung cancer screening with low dose chest CT. Electronically signed by: Joseph Clay MD 02/09/2025 08:32 AM EDT Dictated By: Joseph Clay MD Signed By: <Electronically signed by Joseph Clay MD in OV> 02/09/25 0832 DD/ 0745 TD/TT: 02/09/25 0801 Fuel Operator: [facility] External Provider IMG CT PROCEDURES Edited Result - Final * (ABNORMAL) Respiratory Allergy Profile Region I (01/23/2025 3:13 PM EDT) Mouse Urine Proteins (E72) IgE <0.10 kU/L [facility] Class 0 [facility] Cockroach (I6) IgE 0.71(A) kU/L [facility] Class 2 [facility] Dermatophagoides farinae (D2) IgE 0.62(A) kU/L [facility] Class 1 [facility] Cat Dander (E1) IgE <0.10 kU/L [facility] Class 0 [facility] Comment:THIS TEST WAS PERFOR MED AT:[employer] [address] [phone] TRUJILLO MD Dog Dander (E5) IgE <0.10 kU/L [facility] Class 0 [facility] Comment:THIS TEST WAS PERFOR MED AT:[employer] [address] [phone] TRUJILLO MD Jaya Grass (G6) IgE 1.00(A) kU/L [facility] Class 2 [facility] Cladosporium herbarum (M2) IgE <0.10 kU/L [facility] Class 0 [facility] Aspergillus Fumigatis (M3) IgE <0.10 kU/L [facility] Class 0 [facility] Alternaria alternata (M6) IgE <0.10 kU/L [facility] Class 0 [facility] Comment:THIS TEST WAS PERFOR MED AT:[facility] [employer] [address] [phone] TRUJILLO MD Mountain Palmetto (t6) IgE 0.60(A) kU/L [facility] Class 1 [facility] Will[place] (T7) IgE 1.01(A) kU/L [facility] Class 2 [facility] Fairburn Tree (T10) IgE 1.03(A) kU/L [facility] Class 2 [facility] La Rose (T11) IgE 1.22(A) kU/L [facility] Class 2 [facility] [place] (T14) IgE 1.00(A) kU/L [facility] Class 2 [facility] White Jair (t15) IgE 1.18(A) kU/L [facility] Class 2 [facility] White [place] (T70) IgE 0.54(A) kU/L [facility] Class 1 [facility] Common Ragweed (Short) (W1) IgE 0.90(A) kU/L [facility] Class 2 [facility] Mugwort (w6) IgE 0.77(A) kU/L [facility] Class 2 [facility] Dermatophagoides pteronyssinus (D1) IgE 1.99(A) kU/L [facility] Class 2 [facility] Bermuda Grass (g2) IgE 1.15(A) kU/L [facility] Class 2 [facility] Penicillium Notatum (M1) IgE <0.10 kU/L [facility] Class 0 [facility] Birch (T3) IgE 0.69(A) kU/L [facility] Class 1 [facility] Elm (t8) IgE 6.08(A) kU/L [facility] Class 3 [facility] Maple (Sutton) (T1) IgE 2.35(A) kU/L [facility] Class 2 [facility] Rough Pigweed (W14) IgE 0.68(A) kU/L [facility] Class 1 [facility] Sheep Aristes (W18) IgE 0.77(A) kU/L [facility] Class 2 [facility] Allergen Comment See Below [facility] Comment: Specific Level of AllergenIGE Class [...] and its analyticalperformance characteristics have been determined by[employer]. It has not been cleared or approvedby the U.S. Food and Drug Administration. This assayhas been validated pursuant to the CLIA regulationsand is used for clinical purposes.THIS TEST WAS PERFORMED AT:[facility] [place] [phone] TRUJILLO MD 01/23/2025 3:13 PM EDT 01/23/2025 5:50 PM EDT us Generic External Data Provider LAB BLOOD ORDERAB LES Final Result [facility] [address] [place] [phone] * (ABNORMAL) CBC auto differential (01/23/2025 3:13 PM EDT) Only the most recent of2 resultswithin the time period is included. White Blood Count 7.1 4.8 - 10.8 X10*3/uL [facility] Red Blood Count 4.34 4.20 - 5.50 X10*6/uL [facility] Hemoglobin 10.8(L) 12.0 - 16.0 g/dl [facility] Hematocrit 33.8(L) 37.0 - 47.0 % [facility] Mean Corpuscular Volume 77.9(L) 80.0 - 98.0 fL [facility] Mean Corpuscular Hemoglobin 24.9(L) 27.0 - 33.0 pg [facility] Mean Corpuscular HGB Conc 32.0 31.0 - 35.0 g/dl [facility] Red Cell Distribution Width 16.8(H) 11.0 - 16.0 % [facility] Platelet Count 312 160 - 400 X10*3/uL [facility] Mean Platelet Volume 10.9 9.4 - 12.3 fL [facility] Neutrophils Percent Auto 49.3 45 - 73 % [facility] Imm Gran Pct Auto 0.1 0.0 - 0.4 % [facility] Lymphocytes Percent Auto 37.6 20 - 40 % [facility] Monocytes Percent Auto 8.1 2 - 11 % [facility] Eosinophils Percent Auto 4.2(H) 0 - 4 % [facility] Basophils Percent Auto 0.7 0 - 2 % [facility] NRBC Pct Auto 0.0 0.0 - 0.2 /100WBC [facility] Neutrophils Absolute Auto 3.5 2.0 - 8.3 x10*3/uL [facility] Imm Gran Abs Auto 0.01 0.00 - 0.03 X10*3/uL [facility] Lymphocytes Absolute Auto 2.7 1.2 - 4.9 X10*3/uL [facility] Monocytes Absolute Auto 0.6 0.1 - 1.2 X10*3/uL [facility] Eosinophils Absolute Auto 0.3 0.0 - 0.4 X10*3/uL [facility] Basophils Absolute Auto 0.1 0.0 - 0.2 X10*3/uL [facility] NRBC Abs Auto 0.000 0.0 - 0.012 X10*3/uL [facility] 01/23/2025 3:13 PM EDT 01/23/2025 5:50 PM EDT us Generic External Data Provider LAB BLOOD ORDERAB LES Final Result [facility] [address] [place] [phone] * (ABNORMAL) Immunoglobulin E (01/23/2025 3:13 PM EDT) Only the most recent of2 resultswithin the time period is included. Immunoglobulin E 2395(A) <QM=426 kU/L [facility] Comment:THIS TEST WAS PERFOR MED AT:[facility] [place] [phone] TRUJILLO MD 01/23/2025 3:13 PM EDT 01/23/2025 5:50 PM EDT us Generic External Data Provider LAB BLOOD ORDERAB LES Final Result Performing Organization Address City/State/[facility] Co de Phone Number [facility] [address] [place] [phone] * XR Wrist 3+ Views Left (01/10/2025 10:40 AM EDT) Anatomical Region Laterality Modality Upper Extremities, Wrist Left Radiogr aphic Imaging 01/10/2025 10:4 0 AM EDT Narrative 01/10/2025 11:39 AM EDT [address] [address] XRay Report Signed Patient: Vilma Bourne MR#: [id number] : 1975 Acct:[id number] Age/Sex: 49 / F ADM Date: 01/10/25 Loc: HO.HHCX Attending Dr: Charlotte Lafleur MD Ordering Physician: Charlotte Salcido MD Date of Service: 01/10/25 Procedure(s): XR wrist LT min 3V Accession Number(s): [id number] cc: Charlotte Salcido MD EXAMINATION: XR WRIST, [...] 01/10/25 1136 DD/ 1040 TD/TT: 01/10/25 113 Fuel Operator: Procedure Note Donotjoelter, Image - 01/10/2025 [facility] [address] [place] [address] XRay Report Signed Patient: Vilma BourneMR#: [id number] : 1975Acct:[id number] Age/Sex: 49 / FADM Date: 01/10/25 Loc: HO.HHCX Attending Dr: Charlotte Lafleur MD Ordering Physician: Charlotte Salcido MD Date of Service: 01/10/25 Procedure(s): XR wrist LT min 3V Accession Number(s): [id number] cc: Charlotte Salcido MD EXAMINATION: XR WRIST, [...] 01/10/25 1136 DD/ 1040 TD/TT: 01/10/25 1132 Fuel Operator: us Charlotte Lafleur MD IMG XR PROCEDURES Fin al Result * Iron And Total Iron Binding Capacity (12/05/2024 11:14 AM EDT) Iron 51 30 - 160 mcg/dL [facility] Total Iron Binding Capacity 300 228 - 428 mcg/dL [facility] Percent Iron Saturation 17 15 - 50 % [facility] Unsaturated Iron Binding 249 ug/dL [facility] 12/05/2024 11:1 4 AM EDT 12/05/2024 12:56 PM EDT Karely Lopez ANP LAB BLOOD ORDERABLES Final Resul t Performing Organization Address [facility] de Phone Number [facility] [address] [place] [phone] * Ferritin (12/05/2024 11:14 AM EDT) Ferritin 20 10 - 250 ng/mL [facility] 12/05/2024 11:1 4 AM EDT 12/05/2024 12:56 PM EDT Karely Lopez ANP LAB BLOOD ORDERABLES Final Resul t Performing Organization Address [facility] de Phone Number [facility] [address] [place] [phone] * (ABNORMAL) Helicobacter pylori??Antigen, EIA, Stool (11/30/2024 4:00 PM EDT) H pylori Ag Stool SEE NOTE(A) [facility] Comment:HELICOBACTER PYLORI AG, EIA, STOOL Micro Number: [id number] Test Status: Final Specimen Source: Stool Specimen Quality: Adequate H.pylori Ag: Detected Reference Range: Not DetectedTHIS TEST WAS PERFORMED AT:[facility] [place] [phone] TRUJILLO MD Stool Rectal contents / Unknown 11/30/2024 4:00 PM EDT 12/01/2024 11:43 AM EDT us Karely Lopez ANP LAB BODY FLUIDS AND STOOLS ORDER KATHARINA Final Result Performing Organization Address [facility] Co de Phone Number [facility] [address] [place] [phone] * Lipid Panel, Standard (10/25/2024 10:46 AM EDT) Triglycerides 70 <150 mg/dL [facility] Comment:Desirable Triglyceri de: less than 150 mg/dLBorderline High Triglyceride 150-199 mg/dLHigh Triglyceride: 200-499 mg/dLVery High Triglyceride: greater than or equal to 5OO mg/dL Cholesterol 141 <200 mg/dL [facility] Comment:Desirable Cholestero l: less than 200 mg/dLBorderline High Cholesterol: 200-239 mg/dLHigh Cholesterol: greater than 239 mg/dL LDL Cholesterol Calculated 81 <100 mg/dL [facility] Comment:Desirable LDL: less than 100 mg/dLNear Optimal/Above Optimal LDL: 110- 129 mg/dLBorderline High LDL: 130-159 mg/dLHigh LDL: 160-189 mg/dLVery High LDL: greater than or equal to 190 mg/dL HDL Cholesterol 46 >40 mg/dL [facility] Comment:Desirable HDL: great er than 40 mg/dL Note: This HDL assay may give artificially low results in patients with liver disease. Blood Venous blood specimen / Unknown 10/25/2024 10:46 AM EDT 10/25/2024 1:26 PM EDT [facility] LAB BLOOD ORDERABLES Final Resul t [facility] [address] [place] [phone] * HPV DNA, Low/High Risk (07/21/2024 10:35 AM EST) HPV High Risk Negative Negative [facility] HPV Genotype 16 Negative Negative [facility] HPV Genotype 18 Negative Negative [facility] Comment:HPV testing performe d at [facility] (CLIA#[id number]), [address] [place] [address].Testing for HPV was performed using the [employer]system. The presence of HPV in the female [...] EST 07/24/2024 8:20 AM EST Karely Lopez [facility] LAB BLOOD ORDERABLES Final Resul t [facility] [address] [place] [phone] * Pap Smear (07/21/2024 10:35 AM EST) Swab Cervical swab / Unknown 07/21/2024 10:35 AM EST 07/24/2024 8:20 AM EST Narrative [facility] - 07/29/2024 10:03 AM EST ----- ------- Name: Vilma Bourne Age/Sex: 49/F : 1975 Unit#: [id number] Attend Dr: KARELY LOPEZ INSPECTOR OUTSIDE STEAM DISTRIBUTION Re07/21/24 Status: DEP [facility]ch[facility] ----- ------- SPEC : [id number] RECD: 07/24/24 STATUS: RAYOMND RODRIGUEZ NUM: [id number] ESTEBAN: 07/21/[address] [facility] [address]: KARELY LOPEZ INSPECTOR OUTSIDE STEAM DISTRIBUTION ENTERED: 07/24/24 SP TYPE: Pap Smr OTHR [...] 07/29/24 1003 ----- ------- END OF REPORT us Karely Lopez ANP LAB CYTOLOGY ORDERABLES Final Re sult [facility] [address] [place] [phone] * BI Mammogram Screening Tomosynthesis Bilateral (07/19/2024 11:30 AM EST) Anatomical Region Laterality Modality Breast Bilateral Mammography 07/19/2024 11:3 0 AM EST Narrative 07/25/2024 7:11 PM EST [address] [place] [address] Mammography Report Signed Patient: Vilma Bourne MR#: [id number] : 1975 Acct:[id number] Age/Sex: 49 / F ADM Date: 07/19/24 Loc: HO.MAMMO Attending Dr: Karely Lopez NP Ordering Physician: KARELY LOPEZ NP Results: 2Benign Fin dings Date of Service: 07/19/24 Follow Up: 1 Year From Orig inal Mammogram Procedure(s): MM tomosynthesis screening BI Accession Number(s): [id number] cc: KARELY LOPEZ NP EXAMINATION: MM SCREENING [...] 07/25/24 1908 DD/ 1130 TD/TT: 07/19/24 1140 Fuel Operator: Procedure Note Donotuseinterpreter, Image - 07/25/[address] [place] [address] Mammography Report Signed Patient: Vilma BourneMR#: [id number] : 1975Acct:[id number] Age/Sex: 49 / FADM Date: 07/19/24 Loc: HO.MAMMO Attending Dr: Karely Lopez INSPECTOR OUTSIDE STEAM DISTRIBUTION Ordering Physician: KARELY LOPEZ NPResults: 2Benign Khalif pelaez Date of Service: 07/19/24Follow Up: 1 Year From Orig inal Mammogram Procedure(s): MM tomosynthesis screening BI Accession Number(s): [id number] cc: KARELY LOPEZ NP EXAMINATION: MM SCREENING [...] 07/25/24 1908 DD/ 1130 TD/TT: 07/19/24 1140 Fuel Operator: Karely Lopez ANP IMG BI PROCEDURES Final Result * HEPATITIS C AB W/REFL TO HCV RNA, QN, PCR (07/08/2021 10:50 AM EST) HEPATITIS C ANTIBODY NON-REACT CELESTINO NON-REACT CELESTINO [facility] INDEX 0.04 <1.00 [facility] Comment: HCV antibody was non-reactive. There is no laboratory evidence of HCV infection. In most cases, no further action is required. However, if recent HCV exposure is suspected, a test for HCV RNA (test code 94778) is suggested. For additional information please refer to [email or web address] Author Hub/faq/UJE47y4 (This link is being provided for informational/ educational purposes only.) 07/08/2021 10:5 0 AM EST Karely Lopez ANP HISTORICAL/NON ORDERABLE LABS Fi nal Result Performing Organization Address [facility] Phone Number [facility] [address] * HIV 1/2 ANTIGEN/ANTIBODY,FOURTH GENERATION W/RFL [...] purpose. For additional information please refer to [email or web address] Author Hub/faq/PFZ581 (This link is being provided for informational/ educational purposes only.) The performance of this assay has not been clinically validated in patients less than 2 years old. 07/08/2021 10:5 0 AM EST us Karely Lopez ANP LAB BLOOD ORDERABLES Final Resul t Performing Organization Address [facility] Phone Number [facility] [address] from Last 3 Months or Most Recently Relevant to Health Maintenance [place] [address] [place] [address] [employer] [employer] STAND ADULT Care Teams Interdisciplinary Professor Relationship Specialty Start Date End Date Karely Lopez ANP [address] [place] [phone] PCP - General Family Medicine 01/30/21
--- OUTSIDE RECORDS SUMMARY | 2025-02-16 06:39 | XMS_ITS | Encounter Summary ---
Author Organization [facility] Address [address] [place] [address] 7 [place] [address] Care Team Providers Care Appliance Service Representative Name Role Phone Phyllis Day Primary Care Provider [phone] Reason for Visit * Reason Comments Med Refill Encounter Details Date Type Department Care Team (Late st Contact Info) Description 02/24/2023 Refill [facility] MEDICINE [address] [place] [address] Phyllis Day ANP [address] [place] [address] Mild persistent asthma with (acute) exacerbation Social [...] exacerbation documented in this encounter Care Teams Appliance Service Representative Relationship Specialty Start Date End Date Phyllis Day ANP [address] [place] [address] PCP - General Family Medicine 01/30/21 documented as of this encounter
--- OUTSIDE RECORDS SUMMARY | 2025-02-16 06:39 | XMS_ITS | Encounter Summary ---
Author Organization [facility] Address [address] [place] [address] 7 [place] [address] Care Team Providers Care Biomass Technician Name Role Phone Phyllis Day Primary Care Provider [phone] Reason for Visit * Reason Comments Med Change Request Encounter Details Date Type Department Care Team (Late st Contact Info) Description 10/24/2024 Refill [facility] MEDICINE [address] [place], [place] [phone] Phyllis Day ANP [address] [place], [place] [phone] Gastroesophageal reflux disease, unspecified whether esophagitis present [...] documented as of this encounter Care Teams Biomass Technician Relationship Specialty Start Date End Date Phyllis Day ANP [address] [place] [address] PCP - General Family Medicine 01/30/21 documented as of this encounter
== END 2025-02-16 06:37 | disposition home or self-care (01) ==
LOC: HO.HOSX 06:36
PROVIDERS: Visit Provider Physician Assistant
DX: M17.0 Bilateral primary osteoarthritis of knee (principal); Z79.899 Other long term (current) drug therapy
CPT/HCPCS: 20610; 73562; 99212; J1100; J2003

== ENCOUNTER 2025-02-16 08:13 | Outpatient (AMB) | payer MEDICAID, SELFPAY ==
--- NOTE | 2025-02-16 08:37 | MHC.OFFVIS ---
Intake Visit Reasons: OV-B/L knee pain f/u Intake Note: Vilma is a 50 year old [place] Creole speaking female who presents today for a follow up of bilateral knee OA. Patient reports she is doing very good, she has no knee pain at the moment. Patient did mentioned she has mild pain and discomfort when walking up stairs. Platen Drier Operator Required: Yes Platen Drier Operator Name: amelia [id number] Allergies Tetanus Vaccines and Toxoid Allergy (Verified 02/16/25 08:45) Unknown Medication List - Last Reconciled 02/16/25 by David Payan PA-C acetaminophen (Non-Aspirin Extra Strength) 1,000 mg (2 x 500 mg) PO Q8H PRN albuterol sulfate 90 mcg/actuation 2 puffs inhalation Q4-6H PRN albuterol sulfate 2.5 mg inhalation Q6H PRN amlodipine 5 mg PO DAILY fluticasone propion-salmeterol 230-21 mcg/actuation (Advair HFA) inhalation ibuprofen 600 mg PO Q6H PRN leg brace (Knee Support Brace) reaction knee brace XL/XXL, ledezma omeprazole 20 mg PO DAILY HPI HPI OV-B/L knee pain f/u: Details: 50-year-old female returns to the office today for bilateral knee pain. I saw her approximately 1 year ago for both knees and we treated her discomfort conservatively. She states she did have about a month of physical therapy but did not notice significant relief. She does have daily discomfort especially with going up and downstairs. No other treatment to date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 Calf is supple and nontender neurovascularly intact. Office Procedures AMB Joint Injection/Aspiration Joint Injection/Aspiration Primary Site: right knee Secondary Site: left knee Prep: site was prepped using aseptic technique, ethochloride spray was applied and injection warnings given Injected: 40 mg of, with 3 mL of, 1% plain lidocaine, 0.25% bupivacaine, in the joint and decadron Approach Used: anterolateral Procedure: The patient tolerated the procedure well and there was some relief with the local anesthesia Coding - Glenohumeral/Tronchanteric Bursa/Intraarticular Procedure code (CPT) selection complete Results Reviewed Results Reviewed: X-rays of both knees obtained in the office today show mild medial compartment arthritis with patellofemoral arthritis bilaterally. Assessment & Plan Assessment & Plan (1) Osteoarthritis of knees, bilateral: Code(s): M17.0 - Bilateral primary osteoarthritis of knee Category: Medical Plan: We discussed options today which includes physical therapy which she is hesitant to proceed with given she has tried in the past without significant relief. I did explain a steroid injection could help decrease her pain and inflammation making physical therapy more successful. She did consent to proceed with bilateral knee injections today which she tolerated well. I did place an order for physical therapy in case she would like to attend. If symptoms persist or worsen over the next 6-8 weeks she can contact our office otherwise follow up as needed. Orders: Orders XR Knee Al 3V Today M25.561 - Pain in right knee, M25.562 - Pain in left knee PT Evaluation and Treatment Today M17.0 - Bilateral primary osteoarthritis of knee Coding Level of Care Code Est Pt Level 3 (35281) Complex EM visit Add On G2211 Diagnoses Osteoarthritis of knees, bilateral M17.0 CPT Codes Coding - Joint 7: 96359 - Glenohumeral/Tronchanteric Bursa/Intraarticular ([id number])
== END 2025-02-16 09:12 | disposition home or self-care (01) ==
LOC: HO.HOS 08:13
PROVIDERS: PCP Nurse Practitioner Primary Care; Visit Provider Physician Assistant
DX: M17.0 Bilateral primary osteoarthritis of knee (principal)
CPT/HCPCS: 20610; 99213

== ENCOUNTER → 2025-02-16 08:28 | Outpatient (BNV) | payer MEDICAID, SELFPAY | PROVIDERS: Visit Provider Radiology Diagnostic Radiology | DX: M17.0 Bilateral primary osteoarthritis of knee (principal) | CPT/HCPCS: 73562 ==

== ENCOUNTER 2025-03-12 13:01 | Outpatient (REF) | payer MEDICAID, SELFPAY ==
--- NOTE | ~2025-03-12 | XR_ITS ---
EXAMINATION: XR WRIST, LEFT CLINICAL INFORMATION: M25.532 - Pain in left wrist COMPARISON: January 10, 2025 TECHNIQUE: PA, lateral, oblique, and scaphoid views of the left wrist. FINDINGS: No fracture is identified. There is no joint listhesis. There are no degenerative changes. XR/XR wrist LT w scaphoid IMPRESSION: Unremarkable left wrist. Electronically signed by: Nasim Lewis MD 03/12/2025 01:39 PM EDT
--- OUTSIDE RECORDS SUMMARY | 2025-03-12 14:30 | XMS_ITS | Encounter Summary ---
Author Organization [facility] Address [address] [facility] 7 [place] [address] Care Team Providers Care Ad Operations Coordinator Name Role Phone Karely Lopez Primary Care Provider [phone] Encounter Details Date Type Department Care Team ([facility] st Contact Info) Description 05/14/2023 Orders Only [facility] MEDICINE [address] [place], [place] [phone] Karely Lopez ANP [address] [place], [place] [phone] Acute pain of left knee (Primary Dx) [...] AM EST Narrative 05/19/2023 4:59 PM EST [address] [address] XRay Report Signed Patient: Vilma Bourne MR#: [id number] : 1975 Acct:[id number] Age/Sex: 48 / F ADM Date: 05/17/23 Loc: HO.HHCX Attending Dr: Karely Lopez GAMEROOM TECHNICIAN Ordering Physician: KARELY LOPEZ NP Date of Service: 05/17/23 Procedure(s): XR ankle LT min 3V Accession Number(s): [id number] cc: KARELY LOPEZ GAMEROOM TECHNICIAN Examination: Left and right ankles CLINICAL INFORMATION: [...] MD in OV> 05/19/231654 DD/ 1021 TD/TT: Rig Site Engineer: Procedure Note Donotuseinterpreter, Image - 05/19/[address] [address] XRay Report Signed Patient: Vilma BourneMR#: [id number] : 1975Acct:[id number] Age/Sex: 48 / FADM Date: 05/17/23 Loc: HO.HHCX Attending Dr: Karely Lopez NP Ordering Physician: KARELY LOPEZ NP Date of Service: 05/17/23 Procedure(s): XR ankle LT min 3V Accession Number(s): [id number] cc: KARELY LOPEZ GAMEROOM TECHNICIAN Examination: Left and right ankles CLINICAL INFORMATION: [...] MD in OV> 05/19/231654 DD/ 1021 TD/TT: Rig Site Engineer: Karely Lopez ANP IM XR PROCEDURES Final Result * XR Ankle 3+ Views Right (05/17/2023 10:21 AM EST) Anatomical Region Laterality Modality Lower Extremities, Ankle Right Radiogr aphic Imaging 05/17/2023 10:2 1 AM EST Narrative 05/19/2023 4:59 PM EST [address] XRay Report Signed Patient: Vilma Bourne MR#: [id number] : 1975 Acct:[id number] Age/Sex: 48 / F ADM Date: 05/17/23 Loc: [facility] Attending Dr: Karely Lopez GAMEROOM TECHNICIAN Ordering Physician: KARELY LOPEZ NP Date of Service: 05/17/23 Procedure(s): XR ankle RT min 3V Accession Number(s): [id number] cc: KARELY LOPEZ NP Examination: Left and [...] in OV> 05/19/23 1655 DD/ 1021 TD/TT: Rig Site Engineer: Procedure Note Donotuseinterpreter, Image - 05/19/[address] [address] XRay Report Signed Patient: Vilma BourneMR#: [id number] : 1975Acct:[id number] Age/Sex: 48 / FADM Date: 05/17/23 Loc: [facility] Attending Dr: Karely Lopez NP Ordering Physician: KARELY LOPEZ NP Date of Service: 05/17/23 Procedure(s): XR ankle RT min 3V Accession Number(s): [id number] cc: KARELY LOPEZ NP Examination: Left and [...] MD in OV> 05/19/231654 DD/ 1021 TD/TT: Rig Site Engineer: Karely Lopez ANP IMG XR PROCEDURES Final Result * XR Knee 1-2 Views Left (05/17/2023 10:21 AM EST) Anatomical Region Laterality Modality Lower Extremities, Knee Left Radiogra phic Imaging 05/17/2023 10:2 1 AM EST Narrative 05/19/2023 4:59 [place] [address] XRay Report Signed Patient: Vilma Bourne MR#: [id number] : 1975 Acct:[id number] Age/Sex: 48 / F ADM Date: 05/17/23 Loc: HO.HHCX Attending Dr: Karely Lopez NP Ordering Physician: KARELY LOPEZ NP Date of Service: 05/17/23 Procedure(s): XR knee LT 2V Accession Number(s): [id number] cc: KARELY LOPEZ NP EXAMINATION: XR KNEE, [...] MD in OV> 05/19/231654 DD/ 1021 TD/TT: Rig Site Engineer: Procedure Note Donotuseinterpreter, Image - 05/19/2023 [facility] [address] [place] [address] XRay Report Signed Patient: Vilma BourneMR#: [id number] : 1975Acct:[id number] Age/Sex: 48 / FADM Date: 05/17/23 Loc: HO.HHCX Attending Dr: Karely Lopez GAMEROOM TECHNICIAN Ordering Physician: KARELY LOPEZ NP Date of Service: 05/17/23 Procedure(s): XR knee LT 2V Accession Number(s): [id number] cc: KARELY LOPEZ GAMEROOM TECHNICIAN EXAMINATION: XR KNEE, LEFT CLINICAL INFORMATION: Pain COMPARISON: None available. TECHNIQUE: Four views of the left knee. FINDINGS: No fracture or joint effusion. Alignment is anatomic. Joint spaces are maintained. No abnormal soft tissue calcification. XR/XR knee LT 2V IMPRESSION: Normal left knee. Dictated By: Shahrzad Keenan MD Signed By: <Electronically signed by Shahrzad Keenan MD in OV> 05/19/23 1655 DD/ 1021 TD/TT: Rig Site Engineer: Karely Lopez ANP IMG XR PROCEDURES Final Result documented in this encounter Visit Diagnoses Diagnosis Acute pain of left knee- Primary documented in this encounter Additional Health Concerns Assessment Noted Time PHQ-9 Depression Total Score: 0 04/22/20 23 1:07 PM EST documented as of this encounter Care Teams Ad Operations Coordinator Relationship Specialty Start Date End Date Karely Lopez ANP [address] [place] [address] PCP - General Family Medicine 01/30/21 documented as of this encounter
--- OUTSIDE RECORDS SUMMARY | 2025-03-12 14:30 | XMS_ITS | Encounter Summary ---
Author Organization [facility] Address [address] [facility] 7 [place] [address] Care Team Providers Care Aligning Checker Name Role Phone Phyllis Day Primary Care Provider [phone] Encounter Details Date Type Department Care Team ([facility] st Contact Info) Description 01/10/2025 Results Follow-Up [facility] MEDICINE [address] [place] [address] Charlotte Salcido MD [address] [place] [address] XR Wrist 3+ Views Left Social History [...] documented as of this encounter Care Teams Aligning Checker Relationship Specialty Start Date End Date Phyllis Day ANP [address] [place] [address] PCP - General Family Medicine 01/30/21 documented as of this encounter
--- OUTSIDE RECORDS SUMMARY | 2025-03-12 14:30 | XMS_ITS | Encounter Summary ---
Author Organization [facility] Address [address] [place] [address] 7 [place] [address] Care Team Providers Care Compression Molding Machine Operator Name Role Phone Phyllis Day Primary Care Provider [phone] Reason for Visit * Reason Onset Date Comments Med Refill 12/22/2024 Encounter Details Date Type Department Care Team (Late st Contact Info) Description 12/22/2024 Refill [facility] MEDICINE [address] [place] [address] Phyllis Day ANP [address] [place], [place] [phone] Essential hypertension Social History Tobacco Use Types [...] documented as of this encounter Care Teams Compression Molding Machine Operator Relationship Specialty Start Date End Date Phyllis Day ANP [address] [place] [address] PCP - General Family Medicine 01/30/21 documented as of this encounter
--- OUTSIDE RECORDS SUMMARY | 2025-03-12 14:30 | XMS_ITS | Encounter Summary ---
Author Organization [facility] Address [address] [place] [address] 7 [place] [address] Care Team Providers Care Internet Cafe Manager Name Role Phone Phyllis Day Primary Care Provider [phone] Reason for Visit * Reason Comments Med Refill Encounter Details Date Type Department Care Team (Late st Contact Info) Description 12/02/2024 Refill [facility] MEDICINE [address] [place], [place] [phone] Phyllis Day ANP [address] [place], [place] [phone] Gastroesophageal reflux disease, unspecified whether esophagitis present [...] documented as of this encounter Care Teams Internet Cafe Manager Relationship Specialty Start Date End Date Phyllis Day ANP [address] [place] [address] PCP - General Family Medicine 01/30/21 documented as of this encounter
--- OUTSIDE RECORDS SUMMARY | 2025-03-12 14:30 | XMS_ITS | Clinical Summary ---
Author Organization [employer] Address [address] [place] [address] 7 [place] [address] Care Team Providers Care Slag Skimmer Name Role Phone Karely Lopez Primary Care Provider [phone] Allergies Active Allergy Reactions Criticality Noted Date [...] swallow. 12 g 11 5 026 Active Blood Pressure kitIndications:E ssential hypertension 1 [...] DAY 90 tablet 1 5 Active Umeclidinium [place] 62.5 MCG/ACT aerosol powderIndication s:Obstructive airway disease (HCC) Inhale 1 Act (62.5 mcg) Once per [...] oz of water. 120 capsule 5 Active cetirizine (ZyrTEC) 10 MG tabletIndication s:Non-seasonal allergic rhinitis, unspecified trigger TAKE 1 TABLET (10 MG) BY MOUTH ONCE PER DAY. NEEDED FOR ALLERGIES 90 tablet 5 025 Active Active Problems Problem [...] Encounters Date Type Department Care Team Description 03/12/2025 Orders Only [facility] External Provider, [facility] 01/23/2025 Orders Only GENERIC EXTERNAL DATA DEPARTMENT Provider, Generic External Data 01/22/2025 9:00 AM EDT Office Visit [facility] [address] [place] [address] Regular astigmatism of both eyes (Primary Dx) 01/20/2025 Refill [facility] [address] [place] [address] Karely Lopez ANP Non-seasonal allergic rhinitis, unspecified trigger 01/12/2025 Telephone [facility] [address] [place] [address] Karely Lopez ANP chart prep 01/10/2025 11:00 AM EDT Office Visit [facility] [address] [place] [address] Charlotte Salcido MD Left wrist pain 01/10/2025 Results Follow-Up [facility] [address] [place] [phone] Charlotte Salcido MD XR Wrist 3+ Views Left 01/10/2025 Travel 12/22/2024 Refill [facility] [address] [place] [address] Karely Lopez ANP Essential hypertension 12/13/2024 Travel 12/11/2024 Telephone [facility] [address] [place] [address] Karely Lopez ANP Nurse Triage 12/10/2024 Refill [facility] [address] [place] [address] Karely Lopez ANP Bacterial infection due to H. pylori from Last 3 Months Immunizations Immunization Administration [...] 04/01/2021 Dental X-Ray: Full Mouth 06/10/2025 06/09/2022, 1209/2017 Mammogram 07/19/2025 07/19/2024, 10/2024, 04/16/2023, Additional history [...] Priority Date/Time Associated Diagnosis Comments XR WRIST LT W SCAPHOID Routine 5 1:[address] CHEST WO CONTRAST Routine 02/09/2025 7:45 AM EDT IMMUNOGLOBULIN E Routine 01/23/2025 3:13 PM EDT RESPIRATORY ALLERGY PROFILE REGION I Routine 01/23/2025 3:13 PM EDT IMMUNOGLOBULIN E Routine 01/23/2025 3:13 PM EDT CBC WITH AUTO DIFFERENTIAL Routine 01/23/2025 3:13 PM EDT XR WRIST 3+ VIEWS LEFT Routine 10:40 AM EDT Left wrist pain LIPID PANEL, STANDARD Routine 10/25/2024 10:46 AM [...] Relevant to Health Maintenance Results * XR WRIST LT W SCAPHOID (03/12/2025 1:18 PM EDT) Anatomical Region Laterality Modality Upper Extremities, Wrist Left Radiogr aphic Imaging 03/12/2025 1:18 PM EDT Narrative 03/12/2025 1:42 PM EDT [facility] [address] [place] [address] XRay Report Signed Patient: Vilma Bourne MR#: [id number] : 1975 Acct:[id number] Age/Sex: 50 / F ADM Date: 03/12/25 Loc: DANA Attending Dr: Álvaro MAYNARD Ordering Physician: Álvaro Luciano Date of Service: 03/12/25 Procedure(s): XR wrist LT w scaphoid Accession Number(s): [id number] cc: Álvaro Luciano; KARELY LOPEZ NP Reason for Exam: M25.532 - Pain in left wrist EXAMINATION: XR WRIST, LEFT CLINICAL INFORMATION: M25.532 - Pain in left wrist COMPARISON: January 10, 2025 TECHNIQUE: PA, lateral, oblique, and scaphoid views of the left wrist. FINDINGS: No fracture is identified. There is no joint listhesis. There are no degenerative changes. XR/XR wrist LT w scaphoid IMPRESSION: Unremarkable left wrist. Electronically signed by: Nasim Lewis MD 03/12/2025 01:39 PM EDT Dictated By: Nasim Lewis MD Signed By: <Electronically signed by Nasim Lewis MD in OV> 03/12/25 1339 DD/ 1318 TD/TT: 03/12/25 1322 Machine Lay Out Worker: Procedure Note Donotuseinterpreter, Image - 03/12/2025 [facility] [address] [place] [address] XRay Report Signed Patient: Vilma BourneMR#: [id number] : 1975Acct:[id number] Age/Sex: 50 / FADM Date: 03/12/25 Loc: DANA Attending Dr: Álvaro MAYNARD Ordering Physician: Álvaro Luciano Date of Service: 03/12/25 Procedure(s): XR wrist LT w scaphoid Accession Number(s): [id number] cc: Álvaro Luciano; KARELY LOPEZ NP Reason for Exam: M25.532 - Pain in left wrist EXAMINATION: XR WRIST, LEFT CLINICAL INFORMATION: M25.532 - Pain in left wrist COMPARISON: January 10, 2025 TECHNIQUE: PA, lateral, oblique, and scaphoid views of the left wrist. FINDINGS: No fracture is identified. There is no joint listhesis. There are no degenerative changes. XR/XR wrist LT w scaphoid IMPRESSION: Unremarkable left wrist. Electronically signed by: Nasim Lewis MD 03/12/2025 01:39 PM EDT Dictated By: Nasim Lewis MD Signed By: <Electronically signed by Nasim Lewis MD in OV> 03/12/25 1339 DD/ 1318 TD/TT: 03/12/25 1322 Machine Lay Out Worker: [facility] External Provider IMG XR PROCEDURES Final Result * CT Chest w/o Contrast (02/09/2025 7:45 AM EDT) Anatomical Region Laterality Modality Body, Chest Computed Tomogra phy 02/09/2025 7:45 AM EDT Narrative 02/09/2025 8:34 AM EDT [place] [address] CT Scan Report Signed Patient: Vilma Bourne MR#: [id number] : 1975 Acct:[id number] Age/Sex: 49 / F ADM Date: 02/09/25 Loc: HO.CT Attending Dr: Thalia Guerra NP Ordering Physician: Thalia Guerra NP Date of Service: 02/09/25 Procedure(s): CT chest wo IV con Accession Number(s): [id number] cc: KARELY LOPEZ NP; Thalia Guerra NP Report Number: [id number]: Total DLP = 238.00 mGy-cm EXAMINATION: CT [...] 02/09/25 0832 DD/ 0745 TD/TT: 02/09/25 0801 Machine Lay Out Worker: Procedure Note Donotuseinterpreter, Image - 02/09/[address] [address] [address] Scan Report Signed Patient: Mary Bourne#: [id number] : 1975Acct:[id number] Age/Sex: 49 / FADM Date: 02/09/25 Loc: HO.CT Attending Dr: Thalia Guerra NP Ordering Physician: Thalia Guerra NP Date of Service: 02/09/25 Procedure(s): CT chest wo IV con Accession Number(s): [id number] cc: KARELY LOPEZ MANTEL CRAFTSMAN; Thalia Guerra NP Report Number: [id number]: Total DLP = 238.00 mGy-cm EXAMINATION: CT [...] OV> 02/09/2532 DD/ 0745 TD/TT: 02/09/25 0801 Machine Lay Out Worker: [facility] External Provider IMG CT PROCEDURES Edited Result - Final * (ABNORMAL) Respiratory Allergy Profile Region I (01/23/2025 3:13 PM EDT) Mouse Urine Proteins (E72) IgE <0.10 kU/L [facility] Class 0 [facility] Cockroach (I6) IgE 0.71(A) kU/L [facility] Class 2 [facility] Dermatophagoides farinae (D2) IgE 0.62(A) kU/L [facility] Class 1 [facility] Cat Dander (E1) IgE <0.10 kU/L [facility] Class 0 [facility] Comment:THIS TEST WAS PERFOR MED AT:[facility] [address] [place] [address]ERPKXLUCILLE TRUJILLO MD Dog Dander (E5) IgE <0.10 kU/L [facility] Class 0 [facility] Comment:THIS TEST WAS PERFOR MED AT:[facility] [address] [place] [address]ZXIPJLUCILLE TRUJILLO MD Jaya Grass (G6) IgE 1.00(A) kU/L [facility] Class 2 [facility] Cladosporium herbarum (M2) IgE <0.10 kU/L [facility] Class 0 [facility] Aspergillus Fumigatis (M3) IgE <0.10 kU/L [facility] Class 0 [facility] Alternaria alternata (M6) IgE <0.10 kU/L [facility] Class 0 [facility] Comment:THIS TEST WAS PERFOR MED AT:[facility] [place] [phone] TRUJILLO MD [place] (t6) IgE 0.60(A) kU/L [facility] Class 1 [facility] [place] (T7) IgE 1.01(A) kU/L [facility] Class 2 [facility] [place] Tree (T10) IgE 1.03(A) kU/L [facility] Class 2 [facility] [place] (T11) IgE 1.22(A) kU/L [facility] Class 2 [facility] [place] (T14) IgE 1.00(A) kU/L [facility] Class 2 [facility] White Jair (t15) IgE 1.18(A) kU/L [facility] Class 2 [facility] [place] (T70) IgE 0.54(A) kU/L [facility] Class 1 [facility] Common Ragweed (Short) (W1) IgE 0.90(A) kU/L [facility] Class 2 [facility] Mugwort (w6) IgE 0.77(A) kU/L [facility] Class 2 [facility] Dermatophagoides pteronyssinus (D1) IgE 1.99(A) kU/L [facility] Class 2 [facility] B[place] Grass (g2) IgE 1.15(A) kU/L [facility] Class 2 [facility] Penicillium Notatum (M1) IgE <0.10 kU/L [facility] Class 0 [facility] Birch (T3) IgE 0.69(A) kU/L [facility] Class 1 [facility] Elm (t8) IgE 6.08(A) kU/L [facility] Class 3 [facility] Maple ([place]) (T1) IgE 2.35(A) kU/L [facility] Class 2 [facility] Rough Pigweed (W14) IgE 0.68(A) kU/L [facility] Class 1 [facility] Sheep [employer] (W18) IgE 0.77(A) kU/L [facility] Class 2 [facility] Allergen Comment See Below [facility] Comment: Specific Level of AllergenIGE Class [...] and its analyticalperformance characteristics have been determined by[employer]. It has not been cleared or approvedby the U.S. Food and Drug Administration. This assayhas been validated pursuant to the CLIA regulationsand is used for clinical purposes.THIS TEST WAS PERFORMED AT:[facility] [place] [phone] TRUJILLO MD 01/23/2025 3:13 PM EDT 01/23/2025 5:50 PM EDT us Generic External Data Provider LAB BLOOD ORDERAB LES Final Result [facility] [address] [place] [address] [phone] * (ABNORMAL) CBC auto differential (01/23/2025 3:13 PM EDT) White Blood Count 7.1 4.8 - 10.8 X10*3/uL [facility] Red Blood Count 4.34 4.20 - 5.50 X10*6/uL [facility] Hemoglobin 10.8(L) 12.0 - 16.0 g/dl [facility] Hematocrit 33.8(L) 37.0 - 47.0 % [facility] Mean Corpuscular Volume 77.9(L) 80.0 - 98.0 fL [facility] Mean Corpuscular Hemoglobin 24.9(L) 27.0 - 33.0 pg [facility] Mean Corpuscular HGB Conc 32.0 31.0 - 35.0 g/dl [facility] Red Cell Distribution Width 16.8(H) 11.0 - 16.0 % [facility] Platelet Count 312 160 - 400 X10*3/uL [facility] Mean Platelet Volume 10.9 9.4 - 12.3 fL [facility] Neutrophils Percent Auto 49.3 45 - 73 % [facility] Imm Gran Pct Auto 0.1 0.0 - 0.4 % [facility] Lymphocytes Percent Auto 37.6 20 - 40 % [facility] Monocytes Percent Auto 8.1 2 - 11 % [facility] Eosinophils Percent Auto 4.2(H) 0 - 4 % [facility] Basophils Percent Auto 0.7 0 - 2 % [facility] NRBC Pct Auto 0.0 0.0 - 0.2 /100WBC [facility] Neutrophils Absolute Auto 3.5 2.0 - 8.3 x10*3/uL [facility] Imm Gran Abs Auto 0.01 0.00 - 0.03 X10*3/uL [facility] Lymphocytes Absolute Auto 2.7 1.2 - 4.9 X10*3/uL [facility] Monocytes Absolute Auto 0.6 0.1 - 1.2 X10*3/uL [facility] Eosinophils Absolute Auto 0.3 0.0 - 0.4 X10*3/uL [facility] Basophils Absolute Auto 0.1 0.0 - 0.2 X10*3/uL [facility] NRBC Abs Auto 0.000 0.0 - 0.012 X10*3/uL [facility] 01/23/2025 3:13 PM EDT 01/23/2025 5:50 PM EDT us Generic External Data Provider LAB BLOOD ORDERAB LES Final Result Performing Organization Address [facility] de Phone Number [facility] [address] [place] [phone] * (ABNORMAL) Immunoglobulin E (01/23/2025 3:13 PM EDT) Only the most recent of2 resultswithin the time period is included. Immunoglobulin E 2395(A) <NS=350 kU/L [facility] Comment:THIS TEST WAS PERFOR MED AT:[facility] [address] [phone] TRUJILLO MD 01/23/2025 3:13 PM EDT 01/23/2025 5:50 PM EDT Generic External Data Provider LAB BLOOD ORDERAB LES Final Result Performing Organization Address [facility] Co de Phone Number [facility] [address] [place] [phone] * XR Wrist 3+ Views Left (01/10/2025 10:40 AM EDT) Anatomical Region Laterality Modality Upper Extremities, Wrist Left Radiogr aphic Imaging 01/10/2025 10:4 0 AM EDT Narrative 01/10/2025 11:39 AM EDT [facility] [address] [place] [address] XRay Report Signed Patient: Vilma Bourne MR#: [id number] : 1975 Acct:[id number] Age/Sex: 49 / F ADM Date: 01/10/25 Loc: HO.HHCX Attending Dr: Charlotte Lafleur MD Ordering Physician: Charlotte Salcido MD Date of Service: 01/10/25 Procedure(s): XR wrist LT min 3V Accession Number(s): [id number] cc: Charlotte Salcido MD EXAMINATION: XR WRIST, [...] 01/10/25 1136 DD/ 1040 TD/TT: 01/10/25 1132 Machine Lay Out Worker: Procedure Note Donotuseinterpreter, Image - 01/10/2025 [place] [address] XRay Report Signed Patient: Vilma BourneMR#: [id number] : 1975Acct:[id number] Age/Sex: 49 / FADM Date: 01/10/25 Loc: HO.HHCX Attending Dr: Charlotte Lafleur MD Ordering Physician: Charlotte Salcido MD Date of Service: 01/10/25 Procedure(s): XR wrist LT min 3V Accession Number(s): [id number] cc: Charlotte Salcido MD EXAMINATION: XR WRIST, [...] 01/10/25 1136 DD/ 1040 TD/TT: 01/10/25 1132 Machine Lay Out Worker: Charlotte Lafleur MD IMG XR PROCEDURES Fin al Result * Lipid Panel, Standard (10/25/2024 10:46 AM EDT) Triglycerides 70 <150 mg/dL [facility] Comment:Desirable Triglyceri de: less than 150 mg/dLBorderline High Triglyceride 150-199 mg/dLHigh Triglyceride: 200-499 mg/dLVery High Triglyceride: greater than or equal to 5OO mg/dL Cholesterol 141 <200 mg/dL [facility] Comment:Desirable Cholestero l: less than 200 mg/dLBorderline High Cholesterol: 200-239 mg/dLHigh Cholesterol: greater than 239 mg/dL LDL Cholesterol Calculated 81 <100 mg/dL [facility] Comment:Desirable LDL: less than 100 mg/dLNear Optimal/Above Optimal LDL: 110- 129 mg/dLBorderline High LDL: 130-159 mg/dLHigh LDL: 160-189 mg/dLVery High LDL: greater than or equal to 190 mg/dL HDL Cholesterol 46 >40 mg/dL [facility] Comment:Desirable HDL: great er than 40 mg/dL Note: This HDL assay may give artificially low results in patients with liver disease. Blood Venous blood specimen / Unknown 10/25/2024 10:46 AM EDT 10/25/2024 1:26 PM EDT Karely Lopez ANP LAB BLOOD ORDERABLES Final Resul t Performing Organization Address [facility] Co de Phone Number [facility] [address] [place] [phone] * HPV DNA, Low/High Risk (07/21/2024 10:35 AM EST) HPV High Risk Negative Negative [facility] HPV Genotype 16 Negative Negative [facility] HPV Genotype 18 Negative Negative [facility] Comment:HPV testing performe d at [facility] (CLIA#[id number]), [address] [place] [address].Testing for HPV was performed using the [employer]system. The presence of HPV in the female [...] 07/24/2024 8:20 AM EST us Karely Lopez [facility] LAB BLOOD ORDERABLES Final Resul t Performing Organization Address [facility] Co de Phone Number [facility] [address] [place] [phone] * Pap Smear (07/21/2024 10:35 AM EST) Swab Cervical swab / Unknown 07/21/2024 10:35 AM EST 07/24/2024 8:20 AM EST Narrative [facility] - 07/29/2024 10:03 AM EST ----- ------- Name: Vilma Bourne Age/Sex: 49/F : 1975 Unit#: [id number] Attend Dr: KARELY LOPEZ NP Re07/21/24 Status: [facility] REF Location: [facility] Disch: ----- ------- SPEC : [id number] RECD: 07/24/24 STATUS: RAYMOND RODRIGUEZ NUM: [id number] ESTEBAN: 07/21/24-[address] [facility] [address]: KARELY LOPEZ NP ENTERED: 07/24/24 SP TYPE: Pap Smr OTHR : ORDERED: Pap Smear Interpretation Satisfactory for [...] ANP LAB CYTOLOGY ORDERABLES Final Re sult [facility] [address] [place] [phone] * BI Mammogram Screening Tomosynthesis Bilateral (07/19/2024 11:30 AM EST) Anatomical Region Laterality Modality Breast Bilateral Mammography 07/19/2024 11:3 0 AM EST Narrative 07/25/2024 7:11 PM EST [facility] [address] [place] [address] Mammography Report Signed Patient: Vilma Bourne MR#: [id number] : 1975 Acct:[id number] Age/Sex: 49 / F ADM Date: 07/19/24 Loc: MAMMO Attending Dr: Karely Lopez NP Ordering Physician: KARELY LOPEZ NP Results: 2Benign Khalif pelaez Date of Service: 07/19/24 Follow Up: 1 Year From Orig ina Mammogram Procedure(s): MM tomosynthesis screening BI Accession Number(s): [id number] cc: KARELY LOPEZ NP EXAMINATION: MM SCREENING [...] by: Renay Sosa DO 07/25/2024 07:08 PM [facility] Dictated By: Renay Sosa DO Signed By: <Electronically signed by Renay Sosa DO in OV> 07/25/24 1908 DD/ 1130 TD/TT: 07/19/24 1140 Machine Lay Out Worker: Procedure Note Donotuseinterpreter, Image - 07/25/2024 [facility] [address] [place] [address] Mammography Report Signed Patient: Vilma BourneMR#: [id number] : 1975Acct:[id number] Age/Sex: 49 / FADM Date: 07/19/24 Loc: HO.MAMMO Attending Dr: Karely Lopez NP Ordering Physician: KARELY LOPEZ NPResults: 2Beninicole pelaez Date of Service: 07/19/24Follow Up: 1 Year From Orig ina Mammogram Procedure(s): MM tomosynthesis screening BI Accession Number(s): [id number] cc: KARELY LOPEZ NP EXAMINATION: MM SCREENING [...] DO Signed By: <Electronically signed by Renay oSsa DO in OV> 07/25/24 1908 DD/ 1130 TD/TT: 07/19/24 1140 Machine Lay Out Worker: us Karely Lopez ANP IMG BI PROCEDURES Final Result * HEPATITIS C AB W/REFL TO HCV RNA, QN, PCR (07/08/2021 10:50 AM EST) HEPATITIS C ANTIBODY NON-REACT CELESTINO NON-REACT CELESTINO [facility] INDEX 0.04 <1.00 [facility] Comment: HCV antibody was non-reactive. There is no laboratory evidence of HCV infection. In most cases, no further action is required. However, if recent HCV exposure is suspected, a test for HCV RNA (test code 76942) is suggested. For additional information please refer to http://education.Just Between Friends.GoingOn/faq/PVY52k7 (This link is being provided for informational/ educational purposes only.) 07/08/2021 10:5 0 AM EST us Karely Lopez ANP HISTORICAL/NON ORDERABLE LABS Fi nal Result [facility] [address] * HIV 1/2 ANTIGEN/ANTIBODY,FOURTH GENERATION W/RFL (07/08/2021 10:50 AM EST) HIV-1/2 ANTIGEN AND ANTIBODIES, 4TH GENERATION W/ REFLEX NON-REACT CELESTINO NON-REACT CELESTINO [facility] Comment: HIV-1 antigen and [...] purpose. For additional information please refer to http://education.[employer]/faq/GAL125 (This link is being provided for informational/ educational purposes only.) The performance of this assay has not been clinically validated in patients less than 2 years old. 07/08/2021 10:5 0 AM EST us Karely [facility] LAB BLOOD ORDERABLES Final Resul t [facility] [address] from Last 3 Months or Most Recently Relevant to Health Maintenance Insurance [facility] C3 DENTAL-[facility] MEDICAID STAND ADULT Care Teams Slag Skimmer Relationship Specialty Start Date End Date Karely Lopez ANP [address] [place] [phone] PCP - General Family Medicine 01/30/21
--- OUTSIDE RECORDS SUMMARY | 2025-03-12 14:30 | XMS_ITS | Encounter Summary ---
Author Organization [employer] Address [address] [facility] 7 [place] [address] Care Team Providers Care Configuration Technician Name Role Phone Karely Lopez Primary Care Provider [phone] Encounter Details Date Type Department Care Team (Late st Contact Info) Description 03/12/2025 Orders Only [facility] External Provider, [facility] Social History Tobacco Use Types Packs/Day [...] Comments XR WRIST LT W SCAPHOID Routine 03/12/2025 1:18 PM EDT documented in this encounter Results * XR WRIST LT W SCAPHOID (03/12/2025 1:18 PM EDT) Anatomical Region Laterality Modality Upper Extremities, Wrist Left Radiogr aphic Imaging 03/12/2025 1:18 PM EDT Narrative 03/12/2025 1:42 PM EDT [facility] [address] [place] [address] [place] [address] XRay Report Signed Patient: Vilma Bourne MR#: [id number] : 1975 Acct:[id number] Age/Sex: 50 / F ADM Date: 03/12/25 Loc: HO.HOSX Attending Dr: Álvaro MAYNARD Ordering Physician: Álvaro Luciano Date of Service: 03/12/25 Procedure(s): XR wrist LT w scaphoid Accession Number(s): [id number] cc: Álvaro Luciano; KARELY LOPEZ NP Reason [...] Nasim Lewis MD 03/12/2025 01:39 PM EDT RP Dictated By: Nasim Lewis MD Signed By: <Electronically signed by Nasim Lewis MD in OV> 03/12/25 1339 DD/ 1318 TD/TT: 03/12/25 1322 Protection Manager: Procedure Note Donotuseinterpreter, Image - 03/12/2025 [facility] [address] [place] [address] [place] [address] XRay Report Signed Patient: Vilma BourneMR#: [id number] : 1975Acct:[id number] Age/Sex: 50 / FADM Date: 03/12/25 Loc: HO.HOSX Attending Dr: Álvaro MAYNARD Ordering Physician: Álvaro Luciano Date of Service: 03/12/25 Procedure(s): XR wrist LT w scaphoid Accession Number(s): [id number] cc: Álvaro Luciano; KARELY LOPEZ NP Reason [...] Nasim Lewis MD 03/12/2025 01:39 PM EDT RP Dictated By: Nasim Lewis MD Signed By: <Electronically signed by Nasim Lewis MD in OV> 03/12/25 1339 DD/ 1318 TD/TT: 03/12/25 1322 Protection Manager: [facility] External Provider IMG XR PROCEDURES Final Result documented in this encounter Visit Diagnoses Not on filedocumented in this encounter Additional Health Concerns Assessment Noted Time PHQ-9 Depression Total Score: 0 04/22/20 23 1:07 PM EST documented as of this encounter Care Teams Configuration Technician Relationship Specialty Start Date End Date Karely Lopez ANP [address] [place] [address] PCP - General Family Medicine 01/30/21 documented as of this encounter
--- OUTSIDE RECORDS SUMMARY | 2025-03-12 14:30 | XMS_ITS | Encounter Summary ---
Author Organization [employer] Address [address] [place] [address] 7 [place] [address] Care Team Providers Care Billing Clerk Name Role Phone Phyllis Day Primary Care Provider Reason for Visit * Reason Comments Med Refill Encounter Details Date Type Department Care Team (Late st Contact Info) Description 02/24/[address] [facility] [address] [place] [address] Phyllis Day ANP [address] [place] [address] Mild persistent asthma with (acute) exacerbation Social [...] exacerbation documented in this encounter Care Teams Billing Clerk Relationship Specialty Start Date End Date Phyllis Day ANP [address] [place] [address] PCP - General Family Medicine 01/30/21 documented as of this encounter
--- OUTSIDE RECORDS SUMMARY | 2025-03-12 14:30 | XMS_ITS | Encounter Summary ---
Author Organization [employer] Address [address] [place] [address] 7 [place] [address] Care Team Providers Care Probation Manager Name Role Phone Phyllis Day Primary Care Provider Encounter Details Date Type Department Care Team (Late st Contact Info) Description 12/30/2022 Orders Only [facility] [address] [place] [address] Hanna Aranda LPN Social History Tobacco Use [...] on filedocumented in this encounter Care Teams Probation Manager Relationship Specialty Start Date End Date Phyllis Day ANP [address] [place] [address] PCP - General Family Medicine 01/30/21 documented as of this encounter
--- OUTSIDE RECORDS SUMMARY | 2025-03-12 14:30 | XMS_ITS | Encounter Summary ---
Author Organization [employer] Address [address] [place] [address] 7 [place] [address] Care Team Providers Care Shactor Helper Name Role Phone Phyllis Day Primary Care Provider [phone] Reason for Visit * Reason Comments Med Change Request Encounter Details Date Type Department Care Team (Late st Contact Info) Description 10/24/2024 Refill [facility] [address] [place], [place] [phone] Phyllis Day ANP [address] [place], [place] [phone] Gastroesophageal reflux disease, unspecified whether esophagitis present [...] documented as of this encounter Care Teams Shactor Helper Relationship Specialty Start Date End Date Phyllis Day ANP [address] [place] [address] PCP - General Family Medicine 01/30/21 documented as of this encounter
== END 2025-03-12 13:02 | disposition home or self-care (01) ==
LOC: HO.HOSX 13:01
PROVIDERS: PCP Nurse Practitioner Primary Care
DX: S52.612A Displaced fracture of left ulna styloid process, initial encounter for closed fracture (principal); M77.8 Other enthesopathies, not elsewhere classified; W01.0XXA Fall on same level from slipping, tripping and stumbling without subsequent striking against object, initial encounter; Y92.007 Garden or yard of unspecified non-institutional (private) residence as the place of occurrence of the external cause
CPT/HCPCS: 73110; 99212

== ENCOUNTER 2025-03-12 13:01 | Outpatient (AMB) | payer MEDICAID, SELFPAY ==
[2025-03-12 13:22] VITALS: BMI 38.3
--- NOTE | 2025-03-12 13:22 | A.OFFVIS_ITS ---
Vital Signs 03/12/25 13:22 Height 5 ft 5 in Weight 230 lb BMI 38.3 Intake Visit Reasons: New prob-Lt wrist injury, DOI: 01/09/25 Intake Note: Vilma is a 50 year old right hand dominant female who presents today for a New Problem visit complaining of Left Wrist Pain. Per [facility] referral, on 01/09/25 patient tripped on a brick while in her garden, falling on to her left wrist. Patient complains of pain on the ulnar aspect of the wrist, with cracking noises. She denies numbness, tingling, or finger locking and catching. She is currently taking Ibuprofen with some relief. She also complains of left shoulder pain from the same fall. She denies previous injuries to the left hand. Office Nurse Practitioner Required: Yes Office Nurse Practitioner Language: Marie Carmichael Office Nurse Practitioner Name: [id number] Information Interpreted: clinical only Allergies Tetanus Vaccines and Toxoid Allergy (Verified 03/12/25 13:22) Unknown HPI HPI New prob-Lt wrist injury, DOI: 01/09/25: Details: Vilma is a 50 year old right hand dominant female who presents today for a New Problem visit complaining of Left Wrist Pain. Per [facility] referral, on 01/09/25 patient tripped on a brick while in her garden, falling on to her left wrist. Patient complains of pain on the ulnar aspect of the wrist, with cracking noises. She denies numbness, tingling, or finger locking and catching. She is currently taking Ibuprofen with some relief. She also complains of left shoulder pain from the same fall. She denies previous injuries to the left hand. 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 Neuro: Normal sensation of the tips of all digits of the left hand at this time Vascular: Cap refill brisk Pain: tenderness to palpation of the left ulnar styloid pain with passive hyperflexion and resisted extension of the left wrist over the ulna and ulnar styloid ROM: patient is able to make a closed fist and extend all digits of the left hand fully Range of motion of the left wrist full and intact, but painful over the ulnar aspect There is no snapping of the ECU tendon over the ulnar styloid with range of motion of the left wrist Skin: No lacerations or abrasions. General: No ecchymosis, erythema, or evidence of infection. Psych: Appears grossly normal Affect normal Attitude cooperative Office Procedures AMB Fracture Care Fracture Billing Code: Fracture Billing Code Results Reviewed Results Reviewed: X-rays obtained in the office today and independently reviewed by me, Álvaro Luciano PA-C, demonstrate small area of lucency in the ulnar styloid concerning for nondisplaced ulnar styloid fracture, however this is of indeterminate age as there is no acute injury. Assessment & Plan Assessment & Plan (1) Extensor carpi ulnaris tendinitis: Code(s): M77.8 - Other enthesopathies, not elsewhere classified Category: Medical (2) Fracture of ulnar styloid: Code(s): S52.613A - Displaced fracture of unspecified ulna styloid process, initial encounter for closed fracture Category: Medical Plan 1. Nondisplaced fracture of left ulnar styloid 2. ECU tendinitis Patient is educated about these conditions Patient is educated about the treatment options available At this time, due to this being a nonacute fracture, there is no casting or permanent immobilization indicated Patient is provided with a Velcro wrist splint to wear with daytime activities and when her wrist is particularly bothering her Patient is also referred to OT to work on gentle range of motion and strengthening of the left wrist in the setting of ECU tendinitis and a nondisplaced ulnar styloid fracture No heavy lifting, 5 lb weight limit Patient understands this is amenable to this plan Follow-up in 6 weeks with repeat x-rays for reassessment, sooner with any acute concerns Orders: Orders XR wrist LT w scaphoid 03/12/25 M25.532 - Pain in left wrist OT Evaluation and Treatment 09/29/25 M77.8 - Other enthesopathies, not elsewhere classified, S52.613A - Displaced fracture of unspecified ulna styloid process, initial encounter for closed fracture Coding Level of Care Code New Pt Level 3 (37281) Diagnoses Extensor carpi ulnaris tendinitis M77.8 Fracture of ulnar styloid S52.613A CPT Codes Fracture Care - Fracture Billing Code: Fracture Billing Code ([id number])
== END 2025-03-12 14:01 | disposition home or self-care (01) ==
LOC: HO.HOS 13:01
PROVIDERS: PCP Nurse Practitioner Primary Care
DX: M77.8 Other enthesopathies, not elsewhere classified (principal); S52.613A Displaced fracture of unspecified ulna styloid process, initial encounter for closed fracture
CPT/HCPCS: 99213

== ENCOUNTER → 2025-03-12 13:18 | Outpatient (BNV) | payer MEDICAID, SELFPAY | PROVIDERS: PCP Nurse Practitioner Primary Care; Visit Provider Radiology Diagnostic Radiology | DX: M25.532 Pain in left wrist (principal) | CPT/HCPCS: 73110 ==

== ENCOUNTER 2025-03-16 14:35 | Outpatient (AMB) | payer MEDICAID, SELFPAY ==
--- OUTSIDE RECORDS SUMMARY | 2025-03-16 14:37 | XMS_ITS | Encounter Summary ---
Author Organization [employer] Address [address] [facility] 7 [place] [address] Care Team Providers Care Soft Mud Molder Name Role Phone Karely Lopez Primary Care Provider [phone] Encounter Details Date Type Department Care Team (Late st Contact Info) Description 03/12/2025 Orders Only [facility] External Provider, [facility] Social History Tobacco Use Types Packs/Day Years [...] PM EDT Narrative 03/12/2025 1:42 PM EDT [facility] [address] [place] [address] [place] [address] XRay Report Signed Patient: Vilma Bourne MR#: [id number] : 1975 Acct:[id number] Age/Sex: 50 / F ADM Date: 03/12/25 Loc: HO.HOSX Attending Dr: Álvaro MAYNARD Ordering Physician: Álvaro Luciano Date of Service: 03/12/25 Procedure(s): XR wrist LT w scaphoid Accession Number(s): [id number] cc: Álvaro Luciano; KARELY LOPEZ NP Reason [...] 03/12/25 1339 DD/ 1318 TD/TT: 03/12/25 1322 Motor Coach Bus Driver: Procedure Note Donotuseinterpreter, Image - 03/12/2025 [facility] [address] [place] [address] [place] [address] XRay Report Signed Patient: Vilma BourneMR#: [id number] : 1975Acct:[id number] Age/Sex: 50 / FADM Date: 03/12/25 Loc: HO.HOSX Attending Dr: Álvaro MAYNARD Ordering Physician: Álvaro Luciano Date of Service: 03/12/25 Procedure(s): XR wrist LT w scaphoid Accession Number(s): [id number] cc: Álvaro Luciano; KARELY LOPEZ NP Reason [...] 03/12/25 1339 DD/ 1318 TD/TT: 03/12/25 1322 Motor Coach Bus Driver: [facility] External Provider IMG XR PROCEDURES Final Result documented in this encounter Visit Diagnoses Not on filedocumented in this encounter Additional Health Concerns Assessment Noted Time PHQ-9 Depression Total Score: 0 04/22/20 23 1:07 PM EST documented as of this encounter Care Teams Soft Mud Molder Relationship Specialty Start Date End Date Karely Lopez ANP [address] [place] [address] PCP - General Family Medicine 01/30/21 documented as of this encounter
--- OUTSIDE RECORDS SUMMARY | 2025-03-16 14:37 | XMS_ITS | Clinical Summary ---
Author Organization [employer] Address [address] [place] [address] 7 [place] [address] Care Team Providers Care Emergency Care Attendant Name Role Phone Karely Lopez Primary Care Provider [phone] Allergies Active Allergy Reactions Criticality Noted Date [...] DAY 90 tablet 1 5 Active Umeclidinium [place] 62.5 MCG/ACT aerosol powderIndication s:Obstructive airway disease [...] Department Care Team Description 03/12/2025 Orders Only [facility] External Provider, [facility] 01/23/2025 Orders Only GENERIC EXTERNAL DATA DEPARTMENT Provider, Generic External Data 01/22/2025 9:00 AM EDT Office Visit [facility] [address] [place] [address] Regular astigmatism of both eyes (Primary Dx) 01/20/2025 Refill [facility] [address] [place] [address] Karely Lopez ANP Non-seasonal allergic rhinitis, unspecified trigger 01/12/2025 Telephone [facility] [address] [place] [address] Karely Lopez ANP chart prep 01/10/2025 11:00 AM EDT Office Visit [facility] [address] [place] [address] Charlotte Salcido MD Left wrist pain 01/10/2025 Results Follow-Up [facility] [address] [place] [address] Charlotte Salcido MD XR Wrist 3+ Views Left 01/10/2025 Travel 12/22/2024 Refill [facility] [address] [place] [address] Karely Lopez ANP Essential hypertension from Last 3 Months Immunizations Immunization Administration [...] the past 12 months, has t he [employer], gas, oil or water company threatened to [...] Comments XR WRIST LT W SCAPHOID Routine 1:[address] CHEST WO CONTRAST [...] PM EDT Narrative 03/12/2025 1:42 PM EDT [facility] [address] [place] [address] [address] [place] [address] XRay Report Signed Patient: Vilma Bourne MR#: [id number] : 1975 Acct:[id number] Age/Sex: 50 / F ADM Date: 03/12/25 Loc: DANA Attending Dr: Álvaro MAYNARD Ordering Physician: Álvaro Luciano Date of Service: 03/12/25 Procedure(s): XR wrist LT w scaphoid Accession Number(s): [id number] cc: Álvaro Luciano; KARELY LOPEZ NP Reason [...] 03/12/25 1339 DD/ 1318 TD/TT: 03/12/25 1322 Bender Machine: Procedure Note Donotuseinterpreter, Image - 03/12/2025 [facility] [address] [place] [address] [address] [place] [address] XRay Report Signed Patient: Vilma BourneMR#: [id number] : 1975Acct:[id number] Age/Sex: 50 / FADM Date: 03/12/25 Loc: DANA Attending Dr: Álvaro MAYNARD Ordering Physician: Álvaro Luciano Date of Service: 03/12/25 Procedure(s): XR wrist LT w scaphoid Accession Number(s): [id number] cc: Álvaro Luciano; KARELY LOPEZ NP Reason [...] 03/12/25 1339 DD/ 1318 TD/TT: 03/12/25 1322 Bender Machine: [facility] External Provider IMG XR PROCEDURES Final Result * CT Chest w/o Contrast (02/09/2025 7:45 AM EDT) Anatomical Region Laterality Modality Body, Chest Computed Tomogra phy 02/09/2025 7:45 AM EDT Narrative 02/09/2025 8:34 AM EDT [place] [address] CT Scan Report Signed Patient: Vilma Bourne MR#: [id number] : 1975 Acct:[id number] Age/Sex: 49 / F ADM Date: 02/09/25 Loc: HO.CT Attending Dr: Thalia Guerra WOOL GRADER Ordering Physician: Thalia Guerra NP Date of Service: 02/09/25 Procedure(s): CT chest wo IV con Accession Number(s): [id number] cc: KARELY LOPEZ WOOL GRADER; Thalia Guerra NP Report Number: [id number]: Total DLP = 238.00 mGy-cm EXAMINATION: CT [...] 02/09/25 0832 DD/ 0745 TD/TT: 02/09/25 0801 Bender Machine: Procedure Note Donotuseinterpreter, Image - 02/09/[address] [address] [address] Scan Report Signed Patient: Mary Bourne#: [id number] : 1975Acct:[id number] Age/Sex: 49 / FADM Date: 02/09/25 Loc: HO.CT Attending Dr: Thalia Guerra NP Ordering Physician: Thalia Guerra NP Date of Service: 02/09/25 Procedure(s): CT chest wo IV con Accession Number(s): [id number] cc: KARELY LOPEZ WOOL GRADER; Thalia Guerra NP Report Number: [id number]: Total DLP = 238.00 mGy-cm EXAMINATION: CT [...] OV> 02/09/25 0832 DD/ 0745 TD/TT: 02/09/25 08 Bender Machine: [facility] External Provider IMG CT PROCEDURES Edited Result - Final * (ABNORMAL) Respiratory Allergy Profile Region I (01/23/2025 3:13 PM EDT) Mouse Urine Proteins (E72) IgE <0.10 kU/L [facility] Class 0 [facility] Cockroach (I6) IgE 0.71(A) kU/L [facility] Class 2 [facility] Dermatophagoides farinae (D2) IgE 0.62(A) kU/L [facility] Class 1 [facility] Cat Dander (E1) IgE <0.10 kU/L [facility] Class 0 [facility] Comment:THIS TEST WAS PERFOR MED AT:[employer] [address] [phone] TRUJILLO MD Dog Dander (E5) IgE <0.10 kU/L [facility] Class 0 [facility] Comment:THIS TEST WAS PERFOR MED AT:[facility] [place] [phone] TRUJILLO MD Jaya Grass (G6) IgE 1.00(A) kU/L [facility] Class 2 [facility] Cladosporium herbarum (M2) IgE <0.10 kU/L [facility] Class 0 [facility] Aspergillus Fumigatis (M3) IgE <0.10 kU/L [facility] Class 0 [facility] Alternaria alternata (M6) IgE <0.10 kU/L [facility] Class 0 [facility] Comment:THIS TEST WAS PERFOR MED AT:[facility] [place] [phone] TRUJILLO MD Terence Jaureguiar (t6) IgE 0.60(A) kU/L [facility] Class 1 [facility] Defiance (T7) IgE 1.01(A) kU/L [facility] Class 2 [facility] [place] Tree (T10) IgE 1.03(A) kU/L [facility] Class 2 [facility] [place] (T11) IgE 1.22(A) kU/L [facility] Class 2 [facility] [place] (T14) IgE 1.00(A) kU/L [facility] Class 2 [facility] White Jair (t15) IgE 1.18(A) kU/L [facility] Class 2 [facility] White [place] (T70) IgE 0.54(A) kU/L [facility] Class 1 [facility] Common Ragweed (Short) (W1) IgE 0.90(A) kU/L [facility] Class 2 [facility] Mugwort (w6) IgE 0.77(A) kU/L [facility] Class 2 [facility] Dermatophagoides pteronyssinus (D1) IgE 1.99(A) kU/L [facility] Class 2 [facility] B[place] Grass (g2) IgE 1.15(A) kU/L [facility] Class 2 [facility] Penicillium Notatum (M1) IgE <0.10 kU/L [facility] Class 0 [facility] Birch (T3) IgE 0.69(A) kU/L [facility] Class 1 [facility] Elm (t8) IgE 6.08(A) kU/L [facility] Class 3 [facility] Maple ([place]og[place]) (T1) IgE 2.35(A) kU/L [facility] Class 2 [facility] Rough Pigweed (W14) IgE 0.68(A) kU/L [facility] Class 1 [facility] Sheep Ehrhardt (W18) IgE 0.77(A) kU/L [facility] Class 2 [facility] Allergen Comment See Below [facility] Comment: Specific Level of AllergenIGE [...] and its analyticalperformance characteristics have been determined byNext[employer]. It has not been cleared or approvedby the U.S. Food and Drug Administration. This assayhas been validated pursuant to the CLIA regulationsand is used for clinical purposes.THIS TEST WAS PERFORMED AT:[address] [place] [phone] TRUJILLO MD 01/23/2025 3:13 PM EDT 01/23/2025 5:50 PM EDT us Generic External Data Provider LAB BLOOD ORDERAB LES Final Result [facility] [address] [place] [address] [phone] * (ABNORMAL) CBC auto differential (01/23/2025 3:13 PM EDT) White Blood Count 7.1 4.8 - 10.8 X10*3/uL [facility] Red Blood Count 4.34 4.20 - 5.50 X10*6/uL [facility] Hemoglobin 10.8(L) 12.0 - 16.0 g/dl [facility] Hematocrit 33.8(L) 37.0 - 47.0 % [facility] Mean Corpuscular Volume 77.9(L) 80.0 - 98.0 fL [facility] Mean Corpuscular Hemoglobin 24.9(L) 27.0 - 33.0 pg [facility] Mean Corpuscular HGB Conc 32.0 31.0 - 35.0 g/dl [facility] Red Cell Distribution Width 16.8(H) 11.0 - 16.0 % [facility] Platelet Count 312 160 - 400 X10*3/uL [facility] Mean Platelet Volume 10.9 9.4 - 12.3 fL [facility] Neutrophils Percent Auto 49.3 45 - 73 % [facility] Imm Gran Pct Auto 0.1 0.0 - 0.4 % [facility] Lymphocytes Percent Auto 37.6 20 - 40 % [facility] Monocytes Percent Auto 8.1 2 - 11 % [facility] Eosinophils Percent Auto 4.2(H) 0 - 4 % [facility] Basophils Percent Auto 0.7 0 - 2 % [facility] NRBC Pct Auto 0.0 0.0 - 0.2 /100WBC [facility] Neutrophils Absolute Auto 3.5 2.0 - 8.3 x10*3/uL [facility] Imm Gran Abs Auto 0.01 0.00 - 0.03 X10*3/uL [facility] Lymphocytes Absolute Auto 2.7 1.2 - 4.9 X10*3/uL [facility] Monocytes Absolute Auto 0.6 0.1 - 1.2 X10*3/uL [facility] Eosinophils Absolute Auto 0.3 0.0 - 0.4 X10*3/uL [facility] Basophils Absolute Auto 0.1 0.0 - 0.2 X10*3/uL [facility] NRBC Abs Auto 0.000 0.0 - 0.012 X10*3/uL [facility] 01/23/2025 3:13 PM EDT 01/23/2025 5:50 PM EDT us Generic External Data Provider LAB BLOOD ORDERAB LES Final Result Performing Organization Address [facility] Co de Phone Number [facility] [address] [place] [phone] * (ABNORMAL) Immunoglobulin E (01/23/2025 3:13 PM EDT) Only the most recent of2 resultswithin the time period is included. Immunoglobulin E 2395(A) <CE=054 kU/L [facility] Comment:THIS TEST WAS PERFOR MED AT:[address] [place] [phone] TRUJILLO MD 01/23/2025 3:13 PM EDT 01/23/2025 5:50 PM EDT us Generic External Data Provider LAB BLOOD ORDERAB LES Final Result Performing Organization Address [facility] Co de Phone Number [facility] [address] [place] [phone] * XR Wrist 3+ Views Left (01/10/2025 10:40 AM EDT) Anatomical Region Laterality Modality Upper Extremities, Wrist Left Radiogr aphic Imaging 01/10/2025 10:4 0 AM EDT Narrative 01/10/2025 11:39 AM EDT [facility] [address] [place] [address] XRay Report Signed Patient: Vilma Bourne MR#: [id number] : 1975 Acct:[id number] Age/Sex: 49 / F ADM Date: 01/10/25 Loc: HO.HHCX Attending Dr: Charlotte Lafleur MD Ordering Physician: Charlotte Salcido MD Date of Service: 01/10/25 Procedure(s): XR wrist LT min 3V Accession Number(s): [id number] cc: Charlotte Salcido MD EXAMINATION: XR WRIST, [...] 01/10/25 1136 DD/ 1040 TD/TT: 01/10/25 1132 Bender Machine: Procedure Note Donotuseinterpreter, Image - 01/10/[address] [address] XRay Report Signed Patient: Vilma BourneMR#: [id number] : 1975Acct:[id number] Age/Sex: 49 / FADM Date: 01/10/25 Loc: HO.HHCX Attending Dr: Charlotte Lafleur MD Ordering Physician: Charlotte Salcido MD Date of Service: 01/10/25 Procedure(s): XR wrist LT min 3V Accession Number(s): [id number] cc: Charlotte Salcido MD EXAMINATION: XR WRIST, [...] 01/10/25 1136 DD/ 1040 TD/TT: 01/10/25 1132 Bender Machine: us Charlotte Lafleur MD IMG XR PROCEDURES Fin al Result * Lipid Panel, Standard (10/25/2024 10:46 AM EDT) Triglycerides 70 <150 mg/dL [facility] Comment:Desirable Triglyceri de: less than 150 mg/dLBorderline High Triglyceride 150-199 mg/dLHigh Triglyceride: 200-499 mg/dLVery High Triglyceride: greater than or equal to 5OO mg/dL Cholesterol 141 <200 mg/dL [facility] Comment:Desirable Cholestero l: less than 200 mg/dLBorderline High Cholesterol: 200-239 mg/dLHigh Cholesterol: greater than 239 mg/dL LDL Cholesterol Calculated 81 <100 mg/dL [facility] Comment:Desirable LDL: less than 100 mg/dLNear Optimal/Above Optimal LDL: 110- 129 mg/dLBorderline High LDL: 130-159 mg/dLHigh LDL: 160-189 mg/dLVery High LDL: greater than or equal to 190 mg/dL HDL Cholesterol 46 >40 mg/dL [facility] Comment:Desirable HDL: great er than 40 mg/dL Note: This HDL assay may give artificially low results in patients with liver disease. Blood Venous blood specimen / Unknown 10/25/2024 10:46 AM EDT 10/25/2024 1:26 PM EDT us Karely MCFADDEN LAB BLOOD ORDERABLES Final Resul t [facility] [address] [place] [phone] * HPV DNA, Low/High Risk (07/21/2024 10:35 AM EST) HPV High Risk Negative Negative [facility] HPV Genotype 16 Negative Negative [facility] HPV Genotype 18 Negative Negative [facility] Comment:HPV testing performe d at [facility] (CLIA#[id number]), [address] [place] [id number].Testing for HPV was performed using the Kate [...] EST 07/24/2024 8:20 AM EST [facility] LAB BLOOD ORDERABLES Final Resul t [facility] [address] [place] [phone] * Pap Smear (07/21/2024 10:35 AM EST) Swab Cervical swab / Unknown 07/21/2024 10:35 AM EST 07/24/2024 8:20 AM EST Narrative [facility] - 07/29/2024 10:03 AM EST ----- ------- Name: Vilma Bourne Age/Sex: 49/F : 1975 Unit#: [id number] Attend Dr: KARELY LOPEZ NP Re07/21/24 Status: DEP REF Location: [facility] Disch: ----- ------- SPEC : [id number] RECD: 07/24/24 STATUS: RAYMOND RODRIGUEZ NUM: [id number] ESTEBAN: 07/21/24 [facility] DR: KARELY LOPEZ NP ENTERED: 07/24/24 [...] ------- Signed (signature on file) ANTHONY Prater (ASC) 07/29/24 1003 ----- ------- END OF REPORT Karely Lopez ANP LAB CYTOLOGY ORDERABLES Final Re sult [facility] [address] [place] [address] [phone] * BI Mammogram Screening Tomosynthesis Bilateral (07/19/2024 11:30 AM EST) Anatomical Region Laterality Modality Breast Bilateral Mammography 07/19/2024 11:3 0 AM EST Narrative 07/25/2024 7:11 PM EST [address] [place] [address] Mammography Report Signed Patient: Vilma Bourne MR#: [id number] : 1975 Acct:[id number] Age/Sex: 49 / F ADM Date: 07/19/24 Loc: .MAMMO Attending Dr: Karely Lopez NP Ordering Physician: KARELY LOPEZ NP Results: 2Benign Khalif pelaez Date of Service: 07/19/24 Follow Up: 1 Year From Orig ina Mammogram Procedure(s): MM tomosynthesis screening BI Accession Number(s): [id number] cc: KARELY LOPEZ NP EXAMINATION: MM SCREENING [...] 07/25/24 1908 DD/ 1130 TD/TT: 07/19/24 1140 Bender Machine: Procedure Note Donotuseinterpreter, Image - [facility]25[facility] [address] [place] [address] Mammography Report Signed Patient: Vilma BourneMR#: [id number] : 1975Acct:[id number] Age/Sex: 49 / FADM Date: 07/19/24 Loc: HO.MAMMO Attending Dr: Karely Lopez NP Ordering Physician: KARELY LOPEZ NPResults: 2Benign Khalif pelaez Date of Service: 07/19/24Follow Up: 1 Year From Orig ina Mammogram Procedure(s): MM tomosynthesis screening BI Accession Number(s): [id number] cc: KARELY LOPEZ NP EXAMINATION: MM SCREENING [...] 07/25/24 1908 DD/ 1130 TD/TT: 07/19/24 1140 Bender Machine: us Karely Lopez ANP IMG BI PROCEDURES Final Result * HEPATITIS C AB W/REFL TO HCV RNA, QN, PCR (07/08/2021 10:50 AM EST) HEPATITIS C ANTIBODY NON-REACT CELESTINO NON-REACT CELESTINO [facility] INDEX 0.04 <1.00 [facility] Comment: HCV antibody was non-reactive. There is no laboratory evidence of HCV infection. In most cases, no further action is required. However, if recent HCV exposure is suspected, a test for HCV RNA (test code 56402) is suggested. For additional information please refer to http://POPSUGAR/faq/JRB90a1 (This link is being provided for informational/ educational purposes only.) 07/08/2021 10:5 0 AM EST us Karely Lopez ANP HISTORICAL/NON ORDERABLE LABS Fi nal Result [facility] [address] * HIV 1/2 ANTIGEN/ANTIBODY,FOURTH GENERATION W/RFL (07/08/2021 10:50 AM EST) HIV-1/2 ANTIGEN AND ANTIBODIES, 4TH GENERATION W/ REFLEX NON-REACT CELESTINO NON-REACT CELESTINO [facility] Comment: HIV-1 antigen [...] purpose. For additional information please refer to http://Marketecture.Ideal Me/faq/GAK940 (This link is being provided for informational/ educational purposes only.) The performance of this assay has not been clinically validated in patients less than 2 years old. 07/08/2021 10:5 0 AM EST Karely Lopez B[facility]DAN LAB BLOOD ORDERABLES Final Resul t [facility] [address] from Last 3 Months or Most Recently Relevant to Health Maintenance Insurance C[facility] MEDICAID STAND ADULT Care Teams Emergency Care Attendant Relationship Specialty Start Date End Date Karely Lopez ANP [address] [place] [phone] PCP - General Family Medicine 01/30/21
--- OUTSIDE RECORDS SUMMARY | 2025-03-16 14:38 | XMS_ITS | Encounter Summary ---
Author Organization [employer] Address [address] [place] [address] 7 [place] [address] Care Team Providers Care Loss Control Engineer Name Role Phone Phyllis Day Primary Care Provider Encounter Details Date Type Department Care Team (Late st Contact Info) Description 12/30/2022 Orders Only [facility] [address] [place] [address] Hanna Aranda LPN Social History Tobacco Use [...] on filedocumented in this encounter Care Teams Loss Control Engineer Relationship Specialty Start Date End Date Phyllis Day ANP [address] [place] [address] PCP - General Family Medicine 01/30/21 documented as of this encounter
--- OUTSIDE RECORDS SUMMARY | 2025-03-16 14:38 | XMS_ITS | Encounter Summary ---
Author Organization [employer] Address [address] [place] [address] 7 [place] [address] Care Team Providers Care Supervisor Ovens Name Role Phone Phyllis Day Primary Care Provider [phone] Reason for Visit * Reason Onset Date Comments Med Refill 12/22/2024 Encounter Details Date Type Department Care Team (Late st Contact Info) Description 12/22/2024 Refill [facility] MEDICINE [address] [place] [address] Phyllis Day ANP [address] [place], [place] [phone] Essential hypertension Social History Tobacco Use Types [...] as of this encounter Care Teams Supervisor Ovens Relationship Specialty Start Date End Date Phyllis Day ANP [address] [place] [address] PCP - General Family Medicine 01/30/21 documented as of this encounter
--- OUTSIDE RECORDS SUMMARY | 2025-03-16 14:38 | XMS_ITS | Encounter Summary ---
Author Organization [employer] Address [address] [facility] 7 [place] [address] Care Team Providers Care Shook Splicer Name Role Phone Phyllis Day Primary Care Provider [phone] Encounter Details Date Type Department Care Team ([facility] st Contact Info) Description 01/10/2025 Results Follow-[facility] [address] [place] [address] Charlotte Salcido MD 230 [place] [address] XR Wrist 3+ Views Left Social History [...] documented as of this encounter Care Teams Shook Splicer Relationship Specialty Start Date End Date Phyllis Day ANP [address] [place] [address] PCP - General Family Medicine 01/30/21 documented as of this encounter
--- OUTSIDE RECORDS SUMMARY | 2025-03-16 14:38 | XMS_ITS | Encounter Summary ---
Author Organization [employer] Address [address] [facility] 7 [place] [address] Care Team Providers Care Lieutenant Ballistics Name Role Phone Karely Lopez Primary Care Provider [phone] Encounter Details Date Type Department Care Team ([facility] st Contact Info) Description 05/14/[address] [facility] MEDICINE [address] [place], [place] [phone] Karely Lopez ANP [address] [place], [place] [phone] Acute pain of left knee (Primary Dx) [...] AM EST Narrative 05/19/2023 4:59 PM EST [address] [address] XRay Report Signed Patient: Vilma Bourne MR#: [id number] : 1975 Acct:[id number] Age/Sex: 48 / F ADM Date: 05/17/23 Loc: HO.HHCX Attending Dr: Karely Lopez CLIENT ANALYST Ordering Physician: KARELY LOPEZ NP Date of Service: 05/17/23 Procedure(s): XR ankle LT min 3V Accession Number(s): [id number] cc: KARELY LOPEZ CLIENT ANALYST Examination: Left and right ankles CLINICAL INFORMATION: [...] MD in OV> 05/19/231654 DD/ 1021 TD/TT: Toy Packer: Procedure Note Donotuseinterpreter, Image - 05/19/[address] [address] XRay Report Signed Patient: Vilma BourneMR#: [id number] : 1975Acct:[id number] Age/Sex: 48 / FADM Date: 05/17/23 Loc: HO.HHCX Attending Dr: Karely Lopez NP Ordering Physician: KARELY LOPEZ NP Date of Service: 05/17/23 Procedure(s): XR ankle LT min 3V Accession Number(s): [id number] cc: KARELY LOPEZ CLIENT ANALYST Examination: Left and right ankles CLINICAL INFORMATION: [...] MD in OV> 05/19/231654 DD/ 1021 TD/TT: Toy Packer: Karely Lopez ANP IM XR PROCEDURES Final Result * XR Ankle 3+ Views Right (05/17/2023 10:21 AM EST) Anatomical Region Laterality Modality Lower Extremities, Ankle Right Radiogr aphic Imaging 05/17/2023 10:2 1 AM EST Narrative 05/19/2023 4:59 PM EST [address] XRay Report Signed Patient: Vilma Bourne MR#: [id number] : 1975 Acct:[id number] Age/Sex: 48 / F ADM Date: 05/17/23 Loc: [facility] Attending Dr: Karely Lopez CLIENT ANALYST Ordering Physician: KARELY LOPEZ NP Date of Service: 05/17/23 Procedure(s): XR ankle RT min 3V Accession Number(s): [id number] cc: KARELY LOPEZ NP Examination: Left and [...] in OV> 05/19/23 1655 DD/ 1021 TD/TT: Toy Packer: Procedure Note Donotuseinterpreter, Image - 05/19/[address] [address] XRay Report Signed Patient: Vilma BourneMR#: [id number] : 1975Acct:[id number] Age/Sex: 48 / FADM Date: 05/17/23 Loc: [facility] Attending Dr: Karely Lopez NP Ordering Physician: KARELY LOPEZ NP Date of Service: 05/17/23 Procedure(s): XR ankle RT min 3V Accession Number(s): [id number] cc: KARELY LOPEZ NP Examination: Left and [...] MD in OV> 05/19/231654 DD/ 1021 TD/TT: Toy Packer: Karely Lopez ANP IMG XR PROCEDURES Final Result * XR Knee 1-2 Views Left (05/17/2023 10:21 AM EST) Anatomical Region Laterality Modality Lower Extremities, Knee Left Radiogra phic Imaging 05/17/2023 10:2 1 AM EST Narrative 05/19/2023 4:59 [place] [address] XRay Report Signed Patient: Vilma Bourne MR#: [id number] : 1975 Acct:[id number] Age/Sex: 48 / F ADM Date: 05/17/23 Loc: HO.HHCX Attending Dr: Karely Lopez NP Ordering Physician: KARELY LOPEZ NP Date of Service: 05/17/23 Procedure(s): XR knee LT 2V Accession Number(s): [id number] cc: KARELY LOPEZ NP EXAMINATION: XR KNEE, [...] MD in OV> 05/19/231654 DD/ 1021 TD/TT: Toy Packer: Procedure Note Donotuseinterpreter, Image - 05/19/2023 [facility] [address] [place] [address] XRay Report Signed Patient: Vilma BourneMR#: [id number] : 1975Acct:[id number] Age/Sex: 48 / FADM Date: 05/17/23 Loc: HO.HHCX Attending Dr: Karely Lopez CLIENT ANALYST Ordering Physician: KARELY LOPEZ NP Date of Service: 05/17/23 Procedure(s): XR knee LT 2V Accession Number(s): [id number] cc: KARELY LOPEZ CLIENT ANALYST EXAMINATION: XR KNEE, LEFT CLINICAL INFORMATION: Pain COMPARISON: None available. TECHNIQUE: Four views of the left knee. FINDINGS: No fracture or joint effusion. Alignment is anatomic. Joint spaces are maintained. No abnormal soft tissue calcification. XR/XR knee LT 2V IMPRESSION: Normal left knee. Dictated By: Shahrzad Keenan MD Signed By: <Electronically signed by Shahrzad Keenan MD in OV> 05/19/23 1655 DD/ 1021 TD/TT: Toy Packer: Karely Lopez ANP IMG XR PROCEDURES Final Result documented in this encounter Visit Diagnoses Diagnosis Acute pain of left knee- Primary documented in this encounter Additional Health Concerns Assessment Noted Time PHQ-9 Depression Total Score: 0 04/22/20 23 1:07 PM EST documented as of this encounter Care Teams Lieutenant Ballistics Relationship Specialty Start Date End Date Karely Lopez ANP [address] [place] [address] PCP - General Family Medicine 01/30/21 documented as of this encounter
--- OUTSIDE RECORDS SUMMARY | 2025-03-16 14:38 | XMS_ITS | Encounter Summary ---
Author Organization [employer] Address [address] [place] [address] 7 [place] [address] Care Team Providers Care Skill Labor Name Role Phone Phyllis Day Primary Care Provider [phone] Reason for Visit * Reason Comments Med Refill Encounter Details Date Type Department Care Team (Late st Contact Info) Description 12/02/2024 Refill [facility] MEDICINE [address] [place], [place] [phone] Phyllis Day ANP [address] [place], [place] [phone] Gastroesophageal reflux disease, unspecified whether esophagitis present [...] documented as of this encounter Care Teams Skill Labor Relationship Specialty Start Date End Date Phyllis Day ANP [address] [place] [address] PCP - General Family Medicine 01/30/21 documented as of this encounter
--- OUTSIDE RECORDS SUMMARY | 2025-03-16 14:38 | XMS_ITS | Encounter Summary ---
Author Organization [employer] Address [address] [place] [address] 7 [place] [address] Care Team Providers Care Cash Person Name Role Phone Phyllis Day Primary Care Provider [phone] Reason for Visit * Reason Comments Med Change Request Encounter Details Date Type Department Care Team (Late st Contact Info) Description 10/24/2024 Refill [facility]INE 230 [place], [place] [phone] Phyllis Day ANP [address] [place], [place] [phone] Gastroesophageal reflux disease, unspecified whether esophagitis present [...] edge 0 10/24/2024 10:15 AM EDT Izaiah oKch [place] Not being able to stop or [...] documented as of this encounter Care Teams Cash Person Relationship Specialty Start Date End Date Phyllis Day ANP [address] [place] [address] PCP - General Family Medicine 01/30/21 documented as of this encounter
--- OUTSIDE RECORDS SUMMARY | 2025-03-16 14:38 | XMS_ITS | Encounter Summary ---
Author Organization [employer] Address [address] [place] [address] 7 [place] [address] Care Team Providers Care Rod Buster Helper Name Role Phone Phyllis Day Primary Care Provider [phone] Reason for Visit * Reason Comments Med Refill Encounter Details Date Type Department Care Team (Late st Contact Info) Description 02/24/2023 Refill [facility]INE [address] [place] [address] Phyllis Day ANP [address] [place] [address] Mild persistent asthma with (acute) exacerbation Social [...] exacerbation documented in this encounter Care Teams Rod Buster Helper Relationship Specialty Start Date End Date Phyllis Day ANP [address] [place] [address] PCP - General Family Medicine 01/30/21 documented as of this encounter
--- NOTE | 2025-03-16 14:52 | A.OFFVIS_ITS ---
Vital Signs 3 03/16/25 15:44 Height 5 ft 5 in Weight 231 lb 8 oz BMI 38.5 BP 120/74 Blood Pressure Location Rt brachial Position Sitting Pulse 94 Pulse Source Pulse Oximeter Pulse Oximetry (%) 97 Oxygen Delivery Method Room Air Intake Visit Reasons: abnormal PFT Client Relationship Consultant Name: katie [id number] Information Interpreted: non-clinical & clinical Allergies Tetanus Vaccines and Toxoid Allergy (Verified 03/12/25 13:22) Unknown HPI HPI abnormal PFT: Details: Vilma is a pleasant 50-year-old female, never smoker, with underlying childhood asthma, GERD, and HTN. She was initially referred by PCP for pulmonary evaluation after recent PFT revealed severe obstructive defect with decreased DLCO. She reports ongoing wheezing and shortness of breath which have been more pronounced since 2021, following the administration of the COVID vaccine. Since last visit patient has been compliant with Advair and notes good control of respiratory symptoms at this time. Today she presents to review chest CT and RAST results. She denies any visits to urgent care hospitalizations related to respiratory distress since last visit. 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 Review of Systems Const Denies chills, Denies excessive sweating, Denies fever(s), Denies headache(s) and Denies night sweats Eyes Denies dry eyes, Denies irritation and Denies itchy eyes ENT Reports Normal hearing present, Denies headache(s), Denies nasal discharge and Denies sore throat Card Denies chest pain, Denies chest pain at rest, Denies chest pain with activity, Denies claudication, Denies leg edema, Denies dyspnea, Denies dyspnea on exertion, Denies orthopnea and Denies paroxysmal nocturnal dyspnea Resp Denies chest congestion, Denies cough, Denies excessive phlegm production, Denies pain on inspiration, Denies pain with cough, Denies dyspnea, Denies dyspnea on exertion, Denies stridor and Denies wheezing Musc Denies myalgias Neuro Reports Normal hearing present and Denies headache(s) Endo Denies excessive sweating Rah/Lymph Denies lymphadenopathy Aller/Immun Denies itchy eyes, Denies seasonal rhinorrhea and Denies wheezing Physical Exam Vital Signs: Last Vital Signs Pulse 94 03/16/25 15:44 BP 120/74 03/16/25 15:44 Pulse Ox 97 03/16/25 15:44 Oxygen Delivery Method Room Air 03/16/25 15:44 BMI result Body Mass Index 38.5 Const General: cooperative, healthy appearing, comfortable, no acute distress, well developed and alert Nutritional Appearance: obese Orientation/consciousness: patient oriented x3 Limitations: no limitations HEENT Head: Yes normal to inspection, Yes normocephalic and Yes atraumatic Ears: hearing grossly normal bilaterally and external ears normal Eyes General: appearance normal, both eyes and all related structures Eyelids: Yes eyelids normal Sclerae: sclerae normal EOM: EOMs intact bilaterally Neck Neck: Yes normal visual inspection and Yes no lymphadenopathy Lymphatic: no lymphadenopathy noted Chest Chest palpation & inspection: normal inspection of the chest Resp Effort & Inspection: normal respiratory effort, able to speak in complete sentences, no audible wheezes, no cough, no stridor, not tachypneic, no tripod positioning and no use of accessory muscles Auscultation: diminished lung sounds Cardio Jugular venous distension: no JVD Rate: regular rate Rhythm: regular rhythm Skin Other: warm, dry General skin exam: no rashes or lesions noted Neuro General: patient oriented x3 Cranial nerves: Yes Normal hearing present Cognition (Neuro): normal cognition Gait exam (Neuro): Normal gait present Extrem General: Yes normal to inspection, Yes capillary refill normal, Yes no clubbing, cyanosis or edema and Yes no pedal edema Psych Appearance: grossly normal and well kempt Speech and movement: Normal speech and movement present and Clear speech present Affect: normal affect Attitude: cooperative Thought process: Normal thought process present Thought content: Normal thought content present Insight: Good insight present (Psych) Judgement: Good judgement present (Psych) Results Reviewed Results Reviewed: [address] [address] [address] Scan Report Signed Patient: Vilma Bourne MR#: [id number] : 1975 Acct:[id number] Age/Sex: 49 / F ADM Date: 02/09/25 Loc: HO.CT Attending Dr: Thalia Guerra NP Ordering Physician: Thalia Guerra NP Date of Service: 02/09/25 Procedure(s): CT chest wo IV con Accession Number(s): [id number] cc: KARELY LOPEZ GRAPPLE OPERATOR; Thalia Guerra GRAPPLE OPERATOR~ Report Number: [id number]: Total DLP = 238.00 mGy-cm EXAMINATION: CT CHEST WITHOUT IV CONTRAST INDICATION: R94.2 - Abnormal results of pulmonary function studies COMPARISON: Correlation is made with an AP portable view of the chest dated 04/12/2024. TECHNIQUE: Helical CT scan of the chest was performed without intravenous contrast. Coronal and sagittal reformatted images were generated and reviewed. This CT exam was performed with one or more of the following dose reduction techniques: automated exposure control, adjustment of the mA and/or kV according to patient size, use of iterative reconstruction technique. DLP: 238 mGy-cm CHEST: THYROID: The thyroid is unremarkable. LUNGS: Evaluation of the lungs is compromised by respiratory motion artifact. There are moderate emphysematous changes in the lower lung zones. There is scarring in the right lower lobe and mild bronchiectasis. No definite pulmonary nodules or airspace opacities are identified. MEDIASTINUM: There is no mediastinal lymphadenopathy. GAEL: Evaluation of the hilar regions is limited by lack of intravenous contrast material. CARDIOVASCULATURE: The heart is normal in size. There is no pericardial effusion. The thoracic aorta is normal in caliber. DEGREE OF CORONARY CALCIFICATION: none PLEURA: There is no pleural effusion. No pneumothorax. MAIN AIRWAYS: The mainstem bronchi and proximal branches are patent. AXILLA: There is no axillary lymphadenopathy. BONES AND SOFT TISSUES: Unremarkable UPPER ABDOMEN: The visualized portions of the liver, spleen, and adrenals have an unremarkable unenhanced appearance. CT/CT chest wo IV con IMPRESSION: 1. Limited examination due to respiratory motion artifact. Moderate emphysematous changes with right lower lobe scarring and mild bronchiectasis. 2. Because moderate emphysema is an independent risk factor for lung cancer, consider entering the patient into a program of yearly lung cancer screening with low dose chest CT. Electronically signed by: Joseph Clay MD 02/09/2025 08:32 AM EDT RP Dictated By: Joseph Clay MD Signed By: <Electronically signed by Joseph Clay MD in OV> 02/09/25 0832 DD/ 0745 TD/TT: 02/09/25 0801 Technical Designer: Assessment & Plan Assessment & Plan (1) Asthma: Code(s): J45.909 - Unspecified asthma, uncomplicated Category: Medical (2) Decreased diffusion capacity: Code(s): R94.2 - Abnormal results of pulmonary function studies Category: Medical (3) Environmental allergies: Code(s): Z91.09 - Other allergy status, other than to drugs and biological substances Category: Medical (4) Abnormal chest CT: Code(s): R93.89 - Abnormal findings on diagnostic imaging of other specified body structures Category: Medical Plan At this time patient reports good control of respiratory symptoms on Advair and albuterol MDI, encouraged to continue. She is aware to call if symptoms change. Reviewed RAST which revealed multiple environmental allergies, discussed ways to minimize exposures. Chest CT was performed due to decreased diffusion capacity on PFT which revealed moderate emphysematous changes. Reviewed images and there was a nodular density within the trachea likely mucus, however will repeat chest CT in 3 months to assess for resolution, which would be April 2025. She also notes ongoing nasal congestion likely related to allergies given recent test, will trial Flonase. All questions were answered and patient is in agreement of plan. Will follow-up in 3 months or sooner if needed. Orders: Orders 2 CT chest wo IV con 2 Months R93.89 - Abnormal findings on diagnostic imaging of other specified body structures Medications: New 2 fluticasone furoate 27.5 mcg/actuation (Flonase Sensimist) into each nostril 1 spray intranasal DAILY 18.2 mL 2RF Changed 2 From fluticasone propion-salmeterol 230-21 mcg/actuation (Advair HFA) inhalation To fluticasone propion-salmeterol 230-21 mcg/actuation (Advair HFA) 2 inhalations inhalation Q12H 12 grams 3RF Refilled 2 albuterol sulfate 90 mcg/actuation 2 puffs inhalation Q4-6H PRN 18 grams 0RF shortness of breath or wheezing Coding Level of Care Code Est Pt Level 4 (69865) Diagnoses Asthma J45.909 Decreased diffusion capacity R94.2 Environmental allergies Z91.[address] R93.89
[2025-03-16 15:44] VITALS: BP 120/74; PULSE 94; O2SAT 97; BMI 38.5
== END 2025-03-16 15:16 | disposition home or self-care (01) ==
LOC: HO.HPSW 14:36
PROVIDERS: PCP Nurse Practitioner Primary Care; Visit Provider Nurse Practitioner Family
DX: J45.909 Unspecified asthma, uncomplicated (principal); R94.2 Abnormal results of pulmonary function studies; Z91.09 Other allergy status, other than to drugs and biological substances; R93.89 Abnormal findings on diagnostic imaging of other specified body structures
CPT/HCPCS: 99214

== ENCOUNTER → 2025-03-16 14:35 | Outpatient (BNVA) | payer MEDICAID, SELFPAY | PROVIDERS: PCP Nurse Practitioner Primary Care; Visit Provider Nurse Practitioner Family | DX: J45.909 Unspecified asthma, uncomplicated (principal); Z91.09 Other allergy status, other than to drugs and biological substances; R93.89 Abnormal findings on diagnostic imaging of other specified body structures; R94.2 Abnormal results of pulmonary function studies | CPT/HCPCS: 99212 ==

== ENCOUNTER 2025-05-20 17:12 | Emergency (ER) | payer BC, MEDICAID, SELFPAY ==
--- NOTE | ~2025-05-20 | US_ITS ---
CLINICAL HISTORY: RLQ Tender; r o torsion; Abnl Uterus Adnexa on CT US pelvic with Doppler Comparison: None provided Findings: The uterus is prominent and heterogeneous, measuring overall nearly 15 x 7 x 10 cm. Uterine fibroids are noted, the largest in the lower uterine segment towards the left measuring nearly 6 cm. The region of the cervix is not clearly visualized on this exam The ovaries are not seen due to overlying bowel gas. However, there are no obvious adnexal lesions. There no pelvic free fluid IMPRESSION: Large heterogeneous fibroid uterus. Recommend nonemergent surgical highway inspector consultation. The ovaries are not seen. However, there are no adnexal masses or pelvic free fluid. This document has been electronically signed by: Elver Belle MD on 05/21/2025 04:47:16
--- NOTE | ~2025-05-20 | CT_ITS ---
CLINICAL HISTORY: RLQ Tenderness CT abdomen and pelvis with contrast Comparison: CT/SR - CT CHEST WO IV CON - 02/09/25 07:45 EDT Findings: CT abdomen: Images of the lower chest and upper abdomen are degraded due to respiratory motion. There are moderate emphysematous changes in the lung bases with areas of streaky density along the bronchovascular tree. No dense area of consolidation. No pleural effusion. No acute bony abnormality. Scattered degenerative change throughout the thoracolumbar spine. Small hiatal hernia. No dilated small bowel. Liver, spleen, pancreas, gallbladder, and adrenal glands are unremarkable. Symmetric enhancement of the kidneys without mass or hydronephrosis. No free fluid or free air. CT pelvis: No findings of appendicitis. No colonic wall thickening or pericolonic inflammatory stranding. Uterus is enlarged measuring 14.8 x 8.8 x 9.6 cm in size. Rounded area of low attenuation seen along the left aspect of the uterus measuring 6.1 cm in round diameter, likely a uterine fibroid. Additional areas of heterogeneous low attenuation are seen to the right of midline along the mid to lower uterine segment of the uterus measuring up to 3.0 cm in size. Endometrial canal is poorly defined. No adnexal masses. No free fluid or free air. IMPRESSION: 1. Enlarged myomatous uterus. This could potentially be the etiology for the patient's right-sided pelvic pain. Pelvic ultrasound could further evaluate. 2. No CT findings of appendicitis or obstruction. This document has been electronically signed by: Jonathan Hameed MD on 05/21/2025 00:17:26
--- NOTE | ~2025-05-20 | US_ITS ---
CLINICAL HISTORY: RLQ Tender; r o torsion; Abnl Uterus Adnexa on CT US pelvic with Doppler Comparison: None provided Findings: The uterus is prominent and heterogeneous, measuring overall nearly 15 x 7 x 10 cm. Uterine fibroids are noted, the largest in the lower uterine segment towards the left measuring nearly 6 cm. The region of the cervix is not clearly visualized on this exam The ovaries are not seen due to overlying bowel gas. However, there are no obvious adnexal lesions. There no pelvic free fluid IMPRESSION: Large heterogeneous fibroid uterus. Recommend nonemergent surgical cutter and presser consultation. The ovaries are not seen. However, there are no adnexal masses or pelvic free fluid. This document has been electronically signed by: Elver Belle MD on 05/21/2025 04:47:16
[2025-05-20 17:23] VITALS: BP 171/78; PULSE 87; RESP 18; TEMP 36.6; O2SAT 98; BMI 55.8
[2025-05-20 17:54] LABS: Appearance Urine Clear; Glucose Urine UA Negative (Negative); PH 6.0 (5.0-9.0); Specific Gravity - Urine 1.015 (1.005-1.025)
[2025-05-20 17:55] LABS: UPreg QC Valid YES
[2025-05-20 17:59] LABS: Hematocrit 36.0 % (37.0-47.0); Hemoglobin 11.5 g/dl (12.0-16.0); Imm Gran Abs Auto 0.02 X10*3/uL (0.00-0.03); Imm Gran Pct Auto 0.2 % (0.0-0.4); Lymphocytes Absolute Auto 2.7 X10*3/uL (1.2-4.9); MANUAL DIFF FLAG SCAN; Mean Corpuscular HGB Conc 31.9 g/dl (31.0-35.0); Mean Corpuscular Hemoglobin 25.2 pg (27.0-33.0); Mean Corpuscular Volume 78.9 fL (80.0-98.0); NRBC Abs Auto 0.000 X10*3/uL (0.0-0.012); NRBC Pct Auto 0.0 /100WBC (0.0-0.2); PLT CLUMP 1; Red Blood Count 4.56 X10*6/uL (4.20-5.50); SCAN SMEAR FLAG 1
[2025-05-20 18:00] LABS: White Blood Count 10.4 X10*3/uL (4.8-10.8)
[2025-05-20 18:06] LABS: Alanine Aminotransferase 18 U/L (0-31); Albumin Level 4.2 g/dL (3.5-5.0); Alkaline Phosphatase 81 U/L (39-117); Anion Gap 12 (12-20); Aspartate Amino Transferase 19 U/L (5-31); Blood Urea Nitrogen 9 mg/dL (9-16); Calcium 9.0 mg/dL (8.4-10.2); Carbon Dioxide 24 mmol/L (22-29); Chloride 108 mmol/L (96-108); Creatinine Clr Calc Pharmacy 120.7; Estimated Glomerular Filt Rate > 60; Lipase 15 U/L (8-78); Potassium 3.5 mmol/L (3.3-5.1); Sodium 140 mmol/L (135-145); Total Protein 8.0 g/dL (6.5-8.0)
[2025-05-20 18:09] LABS: Platelet Count 318 X10*3/uL (160-400)
[2025-05-20 18:27] LABS: Resp Syncy Virus RNA Qual PCR NEGATIVE (Negative); SARS COV2 PCR INHOUSE NEGATIVE (Negative)
--- NOTE | 2025-05-20 19:58 | ED.ABDPAIN ---
HPI - Abdominal Pain General Chief Complaint: Abdominal Pain Stated Complaint: Back Pain Time Seen by Provider: 05/20/25 21:58 Source: patient Mode of arrival: ambulatory Limitations: language barrier (Mexican Creole spanish interpreter/translator iPad utilized) History of Present Illness ED Provider: Sukumar MAYNARD HPI narrative: Patient is a 50-year-old female presenting to the ED for evaluation of 2 days of right lower quadrant abdominal pain radiating to the low back without associated fever/chills, vomiting, diarrhea, urinary symptoms, or recent trauma. The patient reports history of , denies other surgical abdominal history. The patient reports pain began Wednesday night and has persisted since that time. Related Data Home Medications ?Medication ?Instructions ?Recorded ?Confirmed albuterol sulfate 2.5 mg/3 mL 2.5 mg inhalation Q6H PRN wheezing 01/23/25 02/16/25 (0.083 %) solution for nebulization amlodipine 5 mg tablet 5 mg PO DAILY 01/23/25 02/16/25 omeprazole 20 mg capsule,delayed 20 mg PO DAILY 01/23/25 02/16/25 release Previous Rx's ?Medication ?Instructions ?Recorded leg brace (Knee Support Brace) #1 ea 05/22/20 acetaminophen 500 mg tablet 1,000 mg (2 x 500 mg) PO Q8H PRN 08/23/24 (Non-Aspirin Extra Strength) pain #20 tabs ibuprofen 600 mg tablet 600 mg PO Q6H PRN pain #20 tabs 08/23/24 albuterol sulfate 90 mcg/actuation 2 puff inhalation Q4-6H PRN 03/16/25 aerosol inhaler shortness of breath or wheezing #18 grams fluticasone furoate 27.5 1 spray intranasal DAILY #18.2 mL 03/16/25 mcg/actuation nasal spray,suspension (Flonase Sensimist) fluticasone propionate 230 2 inh inhalation Q12H #12 grams 03/16/25 mcg-salmeterol 21 mcg/actuation HFA inhaler (Advair HFA) Allergies Allergy/AdvReac Type Severity Reaction Status Date / Time Tetanus Vaccines and Toxoid Allergy Unknown Verified 05/20/25 17:25 Review of Systems Review of Systems Yes all other systems are reviewed and are negative PMFSH Past Medical History Medical History (Updated 05/21/25 @ 05:25 by Sukumar Garcia PA-C) Asthma Surgical History (Updated 03/12/25 @ 13:30 by CALLIE Cazares) History of breast lump removal Social History Social History (Updated 03/12/25 @ 13:29 by CALLIE Cazares) Alcohol intake: never Patient Tobacco Use Status: Never used Tobacco Smoked in Last 30 Days: No Use of substances other than those prescribed or required for medical reasons: No Advance Directives: No Advance Directives Information Provided: Yes Do you have a plan to hurt others: No Plan Patient : No Current occupational status: employed 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, 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 Physical Exam ED Vital Signs: Vital Signs - 24 hr 05/20/25 17:23 05/20/25 19:59 05/20/25 20:22 Temperature 98 F 98 F 97.6 F Pulse Rate 87 88 86 Respiratory Rate 18 18 16 Blood Pressure 171/78 H 177/114 H 180/97 H Pulse Oximetry 98 97 98 Oxygen Delivery Method Room Air Room Air Room Air 05/20/25 22:13 05/21/25 00:15 Temperature 98.3 F 98.7 F Pulse Rate 78 81 Respiratory Rate 19 Blood Pressure 155/89 H 128/61 Pulse Oximetry 99 99 Oxygen Delivery Method Room Air Room Air BMI result Body Mass Index 55.8 CONSTITUTIONAL: The patient appears uncomfortable but otherwise non-toxic, well nourished and in no acute distress. Vital signs as documented. HEAD: Atraumatic, normocephalic. EYES: EOMs grossly intact, pupils equal, conjunctiva clear, no exudate. ENT: Nares patent, no discharge. Airway patent, no audible stridor, visible mucosa is pink and moist without noted lesions. NECK: Trachea is midline, no obvious masses or gross abnormalities. CHEST: Symmetric movement, normal appearance. LUNGS: LS present and CTAB, no w/r/r. Non-labored work of breathing. CARDIAC: Regular Rhythm, S1/S2 appreciated, no murmurs, rubs or gallops. ABDOMEN: Abdomen soft x4 quadrants, positive tenderness to palpation of the right lower quadrant, negative rebound, no palpable masses or organomegaly. : Deferred. EXTREMITIES: Normal tone, moves all extremities spontaneously without reported pain. No obvious acute injury or deformity noted. NEURO: Alert and oriented x3, CN II-XII appear grossly intact. Cerebellar Functioning grossly intact. No obvious sensory or motor deficits. Speech clear and appropriate. PSYCH: normal affect, appropriate eye contact, fluid speech, with appropriate response to questioning. No reported suicidality or homicidality. SKIN: Warm, dry, color appropriate, normal turgor. No rashes noted. Course Course Course Narrative: This is a Rapid Medical Exam performed in triage by Elisa Piper PA-C. Full HPI, ROS and PE to be performed by primary ED provider. 50-year-old Mexican Creole speaking female with a past medical history of asthma presenting to the ED c/o right lower quadrant abdominal pain radiating to back and lower abdomen since Wednesday. Denies fever, chills, nausea, vomiting, dysuria /hematuria PE: very uncomfortable. Abdomen is soft with RLQ tenderness. + Guarding Plan: labs, UA, viral testing Medical Decision Making Medical Decision Making MDM Narrative: 11:17 PM 05/20/2025 (Allan MAYNARD): Patient is a 50-year-old female presenting to the ED for evaluation of 2 days of right lower quadrant abdominal pain radiating to the low back without associated fever/chills, vomiting, diarrhea, urinary symptoms, or recent trauma. The patient reports history of , denies other surgical abdominal history. The patient reports pain began Harrison night and has persisted since that time. On exam the patient appears uncomfortable but in no acute distress, abdominal exam reveals significant right lower quadrant abdominal tenderness, negative rebound. Remainder of exam is benign. The patient's laboratory evaluation shows no leukocytosis, significant anemia, electrolyte abnormality, or HEATHER. The patient's LFTs are unremarkable, lipase is normal. The patient's urinalysis is negative for blood or infection. The patient's viral swabs are negative for influenza, RSV, and COVID. Due to the patient's right lower quadrant abdominal tenderness, differential includes appendicitis versus ovarian pathology. The patient will be sent for CT abdomen and pelvis to evaluate for acute appendicitis, if CT nondiagnostic we will consider pelvic ultrasound. The patient will be treated with IV fluid hydration, morphine, and Zofran. 5:18 AM 05/21/2025 (Allan MAYNARD): The patient is CT showed an enlarged myomatous uterus with the recommendation for ultrasound. No evidence of appendicitis or obstruction. The patient was sent for ultrasound which has resulted and shows a prominent and heterogeneous uterus measuring 15 x 7 x 10 cm with the multiple uterine fibroids noted, largest measuring 6 cm. There is nonvisualization of the ovaries however no obvious adnexal lesions and no pelvic free fluid. Recommendation for nonemergent surgical strategic planning manager consultation. At this time the patient's pain has improved, patient will be discharged with strategic planning manager referral for additional management of her fibroid uterus. Admission/Observation Consideration of admission/observation: Escalation of care including admission/observation considered Lab Data MDM Lab Attestation statement: I reviewed the patient's lab results. 05/20/25 17:35 05/20/25 17:35 Labs: Lab Results 05/20/25 Range/Units 17:35 WBC 10.4 (4.8-10.8) X10*3/uL RBC 4.56 (4.20-5.50) X10*6/uL Hgb 11.5 L (12.0-16.0) g/dl Hct 36.0 L (37.0-47.0) % MCV 78.9 L (80.0-98.0) fL MCH 25.2 L (27.0-33.0) pg MCHC 31.9 (31.0-35.0) g/dl RDW 16.9 H (11.0-16.0) % Plt Count 318 (160-400) X10*3/uL MPV 10.5 (9.4-12.3) fL Immature Gran % (Auto) 0.2 (0.0-0.4) % Neut % (Auto) 65.6 (45-73) % Lymph % (Auto) 26.4 (20-40) % [place] % (Auto) 5.9 (2-11) % Eos % (Auto) 1.6 (0-4) % Baso % (Auto) 0.3 (0-2) % Lymph # (Auto) 2.7 (1.2-4.9) X10*3/uL [place] # (Auto) 0.6 (0.1-1.2) X10*3/uL Eos # (Auto) 0.2 (0.0-0.4) X10*3/uL Baso # (Auto) 0.0 (0.0-0.2) X10*3/uL Abs Immat Gran (auto) 0.02 (0.00-0.03) X10*3/uL Absolute Neuts (auto) 6.8 (2.0-8.3) x10*3/uL Absolute Nucleated RBC 0.000 (0.0-0.012) X10*3/uL Nucleated RBC % (auto) 0.0 (0.0-0.2) /100WBC Smear Tech's Comments VERIFIED Sodium 140 (135-145) mmol/L Potassium 3.5 (3.3-5.1) mmol/L Chloride 108 (96-108) mmol/L Carbon Dioxide 24 (22-29) mmol/L Anion Gap 12 (12-20) BUN 9 (9-16) mg/dL Creatinine 0.79 (0.5-1.4) mg/dL Estim Creat Clear Calc 120.7 Estimated GFR > 60 Random Glucose 95 (60-115) mg/dL Calcium 9.0 (8.4-10.2) mg/dL Magnesium 2.1 (1.6-2.6) mg/dL Total Bilirubin 0.3 (0.0-1.0) mg/dL Direct Bilirubin 0.2 (0.0-0.5) mg/dL AST 19 (5-31) U/L ALT 18 (0-31) U/L Alkaline Phosphatase 81 (39-117) U/L Total Protein 8.0 (6.5-8.0) g/dL Albumin 4.2 (3.5-5.0) g/dL Lipase 15 (8-78) U/L Urine Color Yellow Urine Appearance Clear Urine pH 6.0 (5.0-9.0) Ur Specific [place] 1.015 (1.005-1.025) Urine Protein Negative (Neg-Trace) mg/dL Urine Glucose (UA) Negative (Negative) mg/dL Urine Ketones Negative (Negative) mg/dL Urine Blood Negative (Negative) Urine Nitrite Negative (Negative) Ur Leukocyte Esterase Negative (Negative) Urine Test NEGATIVE (NEGATIVE) Influenza Type A (PCR) NEGATIVE (Negative) Influenza Type B (PCR) NEGATIVE (Negative) RSV RNA Qual (PCR) NEGATIVE (Negative) SARS-CoV-2 RNA (RT-PCR) NEGATIVE (Negative) Radiology Impression Discussion of test interpretation with radiology: I have reviewed the radiologist's reading. Radiologist Impression: CT abdomen: Images of the lower chest and upper abdomen are degraded due to respiratory motion. There are moderate emphysematous changes in the lung bases with areas of streaky density along the bronchovascular tree. No dense area of consolidation. No pleural effusion. No acute bony abnormality. Scattered degenerative change throughout the thoracolumbar spine. Small hiatal hernia. No dilated small bowel. Liver, spleen, pancreas, gallbladder, and adrenal glands are unremarkable. Symmetric enhancement of the kidneys without mass or hydronephrosis. No free fluid or free air. CT pelvis: No findings of appendicitis. No colonic wall thickening or pericolonic inflammatory stranding. Uterus is enlarged measuring 14.8 x 8.8 x 9.6 cm in size. Rounded area of low attenuation seen along the left aspect of the uterus measuring 6.1 cm in round diameter, likely a uterine fibroid. Additional areas of heterogeneous low attenuation are seen to the right of midline along the mid to lower uterine segment of the uterus measuring up to 3.0 cm in size. Endometrial canal is poorly defined. No adnexal masses. No free fluid or free air. IMPRESSION: 1. Enlarged myomatous uterus. This could potentially be the etiology for the patient's right-sided pelvic pain. Pelvic ultrasound could further evaluate. 2. No CT findings of appendicitis or obstruction. This document has been electronically signed by: Jonathan Hameed MD on 05/21/2025 00:17:26 US pelvic with Doppler Comparison: None provided Findings: The uterus is prominent and heterogeneous, measuring overall nearly 15 x 7 x 10 cm. Uterine fibroids are noted, the largest in the lower uterine segment towards the left measuring nearly 6 cm. The region of the cervix is not clearly visualized on this exam The ovaries are not seen due to overlying bowel gas. However, there are no obvious adnexal lesions. There no pelvic free fluid IMPRESSION: Large heterogeneous fibroid uterus. Recommend nonemergent surgical strategic planning manager consultation. The ovaries are not seen. However, there are no adnexal masses or pelvic free fluid. This document has been electronically signed by: Elver Belle MD on 05/21/2025 04:47:16 Medications Administered Discontinued Medications Generic Name Dose Route Start Last Admin Trade Name Freq PRN Reason Stop Dose Admin Sodium Chloride 1,000 mls @ 999 mls/hr 05/20/25 23:15 05/21/25 00:38 Ns IV 05/21/25 00:15 Infused .Q1H1M FRANNY Infusion Iohexol 85 ml 05/20/25 23:28 05/20/25 23:37 Iohexol 350 Mg/Ml 100 Ml Infus..Btl IV 05/20/25 23:29 85 ml ONCE ONE Administration Morphine Sulfate 4 mg 05/20/25 23:15 05/20/25 23:26 Morphine Sulfate 4 Mg/Ml Cartridge IVPUSH 05/20/25 23:16 4 mg ONCE ONE Administration Protocol Ondansetron HCl 4 mg 05/20/25 23:15 05/20/25 23:26 Ondansetron Hcl 4 Mg/2 Ml Vial IVPUSH 05/20/25 23:16 4 mg ONCE ONE Administration Discharge Plan Discharge Clinical Impression: Uterine fibroid Qualifiers: Uterine leiomyoma location: intramural Qualified Code(s): D25.1 - Intramural leiomyoma of uterus Patient Disposition: Home, Self-Care Instructions: Uterine Fibroids (ED) Additional Instructions: M?si paske ou te chwazi Depatman Ijans [facility] tamiko swen ou prince a. Erezman evalyasyon laboratwa ou nan s?vis ijans parth te rasire epi eskan? ou a pa montre okenn pr?v yon blokaj entesten, w?ch nan meliton, oswa apendisit egi. Kounye a pa gen [facility] endikasyon tamiko ent?vansyon chirijikal ijans, admisyon nan lopital oswa obs?vasyon kontiny?l nan s?vis ijans parth, epi li an sekirite tamiko kite ou lakay ou. Eskan? ou a te montre plizy? gwo fibw?m klever matris ou ki ka kontribye nan doul? nan vant ou. Ultrason ou a te konfime prezans fibw?m sa yo epi k?m rezilta imaj ou a, li tr? enp?wright tamiko ou swiv ak yon jinekol?g tamiko diskite klever nesesite tamiko yon byopsi ak plis jesyon tamiko rezilta sa yo. Ou ta dwe pran d?z alt?ne (ekalade) ibipwof?n 600mg ak Tylenol 1000mg chak 4 ?dtan emma sa neses? tamiko nenp?t doul? anplis. Tanpri rete byen idrate epi pran anpil repo. Tanpri demond swiv ak dokt? swen prensipal ou a tamiko yon re-evalyasyon, plis jesyon sent?m ou yo, ak swen prevantif kontiny?l. Si ou pa gen yon dokt? swen prensipal, tanpri rele [facility] nan [phone] tamiko chwazi yon nouvo dokt? swen prensipal. Pandan w ap tann tamiko chwazi nouvo dokt? swen prensipal ou a, ou ka rele [facility] nou an nan [phone] tamiko bezwen ki angie ijans. Tanpri retounen nan depatman ijans parth si ou devlope yon chanjman grav oswa toudenkou nan sent?m ou yo, yon lafy?v plis pase 100.4 ki angie amelyomanny ak Tylenol oswa Ibuprofen, vomisman ki repete, oswa nenp?t l?t sent?m oswa enkyetid nouvo oswa ki claus madera. Thank you for choosing [facility] for your care today. Thankfully your laboratory evaluation in the ED is reassuring and your CT shows no evidence of a bowel obstruction, kidney stone, or acute appendicitis. At this time there is no indication for emergent surgical intervention, admission to the hospital or continued ED observation, and it is safe to discharge you home. Your CT did show multiple large fibroids on your uterus which may be contributing to your abdominal pain. Your ultrasound confirmed the presence of these fibroids and as a result of your imaging it is extremely important that you follow up with a corporate director talent assessment to discuss need for biopsy and further management of these findings. You should take alternating (staggered) doses of ibuprofen 600mg and Tylenol 1000mg every 4 hours as needed for any additional pain. Please stay well hydrated and get plenty of rest. Please also follow up with your primary care physician for re-evaluation, additional management of your symptoms, and continued preventative care. If you do not have a primary care physician, please call the [facility] at [phone] to establish a new primary care physician. While waiting to establish your new primary care physician, you can call our [facility] at [phone] for non-emergency needs. Please return to the emergency department if you develop a severe or sudden change in your symptoms, a fever over 100.4 that does not improve with Tylenol or Ibuprofen, recurrent vomiting, or any other new or worsening symptoms or concerns. Prescriptions: No Action ibuprofen 600 mg tablet 600 mg PO Q6H PRN (Reason: pain) Qty: 20 0RF acetaminophen [Non-Aspirin Extra Strength] 500 mg tablet 1,000 mg PO Q8H PRN (Reason: pain) Qty: 20 0RF (DME) Knee Support Brace Misc See Rx Instructions .MEDSUPPLY Qty: 1 0RF Rx Instructions: reaction knee brace XL/XXL, ledezma albuterol sulfate 2.5 mg /3 mL (0.083 %) solution for nebulization 2.5 mg inhalation Q6H PRN (Reason: wheezing) amlodipine 5 mg tablet 5 mg PO DAILY omeprazole 20 mg capsule,delayed release(DR/EC) 20 mg PO DAILY Flonase Sensimist 27.5 mcg/actuation spray,suspension 1 spray intranasal DAILY Qty: 18.2 2RF Rx Instructions: into each nostril fluticasone propion-salmeterol [Advair HFA] 230-21 mcg/actuation HFA aerosol inhaler 2 inh inhalation Q12H Qty: 12 3RF albuterol sulfate 90 mcg/actuation HFA aerosol inhaler 2 puff inhalation Q4-6H PRN (Reason: shortness of breath or wheezing) Qty: 18 0RF Referrals: Phyllis Day NP [Primary Care Provider, Internal Medicine] Clinical Impression: Uterine fibroid [facility] [Provider Group] Clinical Impression: Uterine fibroid Print Language: Other
[2025-05-20 19:59] VITALS: BP 177/114; PULSE 88; RESP 18; TEMP 36.6; O2SAT 97
[2025-05-20 20:13] LABS: Magnesium 2.1 mg/dL (1.6-2.6)
--- OUTSIDE RECORDS SUMMARY | 2025-05-20 20:15 | XMS_ITS | Encounter Summary ---
Author Organization [employer] Address [address] [facility] 7 [place] [address] Care Team Providers Care Knife Sharpener Name Role Phone Phyllis Day Primary Care Provider Thalia Guerra Unavailable [phone] Reason for Visit * Reason Comments Med Refill Encounter Details Date Type Department Care Team (Late st Contact Info) Description 12/02/2024 Refill [facility] MEDICINE [address] [place], [place] [phone] Phyllis Day ANP [address] [place], [place] [phone] Gastroesophageal reflux disease, unspecified whether esophagitis present [...] documented as of this encounter Care Teams Knife Sharpener Relationship Specialty Start Date End Date Phyllis Day ANP [address] [place] [address] PCP - General Family Medicine 01/30/21 Thalia Guerra [address] [place] [address] [address] [place] [address] Pulmonary Disease 05/07/25 documented as of this encounter
--- OUTSIDE RECORDS SUMMARY | 2025-05-20 20:15 | XMS_ITS | Encounter Summary ---
Author Organization [employer] Address [address] [facility] 7 [place] [address] Care Team Providers Care Automatic Beam Warper Tender Name Role Phone Phyllis Day Primary Care Provider Thalia Guerra Unavailable [phone] Reason for Visit * Reason Onset Date Comments Med Refill 12/22/2024 Encounter Details Date Type Department Care Team (Late st Contact Info) Description 12/22/2024 Refill [facility] MEDICINE [address] [place], [place] [phone] Phyllis Day ANP [address] [place] [address] Essential hypertension Social History Tobacco Use Types [...] documented as of this encounter Care Teams Automatic Beam Warper Tender Relationship Specialty Start Date End Date Phyllis Day ANP [address] [place] [address] PCP - General Family Medicine 01/30/21 Thalia Guerra [address] [place] [address] Pulmonary Disease 05/07/25 documented as of this encounter
--- OUTSIDE RECORDS SUMMARY | 2025-05-20 20:15 | XMS_ITS | Encounter Summary ---
Author Organization [employer] Address [address] [place] [address] 7 [place] [address] Care Team Providers Care Retread Technician Name Role Phone Phyllis Day Primary Care Provider [phone] Thalia Guerra Unavailable [phone] Encounter Details Date Type Department Care Team (Late st Contact Info) Description 12/30/2022 Orders Only [facility] MEDICINE [address] [place] [address] Hanna Aranda LPN Social History Tobacco Use [...] on filedocumented in this encounter Care Teams Retread Technician Relationship Specialty Start Date End Date Phyllis Day ANP [address] [place] [address] PCP - General Family Medicine 01/30/21 Thalia Guerra [address] [place] [address] Dr [address] [place] [address] Pulmonary Disease 05/07/25 documented as of this encounter
--- OUTSIDE RECORDS SUMMARY | 2025-05-20 20:15 | XMS_ITS | Encounter Summary ---
Author Organization [employer] Address [address] [facility] 7 [place] [address] Care Team Providers Care Blueprint Blocker Name Role Phone Phyllis Day Primary Care Provider [phone] Thalia Guerra Unavailable [phone] Reason for Visit * Reason Comments Med Change Request Encounter Details Date Type Department Care Team (Late st Contact Info) Description 10/24/2024 Refill [facility] MEDICINE [address] [place], [place] [phone] Phyllis Day ANP [address] [place], [place] [phone] Gastroesophageal reflux disease, unspecified whether esophagitis present [...] documented as of this encounter Care Teams Blueprint Blocker Relationship Specialty Start Date End Date Phyllis Day ANP [address] [place] [address] [place] [address] PCP - General Family Medicine 01/30/21 Thalia Guerra [address] [place] [address] [address] [place] [address] Pulmonary Disease 05/07/25 documented as of this encounter
--- OUTSIDE RECORDS SUMMARY | 2025-05-20 20:15 | XMS_ITS | Encounter Summary ---
Author Organization [employer] Address [address] [place] [address] [address] [place] [address] Care Team Providers Care Window Repairer Name Role Phone Phyllis Dya Primary Care Provider Thalia Guerra Unavailable [phone] Reason for Visit * Reason Comments Med Refill Encounter Details Date Type Department Care Team (Late st Contact Info) Description 02/24/2023 Refill [facility] MEDICINE [address] [place], [place] [phone] Phyllis Day ANP [address] [place], [place] [phone] Mild persistent asthma with (acute) exacerbation Social [...] exacerbation documented in this encounter Care Teams Window Repairer Relationship Specialty Start Date End Date Phyllis Day ANP [address] [place], [place] [phone] PCP - General Family Medicine 01/30/21 Thalia Guerra [address] [place] [address] [address] [place] [address] Pulmonary Disease 05/07/25 documented as of this encounter
--- OUTSIDE RECORDS SUMMARY | 2025-05-20 20:15 | XMS_ITS | Encounter Summary ---
Author Organization [employer] Address [address] [facility] 7 [place] [address] Care Team Providers Care Rotor Winder Name Role Phone Karely Lopez Primary Care Provider [phone] Thalia Guerra Unavailable [phone] Encounter Details Date Type Department Care Team (Late st Contact Info) Description 05/14/2023 Orders Only [facility] [address] [place] [address] Karely Lopez ANP [address] [place], [place] [phone] Acute pain of left knee (Primary Dx) [...] AM EST Narrative 05/19/2023 4:59 PM EST [address] [address] XRay Report Signed Patient: Vilma Bourne MR#: [id number] : 1975 Acct:[id number] Age/Sex: 48 / F ADM Date: 05/17/23 Loc: HO.HHCX Attending Dr: Karely Lopez ELEVATOR ADJUSTER Ordering Physician: KARELY LOPEZ NP Date of Service: 05/17/23 Procedure(s): XR ankle LT min 3V Accession Number(s): [id number] cc: KARELY LOPEZ ELEVATOR ADJUSTER Examination: Left and right ankles CLINICAL INFORMATION: [...] by Shahrzad Keenan MD in OV> 05/19/23 165 DD/ 1021 TD/TT: Statement Request Clerk: Procedure Note Donotuseinterpreter, Image - 05/19/2023 [place] [address] XRay Report Signed Patient: Mary Bourne#: [id number] : 1975Acct:[id number] Age/Sex: 48 / FADM Date: 05/17/23 Loc: HO.HHCX Attending Dr: Karely Lopez NP Ordering Physician: KARELY LOPEZ NP Date of Service: 05/17/23 Procedure(s): XR ankle LT min 3V Accession Number(s): [id number] cc: KARELY LOPEZ ELEVATOR ADJUSTER Examination: Left and right ankles CLINICAL INFORMATION: [...] by Shahrzad Keenan MD in OV> 05/19/23 165 DD/ 1021 TD/TT: Statement Request Clerk: Karely Lopez ANP IM XR PROCEDURES Final Result * XR Ankle 3+ Views Right (05/17/2023 10:21 AM EST) Anatomical Region Laterality Modality Lower Extremities, Ankle Right Radiogr aphic Imaging 05/17/2023 10:2 1 AM EST Narrative 05/19/2023 4:59 PM EST [address] [address] XRay Report Signed Patient: Vilma Bourne MR#: [id number] : 1975 Acct:[id number] Age/Sex: 48 / F ADM Date: 05/17/23 Loc: [facility] Attending Dr: Karely Lopez ELEVATOR ADJUSTER Ordering Physician: KARELY LOPEZ NP Date of Service: 05/17/23 Procedure(s): XR ankle RT min 3V Accession Number(s): [id number] cc: KARELY LOPEZ ELEVATOR ADJUSTER Examination: Left and right ankles CLINICAL INFORMATION: [...] in OV> 05/19/23 1655 DD/ 1021 TD/TT: Statement Request Clerk: Procedure Note Donotuseinterpreter, Image - 05/19/[address] [address] XRay Report Signed Patient: Vilma BourneMR#: [id number] : 1975Acct:[id number] Age/Sex: 48 / FADM Date: 05/17/23 Loc: [facility] Attending Dr: Karely Lopez ELEVATOR ADJUSTER Ordering Physician: KARELY LOPEZ NP Date of Service: 05/17/23 Procedure(s): XR ankle RT min 3V Accession Number(s): [id number] cc: KARELY LOPEZ ELEVATOR ADJUSTER Examination: Left and right ankles CLINICAL INFORMATION: [...] by Shahrzad Keenan MD in OV> 05/19/23 165 DD/ 1021 TD/TT: Statement Request Clerk: Karely Lopez ANP IMG XR PROCEDURES Final Result * XR Knee 1-2 Views Left (05/17/2023 10:21 AM EST) Anatomical Region Laterality Modality Lower Extremities, Knee Left Radiogra phic Imaging 05/17/2023 10:2 1 AM EST Narrative 05/19/2023 4:59 PM EST [address] [address] XRay Report Signed Patient: Vilma Bourne MR#: [id number] : 1975 Acct:[id number] Age/Sex: 48 / F ADM Date: 05/17/23 Loc: HO.HHCX Attending Dr: Karely Lopez ELEVATOR ADJUSTER Ordering Physician: KARELY LOPEZ NP Date of Service: 05/17/23 Procedure(s): XR knee LT 2V Accession Number(s): [id number] cc: KARELY LOPEZ ELEVATOR ADJUSTER EXAMINATION: XR KNEE, LEFT CLINICAL INFORMATION: Pain COMPARISON: None available. TECHNIQUE: Four views of the left knee. FINDINGS: No fracture or joint effusion. Alignment is anatomic. Joint spaces are maintained. No abnormal soft tissue calcification. XR/XR knee LT 2V IMPRESSION: Normal left knee. Dictated By: Shahrzad Keenan MD Signed By: <Electronically signed by Shahrzad Keenan MD in OV> 05/19/23 165 DD/ 1021 TD/TT: Statement Request Clerk: Procedure Note Donotuseinterpreter, Image - 05/19/2023 [facility] [address] [place] [address] XRay Report Signed Patient: Vilma BourneMR#: [id number] : 1975Acct:[id number] Age/Sex: 48 / FADM Date: 05/17/23 Loc: HO.HHCX Attending Dr: Karely Lopez ELEVATOR ADJUSTER Ordering Physician: KARELY LOPEZ NP Date of Service: 05/17/23 Procedure(s): XR knee LT 2V Accession Number(s): [id number] cc: KARELY LOPEZ ELEVATOR ADJUSTER EXAMINATION: XR KNEE, LEFT CLINICAL INFORMATION: Pain COMPARISON: None available. TECHNIQUE: Four views of the left knee. FINDINGS: No fracture or joint effusion. Alignment is anatomic. Joint spaces are maintained. No abnormal soft tissue calcification. XR/XR knee LT 2V IMPRESSION: Normal left knee. Dictated By: Shahrzad Keenan MD Signed By: <Electronically signed by Shahrzad Keenan MD in OV> 05/19/23 1655 DD/ 1021 TD/TT: Statement Request Clerk: Karely Lopez ANP IMG XR PROCEDURES Final Result documented in this encounter Visit Diagnoses Diagnosis Acute pain of left knee- Primary documented in this encounter Additional Health Concerns Assessment Noted Time PHQ-9 Depression Total Score: 0 04/22/20 23 1:07 PM EST documented as of this encounter Care Teams Rotor Winder Relationship Specialty Start Date End Date Karely Lopez ANP [address] [place] [address] PCP - General Family Medicine 01/30/21 Thalia Guerra [address] [place] [address] [place] [address] Pulmonary Disease 05/07/25 documented as of this encounter
--- OUTSIDE RECORDS SUMMARY | 2025-05-20 20:15 | XMS_ITS | Clinical Summary ---
Author Organization [employer] Address [address] [place] [address] 7t [place] [address] Care Team Providers Care Assistant Technician Name Role Phone Karely Lopez Primary Care Provider [phone] Thalia Guerra Unavailable [phone] Allergies Active Allergy Reactions Criticality Noted Date [...] DAY 90 tablet 1 5 Active Umeclidinium [place] 62.5 MCG/ACT aerosol powderIndication s:Obstructive airway disease [...] with 8 oz of water. 120 capsule Active cetirizine (ZyrTEC) 10 MG tabletIndication s:Non-seasonal allergic rhinitis, unspecified trigger TAKE 1 TABLET (10 MG) BY MOUTH ONCE PER DAY. NEEDED FOR ALLERGIES 90 tablet Active Active Problems Problem Noted Date Diagnosed [...] Encounters Date Type Department Care Team Description 03/28/2025 Telephone [facility] [address] [place], [place] [phone] Marimar Miller, EMY Durable Medical Equipment 03/12/2025 Orders Only [facility] External Provider, [facility] from Last 3 Months Immunizations Immunization Administration [...] 02/13/1992 Dental Oral Exam 12/09/2022 06/09/2022, 05/17/2018 RSV Patients and Patients Aged 60 years or older (1 - Risk 50-74 years 1-dose series) 2023 Zoster Vaccines (1 of 2) 2023 Dental [...] 10/12, 10/27/2018 Lipid Panel 10/25/2029 10/25/2024, 07/08/2021 Hepatitis A Vaccines Aged Out 06/16/2019 No [...] LT W SCAPHOID Routine 1:18 PM EDT LIPID PANEL, STANDARD Routine 10/25/2024 10:46 AM [...] PM EDT Narrative 03/12/2025 1:42 PM EDT [facility] [address] [place] [address] XRay Report Signed Patient: Vilma Bourne MR#: [id number] : 1975 Acct:[id number] Age/Sex: 50 / F ADM Date: 03/12/25 Loc: HO.HOSX Attending Dr: Álvaro MAYNARD Ordering Physician: Álvaro Luciano Date of Service: 03/12/25 Procedure(s): XR wrist LT w scaphoid Accession Number(s): [id number] cc: Álvaro Luciano; KARELY LOPEZ NP Reason [...] 03/12/25 1339 DD/ 1318 TD/TT: 03/12/25 1322 Agricultural Economics Professor: Procedure Note Donotuseinterpreter, Image - 03/12/2025 [facility] [address] [place] [address] XRay Report Signed Patient: Vilma BourneMR#: [id number] : 1975Acct:[id number] Age/Sex: 50 / FADM Date: 03/12/25 Loc: HO.HOSX Attending Dr: Álvaro MAYNARD Ordering Physician: Álvaro Luciano Date of Service: 03/12/25 Procedure(s): XR wrist LT w scaphoid Accession Number(s): [id number] cc: Álvaro Luciano; KARELY LOPEZ NP Reason [...] 03/12/25 1339 DD/ 1318 TD/TT: 03/12/25 1322 Agricultural Economics Professor: [facility] External Provider IMG XR PROCEDURES Final Result * Lipid Panel, Standard (10/25/2024 10:46 AM EDT) Triglycerides 70 <150 mg/dL [facility] Comment:Desirable Triglyceri de: less than 150 mg/dLBorderline High Triglyceride 150-199 mg/dLHigh Triglyceride: 200-499 mg/dLVery High Triglyceride: greater than or equal to 5OO mg/dL Cholesterol 141 <200 mg/dL [facility] Comment:Desirable Cholestero l: less than 200 mg/dLBorderline High Cholesterol: 200-239 mg/dLHigh Cholesterol: greater than 239 mg/dL LDL Cholesterol Calculated 81 <100 mg/dL [facility] Comment:Desirable LDL: less than 100 mg/dLNear Optimal/Above Optimal LDL: 110- 129 mg/dLBorderline High LDL: 130-159 mg/dLHigh LDL: 160-189 mg/dLVery High LDL: greater than or equal to 190 mg/dL HDL Cholesterol 46 >40 mg/dL [facility] Comment:Desirable HDL: great er than 40 mg/dL Note: This HDL assay may give artificially low results in patients with liver disease. Blood Venous blood specimen / Unknown 10/25/2024 10:46 AM EDT 10/25/2024 1:26 PM EDT Karely Lopez [facility] BLOOD ORDERABLES Final Resul t Performing Organization Address [facility] Co de Phone Number [facility] [address] [place] [phone] * HPV DNA, Low/High Risk (07/21/2024 10:35 AM EST) HPV High Risk Negative Negative [facility] HPV Genotype 16 Negative Negative [facility] HPV Genotype 18 Negative Negative [facility] Comment:HPV testing performe d at [facility] (CLIA#[id number]), [address] [place] [address].Testing for HPV was performed using the Kate [...] EST 07/24/2024 8:20 AM EST Karely Lopez [facility] BLOOD ORDERABLES Final Resul t Performing Organization Address [facility] Co de Phone Number [facility] [address] [place] [phone] * Pap Smear (07/21/2024 10:35 AM EST) Swab Cervical swab / Unknown 07/21/2024 10:35 AM EST 07/24/2024 8:20 AM EST Soraya [facility] - 07/29/2024 10:03 AM EST ----- ------- Name: Vilma Bourne Age/Sex: 49/F : 1975 Unit#: [id number] Attend Dr: KARELY LOPEZ NP Re07/21/24 Status: [facility] ----- ------- SPEC : [id number] RECD: 07/24/24 STATUS: RAYMOND RODRIGUEZ NUM: [id number] ESTEBAN: 07/21/24-[address] [facility] [address]: KARELY LOPEZ NP ENTERED: 07/24/24 [...] ----- ------- Signed (signature on file) Jerson Krystyna CT (ASCP) 07/29/24 1003 ----- ------- END OF REPORT us Karely Lopez ANP LAB CYTOLOGY ORDERABLES Final Re sult [facility] [address] [place] [address] [phone] * BI Mammogram Screening Tomosynthesis Bilateral (07/19/2024 11:30 AM EST) Anatomical Region Laterality Modality Breast Bilateral Mammography 07/19/2024 11:3 0 AM EST Narrative 07/25/2024 7:11 PM EST [address] [place] [address] Mammography Report Signed Patient: Vilma Bourne MR#: [id number] : 1975 Acct:[id number] Age/Sex: 49 / F ADM Date: 07/19/24 Loc: NATE Attending Dr: Karely Lopez NP Ordering Physician: KARELY LOPEZ NP Results: 2Benign Khalif pelaez Date of Service: 07/19/24 Follow Up: 1 Year From Orig inal Mammogram Procedure(s): MM tomosynthesis screening BI Accession Number(s): [id number] cc: KARELY LOPEZ NP EXAMINATION: MM SCREENING [...] by: Renay Sosa DO 07/25/2024 07:08 PM [facility] Dictated By: Renay Sosa DO Signed By: <Electronically signed by Renay Sosa DO in OV> 07/25/24 1908 DD/ 1130 TD/TT: 07/19/24 1140 Agricultural Economics Professor: Procedure Note Donotuseinterpreter, Image - 07/25/2024 [facility] [address] [place] [address] Mammography Report Signed Patient: Vilma Bourne#: [id number] : 1975Acct:[id number] Age/Sex: 49 / FADM Date: 07/19/24 Loc: MAMMO Attending Dr: Karely Lopez NP Ordering Physician: KARELY LOPEZ NPResults: 2Bozzie pelaez Date of Service: 07/19/24Follow Up: 1 Year From Orig inal Mammogram Procedure(s): MM tomosynthesis screening BI Accession Number(s): [id number] cc: KARELY LOPEZ NP EXAMINATION: MM SCREENING [...] 07/25/24 1908 DD/ 1130 TD/TT: 07/19/24 1140 Agricultural Economics Professor: us Karely MCFADDEN IMG BI PROCEDURES Final Result * HEPATITIS C AB W/REFL TO HCV RNA, QN, PCR (07/08/2021 10:50 AM EST) HEPATITIS C ANTIBODY NON-REACT CELESTINO NON-REACT CELESTINO [facility] INDEX 0.04 <1.00 [facility] Comment: HCV antibody was non-reactive. There is no laboratory evidence of HCV infection. In most cases, no further action is required. However, if recent HCV exposure is suspected, a test for HCV RNA (test code 26123) is suggested. For additional information please refer to http://education.BIlprospekt.Mediaspectrum/faq/LSB19w5 (This link is being provided for informational/ educational purposes only.) 07/08/2021 10:5 0 AM EST us Karely MCFADDEN HISTORICAL/NON ORDERABLE LABS Fi nal Result [facility] [address] * HIV 1/2 ANTIGEN/ANTIBODY,FOURTH GENERATION W/RFL (07/08/2021 10:50 AM EST) HIV-1/2 ANTIGEN AND ANTIBODIES, 4TH GENERATION W/ REFLEX NON-REACT CELESTINO NON-REACT CELESTINO [facility] Comment: HIV-1 antigen and HIV-1/HIV-2 [...] purpose. For additional information please refer to http://education.Venafi/faq/BGV034 (This link is being provided for informational/ educational purposes only.) The performance of this assay has not been clinically validated in patients less than 2 years old. 07/08/2021 10:5 0 AM EST [facility] LAB BLOOD ORDERABLES Final Resul t [facility] [address] from Last 3 Months or Most Recently Relevant to Health Maintenance Insurance [facility] C3 DENTAL-[facility] MEDICAID STAND ADULT Care Teams Assistant Technician Relationship Specialty Start Date End Date Karely Lopez ANP [address] [place] [phone] PCP - General Family Medicine 01/30/21 Thalia Guerra [address] [place] [address] [place] [phone] Pulmonary Disease 05/07/25
[2025-05-20 20:22] VITALS: BP 180/97; PULSE 86; RESP 16; TEMP 36.4; O2SAT 98
[2025-05-20 22:13] VITALS: BP 155/89; PULSE 78; RESP 19; TEMP 36.8; O2SAT 99
[2025-05-20] MEDS: iohexoL 350 MG/ML 100 ML INFUS..BTL 85 ML IV (23:37)
[2025-05-21 00:15] VITALS: BP 128/61; PULSE 81; TEMP 37.1; O2SAT 99
[2025-05-21 05:42] VITALS: BP 134/82; PULSE 71; RESP 16; TEMP 36.8; O2SAT 95
[2025-05-21 05:46] VITALS: BP 134/82; PULSE 71; RESP 16; TEMP 36.8; O2SAT 95
== END 2025-05-21 06:04 | disposition home or self-care (01) ==
PROVIDERS: Physician Assistant; Emergency Provider Emergency Medicine; PCP Nurse Practitioner Primary Care
DX: D25.1 Intramural leiomyoma of uterus (principal); R10.31 Right lower quadrant pain; J45.909 Unspecified asthma, uncomplicated; Z03.818 Encounter for observation for suspected exposure to other biological agents ruled out
CPT/HCPCS: 74177; 76856; 80048; 80076; 81003; 81025; 83690; 83735; 85025; 87637; 93975; 96361; 96374; 96375; 99284; J2270; J2405; Q9967

== ENCOUNTER → 2025-05-20 23:15 | Outpatient (BNV) | payer BC, MEDICAID, SELFPAY | PROVIDERS: Emergency Provider Emergency Medicine; PCP Nurse Practitioner Primary Care; Visit Provider Radiology Diagnostic Radiology | DX: N85.2 Hypertrophy of uterus (principal) | CPT/HCPCS: 74177 ==

== ENCOUNTER → 2025-05-21 00:53 | Outpatient (BNV) | payer BC, MEDICAID, SELFPAY | PROVIDERS: Emergency Provider Emergency Medicine; PCP Nurse Practitioner Primary Care; Visit Provider Radiology Diagnostic Radiology | DX: D25.9 Leiomyoma of uterus, unspecified (principal) | CPT/HCPCS: 93975 ==

== ENCOUNTER 2025-05-28 10:35 | Outpatient (REF) | payer BC, MEDICAID, SELFPAY ==
[2025-05-28 13:27] LABS: Hematocrit 33.2 % (37.0-47.0); Hemoglobin 10.5 g/dl (12.0-16.0); Mean Corpuscular HGB Conc 31.6 g/dl (31.0-35.0); Mean Corpuscular Hemoglobin 24.8 pg (27.0-33.0); Mean Corpuscular Volume 78.3 fL (80.0-98.0); NRBC Abs Auto 0.000 X10*3/uL (0.0-0.012); NRBC Pct Auto 0.0 /100WBC (0.0-0.2); Platelet Count 365 X10*3/uL (160-400); Red Blood Count 4.24 X10*6/uL (4.20-5.50); White Blood Count 6.6 X10*3/uL (4.8-10.8)
[2025-05-29 05:09] LABS: Follicle Stimulating Hormone 22.4 mIU/mL
== END 2025-05-28 10:36 | disposition home or self-care (01) ==
LOC: HO.LAB 10:35
PROVIDERS: PCP Nurse Practitioner Primary Care; Visit Provider Obstetrics & Gynecology
DX: D25.1 Intramural leiomyoma of uterus (principal); N93.9 Abnormal uterine and vaginal bleeding, unspecified; Z13.29 Encounter for screening for other suspected endocrine disorder; Z32.00 Encounter for pregnancy test, result unknown
CPT/HCPCS: 36415; 83001; 83002; 84443; 84702; 85027

== ENCOUNTER 2025-05-28 10:35 | Outpatient (AMB) | payer BC, MEDICAID, SELFPAY ==
--- NOTE | 2025-05-28 11:14 | MHC.OFFVIS ---
Vital Signs 05/28/25 11:18 Height 5 ft 4 in Weight 225 lb BMI 38.6 BP 110/80 Intake Visit Reasons: ER Follow up-Abdominal Pain Food Safety Coordinator Required: Yes Food Safety Coordinator Language: Cymraes Creole Food Safety Coordinator Services: Food Safety Coordinator Present ([employer]) Food Safety Coordinator Name: Tristan #[id number] Information Interpreted: non-clinical & clinical Accompanied by: Spouse Allergies Tetanus Vaccines and Toxoid Allergy (Verified 05/28/25 11:20) Unknown Is last menstrual period known: Yes Last menstrual period: 05/22/25 HPI Comments Details: Presenting complaining of irregular heavy menstrual cycles associated with passage of blood clots and pelvic cramping. The patient went to emergency room on 05/21 where the following workup was done: H&H =11. Urine test was negative CT of the pelvis showed the following: No findings of appendicitis. No colonic wall thickening or pericolonic inflammatory stranding. Uterus is enlarged measuring 14.8 x 8.8 x 9.6 cm in size. Rounded area of low attenuation seen along the left aspect of the uterus measuring 6.1 cm in round diameter, likely a uterine fibroid. Additional areas of heterogeneous low attenuation are seen to the right of midline along the mid to lower uterine segment of the uterus measuring up to 3.0 cm in size. Endometrial canal is poorly defined. No adnexal masses. No free fluid or free air. IMPRESSION: 1. Enlarged myomatous uterus. This could potentially be the etiology for the patient's right-sided pelvic pain. Pelvic ultrasound could further evaluate. 2. No CT findings of appendicitis or obstruction. 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 Sexual orientation: Straight/Heterosexual Gender identity: Female Female Reproductive History Menstrual Age of Menarche: 11 Duration of menses: 8-10 days Date of last menstrual period: 05/22/25 Total pregnancies: 6 Full term: 6 Number of Living Children: 6 Date of last pap smear: 08/02/24 Date of Mammogram: 08/08/24 Review of Systems Const All systems reviewed & are unremarkable except as noted in HPI and below Card Reports as per HPI Resp Reports as per HPI GI Reports as per HPI and Reports no additional complaints Reports as per HPI Physical Exam Vital Signs: BMI result Body Mass Index 38.6 Const General: cooperative, healthy appearing and comfortable Chest Chest palpation & inspection: normal inspection of the chest and normal palpation of entire chest wall Breast/axilla inspection: normal inspection of the breasts and normal inspection of the axillae Breast/axilla palpation: normal palpation of the breasts, normal palpation of the axillae and no axillary lymphadenopathy Resp Effort & Inspection: normal respiratory effort Auscultation: clear to auscultation bilaterally Percussion: percussion normal Cardio Palpation: normal PMI Rate: regular rate Rhythm: regular rhythm Heart sounds: no murmurs and no rubs Peripheral pulses: Peripheral pulses 2+ throughout GI Inspection: Yes normal to inspection Palpation (GI): Soft to palpation, nontender, no guarding, not rigid and No hepatosplenomegaly present Percussion: Yes normal to percussion Auscultation: normal bowel sounds Rectal Exam - Female: deferred General: Yes bladder normal to palpation External Female Exam: No lesion Speculum Exam - Vagina: normal appearance of the vagina, normal palpation, normal vaginal discharge and not erythematous Speculum Exam - Cervix: normal appearance of the cervix and normal palpation Bimanual exam- vagina & uterus: normal bimanual exam, normal palpation, uterine size normal, bladder normal to palpation, consistency normal and normal palpation Bimanual Exam- Adnexa, other: normal adnexae, no masses and no tenderness Assessment & Plan Assessment & Plan (1) Abnormal uterine bleeding (AUB): Code(s): N93.9 - Abnormal uterine and vaginal bleeding, unspecified Category: Medical Plan: GC and chlamydia taken CBC, TSH, HCG, FSH/LH, and pelvic ultrasound ordered. Discussed with the patient the different causes of abnormal bleeding including thyroid disorders, uterine and ovarian pathology, endometrial hyperplasia, carcinoma and other potential causes. Discussed with the patient the work up including CBC (to r/o anemia), TSH, FSH/LH pelvic Ultrasound, endometrial biopsy to r/o endometrial pathology. All questions answered and the patient verbalized understanding. Instructed the patient to schedule an appointment for an endometrial biopsy in 2 weeks. (2) Uterine fibroid: Code(s): D25.9 - Leiomyoma of uterus, unspecified Category: Medical Qualifiers: Uterine leiomyoma location: intramural Qualified Code(s): D25.1 - Intramural leiomyoma of uterus Plan: Discussed with the patient the findings on pelvic ultrasound & the risk of myosarcoma; in addition reviewed with the patient that malignancy and pre malignancy cannot be ruled out without hysterectomy for pathological evaluation ; furthermore, explained to the patient the limitation of pelvic ultrasound and endometrial biopsy in the setting. Discussed with the patient the typical symptoms that are caused by myomas including but not limited to pelvic pain, pressure symptoms, abnormal uterine bleeding. In addition discussed with the patient options of treatment for myomas including: Serial ultrasounds periodically to follow-up on the size of the myoma while targeting the treatment against fibroids related symptoms ( control pills, Mirena IUD, progesterone treatment, GnRH agonist/antagonist, uterine artery embolization or endometrial ablation) versus surgical treatment including hysterectomy and or myomectomy. All pros and cons, risks and benefits of all options were discussed with the patient. The patient understands that delay in surgical treatment in case of myosarcoma can affect her prognosis, after further discussion, the patient decided to think about it and get back to us next visit Orders: Orders Complete Blood Count no Diff Today N93.9 - Abnormal uterine and vaginal bleeding, unspecified TSH reflex Free T4 Today N93.9 - Abnormal uterine and vaginal bleeding, unspecified Lutenizing Hormone Today N93.9 - Abnormal uterine and vaginal bleeding, unspecified HCG Quantitative Today N93.9 - Abnormal uterine and vaginal bleeding, unspecified Follicle Stimulating Hormone Today N93.9 - Abnormal uterine and vaginal bleeding, unspecified US pelvic and transvaginal Today N93.9 - Abnormal uterine and vaginal bleeding, unspecified Coding Level of Care Code New Pt Level 3 (96296) Diagnoses Abnormal uterine bleeding (AUB) N93.9 Uterine fibroid D25.1 Uterine leiomyoma location: intramural
[2025-05-28 11:18] VITALS: BP 110/80; BMI 38.6
== END 2025-05-28 12:23 | disposition home or self-care (01) ==
LOC: HO.HWS 10:35
PROVIDERS: PCP Nurse Practitioner Primary Care; Visit Provider Obstetrics & Gynecology
DX: N93.9 Abnormal uterine and vaginal bleeding, unspecified (principal); D25.1 Intramural leiomyoma of uterus
CPT/HCPCS: 99203

== ENCOUNTER 2025-05-28 12:19 | Outpatient (REF) | payer BC, MEDICAID, SELFPAY ==
--- OUTSIDE RECORDS SUMMARY | 2025-05-28 17:47 | XMS_ITS | Encounter Summary ---
Author Organization [employer] Address [address] [facility] 7 [place] [address] Care Team Providers Care Pedal Assembler Name Role Phone Phyllis Day Primary Care Provider [phone] Thalia Guerra Unavailable [phone] Encounter Details Date Type Department Care Team (Late st Contact Info) Description 05/28/2025 Orders Only [facility] [address] [place] [address] Phyllis Day ANP [address] [place], [place] [phone] Social History Tobacco Use Types Packs/Day Years [...] documented as of this encounter Care Teams Pedal Assembler Relationship Specialty Start Date End Date Phyllis Day ANP [address] [place] [address] PCP - General Family Medicine 01/30/21 Thalia Guerra [address] [place] [address] Pulmonary Disease 05/07/25 documented as of this encounter
--- OUTSIDE RECORDS SUMMARY | 2025-05-28 17:47 | XMS_ITS | Encounter Summary ---
Author Organization [employer] Address [address] [facility] 7 [place] [address] Care Team Providers Care Pumper Hand Name Role Phone Phyllis Day Primary Care Provider Thalia Guerra Unavailable [phone] Reason for Visit * Reason Onset Date Comments Med Refill 05/23/2025 Encounter Details Date Type Department Care Team (Late st Contact Info) Description 05/23/2025 Refill [facility] MED[facility]INE [address] [place], [place] [phone] Phyllis Day ANP [address] [place] [address] Essential hypertension Social History Tobacco Use Types [...] documented as of this encounter Care Teams Pumper Hand Relationship Specialty Start Date End Date Phyllis Day ANP [address] [place] [address] PCP - General Family Medicine 01/30/21 Thalia Guerra [address] [place] [address] Pulmonary Disease 05/07/25 documented as of this encounter
--- OUTSIDE RECORDS SUMMARY | 2025-05-28 17:47 | XMS_ITS | Encounter Summary ---
Author Organization [employer] Address [address] [facility] 7 [place] [address] Care Team Providers Care Coppersmith Apprentice Name Role Phone Phyllis Day Primary Care Provider [phone] Thalia Guerra Unavailable [phone] Encounter Details Date Type Department Care Team (Late st Contact Info) Description 05/28/2025 Orders Only GENERIC EXTERNAL DATA DEPARTMENT Provider, Generic External Data Social History Tobacco Use Types Packs/Day Years [...] Procedure Name Priority Date/Time Associated Diagnosis Comments TSH W/REFLEX TO FT4 Routine 05/28/2025 1 2:21 PM EST CBC Routine 05/28/2025 12:21 PM EST HCG, TOTAL, QN Routine 05/28/2025 12:21 PM EST documented in this encounter Results * hCG, Total, Quantitative (05/28/2025 12:21 PM EST) HCG Quantitative <2 mIU/mL [facility] Comment:Weeks post LMP Appro ximate hCG(Last Menstrual Period) Range (mIU/ml)3 - 4 weeks 9 - 1304 - 5 weeks 75 - 2,6005 - 6 weeks 850 - 20,8006 - 7 weeks 4000 - 100,2007 - 12 weeks 11,500 - 289,85790 - 16 weeks 18,300 - 137,09603 - 29 weeks (2nd trimester) 1,400 - 53,14527 - 41 weeks (3rd trimester) 940 - 60,000The [employer] B- hCG assay is used for the early detection ofpregnancy; it cannot be used to diagnose any conditionunrelated to . If a B-hCG level is not supportedby the clinical evidence, results should be confirmed by analternative method (qualitative urine hCG, for example). 05/28/2025 12:2 1 PM EST 05/28/2025 12:21 PM EST us Generic External Data Provider LAB BLOOD ORDERAB LES Final Result Performing Organization Address [facility] Co de Phone Number [facility] [address] [place] [phone] * TSH with Reflex to Free T4 (05/28/2025 12:21 PM EST) Pathologist [facility] TSH reflex Free T4 1.10 0.32 - 4.0 uIU/mL [facility] 05/28/2025 12:2 1 PM EST 05/28/2025 12:21 PM EST Generic External Data Provider LAB BLOOD ORDERAB LES Final Result Performing Organization Address [facility] de Phone Number [facility] [address] [place] [phone] * (ABNORMAL) CBC (05/28/2025 12:21 PM EST) White Blood Count 6.6 4.8 - 10.8 X10*3/uL [facility] Red Blood Count 4.24 4.20 - 5.50 X10*6/uL [facility] Hemoglobin 10.5(L) 12.0 - 16.0 g/dl [facility] Hematocrit 33.2(L) 37.0 - 47.0 % [facility] Mean Corpuscular Volume 78.3(L) 80.0 - 98.0 fL [facility] Mean Corpuscular Hemoglobin 24.8(L) 27.0 - 33.0 pg [facility] Mean Corpuscular HGB Conc 31.6 31.0 - 35.0 g/dl [facility] Red Cell Distribution Width 16.6(H) 11.0 - 16.0 % [facility] Platelet Count 365 160 - 400 X10*3/uL [facility] Mean Platelet Volume 10.6 9.4 - 12.3 fL [facility] NRBC Pct Auto 0.0 0.0 - 0.2 /100WBC [facility] NRBC Abs Auto 0.000 0.0 - 0.012 X10*3/uL [facility] 05/28/2025 12:2 1 PM EST 05/28/2025 12:21 PM EST us Generic External Data Provider LAB BLOOD ORDERAB LES Final Result [facility] [address] [place] [phone] documented in this encounter Visit Diagnoses Not on filedocumented in this encounter Additional Health Concerns Assessment Noted Time PHQ-9 Depression Total Score: 0 04/22/20 23 1:07 PM EST documented as of this encounter Care Teams Coppersmith Apprentice Relationship Specialty Start Date End Date Phyllis Day ANP [address] [place] [phone] PCP - General Family Medicine 01/30/21 Thalia Guerra [address] [place] [address] [address] [place] [address] Pulmonary Disease 05/07/25 documented as of this encounter
--- OUTSIDE RECORDS SUMMARY | 2025-05-28 17:48 | XMS_ITS | Encounter Summary ---
Author Organization [employer] Address [address] [facility] 7 [place] [address] Care Team Providers Care Manufacturing Test Technician Name Role Phone Phyllis Day Primary Care Provider Thalia Guerra Unavailable [phone] Reason for Visit * Reason Comments Med Change Request Encounter Details Date Type Department Care Team (Late st Contact Info) Description 10/24/2024 Refill [facility] [address] [place], [place] [phone] Phyllis Day ANP [address] [place], [place] [phone] Gastroesophageal reflux disease, unspecified whether esophagitis present [...] documented as of this encounter Care Teams Manufacturing Test Technician Relationship Specialty Start Date End Date Phyllis Day ANP [address] [place] [address] [place] [address] PCP - General Family Medicine 01/30/21 Thalia Guerra [address] [place] [address] [address] [place] [address] Pulmonary Disease 05/07/25 documented as of this encounter
--- OUTSIDE RECORDS SUMMARY | 2025-05-28 17:48 | XMS_ITS | Encounter Summary ---
Author Organization [employer] Address [address] [facility] 7 [place] [address] Care Team Providers Care Electrical Line Mechanic Name Role Phone Phyllis Day Primary Care Provider Thalia Guerra Unavailable [phone] Encounter Details Date Type Department Care Team (Latest Contact Info) Description 05/28/2025 Results Follow-Up [facility] [address] [place] [address] Phyllis Day ANP [address] [place], [place] [phone] CBC, TSH with Reflex to Free T4, hCG, Total, Quantitative Social History Tobacco Use Types Packs/Day Years [...] Result Encounter Note - BOGDAN Elizalde - 05/28/2025 4:32 PM EST Labs were via PULLER MACHINE but would recommend pt resume multivitamin w/ iron or OTC iron supplement once daily w/ vitamin C to increase absorption. documented in this encounter Plan of Treatment Not on file documented as of this encounter Visit Diagnoses Not on filedocumented in this encounter Additional Health Concerns Assessment Noted Time PHQ-9 Depression Total Score: 0 04/22/20 23 1:07 PM EST documented as of this encounter Care Teams Electrical Line Mechanic Relationship Specialty Start Date End Date Phyllis Day ANP [address] [place] [address] PCP - General Family Medicine 01/30/21 Thalia Guerra [address] [place] [address] [place] [address] Pulmonary Disease 05/07/25 documented as of this encounter
--- OUTSIDE RECORDS SUMMARY | 2025-05-28 17:48 | XMS_ITS | Clinical Summary ---
Author Organization [employer] Address [address] [place] [address] 7 [place] [address] Care Team Providers Care Dry Box Operator Name Role Phone Karely Lopez Primary Care Provider [phone] Thalia Guerra Unavailable [phone] Allergies Active Allergy Reactions Criticality Noted [...] or fever). 100 tablet 2 2025 Active fluticasone-kari meterol (Advair) 230-21 MCG/ACT inhalerIndicati ons:Moderate persistent asthma without complication Inhale 2 puffs in the morning and at bedtime. Rinse mouth with water after use to reduce aftertaste and incidence of candidiasis. Do not swallow. 12 g 11 2025 Active Blood Pressure kitIndications: Essential hypertension [...] needed for acid reflux 60 tablet Active Umeclidinium [place] 62.5 MCG/ACT aerosol powderIndicatio ns:Obstructive airway disease (HCC) Inhale 1 Act (62.5 mcg) Once per day. 30 each 2 Active omeprazole (PriLOSEC) [address] capsuleIndicati ons:Bacterial infection due to H. pylori Take 1 capsule (20 mg) by mouth before breakfast and before evening meal for 10 days. Do not crush or chew. 20 capsule 025 Active bismuth-metroNI DAZOLE-tetracyc line (Pylera) 140-125-125 MG capsuleIndicati ons:Bacterial infection due to H. pylori Take 3 capsules by mouth before breakfast, before lunch, before evening meal, and at bedtime for 10 days. Follow each dose with 8 oz of water. 120 capsule 025 Active cetirizine (ZyrTEC) 10 MG tabletIndicatio ns:Non-seasonal allergic rhinitis, unspecified trigger TAKE 1 TABLET (10 MG) BY MOUTH ONCE PER DAY. NEEDED FOR ALLERGIES 90 tablet 025 Active amLODIPine (Norvasc) 5 MG tabletIndicatio ns:Essential hypertension TAKE 1 TABLET BY MOUTH EVERY DAY 90 tablet 1 025 Active amLODIPine (Norvasc) 5 MG tabletIndicatio ns:Essential hypertension TAKE 1 TABLET BY MOUTH EVERY DAY 90 tablet 1 025 2024 Discontinued(R eorder (will not trigger [...] Encounters Date Type Department Care Team Description 05/28/2025 Results Follow-Up [address] [address] Karely Lopez ANP CBC, TSH with Reflex to Free T4, hCG, Total, Quantitative 05/28/2025 Orders Only [address] [address] Karely Lopez ANP 05/28/2025 Orders Only GENERIC EXTERNAL DATA DEPARTMENT Provider, Generic External Data 05/23/[address] [address] Karely Lopez ANP Essential hypertension 05/22/[address] [address] Karely Lopez ANP Nurse Triage 05/21/2025 Results Follow-Up [address] [place] [address] Abdomen Pelvis w/ Contrast 05/20/2025 Orders Only [facility] External Provider, [facility] 03/28/2025 Telephone [facility] [address] [place] [address] Marimar Miller, [facility] [employer] 03/12/2025 Orders Only [facility] External Provider, [facility] from Last 3 Months Immunizations Immunization [...] Bitewings 06/10/2023 06/09/2022, 05/17 COVID-19 Vaccine ( - season) 2025 07/24/2021, 07/03/2021 Influenza Vaccine (#1) [...] 10/24/2024 SDOH Screening 10/24/2025 10/24/2024 Tobacco Screening 05/28/2026 05/28/2025 Cervical Cancer Screening 07/21/2029 HPV/Cotest 07/21/2029 07/21/2024, [...] Procedure Name Priority Date/Time Associated Diagnosis Comments HCG, TOTAL, QN Routine 05/28/2025 12:21 PM EST TSH W/REFLEX TO FT4 Routine 05/28/2025 1 2:21 PM EST CBC Routine 05/28/2025 12:21 PM EST US PELVIC OVARIAN DOPPLER Routine 05/21/2025 4:[address] ABDOMEN PELVIS W CONTRAST Routine 05/21/2025 12:17 AM EST XR WRIST LT W SCAPHOID Routine 1:18 [...] Relevant to Health Maintenance Results * TSH with Reflex to Free T4 (05/28/2025 12:21 PM EST) TSH reflex Free T4 1.10 0.32 - 4.0 uIU/mL [facility] 05/28/2025 12:2 1 PM EST 05/28/2025 12:21 PM EST us Generic External Data Provider LAB BLOOD ORDERAB LES Final Result Performing Organization Address City/[facility]/ZIP Co de Phone Number [facility] [address] [place] [phone] * (ABNORMAL) CBC (05/28/2025 12:21 PM EST) White Blood Count 6.6 4.8 - 10.8 X10*3/uL [facility] Red Blood Count 4.24 4.20 - 5.50 X10*6/uL [facility] Hemoglobin 10.5(L) 12.0 - 16.0 g/dl [facility] Hematocrit 33.2(L) 37.0 - 47.0 % [facility] Mean Corpuscular Volume 78.3(L) 80.0 - 98.0 fL [facility] Mean Corpuscular Hemoglobin 24.8(L) 27.0 - 33.0 pg [facility] Mean Corpuscular HGB Conc 31.6 31.0 - 35.0 g/dl [facility] Red Cell Distribution Width 16.6(H) 11.0 - 16.0 % [facility] Platelet Count 365 160 - 400 X10*3/uL [facility] Mean Platelet Volume 10.6 9.4 - 12.3 fL [facility] NRBC Pct Auto 0.0 0.0 - 0.2 /100WBC [facility] NRBC Abs Auto 0.000 0.0 - 0.012 X10*3/uL [facility] 05/28/2025 12:2 1 PM EST 05/28/2025 12:21 PM EST us Generic External Data Provider LAB BLOOD ORDERAB LES Final Result Performing Organization Address City/[facility]/ZIP Co de Phone Number [facility] [address] [place] [phone] * hCG, Total, Quantitative (05/28/2025 12:21 PM EST) HCG Quantitative <2 mIU/mL [facility] Comment:Weeks post LMP Appro ximate hCG(Last Menstrual Period) Range (mIU/ml)3 - 4 weeks 9 - 1304 - 5 weeks 75 - 2,6005 - 6 weeks 850 - 20,8006 - 7 weeks 4000 - 100,2007 - 12 weeks 11,500 - 289,17182 - 16 weeks 18,300 - 137,17450 - 29 weeks (2nd trimester) 1,400 - 53,23313 - 41 weeks (3rd trimester) 940 - [...] ORDERAB LES Final Result Performing Organization Address City/State/[facility] Co de Phone Number [facility] [address] [place] [phone] * US PELVIC OVARIAN DOPPLER (05/21/2025 4:47 AM EST) Anatomical Region Laterality Modality Abdomen Ultrasound 05/21/2025 4:47 AM EST Narrative 05/21/2025 4:49 AM EST [address] [address] Ultrasound Report Signed Patient: Vilma Bourne MR#: [id number] : 1975 Acct:[id number] Age/Sex: 50 / F ADM Date: 05/20/25 Loc: .ED Attending Dr: Ordering Physician: Sukumar Garcia PA-C Date of Service: 05/21/25 Procedure(s): US pelvic ovarian doppler Accession Number(s): [id number] cc: Sukumar Garcia PA-C; KARELY LOPEZ NP Reason for Exam: RLQ Tender; r/o torsion; Abnl Uterus/Adnexa on CT CLINICAL HISTORY: RLQ Tender; r o torsion; Abnl Uterus Adnexa on CT US pelvic with Doppler Comparison: None provided Findings: The uterus is prominent and heterogeneous, measuring overall nearly 15 x 7 x 10 cm. Uterine fibroids are noted, the largest in the lower uterine segment towards the left measuring nearly 6 cm. The region of the cervix is not clearly visualized on this exam The ovaries are not seen due to overlying bowel gas. However, there are no obvious adnexal lesions. There no pelvic free fluid IMPRESSION: Large heterogeneous fibroid uterus. Recommend nonemergent surgical transit mechanic consultation. The ovaries are not seen. However, there are no adnexal masses or pelvic free fluid. This document has been electronically signed by: Elver Belle MD on 05/21/2025 04:47:16 Dictated By: Elver Belle MD Signed By: <Electronically signed by Elver Belle MD in OV> 05/21/25448 DD/ 6 TD/TT: 05/21/25446 Skilled Laborer: Procedure Note Donotuseinterpreter, Image - 05/21/2025 [place] [address] Ultrasound Report Signed Patient: Mary Bourne#: [id number] : 1975Acct:[id number] Age/Sex: 50 / FADM Date: 05/20/25 Loc: HO.ED Attending Dr: Ordering Physician: Sukumar Garcia PA-C Date of Service: 05/21/25 Procedure(s): US pelvic ovarian doppler Accession Number(s): [id number] cc: Sukumar Garcia PA-C; KARELY LOPEZ NP Reason for Exam: RLQ Tender; r/o torsion; Abnl Uterus/Adnexa on CT CLINICAL HISTORY: RLQ Tender; r o torsion; Abnl Uterus Adnexa on CT US pelvic with Doppler Comparison: None provided Findings: The uterus is prominent and heterogeneous, measuring overall nearly 15 x 7 x 10 cm. Uterine fibroids are noted, the largest in the lower uterine segment towards the left measuring nearly 6 cm. The region of the cervix is not clearly visualized on this exam The ovaries are not seen due to overlying bowel gas. However, there are no obvious adnexal lesions. There no pelvic free fluid IMPRESSION: Large heterogeneous fibroid uterus. Recommend nonemergent surgical transit mechanic consultation. The ovaries are not seen. However, there are no adnexal masses or pelvic free fluid. This document has been electronically signed by: Elver Belle MD on 05/21/2025 04:47:16 Dictated By: Elver Belle MD Signed By: <Electronically signed by Elver Belle MD in OV> 05/21/25448 DD/ 6 TD/TT: 05/21/25446 Skilled Laborer: us [facility] External Provider IMG US PROCEDURES Edited Result - Final * CT Abdomen Pelvis w/ Contrast (05/21/2025 12:17 AM EST) Anatomical Region Laterality Modality Body, Pelvis, Abdomen Computed T omography 05/21/2025 12:1 7 AM EST Narrative 05/21/2025 12:19 AM EST [place] [address] CT Scan Report Signed Patient: Vilma Bourne MR#: [id number] : 1975 Acct:[id number] Age/Sex: 50 / F ADM Date: 05/20/25 Loc: .ED Attending Dr: Ordering Physician: Sukumar Garcia PA-C Date of Service: 05/20/25 Procedure(s): CT abdomen pelvis w IV con Accession Number(s): [id number] cc: Sukumar Garcia PA-C; KARELY LOPEZ NP Report Number: [id number]: Total DLP = 720.00 mGy-cm Reason for Exam: RLQ Tenderness CLINICAL HISTORY: RLQ Tenderness CT abdomen and pelvis with contrast Comparison: CT/SR - CT CHEST WO IV CON - 02/09/25 07:45 EDT Findings: CT abdomen: Images of the lower chest and upper abdomen are degraded due to respiratory motion. There are moderate emphysematous changes in the lung bases with areas of streaky density along the bronchovascular tree. No dense area of consolidation. No pleural effusion. No acute bony abnormality. Scattered degenerative change throughout the thoracolumbar spine. Small hiatal hernia. No dilated small bowel. Liver, spleen, pancreas, gallbladder, and adrenal glands are unremarkable. Symmetric enhancement of the kidneys without mass or hydronephrosis. No free fluid or free air. CT pelvis: No findings of appendicitis. No colonic wall thickening or pericolonic inflammatory stranding. Uterus is enlarged measuring 14.8 x 8.8 x 9.6 cm in size. Rounded area of low attenuation seen along the left aspect of the uterus measuring 6.1 cm in round diameter, likely a uterine fibroid. Additional areas of heterogeneous low attenuation are seen to the right of midline along the mid to lower uterine segment of the uterus measuring up to 3.0 cm in size. Endometrial canal is poorly defined. No adnexal masses. No free fluid or free air. IMPRESSION: 1. Enlarged myomatous uterus. This could potentially be the etiology for the patient's right-sided pelvic pain. Pelvic ultrasound could further evaluate. 2. No CT findings of appendicitis or obstruction. This document has been electronically signed by: Jonathan Hameed MD on 05/21/2025 00:17:26 Dictated By: Jonathan Hameed MD Signed By: <Electronically signed by Jonathan Hameed MD in OV> 05/21/2517 DD/ TD/TT: 05/21/2516 Skilled Laborer: Procedure Note Donotuseinterpreter, Image - 05/21/[address] [place] [address] [address] Scan Report Signed Patient: Vilma Bourne#: [id number] : 1975Acct:[id number] Age/Sex: 50 / FADM Date: 05/20/25 Loc: HO.ED Attending Dr: Ordering Physician: Sukumar Garcia PA-C Date of Service: 05/20/25 Procedure(s): CT abdomen pelvis w IV con Accession Number(s): [id number] cc: Sukumar Garcia PA-C; KARELY LOPEZ NP Report Number: [id number]: Total DLP = 720.00 mGy-cm Reason for Exam: RLQ Tenderness CLINICAL HISTORY: RLQ Tenderness CT abdomen and pelvis with contrast Comparison: CT/SR - CT CHEST WO IV CON - 02/09/25 07:45 EDT Findings: CT abdomen: Images of the lower chest and upper abdomen are degraded due to respiratory motion. There are moderate emphysematous changes in the lung bases with areas of streaky density along the bronchovascular tree. No dense area of consolidation. No pleural effusion. No acute bony abnormality. Scattered degenerative change throughout the thoracolumbar spine. Small hiatal hernia. No dilated small bowel. Liver, spleen, pancreas, gallbladder, and adrenal glands are unremarkable. Symmetric enhancement of the kidneys without mass or hydronephrosis. No free fluid or free air. CT pelvis: No findings of appendicitis. No colonic wall thickening or pericolonic inflammatory stranding. Uterus is enlarged measuring 14.8 x 8.8 x 9.6 cm in size. Rounded area of low attenuation seen along the left aspect of the uterus measuring 6.1 cm in round diameter, likely a uterine fibroid. Additional areas of heterogeneous low attenuation are seen to the right of midline along the mid to lower uterine segment of the uterus measuring up to 3.0 cm in size. Endometrial canal is poorly defined. No adnexal masses. No free fluid or free air. IMPRESSION: 1. Enlarged myomatous uterus. This could potentially be the etiology for the patient's right-sided pelvic pain. Pelvic ultrasound could further evaluate. 2. No CT findings of appendicitis or obstruction. This document has been electronically signed by: Jonathan Hameed MD on 05/21/2025 00:17:26 Dictated By: Jonathan Hameed MD Signed By: <Electronically signed by Jonathan Hameed MD in OV> 05/21/25 0018 DD/ 0017 TD/TT: 05/21/25 0017 Skilled Laborer: [facility] External Provider IMG CT PROCEDURES Final Result * XR WRIST LT W SCAPHOID (03/12/2025 1:18 PM EDT) Anatomical Region Laterality Modality Upper Extremities, Wrist Left Radiogr aphic Imaging 03/12/2025 1:18 PM EDT Narrative 03/12/2025 1:42 PM EDT [facility] [address] [place] [address] XRay Report Signed Patient: Vilma Bourne MR#: [id number] : 1975 Acct:[id number] Age/Sex: 50 / F ADM Date: 03/12/25 Loc: DANA Attending Dr: Álvaro MAYNARD Ordering Physician: Álvaro Luciano Date of Service: 03/12/25 Procedure(s): XR wrist LT w scaphoid Accession Number(s): [id number] cc: Álvaro Luciano; KARELY LOPEZ NP Reason [...] 03/12/25 1339 DD/ 1318 TD/TT: 03/12/25 1322 Skilled Laborer: Procedure Note Donotuseinterpreter, Image - 03/12/2025 [facility] [address] [place] [address] XRay Report Signed Patient: Vilma BourneMR#: [id number] : 1975Acct:[id number] Age/Sex: 50 / FADM Date: 03/12/25 Loc: DANA Attending Dr: Álvaro MAYNARD Ordering Physician: Álvaro Luciano Date of Service: 03/12/25 Procedure(s): XR wrist LT w scaphoid Accession Number(s): [id number] cc: Álvaro Luciano; KARELY LOPEZ NP Reason [...] 03/12/25 1339 DD/ 1318 TD/TT: 03/12/25 1322 Skilled Laborer: [facility] External Provider IMG XR PROCEDURES Final Result * Lipid Panel, Standard (10/25/2024 10:46 AM EDT) Triglycerides 70 <150 mg/dL [facility] Comment:Desirable Triglyceri de: less than 150 mg/dLBorderline High Triglyceride 150-199 mg/dLHigh Triglyceride: 200-499 mg/dLVery High Triglyceride: greater than or equal to 5OO mg/dL Cholesterol 141 <200 mg/dL [facility] Comment:Desirable Cholestero l: less than 200 mg/dLBorderline High Cholesterol: 200-239 mg/dLHigh Cholesterol: greater than 239 mg/dL LDL Cholesterol Calculated 81 <100 mg/dL [facility] Comment:Desirable LDL: less than 100 mg/dLNear Optimal/Above Optimal LDL: 110- 129 mg/dLBorderline High LDL: 130-159 mg/dLHigh LDL: 160-189 mg/dLVery High LDL: greater than or equal to 190 mg/dL HDL Cholesterol 46 >40 mg/dL [facility] Comment:Desirable HDL: great er than 40 mg/dL Note: This HDL assay may give artificially low results in patients with liver disease. Blood Venous blood specimen / Unknown 10/25/2024 10:46 AM EDT 10/25/2024 1:26 PM EDT Karely Lopez [facility] BLOOD ORDERABLES Final Resul t Performing Organization Address [facility] de Phone Number [facility] [address] [place] [phone] * HPV DNA, Low/High Risk (07/21/2024 10:35 AM EST) HPV High Risk Negative Negative [facility] HPV Genotype 16 Negative Negative [facility] HPV Genotype 18 Negative Negative [facility] Comment:HPV testing performe d at [facility] (CLIA#[id number]), [address] [place] [address].Testing for HPV was performed using the Kate [...] 07/24/2024 8:20 AM EST us Karely Lopez [facility] BLOOD ORDERABLES Final Resul t Performing Organization Address [facility] Co de Phone Number [facility] [address] [place] [phone] * Pap Smear (07/21/2024 10:35 AM EST) Swab Cervical swab / Unknown 07/21/2024 10:35 AM EST 07/24/2024 8:20 AM EST Narrative [facility] - 07/29/2024 10:03 AM EST ----- ------- Name: Vilma Bourne Age/Sex: 49/F : 1975 Unit#: [id number] Attend Dr: KARELY LOPEZ NP Re07/21/24 Status: DEP REF Location: [facility] Disch: ----- ------- SPEC : [id number] RECD: 07/24/24 STATUS: RAYMOND RODRIGUEZ NUM: [id number] ESTEBAN: 07/21/[address] [facility] [address]: KARELY LOPEZ NP ENTERED: 07/24/24 [...] ----- ------- Signed (signature on file) Jerson Carusoshaneka, CT (ASCP) 07/29/24 1003 ----- ------- END OF REPORT Karely Lopez ANP LAB CYTOLOGY ORDERABLES Final Re sult [facility] [address] [place] [phone] * BI Mammogram Screening Tomosynthesis Bilateral (07/19/2024 11:30 AM EST) Anatomical Region Laterality Modality Breast Bilateral Mammography 07/19/2024 11:3 0 AM EST Narrative 07/25/2024 7:11 PM EST [facility] [address] [place] [address] Mammography Report Signed Patient: Vilma Bourne MR#: [id number] : 1975 Acct:[id number] Age/Sex: 49 / F ADM Date: 07/19/24 Loc: HO.MAMMO Attending Dr: Karely Lopez NP Ordering Physician: KARELY LOPEZ NP Results: 2Benign Khalif [facility] Date of Service: 07/19/24 Follow Up: 1 Year From Orig inal Mammogram Procedure(s): MM tomosynthesis screening BI Accession Number(s): [id number] cc: KARELY LOPEZ NP EXAMINATION: MM SCREENING [...] by: Renay Sosa DO 07/25/2024 07:08 PM [facility] Dictated By: Renay Sosa DO Signed By: <Electronically signed by Renay Sosa DO in OV> 07/25/24 1908 DD/ 1130 TD/TT: 07/19/24 1140 Skilled Laborer: Procedure Note Donotuseinterpreter, Image - 07/25/2024 [facility] [address] [place] [address] Mammography Report Signed Patient: Mary Bourne#: [id number] : 1975Acct:[id number] Age/Sex: 49 / FADM Date: 07/19/24 Loc: HO.MAMMO Attending Dr: Karely Lopez NP Ordering Physician: KARELY LOPEZ NPResults: 2Bozzie pelaez Date of Service: 07/19/24Follow Up: 1 Year From Orig inal Mammogram Procedure(s): MM tomosynthesis screening BI Accession Number(s): [id number] cc: KARELY LOPEZ NP EXAMINATION: MM SCREENING [...] 07/25/24 1908 DD/ 1130 TD/TT: 07/19/24 1140 Skilled Laborer: us Karely MCFADDEN IMG BI PROCEDURES Final [...] a test for HCV RNA (test code 20256) is suggested. For additional information please refer to http://education.Citydeal.de/faq/YZA57q4 (This link is being provided for informational/ educational purposes only.) 07/08/2021 10:5 0 AM EST us Karely Lopez ANP HISTORICAL/NON ORDERABLE LABS Fi nal Result [facility] [address] * HIV 1/2 ANTIGEN/ANTIBODY,FOURTH GENERATION W/RFL [...] purpose. For additional information please refer to http://education.Citydeal.de/faq/VID492 (This link is being provided for informational/ educational purposes only.) The performance of this assay has not been clinically validated in patients less than 2 years old. 07/08/2021 10:5 0 AM EST Karely [facility] LAB BLOOD ORDERABLES Final Resul t [facility] [address] from Last 3 Months or Most Recently Relevant to Health Maintenance Insurance [facility] Care Teams Dry Box Operator Relationship Specialty Start Date End Date Karely Lopez ANP [address] [place] [address] [place] [address] PCP - General Family Medicine 01/30/21 Thalia Guerra [address] [place] [address] Emil [facility] [place] [address] Pulmonary Disease 05/07/25
--- OUTSIDE RECORDS SUMMARY | 2025-05-28 17:48 | XMS_ITS | Encounter Summary ---
Author Organization [employer] Address [address] [place] [address] 7 [place] [address] Care Team Providers Care Safety Engineer Pressure Vessels Name Role Phone Phyllis Day Primary Care Provider [phone] Thalia Guerra Unavailable [phone] Reason for Visit * Reason Comments Med Refill Encounter Details Date Type Department Care Team (Late st Contact Info) Description 02/24/2023 Refill [facility] MEDICINE [address] [place], [place] [phone] Phyllis Day ANP [address] [place], [place] [phone] Mild persistent asthma with (acute) exacerbation Social [...] exacerbation documented in this encounter Care Teams Safety Engineer Pressure Vessels Relationship Specialty Start Date End Date Phyllis Day ANP [address] [place], [place] [phone] PCP - General Family Medicine 01/30/21 Thalia Guerra [address] [place] [address] Dr [address] [place] [address] Pulmonary Disease 05/07/25 documented as of this encounter
--- OUTSIDE RECORDS SUMMARY | 2025-05-28 17:48 | XMS_ITS | Encounter Summary ---
Author Organization [employer] Address [address] [place] [address] 7 [place] [address] Care Team Providers Care Rn Examiner Name Role Phone Phyllis Day Primary Care Provider [phone] Thalia Guerra Unavailable [phone] Encounter Details Date Type Department Care Team (Late st Contact Info) Description 12/30/2022 Orders Only [facility] MEDICINE [address] [place] [address] Hanna Aranda LPN Social History Tobacco Use [...] on filedocumented in this encounter Care Teams Rn Examiner Relationship Specialty Start Date End Date Phyllis Day ANP [address] [place] [address] PCP - General Family Medicine 01/30/21 Thalia Guerra [address] [place] [address] Dr [address] [place] [address] Pulmonary Disease 05/07/25 documented as of this encounter
--- OUTSIDE RECORDS SUMMARY | 2025-05-28 17:48 | XMS_ITS | Encounter Summary ---
Author Organization [employer] Address [address] [facility] 7 [place] [address] Care Team Providers Care Pelt Dropper Name Role Phone Phyllis Day Primary Care Provider [phone] Thalia Guerra Unavailable [phone] Reason for Visit * Reason Onset Date Comments Med Refill 12/22/2024 Encounter Details Date Type Department Care Team (Late st Contact Info) Description 12/22/2024 Refill [facility] MEDICINE [address] [place], [place] [phone] Phyllis Day ANP [address] [place] [address] Essential hypertension Social History Tobacco Use Types [...] documented as of this encounter Care Teams Pelt Dropper Relationship Specialty Start Date End Date Phyllis Day ANP [address] [place] [address] PCP - General Family Medicine 01/30/21 Thalia Guerra [address] [place] [phone] Pulmonary Disease 05/07/25 documented as of this encounter
--- OUTSIDE RECORDS SUMMARY | 2025-05-28 17:48 | XMS_ITS | Encounter Summary ---
Author Organization [employer] Address [address] [facility] 7 [place] [address] Care Team Providers Care Operation Shift Supervisor Name Role Phone Karely Lopez Primary Care Provider Thalia Guerra Unavailable [phone] Encounter Details Date Type Department Care Team (Late st Contact Info) Description 05/14/2023 Orders Only [facility] MEDICINE [address] [place] [address] Karely Lopez ANP [address] [place], [place] [phone] Acute pain of left knee (Primary Dx) [...] AM EST Narrative 05/19/2023 4:59 PM EST [address] [address] XRay Report Signed Patient: Vilma Bourne MR#: [id number] : 1975 Acct:[id number] Age/Sex: 48 / F ADM Date: 05/17/23 Loc: HO.HHCX Attending Dr: Karely Lopez COOK CHILI Ordering Physician: KARELY LOPEZ NP Date of Service: 05/17/23 Procedure(s): XR ankle LT min 3V Accession Number(s): [id number] cc: KARELY LOPEZ COOK [place]ILI Examination: Left and right ankles CLINICAL INFORMATION: [...] in OV> 05/19/23 165 DD/ 1021 TD/TT: Posting Specialist: Procedure Note Donotuseinterpreter, Image - 05/19/2023 [place] [address] XRay Report Signed Patient: Mary Bourne#: [id number] : 1975Acct:[id number] Age/Sex: 48 / FADM Date: 05/17/23 Loc: HO.HHCX Attending Dr: Karely Lopez NP Ordering Physician: KARELY LOPEZ NP Date of Service: 05/17/23 Procedure(s): XR ankle LT min 3V Accession Number(s): [id number] cc: KARELY LOPEZ COOK [place]ILI Examination: Left and right ankles CLINICAL INFORMATION: [...] in OV> 05/19/23 165 DD/ 1021 TD/TT: Posting Specialist: Karely Lopez ANP IM XR PROCEDURES Final Result * XR Ankle 3+ Views Right (05/17/2023 10:21 AM EST) Anatomical Region Laterality Modality Lower Extremities, Ankle Right Radiogr aphic Imaging 05/17/2023 10:2 1 AM EST Narrative 05/19/2023 4:59 PM EST [address] [address] XRay Report Signed Patient: Vilam Bourne MR#: [id number] : 1975 Acct:[id number] Age/Sex: 48 / F ADM Date: 05/17/23 Loc: [facility] Attending Dr: Karely Lopez COOK [place]ILI Ordering Physician: KARELY LOPEZ NP Date of Service: 05/17/23 Procedure(s): XR ankle RT min 3V Accession Number(s): [id number] cc: KARELY LOPEZ COOK [place]ILI Examination: Left and right ankles CLINICAL INFORMATION: [...] in OV> 05/19/23 1655 DD/ 1021 TD/TT: Posting Specialist: Procedure Note Donotuseinterpreter, Image - 05/19/[address] [address] XRay Report Signed Patient: Vilma BourneMR#: [id number] : 1975Acct:[id number] Age/Sex: 48 / FADM Date: 05/17/23 Loc: [facility] Attending Dr: Karely Lopez COOK [place]ILI Ordering Physician: KARELY LOPEZ NP Date of Service: 05/17/23 Procedure(s): XR ankle RT min 3V Accession Number(s): [id number] cc: KARELY LOPEZ COOK [place]ILI Examination: Left and right ankles CLINICAL INFORMATION: [...] in OV> 05/19/23 165 DD/ 1021 TD/TT: Posting Specialist: Karely Lopez ANP IMG XR PROCEDURES Final Result * XR Knee 1-2 Views Left (05/17/2023 10:21 AM EST) Anatomical Region Laterality Modality Lower Extremities, Knee Left Radiogra phic Imaging 05/17/2023 10:2 1 AM EST Narrative 05/19/2023 4:59 PM EST [address] [address] XRay Report Signed Patient: Vilma Bourne MR#: [id number] : 1975 Acct:[id number] Age/Sex: 48 / F ADM Date: 05/17/23 Loc: HO.HHCX Attending Dr: Karely Lopez COOK CHILI Ordering Physician: KARELY LOPEZ NP Date of Service: 05/17/23 Procedure(s): XR knee LT 2V Accession Number(s): [id number] cc: KARELY LOPEZ COOK [place]ILI EXAMINATION: XR KNEE, LEFT CLINICAL INFORMATION: Pain COMPARISON: None available. TECHNIQUE: Four views of the left knee. FINDINGS: No fracture or joint effusion. Alignment is anatomic. Joint spaces are maintained. No abnormal soft tissue calcification. XR/XR knee LT 2V IMPRESSION: Normal left knee. Dictated By: Shahrzad Keenan MD Signed By: <Electronically signed by Shahrzad Keenan MD in OV> 05/19/23 165 DD/ 1021 TD/TT: Posting Specialist: Procedure Note Donotuseinterpreter, Image - 05/19/2023 [facility] [address] [place] [address] XRay Report Signed Patient: Vilma BourneMR#: [id number] : 1975Acct:[id number] Age/Sex: 48 / FADM Date: 05/17/23 Loc: HO.HHCX Attending Dr: Karely Lopez COOK [place]ILI Ordering Physician: KARELY LOPEZ NP Date of Service: 05/17/23 Procedure(s): XR knee LT 2V Accession Number(s): [id number] cc: KARELY LOPEZ COOK [place]I EXAMINATION: XR KNEE, LEFT CLINICAL INFORMATION: Pain COMPARISON: None available. TECHNIQUE: Four views of the left knee. FINDINGS: No fracture or joint effusion. Alignment is anatomic. Joint spaces are maintained. No abnormal soft tissue calcification. XR/XR knee LT 2V IMPRESSION: Normal left knee. Dictated By: Shahrzad Keenan MD Signed By: <Electronically signed by Shahrzad Keenan MD in OV> 05/19/23 1655 DD/ 1021 TD/TT: Posting Specialist: Karely Lopez ANP IMG XR PROCEDURES Final Result documented in this encounter Visit Diagnoses Diagnosis Acute pain of left knee- Primary documented in this encounter Additional Health Concerns Assessment Noted Time PHQ-9 Depression Total Score: 0 04/22/20 23 1:07 PM EST documented as of this encounter Care Teams Operation Shift Supervisor Relationship Specialty Start Date End Date Karely Lopez ANP [address] [place] [address] PCP - General Family Medicine 01/30/21 Thalia Guerra [address] [place] [address] [place] [address] Pulmonary Disease 05/07/25 documented as of this encounter
--- OUTSIDE RECORDS SUMMARY | 2025-05-28 17:48 | XMS_ITS | Encounter Summary ---
Author Organization [employer] Address [address] [facility] 7 [place] [address] Care Team Providers Care Software Installer Name Role Phone Phyllis Day Primary Care Provider [phone] Thalia Guerra Unavailable [phone] Reason for Visit * Reason Comments Med Refill Encounter Details Date Type Department Care Team (Late st Contact Info) Description 12/02/2024 Refill [facility] MEDICINE [address] [place], [place] [phone] Phyllis Day ANP [address] [place], [place] [phone] Gastroesophageal reflux disease, unspecified whether esophagitis present [...] documented as of this encounter Care Teams Software Installer Relationship Specialty Start Date End Date Phyllis Day ANP [address] [place] [address] PCP - General Family Medicine 01/30/21 Thalia Guerra [address] [place] [address] [address] [place] [address] Pulmonary Disease 05/07/25 documented as of this encounter
[2025-05-29 10:13] LABS: CT PCR NOT DETECTED (Not Detect.); NG PCR NOT DETECTED (Not Detect.)
== END 2025-05-28 12:20 | disposition home or self-care (01) ==
LOC: HO.LNP 12:19
PROVIDERS: Visit Provider Obstetrics & Gynecology
DX: N93.9 Abnormal uterine and vaginal bleeding, unspecified (principal); Z20.2 Contact with and (suspected) exposure to infections with a predominantly sexual mode of transmission
CPT/HCPCS: 87491; 87591

== ENCOUNTER 2025-06-05 16:26 | Outpatient (REF) | payer BC, MEDICAID, SELFPAY ==
--- NOTE | ~2025-06-05 | CT_ITS ---
EXAMINATION: CT CHEST WITHOUT CONTRAST CLINICAL INFORMATION: R93.89 - Abnormal findings on diagnostic imaging of other specified body COMPARISON: February 09, 2025 TECHNIQUE: Multidetector volumetric CT imaging of the chest was done. Axial MIP volume rendering provided. Sagittal and coronal reformatted images were obtained. This CT examination was performed using dose optimization techniques as appropriate, variously including the following: *Automated exposure control *Adjustment of mA and/or kV according to patient size (this includes techniques or standardized protocols for targeted exams where dose is matched to indication/reason for exam; i.e. extremities or head) *Use of iterative reconstruction technique FINDINGS: LUNGS: Again seen is generalized hyperaeration of the lungs, most pronounced in the posterior right lung base There is peripheral linear scarring or atelectasis in the lung bases. There is peribronchial thickening, most pronounced in the superior segment right lower lobe with cystic bronchiectasis. MEDIASTINUM: The mediastinum is normal. CORONARY ARTERY CALCIFICATION: None visualized on this study. PLEURA: There is no pleural effusion. No pleural mass or thickening. AXILLA: There are shotty axillary lymph nodes, greater on the left. UPPER ABDOMEN: Unremarkable. OSSEOUS STRUCTURES: There are mild degenerative changes with anterior osteophytes in the lower thoracic spine. CT/CT chest wo IV con IMPRESSION: Chronic changes with underlying emphysema and superior segment right upper lobe bronchiectasis appear similar to the prior. Fleischner guidelines were followed. Electronically signed by: Nasim Lewis MD 06/05/2025 05:23 PM [facility]
--- OUTSIDE RECORDS SUMMARY | 2025-06-05 17:04 | XMS_ITS | Encounter Summary ---
Author Organization [employer] Address [address] [facility] 7 [place] [address] Care Team Providers Care Dividend Deposit Voucher Clerk Name Role Phone Karely Lopez Primary Care Provider Thalia Guerra Unavailable [phone] Encounter Details Date Type Department Care Team (Late st Contact Info) Description 05/14/2023 Orders Only [facility] MEDICINE [address] [place] [address] Karely Lopez ANP [address] [place], [place] [phone] Acute pain of left knee (Primary Dx) [...] AM EST Narrative 05/19/2023 4:59 PM EST [address] [address] XRay Report Signed Patient: Vilma Bourne MR#: [id number] : 1975 Acct:[id number] Age/Sex: 48 / F ADM Date: 05/17/23 Loc: HO.HHCX Attending Dr: Karely Lopez DAIRY MANAGEMENT SPECIALIST Ordering Physician: KARELY LOPEZ NP Date of Service: 05/17/23 Procedure(s): XR ankle LT min 3V Accession Number(s): [id number] cc: KARELY LOPEZ DAIRY MANAGEMENT SPECIALIST Examination: Left and right ankles CLINICAL INFORMATION: [...] in OV> 05/19/23 165 DD/ 1021 TD/TT: Denture Finisher: Procedure Note Donotuseinterpreter, Image - 05/19/2023 [place] [address] XRay Report Signed Patient: Mary Bourne#: [id number] : 1975Acct:[id number] Age/Sex: 48 / FADM Date: 05/17/23 Loc: HO.HHCX Attending Dr: Karely Lopez NP Ordering Physician: KARELY LOPEZ NP Date of Service: 05/17/23 Procedure(s): XR ankle LT min 3V Accession Number(s): [id number] cc: KARELY LOPEZ DAIRY MANAGEMENT SPECIALIST Examination: Left and right ankles CLINICAL INFORMATION: [...] in OV> 05/19/23 165 DD/ 1021 TD/TT: Denture Finisher: Karely Lopez ANP IM XR PROCEDURES Final Result * XR Ankle 3+ Views Right (05/17/2023 10:21 AM EST) Anatomical Region Laterality Modality Lower Extremities, Ankle Right Radiogr aphic Imaging 05/17/2023 10:2 1 AM EST Narrative 05/19/2023 4:59 PM EST [address] [address] XRay Report Signed Patient: Vilma Bourne MR#: [id number] : 1975 Acct:[id number] Age/Sex: 48 / F ADM Date: 05/17/23 Loc: [facility] Attending Dr: Karely Lopez DAIRY MANAGEMENT SPECIALIST Ordering Physician: KARELY LOPEZ NP Date of Service: 05/17/23 Procedure(s): XR ankle RT min 3V Accession Number(s): [id number] cc: KARELY LOPEZ DAIRY MANAGEMENT SPECIALIST Examination: Left and right ankles CLINICAL INFORMATION: [...] in OV> 05/19/23 1655 DD/ 1021 TD/TT: Denture Finisher: Procedure Note Donotuseinterpreter, Image - 05/19/[address] [address] XRay Report Signed Patient: Vilma BourneMR#: [id number] : 1975Acct:[id number] Age/Sex: 48 / FADM Date: 05/17/23 Loc: [facility] Attending Dr: Karely Lopez DAIRY MANAGEMENT SPECIALIST Ordering Physician: KAREYL LOPEZ NP Date of Service: 05/17/23 Procedure(s): XR ankle RT min 3V Accession Number(s): [id number] cc: KARELY LOPEZ DAIRY MANAGEMENT SPECIALIST Examination: Left and right ankles CLINICAL INFORMATION: [...] in OV> 05/19/23 165 DD/ 1021 TD/TT: Denture Finisher: Karely Lopez ANP IMG XR PROCEDURES Final Result * XR Knee 1-2 Views Left (05/17/2023 10:21 AM EST) Anatomical Region Laterality Modality Lower Extremities, Knee Left Radiogra phic Imaging 05/17/2023 10:2 1 AM EST Narrative 05/19/2023 4:59 PM EST [address] [address] XRay Report Signed Patient: Vilma Bourne MR#: [id number] : 1975 Acct:[id number] Age/Sex: 48 / F ADM Date: 05/17/23 Loc: HO.HHCX Attending Dr: Karely Lopez DAIRY MANAGEMENT SPECIALIST Ordering Physician: KARELY LOPEZ NP Date of Service: 05/17/23 Procedure(s): XR knee LT 2V Accession Number(s): [id number] cc: KARELY LOPEZ DAIRY MANAGEMENT SPECIALIST EXAMINATION: XR KNEE, LEFT CLINICAL INFORMATION: Pain COMPARISON: None available. TECHNIQUE: Four views of the left knee. FINDINGS: No fracture or joint effusion. Alignment is anatomic. Joint spaces are maintained. No abnormal soft tissue calcification. XR/XR knee LT 2V IMPRESSION: Normal left knee. Dictated By: Shahrzad Keenan MD Signed By: <Electronically signed by Shahrzad Keenan MD in OV> 05/19/23 165 DD/ 1021 TD/TT: Denture Finisher: Procedure Note Donotuseinterpreter, Image - 05/19/2023 [facility] [address] [place] [address] XRay Report Signed Patient: Vilma oBurneMR#: [id number] : 1975Acct:[id number] Age/Sex: 48 / FADM Date: 05/17/23 Loc: HO.HHCX Attending Dr: Karely Lopez DAIRY MANAGEMENT SPECIALIST Ordering Physician: KARELY LOPEZ NP Date of Service: 05/17/23 Procedure(s): XR knee LT 2V Accession Number(s): [id number] cc: KARELY LOPEZ DAIRY MANAGEMENT SPECIALIST EXAMINATION: XR KNEE, LEFT CLINICAL INFORMATION: Pain COMPARISON: None available. TECHNIQUE: Four views of the left knee. FINDINGS: No fracture or joint effusion. Alignment is anatomic. Joint spaces are maintained. No abnormal soft tissue calcification. XR/XR knee LT 2V IMPRESSION: Normal left knee. Dictated By: Shahrzad Keenan MD Signed By: <Electronically signed by Shahrzad Keenan MD in OV> 05/19/23 1655 DD/ 1021 TD/TT: Denture Finisher: Karely Lopez ANP IMG XR PROCEDURES Final Result documented in this encounter Visit Diagnoses Diagnosis Acute pain of left knee- Primary documented in this encounter Additional Health Concerns Assessment Noted Time PHQ-9 Depression Total Score: 0 04/22/20 23 1:07 PM EST documented as of this encounter Care Teams Dividend Deposit Voucher Clerk Relationship Specialty Start Date End Date Karely Lopez ANP [address] [place] [address] PCP - General Family Medicine 01/30/21 Thalia Guerra [address] [place] [address] [place] [address] Pulmonary Disease 05/07/25 documented as of this encounter
--- OUTSIDE RECORDS SUMMARY | 2025-06-05 17:04 | XMS_ITS | Encounter Summary ---
Author Organization [employer] Address [address] [facility] 7 [place] [address] Care Team Providers Care Religious Activities Director Name Role Phone Phyllis Day Primary Care Provider [phone] Thalia Guerra Unavailable [phone] Encounter Details Date Type Department Care Team (Late st Contact Info) Description 05/28/2025 Orders Only [facility] MEDICINE [address] [place] [address] Phyllis Day ANP [address] [place], [place] [phone] Social History Tobacco Use Types Packs/Day Years [...] Procedure Name Priority Date/Time Associated Diagnosis Comments LH Routine 05/28/2025 12:21 PM EST FSH Routine 05/28/2025 12:21 PM EST documented in this encounter Results * LH (05/28/2025 12:21 PM EST) Lutenizing Hormone 10.4 mIU/mL [facility] Comment:Reference Range Foll icular Phase 1.9-12.5 Mid-Cycle Peak 8.7-76.3 Luteal Phase 0.5-16.9 Postmenopausal 10.0-54.7THIS TEST WAS PERFORMED AT:[facility] [address] [id number] TRUJILLO MD 05/28/2025 12:2 1 PM EST 05/28/2025 12:21 PM EST us Generic External Data Provider LAB BLOOD ORDERAB LES Final Result [facility] [address] [place] [address] [phone] * FSH (05/28/2025 12:21 PM EST) Follicle Stimulating Hormone 22.4 mIU/mL [facility] Comment:Reference Range Foll icular Phase 2.5-10.2 Mid-cycle Peak 3.1-17.7 Luteal Phase 1.5- 9.1 Postmenopausal 23.0-116.3THIS TEST WAS PERFORMED AT:[facility] [place] [id number] TRUJILLO MD 05/28/2025 12:2 1 PM EST 05/28/2025 12:21 PM EST us Generic External Data Provider LAB BLOOD ORDERAB LES Final Result [facility] [address] [place] [address] [phone] documented in this encounter Visit Diagnoses Not on filedocumented in this encounter Additional Health Concerns Assessment Noted Time PHQ-9 Depression Total Score: 0 04/22/20 23 1:07 PM EST documented as of this encounter Care Teams Religious Activities Director Relationship Specialty Start Date End Date Phyllis Day ANP [address] [place] [address] PCP - General Family Medicine 01/30/21 Thalia Guerra [address] [place] [address] Dr [address] [place] [address] Pulmonary Disease 05/07/25 documented as of this encounter
--- OUTSIDE RECORDS SUMMARY | 2025-06-05 17:04 | XMS_ITS | Clinical Summary ---
Author Organization [employer] Address [address] [place] [address] 7 [place] [address] Care Team Providers Care Laundry Marker Supervisor Name Role Phone Karely Lopez Primary Care Provider [phone] Thalia Guerra Unavailable [phone] Allergies Active Allergy Reactions Criticality Noted [...] for acid reflux 60 tablet Active Umeclidinium [place] 62.5 MCG/ACT aerosol powderIndicatio ns:Obstructive airway disease [...] Encounters Date Type Department Care Team Description 05/29/[address] [address] Karely Lopez ANP Referral 05/28/2025 Results Follow-Up [address] [address] Karely Lopez ANP CBC, TSH with Reflex to Free T4, hCG, Total, Quantitative 05/28/2025 Orders Only [address] [address] Karely Lopez ANP 05/28/2025 Orders Only GENERIC EXTERNAL DATA DEPARTMENT Provider, Generic External Data 05/23/[address] [address] Karely Lopez ANP Essential hypertension 05/22/[address] [place] [address] Karely Lopez ANP Nurse Triage 05/21/2025 Results Follow-Up [facility] [address] [place] [address] Abdomen Pelvis w/ Contrast 05/20/2025 Orders Only [facility] External Provider, [facility] 03/28/2025 Telephone [facility] [address] [place] [address] Marimar Miller, EMY D[employer] Medical Equipment 03/12/2025 Orders Only [facility] External Provider, [facility] from Last 3 Months Immunizations Immunization [...] EST [facility] Routine 05/28/2025 12:21 PM EST HCG, TOTAL, [...] Free T4 1.10 0.32 - 4.0 uIU/mL [facility] 05/28/2025 12:2 1 PM EST 05/28/2025 12:21 PM EST us Generic External Data Provider LAB BLOOD ORDERAB LES Final Result [facility] [address] [place], [place] [phone] * (ABNORMAL) CBC (05/28/2025 12:21 PM EST) White Blood Count 6.6 4.8 - 10.8 X10*3/uL [facility] Red Blood Count 4.24 4.20 - 5.50 X10*6/uL [facility] Hemoglobin 10.5(L) 12.0 - 16.0 g/dl [facility] Hematocrit 33.2(L) 37.0 - 47.0 % [facility] Mean Corpuscular Volume 78.3(L) 80.0 - 98.0 fL [facility] Mean Corpuscular Hemoglobin 24.8(L) 27.0 - 33.0 pg [facility] Mean Corpuscular HGB Conc 31.6 31.0 - 35.0 g/dl [facility] Red Cell Distribution Width 16.6(H) 11.0 - 16.0 % [facility] Platelet Count 365 160 - 400 X10*3/uL [facility] Mean Platelet Volume 10.6 9.4 - 12.3 fL [facility] NRBC Pct Auto 0.0 0.0 - 0.2 /100WBC [facility] NRBC Abs Auto 0.000 0.0 - 0.012 X10*3/uL [facility] 05/28/2025 12:2 1 PM EST 05/28/2025 12:21 PM EST Generic External Data Provider LAB BLOOD ORDERAB LES Final Result Performing Organization Address [facility]/[employer] Co de Phone Number [facility] [address] [place] [address] [phone] * hCG, Total, Quantitative (05/28/2025 12:21 PM EST) HCG Quantitative <2 mIU/mL [facility] Comment:Weeks post LMP Appr oximate hCG(Last Menstrual Period) Range (mIU/ml)3 - 4 weeks 9 - 1304 - 5 weeks 75 - 2,6005 - 6 weeks 850 - 20,8006 - 7 weeks 4000 - 100,2007 - 12 weeks 11,500 - 289,84659 - 16 weeks 18,300 - 137,01117 - 29 weeks (2nd trimester) 1,400 - 53,90675 - 41 weeks (3rd trimester) 940 - [...] ORDERAB LES Final Result Performing Organization Address City/[facility]/ZIP Co de Phone Number [facility] [address] [place] [address] [phone] * LH (05/28/2025 12:21 PM EST) Lutenizing Hormone 10.4 mIU/mL [facility] Comment:Reference Range Foll icular Phase 1.9-12.5 Mid-Cycle Peak 8.7-76.3 Luteal Phase 0.5-16.9 Postmenopausal 10.0-54.7THIS TEST WAS PERFORMED AT:[facility] [place] [phone] TRUJILLO MD 05/28/2025 12:2 1 PM EST 05/28/2025 12:21 PM EST us Generic External Data Provider LAB BLOOD ORDERAB LES Final Result Performing Organization Address [facility] Phone Number [facility] [address] [place] [phone] * FSH (05/28/2025 12:21 PM EST) Follicle Stimulating Hormone 22.4 mIU/mL [facility] Comment:Reference Range Foll icular Phase 2.5-10.2 Mid-cycle Peak 3.1-17.7 Luteal Phase 1.5- 9.1 Postmenopausal 23.0-116.3THIS TEST WAS PERFORMED AT:[facility] [place] [phone] TRUJILLO MD 05/28/2025 12:2 1 PM EST 05/28/2025 12:21 PM EST us Generic External Data Provider LAB BLOOD ORDERAB LES Final Result Performing Organization Address [facility] de Phone Number [facility] [address] [place] [phone] * US PELVIC OVARIAN DOPPLER (05/21/2025 4:47 AM EST) Anatomical Region Laterality Modality Abdomen Ultrasound 05/21/2025 4:47 AM EST Narrative 05/21/2025 4:49 AM EST [address] [address] Ultrasound Report Signed Patient: Vilma Bourne MR#: [id number] : 1975 Acct:[id number] Age/Sex: 50 / F ADM Date: 05/20/25 Loc: HO.ED Attending Dr: Ordering Physician: Sukumar Garcia PA-C Date of Service: 05/21/25 Procedure(s): US pelvic ovarian doppler Accession Number(s): [id number] cc: Sukumar Garcia PA-C; KARELY LOPEZ NP [...] Large heterogeneous fibroid uterus. Recommend nonemergent surgical real estate firm manager consultation. The ovaries are not seen. However, there are no adnexal masses or pelvic free fluid. This document has been electronically signed by: Elver Belle MD on 05/21/2025 04:47:16 Dictated By: Elver Belle MD Signed By: <Electronically signed by Elver Belle MD in OV> 05/21/25448 DD/ 6 TD/TT: 05/21/25446 Morning Babysitter: Procedure Note Donotuseinterpreter, Image - 05/21/2025 [place] [address] Ultrasound Report Signed Patient: Vilma Bourne#: [id number] : 1975Acct:[id number] Age/Sex: 50 / FADM Date: 05/20/25 Loc: HO.ED Attending Dr: Ordering Physician: Sukumar Garcia PA-C Date of Service: 05/21/25 Procedure(s): US pelvic ovarian doppler Accession Number(s): [id number] cc: Sukumar Garcia PA-C; KARELY LOPEZ NP [...] Large heterogeneous fibroid uterus. Recommend nonemergent surgical real estate firm manager consultation. The ovaries are not seen. However, there are no adnexal masses or pelvic free fluid. This document has been electronically signed by: Elver Belle MD on 05/21/2025 04:47:16 Dictated By: Elver Belle MD Signed By: <Electronically signed by Elver Belle MD in OV> 05/21/25448 DD/ 6 TD/TT: 05/21/25446 Morning Babysitter: us [facility] External Provider IMG US PROCEDURES Edited Result - Final * CT Abdomen Pelvis w/ Contrast (05/21/2025 12:17 AM EST) Anatomical Region Laterality Modality Body, Pelvis, Abdomen Computed T omography 05/21/2025 12:1 7 AM EST Narrative 05/21/2025 12:19 AM EST [place] [address] CT Scan Report Signed Patient: Vilma Bourne MR#: [id number] : 1975 Acct:[id number] Age/Sex: 50 / F ADM Date: 05/20/25 Loc: HO.ED Attending Dr: Ordering Physician: Sukumar Garcia PA-C Date of Service: 05/20/25 Procedure(s): CT abdomen pelvis w IV con Accession Number(s): [id number] cc: Sukumar Garcia PA-C; KARELY LOPEZ NP Report Number: [id number]: Total DLP = 720.00 mGy-cm Reason for [...] Hameed MD in OV> 05/21/25 0018 DD/ TD/TT: 05/21/2516 Morning Babysitter: Procedure Note Donotuseinterpreter, Image - 05/21/[address] [address] [address] Scan Report Signed Patient: Vilma Bourne#: [id number] : 1975Acct:[id number] Age/Sex: 50 / FADM Date: 05/20/25 Loc: HO.ED Attending Dr: Ordering Physician: Sukumar Garcia PA-C Date of Service: 05/20/25 Procedure(s): CT abdomen pelvis w IV con Accession Number(s): [id number] cc: Sukumar Garcia PA-C; KARELY LOPEZ NP Report Number: [id number]: Total DLP = 720.00 mGy-cm Reason for [...] Hameed MD in OV> 05/21/25 0018 DD/ TD/TT: 05/21/25 001 Morning Babysitter: [facility] External Provider IMG CT PROCEDURES Final Result * XR WRIST LT W SCAPHOID (03/12/2025 1:18 PM EDT) Anatomical Region Laterality Modality Upper Extremities, Wrist Left Radiogr aphic Imaging 03/12/2025 1:18 PM EDT Narrative 03/12/2025 1:42 PM EDT [facility] [address] [place] [address] XRay Report Signed Patient: Vilma Bourne MR#: [id number] : 1975 Acct:[id number] Age/Sex: 50 / F ADM Date: 03/12/25 Loc: DANA Attending Dr: Álvaro MAYNARD Ordering Physician: Álvaro Luciano Date of Service: 03/12/25 Procedure(s): XR wrist LT w scaphoid Accession Number(s): [id number] cc: Álvaro Luciano; KARELY LOPEZ NP Reason [...] 03/12/25 1339 DD/ 1318 TD/TT: 03/12/25 1322 Morning Babysitter: Procedure Note Donotuseinterpreter, Image - 03/12/2025 [facility] [address] [place] [address] XRay Report Signed Patient: Vilma BourneMR#: [id number] : 1975Acct:[id number] Age/Sex: 50 / FADM Date: 03/12/25 Loc: DANA Attending Dr: Álvaro MAYNARD Ordering Physician: Álvaro Luciano Date of Service: 03/12/25 Procedure(s): XR wrist LT w scaphoid Accession Number(s): [id number] cc: Álvaro Luciano PA; KARELY LOPEZ NP Reason for Exam: M25.532 [...] 03/12/25 1339 DD/ 1318 TD/TT: 03/12/25 1322 Morning Babysitter: [facility] External Provider IMG XR PROCEDURES Final Result * Lipid Panel, Standard (10/25/2024 10:46 AM EDT) Triglycerides 70 <150 mg/dL [facility] Comment:Desirable Triglyceri de: less than 150 mg/dLBorderline High Triglyceride 150-199 mg/dLHigh Triglyceride: 200-499 mg/dLVery High Triglyceride: greater than or equal to 5OO mg/dL Cholesterol 141 <200 mg/dL [facility] Comment:Desirable Cholestero l: less than 200 mg/dLBorderline High Cholesterol: 200-239 mg/dLHigh Cholesterol: greater than 239 mg/dL LDL Cholesterol Calculated 81 <100 mg/dL [facility] Comment:Desirable LDL: less than 100 mg/dLNear Optimal/Above Optimal LDL: 110- 129 mg/dLBorderline High LDL: 130-159 mg/dLHigh LDL: 160-189 mg/dLVery High LDL: greater than or equal to 190 mg/dL HDL Cholesterol 46 >40 mg/dL [facility] Comment:Desirable HDL: great er than 40 mg/dL Note: This HDL assay may give artificially low results in patients with liver disease. Blood Venous blood specimen / Unknown 10/25/2024 10:46 AM EDT 10/25/2024 1:26 PM EDT Karely Lopez [facility] LAB BLOOD ORDERABLES Final Resul t Performing Organization Address [facility]/ZIP Co de Phone Number [facility] [address] [place] [phone] * HPV DNA, Low/High Risk (07/21/2024 10:35 AM EST) HPV High Risk Negative Negative [facility] HPV Genotype 16 Negative Negative [facility] HPV Genotype 18 Negative Negative [facility] Comment:HPV testing performe d at [facility] (CLIA#[id number]), [address] [place] [address].Testing for HPV was performed using the Kate [employer]ONYA Bactest0system. The presence of HPV in the female [...] 07/24/2024 8:20 AM EST us Karely Lopez [facility] BLOOD ORDERABLES Final Resul t Performing Organization Address [facility]/ZIP Co de Phone Number [facility] [address] [place] [phone] * Pap Smear (07/21/2024 10:35 AM EST) Swab Cervical swab / Unknown 07/21/2024 10:35 AM EST 07/24/2024 8:20 AM EST Narrative [facility] - 07/29/2024 10:03 AM EST ----- ------- Name: Vilma Bourne Age/Sex: 49/F : 1975 Unit#: [id number] Attend Dr: KARELY LOPEZ NP Re07/21/24 Status: [facility] REF Location: [facility] Disch: ----- ------- SPEC : [id number] RECD: 07/24/24 STATUS: RAYMOND RODRIGUEZ NUM: [id number] ESTEBAN: 07/21/24 [facility] DR: KARELY LOPEZ NP ENTERED: 07/24/24 SP [...] ----- ------- Signed (signature on file) Jerson Carloscynthia CT (ASC) 07/29/24 1003 ----- ------- END OF REPORT us Karely Lopez ANP LAB CYTOLOGY ORDERABLES Final Re sult [facility] [address] [place] [phone] * BI Mammogram Screening Tomosynthesis Bilateral (07/19/2024 11:30 AM EST) Anatomical Region Laterality Modality Breast Bilateral Mammography 07/19/2024 11:3 0 AM EST Narrative 07/25/2024 7:11 PM EST [address] [place] [address] Mammography Report Signed Patient: Vilma Bourne MR#: [id number] : 1975 Acct:[id number] Age/Sex: 49 / F ADM Date: 07/19/24 Loc: NATE Attending Dr: Karely Lopez NP Ordering Physician: KARELY LOPEZ NP Results: 2Benign Khalif pelaez Date of Service: 07/19/24 Follow Up: 1 Year From Orig inal Mammogram Procedure(s): MM tomosynthesis screening BI Accession Number(s): [id number] cc: KARELY LOPEZ NP EXAMINATION: MM SCREENING [...] by Renay Sosa DO in OV> 07/25/24 190 DD/ 1130 TD/TT: 07/19/24 1140 Morning Babysitter: Procedure Note Donotuseinterpreter, Image - 07/25/2024 [facility] [address] [place] [address] Mammography Report Signed Patient: Mary Bourne#: [id number] : 1975Acct:[id number] Age/Sex: 49 / FADM Date: 07/19/24 Loc: HO.MAMMO Attending Dr: Karely Lopez NP Ordering Physician: KARELY LOPEZ NPResults: 2Beninicole pelaez Date of Service: 07/19/24Follow Up: 1 Year From [facility] Mammogram Procedure(s): MM tomosynthesis screening BI Accession Number(s): [id number] cc: KARELY LOPEZ NP EXAMINATION: MM SCREENING [...] 07/25/24 1908 DD/ 1130 TD/TT: 07/19/24 1140 Morning Babysitter: us Karely Lopez ANP IMG BI PROCEDURES Final Result * HEPATITIS C AB W/REFL TO HCV RNA, QN, PCR (07/08/2021 10:50 AM EST) HEPATITIS C ANTIBODY NON-REACT CELESTINO NON-REACT CELESTINO [facility] INDEX 0.04 <1.00 [facility] Comment: HCV antibody was non-reactive. There is no laboratory evidence of HCV infection. In most cases, no further action is required. However, if recent HCV exposure is suspected, a test for HCV RNA (test code 75896) is suggested. For additional information please refer to http://education.[employer]/faq/VYR05w0 (This link is being provided for informational/ educational purposes only.) 07/08/2021 10:5 0 AM EST us Karely Lopez ANP HISTORICAL/NON ORDERABLE LABS Fi nal Result [facility] [address] * HIV 1/2 ANTIGEN/ANTIBODY,FOURTH GENERATION W/RFL (07/08/2021 10:50 AM EST) HIV-1/2 ANTIGEN AND ANTIBODIES, 4TH GENERATION W/ REFLEX NON-REACT CELESTINO NON-REACT CELESTINO [facility] Comment: HIV-1 antigen and HIV-1/HIV-2 [...] purpose. For additional information please refer to http://education.[employer]/faq/NQI826 (This link is being provided for informational/ educational purposes only.) The performance of this assay has not been clinically validated in patients less than 2 years old. 07/08/2021 10:5 0 AM EST Karely Lopez [facility] LAB BLOOD ORDERABLES Final Resul t [facility] [address] from Last 3 Months or Most Recently Relevant to Health Maintenance [place] [address] [address] HMO [employer] Care Teams Laundry Marker Supervisor Relationship Specialty Start Date End Date Karely Lopez ANP [address] [place] [phone] PCP - General Family Medicine 01/30/21 Thalia Guerra [address] [place] [address] [place] [address] Pulmonary Disease 05/07/25
--- OUTSIDE RECORDS SUMMARY | 2025-06-05 17:05 | XMS_ITS | Encounter Summary ---
Author Organization [employer] Address [address] [place] [address] 7 [place] [address] Care Team Providers Care Marking Machine Tender Name Role Phone Phyllis Day Primary Care Provider Thalia Guerra Unavailable [phone] Reason for Visit * Reason Comments Med Refill Encounter Details Date Type Department Care Team (Late st Contact Info) Description 02/24/2023 Refill [facility] [address] [place], [place] [phone] Phyllis Day ANP [address] [place], [place] [phone] Mild persistent asthma with (acute) exacerbation Social [...] exacerbation documented in this encounter Care Teams Marking Machine Tender Relationship Specialty Start Date End Date Phyllis Day ANP [address] [place], [place] [phone] PCP - General Family Medicine 01/30/21 Thalia Guerra [address] [place] [address] Dr [address] [place] [address] Pulmonary Disease 05/07/25 documented as of this encounter
--- OUTSIDE RECORDS SUMMARY | 2025-06-05 17:05 | XMS_ITS | Encounter Summary ---
Author Organization [employer] Address [address] [facility] 7 [place] [address] Care Team Providers Care Outreach Educator Name Role Phone Phyllis Day Primary Care Provider [phone] Thalia Guerra Unavailable [phone] Reason for Visit * Reason Onset Date Comments Med Refill 12/22/2024 Encounter Details Date Type Department Care Team (Late st Contact Info) Description 12/22/2024 Refill [facility] [address] [place], [place] [phone] Phyllis Day ANP [address] [place] [address] Essential hypertension Social History Tobacco Use Types [...] documented as of this encounter Care Teams Outreach Educator Relationship Specialty Start Date End Date Phyllis Day ANP [address] [place] [address] PCP - General Family Medicine 01/30/21 Thalia Guerra [address] [place] [address] Pulmonary Disease 05/07/25 documented as of this encounter
--- OUTSIDE RECORDS SUMMARY | 2025-06-05 17:05 | XMS_ITS | Encounter Summary ---
Author Organization [employer] Address [address] [place] [address] 7 [place] [address] Care Team Providers Care Mud Analysis Supervisor Name Role Phone Phyllis Day Primary Care Provider Thalia Guerra Unavailable [phone] Encounter Details Date Type Department Care Team (Late st Contact Info) Description 12/30/2022 Orders Only [facility] [address] [place] [address] Hanna Aranda LPN Social History Tobacco Use [...] on filedocumented in this encounter Care Teams Mud Analysis Supervisor Relationship Specialty Start Date End Date Phyllis Day ANP [address] [place] [address] PCP - General Family Medicine 01/30/21 Thalia Guerra [address] [place] [address] Dr [address] [place] [address] Pulmonary Disease 05/07/25 documented as of this encounter
--- OUTSIDE RECORDS SUMMARY | 2025-06-05 17:05 | XMS_ITS | Encounter Summary ---
Author Organization [employer] Address [address] [facility] 7 [place] [address] Care Team Providers Care Electric Power Machine Operator Name Role Phone Phyllis Day Primary Care Provider [phone] Thalia Guerra Unavailable [phone] Reason for Visit * Reason Comments Med Change Request Encounter Details Date Type Department Care Team (Late st Contact Info) Description 10/24/2024 Refill [facility] [address] [place], [place] [phone] Phyllis Day ANP [address] [place], [place] [phone] Gastroesophageal reflux disease, unspecified whether esophagitis present [...] documented as of this encounter Care Teams Electric Power Machine Operator Relationship Specialty Start Date End Date Phyllis Day ANP [address] [place] [address] PCP - General Family Medicine 01/30/21 Thalia Guerra [address] [place] [address] [address] [place] [address] Pulmonary Disease 05/07/25 documented as of this encounter
--- OUTSIDE RECORDS SUMMARY | 2025-06-05 17:05 | XMS_ITS | Encounter Summary ---
Author Organization [employer] Address [address] [facility] 7 [place] [address] Care Team Providers Care Territory Sales Executive Name Role Phone Phyllis Day Primary Care Provider [phone] Thalia Guerra Unavailable [phone] Reason for Visit * Reason Comments Med Refill Encounter Details Date Type Department Care Team (Late st Contact Info) Description 12/02/2024 Refill [facility] [address] [place], [place] [phone] Phyllis Day ANP [address] [place], [place] [phone] Gastroesophageal reflux disease, unspecified whether esophagitis present [...] documented as of this encounter Care Teams Territory Sales Executive Relationship Specialty Start Date End Date Phyllis Day ANP [address] [place] [address] PCP - General Family Medicine 01/30/21 Thalia Guerra [address] [place] [address] [address] [place] [address] Pulmonary Disease 05/07/25 documented as of this encounter
== END 2025-06-05 16:27 | disposition home or self-care (01) ==
LOC: HO.CT 16:26
PROVIDERS: PCP Nurse Practitioner Primary Care; Visit Provider Nurse Practitioner Family
DX: R93.89 Abnormal findings on diagnostic imaging of other specified body structures (principal)
CPT/HCPCS: 71250

== ENCOUNTER → 2025-06-05 16:38 | Outpatient (BNV) | payer BC, MEDICAID, SELFPAY | PROVIDERS: PCP Nurse Practitioner Primary Care; Visit Provider Radiology Diagnostic Radiology | DX: J43.9 Emphysema, unspecified (principal) | CPT/HCPCS: 71250 ==